=== PATIENT | male | born 1975 | race Caucasian/White ===

== ENCOUNTER 2017-12-17 05:24 | Inpatient (IN) ==
[2017-12-17] MEDS ORDERED: 0.9 % Sodium Chloride 1,000 ML IVC ONE (06:04)
[2017-12-17] MEDS ORDERED: Ondansetron 4 MG/2 ML VIAL IVP PRN ×2 (06:19→08:55)
[2017-12-17] MEDS ORDERED: Ondansetron 4 MG/2 ML VIAL ONE (06:20)
--- NOTE | 2017-12-17 06:22 | Emergency Department Note ---
Disposition Clinical Impression: Fever Qualifiers: Fever type: unspecified Qualified Code(s): R50.9 - Fever, unspecified Disposition: Still a Patient Condition: Undetermined Referrals: Jason Santos DO [Resident] - Forms: ED Satisfaction Letter Time of Disposition: 07:00 Fever HPI - General Chief Complaint: ED Fever Stated Complaint: FEVER Time Seen by Provider: 12/17/17 05:28 Source: patient Limitations: no limitations Nursing Notes Reviewed: Yes Vital Signs Reviewed: Yes - History of Present Illness HPI Narrative: Patient is a 42-year-old male who presents to [facility] ED with a chief complaint of headache, fever up to 102, nausea, general malaise. Past medical history significant for IV drug use, most recently used hair when yesterday. Also history of 3 prior aortic valve replacements at [facility]. States he was told the last time that if he needed another valve replacement, he would not be getting it. Patient denies any chest pain, admits to occasional shortness of breath, no abdominal pain, problems with urination or bowel movements. Pt Subjective Complaint: fever, malaise Onset (ago): day(s) Associated symptoms: Reports: myalgias, headache, cough, dyspnea Improves with: nothing Worsens with: nothing Treatments prior to arrival fever: none - Related Data Previous Rx's Medication Instructions Recorded Ampicillin 2 gm IVPB Q4HR vial 03/06/16 DiphenhydraMINE [Benadryl] 25 mg IV Q3MIN PRN #0 vial 03/06/16 Docusate [Colace] 100 mg PO BID PRN #0 capsule 03/06/16 Enoxaparin [Lovenox] 40 mg SQ DAILY syringe 03/06/16 FentaNYL (PF) 50 mcg IV Q3MIN PRN #0 vial 03/06/16 HYDROmorphone (PF) [Dilaudid] 1 mg IV Q4HR PRN #0 syringe 03/06/16 MOM Conc [MILK OF MAGNESIA conc] 10 ml PO DAILY PRN #0 ud.liq 03/06/16 Midazolam HCl [Versed] 2 mg IV Q3MIN PRN #0 vial 03/06/16 Naloxone [Narcan] 0.4 mg IV Q2MIN PRN #0 inj 03/06/16 cefTRIAXone [Rocephin] 2,000 mg IVPB DAILY vial 03/06/16 Zolpidem [Ambien] 10 mg PO HS PRN #0 tablet 03/07/16 Allergies Allergy/AdvReac Type Severity Reaction Status Date / Time No Known Allergies Allergy Verified 12/17/17 05:25 All systems ED: reviewed and negative except as stated. Fever PMH - Past Medical History Medical history: Reports: coronary artery disease, DVT, hepatitis, myocardial infarction, TIA Surgical history: Reports: heart valve replacement (Aortic porcine valve), other Psychiatric history: Reports: anxiety - Social History Smoking Status: Current every day smoker Alcohol use: Reports: occasionally Drug use: Reports: cocaine, opiates, marijuana, IV Drug Use, other Physical Exam - General Limitations: no limitations General appearance: alert, in no apparent distress - Head Head exam: atraumatic, normocephalic, normal inspection - Eye Eye exam: Present: normal appearance, PERRL, EOMI - ENT ENT exam: normal exam, normal oropharynx, mucous membranes moist - Neck Neck exam: Present: normal inspection, full ROM, trachea midline - Chest Chest inspection: Present: normal inspection, symmetric chest wall rise - Respiratory Respiratory exam: Present: normal lung sounds bilaterally - Cardiovascular Cardiovascular exam: Present: normal rhythm, tachycardia - Abdominal Exam Abdominal exam: Present: soft, Non-Tender. Absent: tenderness, distention, guarding, rebound, rigidity - Extremities Exam Extremities exam: Present: normal inspection, full ROM. Absent: tenderness, pedal edema - Back Exam Back exam: Present: normal inspection, full ROM. Absent: tenderness - Neurological Exam Neurological exam: Present: alert, oriented X3 - Psychiatric Psychiatric exam: Present: normal affect, normal mood - Skin Skin exam: Present: warm, dry, intact, normal color Course Course Narrative: Patient seen and examined. Fever measured at home. Afebrile here. We will do basic labs, blood cultures, EKG, chest x-ray. We will give 1 L IV fluids. Patient will be signed out to oncoming resident Dr. Gamboa. Vital Signs Temperature 98.8 F 12/17/17 05:25 Pulse Rate 104 12/17/17 05:25 Respiratory Rate 16 12/17/17 05:25 Blood Pressure 113/77 12/17/17 05:25 O2 Sat by Pulse Oximetry 97 12/17/17 05:25 Temperature 98.8 F 12/17/17 05:25 Pulse Rate 104 02/26/18 05:25 Respiratory Rate 16 12/17/17 05:25 Blood Pressure 113/77 12/17/17 05:25 O2 Sat by Pulse Oximetry 97 12/17/17 05:25 Oxygen Delivery Oxygen Delivery Room Air Fever - Medical Records Medical records reviewed: Yes I reviewed the patient's medical records. - Lab Data Result diagrams: 12/17/17 06:18 Lab Results 12/17/17 12/17/17 Range/Units 06:18 06:30 WBC 11.1 (4.3-11.1) K/mcL RBC 4.44 (4.19-5.50) M/mcL Hgb 12.8 L (12.9-16.9) g/dL Hct 37.0 L (37.5-50.1) % MCV 83.3 (83.0-100.0) fL MCH 28.8 (28.0-33.3) pg MCHC 34.6 (31.6-35.5) g/dL RDW 14.8 H (11.5-14.5) % Plt Count 131 L (140-400) K/mcL MPV 9.3 L (9.4-12.4) fL Immature Gran % 0.4 (0-4) % Seg Neutrophils % 91.6 % Lymphocytes % 2.3 % Monocytes % 5.5 % Eosinophils % 0.0 % Basophils % 0.2 % Neutrophils # 10.2 H (1.6-8.9) K/mcL Lymphocytes # 0.3 L (0.6-4.6) K/mcL Monocytes # 0.6 (0.0-1.3) K/mcL Eosinophils # 0.0 (0.0-0.6) K/mcL Basophils # 0.0 (0.0-0.2) K/mcL Urine Color Sera A (Yellow) Urine Clarity Clear (Clear) Urine pH 6.0 (5.0-8.0) pH Units Ur Specific [place] 1.027 H (1.010-1.025) Urine Protein 100 H (Neg-Trace) mg/dL Urine Glucose (UA) Normal (Normal) mg/dL Urine Ketones Trace H (Negative) mg/dL Urine Blood Negative (Negative) Urine Nitrite Negative (Negative) Urine Bilirubin Small H (Negative) Urine Urobilinogen Normal (Normal) mg/dL Ur Leukocyte Esterase Small H (Negative) Urine Microscopic RBC 5-15 H (0-3) per hpf Urine Microscopic WBC 5-15 H (0-3) per hpf Ur Squamous Epith Cells Many H (None-Few) per lpf Urine Bacteria None Seen (None-Few) per hpf Hyaline Casts None Seen (None-Few) per lpf Ur Culture Indicated? NO. (NO) - EKG Data EKG attestation: Yes I reviewed and interpreted this EKG. EKG results narrative: EKG done at 640 shows sinus tachycardia with a rate of [address] elevation or depression. Normal axis.
[2017-12-17 06:33] LABS: Basophils % 0.2 %; Hemoglobin 12.8 g/dL (12.9-16.9); Immature Granulocytes % 0.4 % (0-4); Lymphocytes # 0.3 K/mcL (0.6-4.6); Lymphocytes % 2.3 %; Mean Corpuscular HGB Conc 34.6 g/dL (31.6-35.5); Mean Corpuscular Hemoglobin 28.8 pg (28.0-33.3); Mean Corpuscular Volume 83.3 fL (83.0-100.0); Mean Platelet Volume 9.3 fL (9.4-12.4); Monocytes # 0.6 K/mcL (0.0-1.3); Monocytes % 5.5 %; Neutrophils # 10.2 K/mcL (1.6-8.9); Platelet Count 131 K/mcL (140-400); Red Blood Count 4.44 M/mcL (4.19-5.50); Red Cell Distribution Width 14.8 % (11.5-14.5); Segmented Neutrophils % 91.6 %
[2017-12-17 06:42] LABS: Bilirubin,Urine Small (Negative); Blood,Urine Negative (Negative); Clarity,Urine Clear (Clear); Glucose,Urine (UA) Normal (Normal); Ketones,Urine Trace mg/dL (Negative); Leukocyte Esterase,Urine Small (Negative); Nitrite,Urine Negative (Negative); Protein,Urine 100 mg/dL (Neg-Trace); Specific Gravity,Urine 1.027 (1.010-1.025); Urobilinogen,Urine Normal (Normal)
[2017-12-17 06:45] LABS: Bacteria,Urine None Seen per hpf (None-Few); Hyaline Casts,Urine None Seen per lpf (None-Few); Squamous Epithelial Cell,Urine Many per lpf (None-Few)
[2017-12-17 06:46] LABS: Color,Urine Amber (Yellow)
[2017-12-17 06:48] LABS: Alanine Aminotransferase 61 Units/L (7-52); Albumin/Globulin Ratio 1.1 (1.1-2.2); Alkaline Phosphatase 78 Units/L (34-104); Aspartate Amino Transferase 41 Units/L (13-39); BUN/Creatinine Ratio 18 (6-26); Bilirubin,Direct 0.9 mg/dL (0.0-0.2); Bilirubin,Indirect 1.3 mg/dL (0.0-1.2); Bilirubin,Total 2.2 mg/dL (0.3-1.0); Blood Urea Nitrogen 28 mg/dL (6-20); Calcium 9.1 mg/dL (8.6-10.3); Carbon Dioxide 26 mEq/L (23-29); Chloride 98 mEq/L (98-107); Globulin 3.7 g/dL (2.4-3.5); Glucose 132 mg/dL (70-105); Osmolality,Calculated 285 (280-300); Potassium 3.3 mEq/L (3.5-5.1); Sodium 134 mEq/L (136-145); Total Protein 7.7 g/dL (6.4-8.9); eGFR For African Americans > 60 (> 60); eGFR For Non-African Americans 50 (> 60)
[2017-12-17] MEDS ORDERED: Ketorolac 15 MG/ML VIAL IVP ONE (07:03)
[2017-12-17] MEDS ORDERED: Gentamicin 100 MG in 0.9 % Sodium Chloride 100 ML IVPB ONE (07:04)
[2017-12-17] MEDS ORDERED: *HR* Promethazine 25 MG/ML VIAL IVP ONE (07:06)
[2017-12-17] MEDS ORDERED: Aspirin 81 MG TAB.CHEW PO ONE (07:07)
--- NOTE | 2017-12-17 07:09 | Emergency Department Note ---
Disposition Clinical Impression: Elevated troponin, History of endocarditis, History of drug use Fever Qualifiers: Fever type: unspecified Qualified Code(s): R50.9 - Fever, unspecified Disposition: Admitted As Inpatient Condition: Fair Time of Disposition: 07:09 Fever HPI - General Chief Complaint: ED Fever Stated Complaint: FEVER Time Seen by Provider: 12/17/17 05:28 Source: patient Limitations: no limitations - History of Present Illness HPI Narrative: Patient was signed by the prior provider. Please see the history and physical for complete documentation. Associated symptoms: Reports: myalgias, headache, cough, dyspnea Treatments prior to arrival fever: none - Related Data Home Medications Medication Instructions Recorded Confirmed No Known Home Drugs 12/17/17 12/17/17 Allergies Allergy/AdvReac Type Severity Reaction Status Date / Time No Known Allergies Allergy Verified 12/17/17 05:25 Fever PMH - Past Medical History Medical history: Reports: coronary artery disease, DVT, hepatitis, myocardial infarction, TIA Surgical history: Reports: heart valve replacement (Aortic porcine valve), other Psychiatric history: Reports: anxiety - Social History Smoking Status: Current every day smoker Alcohol use: Reports: occasionally Drug use: Reports: cocaine, opiates, marijuana, IV Drug Use, other Physical Exam - General Limitations: no limitations General appearance: alert, in no apparent distress - Head Head exam: atraumatic, normocephalic, normal inspection - Eye Eye exam: Present: normal appearance, PERRL, EOMI - ENT ENT exam: normal exam - Neck Neck exam: Present: normal inspection - Chest Chest inspection: Present: normal inspection - Respiratory Respiratory exam: Present: normal lung sounds bilaterally. Absent: respiratory distress - Cardiovascular Cardiovascular exam: Present: regular rate, normal rhythm, systolic murmur (RSB) - Abdominal Exam Abdominal exam: Present: soft, Non-Tender - Back Exam Back exam: Present: normal inspection - Neurological Exam Neurological exam: Present: alert, oriented X3, CN II-XII intact - Skin Skin exam: Present: warm, dry, intact, normal color Course Course Narrative: 42-year-old male with a history of IV drug use status post 3 donor heart valve replacements presents for evaluation of fever nausea and headache. States that symptom onset was approximately 2 days ago. Patient states he last used heroin 2 days ago. Patient also notes diffuse muscle aches and joint aches. Patient denies any chest pain or dyspnea. Patient's labs and workup today was started by the prior provider. - Reevaluation(s) Reevaluation #1: Patient seen and examined. Patient appears to be in no acute distress. Patient will get basic labs and chest x-ray antibiotics blood cultures and likely transfer to [facility]. Time: 07:09 Reevaluation #2: Patient seen and examined. Patient states that he does not want to go to [facility] or any other facility in [place] to manage his likely infective endocarditis. Patient states that he would only want antibiotics. States that he has had 3 valves replaced in the past. 2 at [facility] and 1 at [facility] and states that those facilities will not sonal him any other surgeries. Patient states that he does not want to be transferred. States that he will go home with he is not admitted here. Pt states "all they are going to do is giving me antibiotics at [facility] or [facility]". Patient was counseled on risks and benefits of being admitted or going to a facility that handles endocarditis with his prior surgeries. Time: 07:20 Reevaluation #3: Patient will be admitted. Time: 09:17 - Consultations Consultation #1: Patient hosptialist states that they don't want to admit the patient. Hospitalist states they will come down to evaluate the patient. Time: 08:41 Vital Signs Temperature 98.8 F 12/17/17 05:25 Pulse Rate 104 12/17/17 05:25 Respiratory Rate 16 12/17/17 05:25 Blood Pressure 113/77 12/17/17 05:25 O2 Sat by Pulse Oximetry 97 12/17/17 05:25 Temperature 99.8 F H 12/17/17 08:54 Pulse Rate 98 12/17/17 08:54 Respiratory Rate 16 12/17/17 08:54 Blood Pressure 99/76 12/17/17 08:54 O2 Sat by Pulse Oximetry 95 12/17/17 08:54 Oxygen Delivery Oxygen Delivery Room Air Fever - MDM Narrative Medical decision making narrative: 42-year-old male presents for evaluation of fever as well as nausea vomiting and headache. Patient has a significant history of infective endocarditis with 3 replacements in the past. Patient was signed out by the prior provider. Patient was noted to have several lab abnormalities. One of which included an elevated troponin likely secondary to his infective endocarditis. Patient states that he did use heroin approximately 3 days ago. Since symptom onset occurred at that time. Patient's symptomatology is most consistent with infective endocarditis. Patient was started on antibiotics. Blood cultures obtained. As indicated transfer to a tertiary care facility that manages his past endocarditis however the patient was adamant about not being transferred. States that all that they would do would provide antibiotics and states that he would go home if not admitted here. Patient states it they will not give him any other valve replacements. Patient's vitals are stable. Patient was given fluids as well as antiemetics and pain control. Patient's denying being on any blood thinners. Patient will be admitted to the hospital service for further evaluation and monitoring. - Lab Data Lab results reviewed: Yes I reviewed the patient's lab results. Result diagrams: 12/17/17 06:18 12/17/17 06:18 Lab Results 12/17/17 12/17/17 12/17/17 Range/Units 06:18 06:18 06:18 WBC 11.1 (4.3-11.1) K/mcL RBC 4.44 (4.19-5.50) M/mcL Hgb 12.8 L (12.9-16.9) g/dL Hct 37.0 L (37.5-50.1) % MCV 83.3 (83.0-100.0) fL MCH 28.8 (28.0-33.3) pg MCHC 34.6 (31.6-35.5) g/dL RDW 14.8 H (11.5-14.5) % Plt Count 131 L (140-400) K/mcL MPV 9.3 L (9.4-12.4) fL Immature Gran % 0.4 (0-4) % Seg Neutrophils % 91.6 % Lymphocytes % 2.3 % Monocytes % 5.5 % Eosinophils % 0.0 % Basophils % 0.2 % Neutrophils # 10.2 H (1.6-8.9) K/mcL Lymphocytes # 0.3 L (0.6-4.6) K/mcL Monocytes # 0.6 (0.0-1.3) K/mcL Eosinophils # 0.0 (0.0-0.6) K/mcL Basophils # 0.0 (0.0-0.2) K/mcL Sodium 134 L (136-145) mEq/L Potassium 3.3 L (3.5-5.1) mEq/L Chloride 98 (98-107) mEq/L Carbon Dioxide 26 (23-29) mEq/L BUN 28 H (6-20) mg/dL Creatinine 1.56 H (0.70-1.30) mg/dL Est GFR ( Amer) > 60 (> 60) Est GFR (Non-Af Amer) 50 L (> 60) BUN/Creatinine Ratio 18 (6-26) Glucose 132 H (70-105) mg/dL Calculated Osmolality 285 (280-300) Lactic Acid 1.7 (0.5-2.2) mmol/L Calcium 9.1 (8.6-10.3) mg/dL Total Bilirubin 2.2 H (0.3-1.0) mg/dL Direct Bilirubin 0.9 H (0.0-0.2) mg/dL Indirect Bilirubin 1.3 H (0.0-1.2) mg/dL AST 41 H (13-39) Units/L ALT 61 H (7-52) Units/L Alkaline Phosphatase 78 (34-104) Units/L Troponin I (< 0.04) ng/mL B-Natriuretic Peptide (Less than 100) pg/mL Serum Total Protein 7.7 (6.4-8.9) g/dL Albumin 4.0 (3.5-5.7) g/dL Globulin 3.7 H (2.4-3.5) g/dL Albumin/Globulin Ratio 1.1 (1.1-2.2) Urine Color (Yellow) Urine Clarity (Clear) Urine pH (5.0-8.0) pH Units Ur Specific [place] (1.010-1.025) Urine Protein (Neg-Trace) mg/dL Urine Glucose (UA) (Normal) mg/dL Urine Ketones (Negative) mg/dL Urine Blood (Negative) Urine Nitrite (Negative) Urine Bilirubin (Negative) Urine Urobilinogen (Normal) mg/dL Ur Leukocyte Esterase (Negative) Urine Microscopic RBC (0-3) per hpf Urine Microscopic WBC (0-3) per hpf Ur Squamous Epith Cells (None-Few) per lpf Urine Bacteria (None-Few) per hpf Hyaline Casts (None-Few) per lpf Ur Culture Indicated? (NO) 12/17/17 12/17/17 12/17/17 Range/Units 06:18 06:18 06:30 WBC (4.3-11.1) K/mcL RBC (4.19-5.50) M/mcL Hgb (12.9-16.9) g/dL Hct (37.5-50.1) % MCV (83.0-100.0) fL MCH (28.0-33.3) pg MCHC (31.6-35.5) g/dL RDW (11.5-14.5) % Plt Count (140-400) K/mcL MPV (9.4-12.4) fL Immature Gran % (0-4) % Seg Neutrophils % % Lymphocytes % % Monocytes % % Eosinophils % % Basophils % % Neutrophils # (1.6-8.9) K/mcL Lymphocytes # (0.6-4.6) K/mcL Monocytes # (0.0-1.3) K/mcL Eosinophils # (0.0-0.6) K/mcL Basophils # (0.0-0.2) K/mcL Sodium (136-145) mEq/L Potassium (3.5-5.1) mEq/L Chloride (98-107) mEq/L Carbon Dioxide (23-29) mEq/L BUN (6-20) mg/dL Creatinine (0.70-1.30) mg/dL Est GFR ( Amer) (> 60) Est GFR (Non-Af Amer) (> 60) BUN/Creatinine Ratio (6-26) Glucose (70-105) mg/dL Calculated Osmolality (280-300) Lactic Acid (0.5-2.2) mmol/L Calcium (8.6-10.3) mg/dL Total Bilirubin (0.3-1.0) mg/dL Direct Bilirubin (0.0-0.2) mg/dL Indirect Bilirubin (0.0-1.2) mg/dL AST (13-39) Units/L ALT (7-52) Units/L Alkaline Phosphatase (34-104) Units/L Troponin I 0.12 H* (< 0.04) ng/mL B-Natriuretic Peptide 419 H (Less than 100) pg/mL Serum Total Protein (6.4-8.9) g/dL Albumin (3.5-5.7) g/dL Globulin (2.4-3.5) g/dL Albumin/Globulin Ratio (1.1-2.2) Urine Color Sera A (Yellow) Urine Clarity Clear (Clear) Urine pH 6.0 (5.0-8.0) pH Units Ur Specific [place] 1.027 H (1.010-1.025) Urine Protein 100 H (Neg-Trace) mg/dL Urine Glucose (UA) Normal (Normal) mg/dL Urine Ketones Trace H (Negative) mg/dL Urine Blood Negative (Negative) Urine Nitrite Negative (Negative) Urine Bilirubin Small H (Negative) Urine Urobilinogen Normal (Normal) mg/dL Ur Leukocyte Esterase Small H (Negative) Urine Microscopic RBC 5-15 H (0-3) per hpf Urine Microscopic WBC 5-15 H (0-3) per hpf Ur Squamous Epith Cells Many H (None-Few) per lpf Urine Bacteria None Seen (None-Few) per hpf Hyaline Casts None Seen (None-Few) per lpf Ur Culture Indicated? NO. (NO) - Radiology Data Radiology results reviewed: Yes I reviewed the patient's radiology results. Chest X-Ray 12/17/17 07:17 IMPRESSION: No acute cardiopulmonary disease is identified. D/ / Fede Srinivasan MD / Fede Srinivasan MD Interpreting Provider: Fede Srinivasan MD S.B.AMateus - S.B.AStuRStu Situation: Demographics Background: Presenting Complaint Assessment: Vital Signs, Course and respsone to treatment, Patient/Family Expectation Recommendation: Barrier(s) to disposition, Recommendation based on pending studies, treatments, or consults S.B.A.RStu Report Given to: Dr. Shayy Nichole Repor Time: 08:43
--- NOTE | 2017-12-17 07:21 | Electrocardiograph Report ---
[place] [facility] Test Date: 2017-12-17 Pat Name: Arturo Quinn Department: 104 Room: Gender: M Orthopedic Physician: : [id number] Requested By: Angi Zuñiga Order Number: [id number] Reading MD: Alex Ramsay DO Measurements Intervals [place] Rate: 101 P: -84 NE: 194 QRS: -22 QRSD: 103 T: 48 QT: 356 QTc: 414 Interpretive Statements ECTOPIC ATRIAL TACHYCARDIA BORDERLINE LEFT AXIS DEVIATION [QRS AXIS < -20] ABNORMAL RHYTHM ECG POOR R WAVE PROGRESSION Electronically Signed On 12-17-2017 7:19:45 EST by Alex Ramsay DO
[2017-12-17] MEDS ORDERED: Naloxone 0.4 MG/ML INJ IVP PRN (08:55)
--- NOTE | 2017-12-17 09:14 | Internal Med History&Physical ---
Date of Encounter: 12/17/17 Time of Encounter: 08:45 Assessment and Plan (1) Sepsis Current visit: No Status: Acute Admit the pt into Tele He does meet Sepsis criteria with sinustachycardia, low grade fever, mildly elevated WBC and possible IE He is high risk for recurrent IE Blood cx were drawn in the ER..noticed only one set was drawn asked the ER attending to repeat another 2 sets of Blood cx now He was give Vanc and Gentamycin will cont them for now stat 2 E cho ID consulted continue symptomatic and supportive care Qualifiers: Sepsis type: sepsis due to unspecified organism Qualified Code(s): A41.9 - Sepsis, unspecified organism (2) NSTEMI (non-ST elevated myocardial infarction) Current visit: Yes Status: Acute Slightly elevated Trop Reviewed EKG showed : sinus tachycardia with HR 101, No acute ST elevation or depression. Normal axis Card consulted Trend on Trop May need heparin gtt.. Will defer this decision to Card Echo ordered (3) IV drug abuse Current visit: Yes Status: Acute IV Heroin high risk for withdrawal symptoms will put him on CIWA last dose 3 days ago counseled to quit (4) S/P aortic valve replacement with prosthetic valve Current visit: Yes Status: Acute will obtain records from [facility] and [facility] (5) History of endocarditis Current visit: Yes Status: Acute (6) Hepatitis-C Current visit: No Status: Chronic sightly elevated LFT's could be sepsis related cont close monitoring Qualifiers: Viral hepatitis chronicity: chronic Hepatic coma status: without hepatic coma Qualified Code(s): B18.2 - Chronic viral hepatitis C Internal Medicine - H&P: HPI Chief complaint: Fever / Chills Admitted From: Emergency Dept Plans for Post Hospital Care: Home History of present illness: Mr. Quinn is a 42 year old male with known PMH of CVA, DVT, infective endocarditis status post aortic valve replacement in 02/2015 an d002/2016 at [facility] , hepatitis C, GERD, and IV Heroin drug abuse pt who is still actively doing IV Heroin, had last dose 3 days ago now presented to ER with 1 week history of fever/ chills. Denied any CP. Here in the ER his Trop @ 0.12, we requested him to go to [facility] for further higher level of care since he is high risk pt for another Infectious endocarditis on a prosthetic valve. However pt mentioned he had 3 times heart valve repair at [facility] and [place], at both placeds they told him, they can not do any more surgeries. So he refused to go to tertiary care center, even after I clearly explained to him we may not provide any surgical interventions here, that is going to put his life in jeopardy. He wanted to get admitted here and see how his disease progress in next 2 days. Past Med Surg Social Fam HX - Past Medical History Medical history: coronary artery disease, DVT, hepatitis, myocardial infarction , TIA Psychiatric history: anxiety - Past Surgical History Surgical History: heart valve replacement (Aortic porcine valve), other - Social History Smoking Status: Current every day smoker Smokeless Tobacco Status: No Alcohol use: occasionally Drug use: cocaine, opiates, marijuana, IV Drug Use, other - Family History Grandfather Living Status: Hx Family Cardiac Disorders: Yes Hx Family Respiratory Disorders: Yes Internal Medicine - H&P: Meds No Known Home Drugs 12/17/17 [History] 3 Allergy/AdvReac Type Severity Reaction Status Date / Time No Known Allergies Allergy Verified 12/17/17 05:25 All Systems PM: A 10-system review of systems was performed and is negative for pertinent findings except as documented above in the HPI. Review of systems: All the systems are reviewed everything is benign except the systems and symptoms I mentioned in the history of present illness - Constitutional Vitals: Temp Pulse Resp BP Pulse Ox 99.8 F H 98 16 99/76 95 12/17/17 08:54 12/17/17 08:54 12/17/17 08:54 12/17/17 08:54 12/17/17 08:54 General appearance: Present: cooperative, A&O X 3, answers questions appropriately Exam: Looks weak and lethargic shivering and tremors noticed - Head Head exam: Present: atraumatic, normocephalic - Neck Neck exam general surgery: Present: supple - Respiratory Respiratory exam: Present: decreased breath sounds. Absent: rales, respiratory distress, rhonchi, wheezes - Cardiovascular Cardiovascular exam: Present: +S1, +S2, systolic murmur, tachycardia - GI/Abdominal GI/Abdominal exam: Present: normal bowel sounds, soft. Absent: rebound, rigid, tenderness - Extremities Exam Extremities exam: Present: pedal edema (trace). Absent: calf tenderness, tenderness - Back Exam Back exam: Absent: CVA tenderness (L), CVA tenderness (R) - Neurological Exam Neurological exam: Present: alert, oriented X3 - Psychiatric Psychiatric exam: Present: anxious - Skin Skin exam: Absent: rash Internal Med - H&P Results - Labs CBC & Chem 7: 12/17/17 06:18 12/17/17 06:18 Labs: Short CBC 12/17/17 Range/Units 06:18 WBC 11.1 (4.3-11.1) K/mcL Hgb 12.8 L (12.9-16.9) g/dL Hct 37.0 L (37.5-50.1) % Plt Count 131 L (140-400) K/mcL Neutrophils # 10.2 H (1.6-8.9) K/mcL BMP 12/17/17 06:18 Sodium 134 L Potassium 3.3 L Chloride 98 Carbon Dioxide 26 BUN 28 H Creatinine 1.56 H Glucose 132 H Calcium 9.1 Cardiac Enzymes 12/17/17 Range/Units 06:18 Troponin I 0.12 H* (< 0.04) ng/mL Liver Function 12/17/17 Range/Units 06:18 Total Bilirubin 2.2 H (0.3-1.0) mg/dL Direct Bilirubin 0.9 H (0.0-0.2) mg/dL AST 41 H (13-39) Units/L ALT 61 H (7-52) Units/L Alkaline Phosphatase 78 (34-104) Units/L Albumin 4.0 (3.5-5.7) g/dL Urine 12/17/17 Range/Units 06:30 Urine Color Sera A (Yellow) Urine Clarity Clear (Clear) Urine pH 6.0 (5.0-8.0) pH Units Ur Specific [place] 1.027 H (1.010-1.025) Urine Protein 100 H (Neg-Trace) mg/dL Urine Glucose (UA) Normal (Normal) mg/dL - Impressions ITS Impressions Chest X-Ray 12/17/17 07:17 IMPRESSION: No acute cardiopulmonary disease is identified. D/ / Fede Srinivasan MD / Fede Srinivasan MD Interpreting Provider: Fede Srinivasan MD
--- NOTE | 2017-12-17 12:08 | Infectious Disease Consult ---
Date of Encounter: 12/17/17 Time of Encounter: 12:08 Assessment and Plan (1) Sepsis Status: Acute Assessment and plan: The patient had two SIRS criteria on admission (fever and tachycardia). Etiology unclear: bacteremia vs. endocarditis vs. other. The patient has some lesions on his hand that could be Janeway lesions, but does not have any other endocarditis stigmata. Has three minor Modified Mahan's Criteria. He does have an extensive history of endocarditis and does have a history of aortic valve replacement, most recent with a donor valve in June 2016. He continues to use IV drugs. Lactic acid normal. Blood cultures obtained 12/17/17 x 3 sets are pending. CXR negative. Flu antigen swab negative. Await blood culture results. Get flu PCR now. Continue Vancomycin IV. Pharmacy to dose. Goal trough ~15. Discontinue Gentamicin. Start Rocephin 2 grams IV Q12H. Duration of treatment depends on the clinical picture. Monitor renal function and for drug toxicity and dose-adjust antibiotics. Qualifiers: Sepsis type: sepsis due to unspecified organism Qualified Code(s): A41.9 - Sepsis, unspecified organism (2) Elevated troponin Status: Acute Assessment and plan: Etiology unclear. Patient denies chest pain. Consider cardiology consult. Further workup and management per the primary team. (3) Status post aortic valve replacement Status: Acute Assessment and plan: Status post aortic valve replacement x 3 due to endocarditis/valve abscess. 02/2015 at [facility] - tissue valve. 03/2016 at [facility] - Redo sternotomy, AV replacement (tissue), and bovine pericardial aortoplasty augmentation. 06/2016 at [facility] - details not available, but the patient reports they used a donor valve. (4) History of endocarditis Status: Acute Assessment and plan: 02/2015 - Causative organism Serratia marcescens, AVR tissue, Cefepime/ Gentamicin x 6 weeks, septic emboli to the brain. 07/2015 - Causative organism Serratia marcescens and Burkholderia, Minocycline IV/Bactrim IV x 6 weeks. 03/2016 - Causative organism E. faecalis, aortic valve abscess, AVR tissu, Ampicillin/Rocephin x 6 weeks. 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 06/2016 - Went back to [facility], CTS refused to perform additional surgery, patient transferred to [facility] for second opinion, had AVR with donor valve, unsure of antibiotic therapy post-op. Will request records from [facility]. (5) Tobacco abuse Status: Acute (6) Drug abuse and dependence Status: Chronic Assessment and plan: Reports last using IV Heroine 2 days ago. High risk for withdrawal syndrome. Management per the primary team. (7) Hepatitis-C Status: Chronic Assessment and plan: Known Hep C positive. Check HIV status. Qualifiers: Viral hepatitis chronicity: chronic Hepatic coma status: without hepatic coma Qualified Code(s): B18.2 - Chronic viral hepatitis C Infectious Disease HPI - Data of Consult Patient: known to practice within the last 3 years Consult date: 12/17/17 Requesting Physician: Kena Lucas MD Primary Care Provider: PCP NONE - Consult Narrative Reason for consult: Fever History of present illness: Mr. Quinn is a 42 year old male with a past medical history of endocarditis status post aortic valve replacement 3 with most recent in June 2017 with a donor valve, CAD, DVT, hepatitis C, TIA, and IV drug use with last use 2 days ago. The patient is admitted to the hospital on December 17 for fever and elevated troponin. We are consulted December 17 for antibiotic recommendations for possible endocarditis. Briefly, the patient is a 42-year-old male with past medical history as stated above. The patient has been evaluated by the infectious disease team during a hospitalization back in 2015 when he was diagnosed with infective endocarditis. At that time, the patient's causative organism was enterococcus faecalis after his blood cultures came back +2 out of 2 sets. At that time, he was transferred to [facility] for further evaluation and underwent an aortic valve replacement. Prior to that, the patient had been previously diagnosed with infective endocarditis and had undergone an aortic valve replacement in February 2015. 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 He was evaluated by [facility] and subsequently transferred to [facility] where he underwent his most recent aortic valve replacement. At that time, the patient's blood cultures were negative. About 2 days ago, the patient began to have fever, headache, and generalized malaise. He reports a fever 102 at home. Upon arrival, he was afebrile, but was tachycardic. His white blood cell count is normal. Urine creatinine is elevated, but appears to be at baseline based on previous results. Additionally, his liver enzymes are elevated as well. Chest x-ray was negative. Urinalysis appears contaminated. He did have a flu antigen swab that was negative. Blood cultures were obtained 3 sets the emergency department. The patient was advised to be transferred to either [facility] or [facility], but the patient refuses he has been told in the past that if he gets endocarditis again he is no longer a surgical candidate. He was started originally on vancomycin and gentamicin. We have been asked to evaluate and make further recommendations. During my exam today, the patient endorses a history as stated above. He states that 2 days ago he started having fever with MAXIMUM TEMPERATURE of 102 with generalized malaise and headache. He states the headache is generalized and denies any neck stiffness, dizziness, or weakness. He denies any congestion , earache, or sore throat. He denies any chest pain, shortness of breath, or cough. He reports nausea, but no vomiting and states he has not eaten anything in 2 days because he does not have much of an appetite. He denies abdominal pain or urinary complaints. He does report the onset of a rash to the left hand that he has been using his knife to cut off the lesions. He denies pain in any specific joint or region of his back, but does state that he just hurts all over. He denies any blurred vision or floaters. The patient lives at home with his girlfriend. He does not work. He reports that he smokes pack cigarettes per day. He states that he last used IV heroin 2 days ago. He states he uses about every other day, but his girlfriend says that he uses every day. He denies any recent sick contacts. Denies any travel outside the [facility]. CC: Kena Lucas MD Past Med Surg Social Fam HX - Past Medical History Attestation: Yes The following information was validated with the patient. Source: patient, old records reviewed, nursing notes reviewed Medical history: coronary artery disease, DVT, hepatitis, myocardial infarction , TIA, other (Infective endocarditis) Psychiatric history: anxiety - Past Surgical History Surgical History: heart valve replacement, other - Social History Smoking Status: Current every day smoker Smokeless Tobacco Status: No Alcohol use: occasionally Drug use: cocaine, opiates, marijuana, IV Drug Use, other - Family History Grandfather History Unknown: Yes Living Status: Hx Family Cardiac Disorders: Yes Hx Family Respiratory Disorders: Yes Infectious Disease-CN:Meds No Known Home Drugs 12/17/17 [History] 3 Allergy/AdvReac Type Severity Reaction Status Date / Time No Known Allergies Allergy Verified 12/17/17 05:25 All systems: reviewed and no additional remarkable complaints except as stated Exam - Constitutional Vitals: Temp Pulse Resp BP Pulse Ox 100.3 F H 101 12 120/65 96 12/17/17 10:16 12/17/17 10:16 12/17/17 10:20 12/17/17 10:20 12/17/17 10:16 General appearance: average body habitus, cooperative, no acute distress - Head Head exam: Present: atraumatic, normal inspection, normocephalic - Eye Eye exam: Present: EOMI, normal appearance, PERRL Pupils: Present: normal accommodation Additional comments: No subconjunctival hemorrhage noted. - ENT ENT exam: Present: mucous membranes moist - Neck Neck exam: Present: normal inspection - Respiratory Respiratory exam: Present: CTAB. Absent: rales, respiratory distress, rhonchi, wheezes - Cardiovascular Cardiovascular exam: Present: RRR, +S1, +S2 - GI/Abdominal GI/Abdominal exam: Present: normal bowel sounds, soft. Absent: distended, tenderness - Extremities Exam Extremities exam: Present: tenderness (Left knee/Lower leg). Absent: joint swelling, pedal edema Additional comments: Scabbed lesions noted to the dorsal aspect of the left hand. No surrounding redness, warmth, or drainage noted. Lesions noted to the right hand fingers - possible Janeway lesions - Back Exam Back exam: Present: normal inspection. Absent: paraspinal tenderness, vertebral tenderness - Neurological Exam Neurological exam: Present: alert, oriented X3, no focal deficits - Psychiatric Psychiatric exam: Present: normal affect, normal mood - Skin Skin exam: Present: dry, intact, normal color, warm Infectious Disease CN: Results - Labs CBC & Chem 7: 12/17/17 06:18 12/17/17 06:18 Consult Discharge Plan - Plan Referrals: NONE,PCP [Primary Care Provider] - - Attending Attestation I examined this patient and my medical decision-making was reviewed with the Resident Physician. I agree with the documented findings, disposition and treatment plan as described except to the extent set forth below. This is an addendum to report dictated by Denae Song CNP, Please refer to her note for full detail. Patient is a 42-year-old gentleman who has an extensive past medical history mentioned below who also has chronic hepatitis C, history of IV drug use ( most recent use 2 days ago) complicated by endocarditis with ampicillin sensitive Enterococcus faecalis. Patient apparently had aortic valve replaced in February 2015 and February 2016 at [facility]. Patient apparently presented to the emergency department complaining of fevers and chills. Apparently patient is not symptomatic for about 1 week. Patient associated symptoms including nausea and headache. Patient also notes diffuse muscle aches and joint aches. Patient denies any chest pain or dyspnea. In the emergency department patients MAXIMUM TEMPERATURE was 99.8 Fahrenheit. Patient was also tachycardic and blood pressure stable. Presenting WBC was 11.1 with neutrophil predominance at 92%. Patients BUN and creatinine was 28 and 1.56 respectively. Patient also had a troponin leak with troponin of 0.12. A UA was obtained that was contaminated. Influenza A and B antigen were obtained and were negative. A chest x-ray was obtained and it revealed no acute cardiopulmonary disease. Patient started on vancomycin and gentamicin and we are consulted to make further recommendations. currrently patien laying in bed. He tells me that the headache and generalized aches he's had before with infection. no signs of meningeal signs, no conjunctival hemorrhage. He does have left knee pain but physicial exam unremarkable. At this point he's had 3 AVR surgery, two pig valves and last one was a donor valve done at [place]. he had previous serratia endocarditis, Amp S Enteroroccus and most recently it was culture negative endocarditis. Will continue vancomycin and add rocephin for now, until cultures finalize pt will need a repeat MRI to make sure there are no septic emboli to the brain might need xray of the left knee goal vanc trough 15-20 prognosis guarded
[2017-12-17] MEDS: *HR* LORazepam 1 MG TABLET PO PRN ×2 (12:16→18:29)
[2017-12-17] MEDS: *HR* HYDROcodone/Acet 5/325 mg TABLET PO PRN ×2 (12:16→18:29)
[2017-12-17] MEDS: 0.9 % Sodium Chloride 1,000 ML IVC SCH ×2 (12:17→20:26)
[2017-12-17] MEDS: cloNIDine HCl 0.1 MG TABLET PO SCH ×2 (14:45→20:02)
[2017-12-17 15:50] LABS: Influenza A PCR Negative (Negative); Influenza B PCR Negative (Negative)
[2017-12-17] MEDS ORDERED: Gentamicin 100 MG in 0.9 % Sodium Chloride 100 ML IVPB SCH (17:00)
[2017-12-17] MEDS: cefTRIAXone 2,000 MG in Water for inj. (sterile) 20 ML 20 ML IVP SCH (18:29)
[2017-12-17 19:28] LABS: Acinetobacter baumannii by PCR Not Detected (Not Detect); Candida albicans by PCR Not Detected (Not Detect); Candida glabrata by PCR Not Detected (Not Detect); Candida krusei by PCR Not Detected (Not Detect); Candida parapsilosis by PCR Not Detected (Not Detect); Candida tropicalis by PCR Not Detected (Not Detect); Enterococcus by PCR Not Detected (Not Detect); Escherichia coli by PCR Not Detected (Not Detect); Klebsiella oxytoca by PCR Not Detected (Not Detect); Klebsiella pneumoniae by PCR Not Detected (Not Detect); Pseudomonas aeruginosa by PCR Not Detected (Not Detect); Serratia marcescens by PCR Not Detected (Not Detect); Staphylococcus aureus by PCR ***DETECTED*** (Not Detect); Streptococcus agalactiae(B)PCR Not Detected (Not Detect); Streptococcus by PCR Not Detected (Not Detect); Streptococcus pneumoniae PCR Not Detected (Not Detect); Streptococcus pyogenes (A) PCR Not Detected (Not Detect); mecA Methicillin-Resist Gene ***DETECTED*** (Not Detect)
[2017-12-17 19:40] LABS: Amphetamine Screen,Urine Negative ng/mL (Cutoff=1000); Barbiturate Screen,Urine Negative ng/mL (Cutoff=200); Benzodiazepines Screen,Urine Negative ng/mL (Cutoff=200); Cannabinoid Screen,Urine Negative ng/mL (Cutoff = 50); Cocaine Screen,Urine Positive ng/mL (Cutoff= 300); Opiate Screen,Urine Positive ng/mL (Cutoff=300); Phencyclidine Screen,Urine Negative ng/mL (Cutoff=25)
[2017-12-17] MEDS: Acetaminophen 325 MG TABLET PO PRN (20:02)
[2017-12-17] MEDS: *HR* OxyCODONE Immed Rel 5 MG TABLET PO PRN (20:26)
[2017-12-18] MEDS: *HR* HYDROcodone/Acet 5/325 mg TABLET PO PRN ×3 (00:52→14:15)
[2017-12-18] MEDS: *HR* LORazepam 1 MG TABLET PO PRN ×5 (00:52→20:25)
[2017-12-18 03:14] LABS: Basophils % 0.1 %; Eosinophils % 0.4 %; Hematocrit 33.2 % (37.5-50.1); Immature Granulocytes % 0.5 % (0-4); Lymphocytes # 0.4 K/mcL (0.6-4.6); Mean Corpuscular HGB Conc 33.4 g/dL (31.6-35.5); Mean Corpuscular Hemoglobin 29.1 pg (28.0-33.3); Mean Corpuscular Volume 86.9 fL (83.0-100.0); Mean Platelet Volume 9.8 fL (9.4-12.4); Monocytes # 0.5 K/mcL (0.0-1.3); Monocytes % 6.6 %; Neutrophils # 6.5 K/mcL (1.6-8.9); Platelet Count 102 K/mcL (140-400); Red Blood Count 3.82 M/mcL (4.19-5.50); Red Cell Distribution Width 14.9 % (11.5-14.5); Segmented Neutrophils % 87.4 %
[2017-12-18 03:24] LABS: Hemoglobin 11.1 g/dL (12.9-16.9)
[2017-12-18 03:37] LABS: Alanine Aminotransferase 51 Units/L (7-52); Albumin 3.3 g/dL (3.5-5.7); Alkaline Phosphatase 86 Units/L (34-104); Aspartate Amino Transferase 43 Units/L (13-39); BUN/Creatinine Ratio 17 (6-26); Bilirubin,Total 1.3 mg/dL (0.3-1.0); Blood Urea Nitrogen 20 mg/dL (6-20); Calcium 8.1 mg/dL (8.6-10.3); Carbon Dioxide 25 mEq/L (23-29); Chloride 104 mEq/L (98-107); Chol/HDL Ratio 4.2 (0-4.9); Cholesterol 84 mg/dL (< 200); Globulin 3.2 g/dL (2.4-3.5); Glucose 129 mg/dL (70-105); HDL Cholesterol 20 mg/dL (40-59); LDL Cholesterol,Calculated 43 mg/dL (0-99); Magnesium 1.9 mg/dL (1.6-2.6); Osmolality,Calculated 286 (280-300); Potassium 3.3 mEq/L (3.5-5.1); Sodium 136 mEq/L (136-145); Total Protein 6.5 g/dL (6.4-8.9); Triglycerides 106 mg/dL (< 150); eGFR For African Americans > 60 (> 60); eGFR For Non-African Americans > 60 (> 60)
[2017-12-18] MEDS: Dexmedetomidine HCl 400 MCG/100 ML MLS IVC SCH ×2 (04:14→22:35)
[2017-12-18 04:15] LABS: Acinetobacter baumannii by PCR Not Detected (Not Detect); Candida albicans by PCR Not Detected (Not Detect); Candida glabrata by PCR Not Detected (Not Detect); Candida krusei by PCR Not Detected (Not Detect); Candida parapsilosis by PCR Not Detected (Not Detect); Candida tropicalis by PCR Not Detected (Not Detect); Enterococcus by PCR Not Detected (Not Detect); Escherichia coli by PCR Not Detected (Not Detect); Klebsiella oxytoca by PCR Not Detected (Not Detect); Klebsiella pneumoniae by PCR Not Detected (Not Detect); Pseudomonas aeruginosa by PCR Not Detected (Not Detect); Serratia marcescens by PCR Not Detected (Not Detect); Streptococcus agalactiae(B)PCR Not Detected (Not Detect); Streptococcus by PCR Not Detected (Not Detect); Streptococcus pneumoniae PCR Not Detected (Not Detect); Streptococcus pyogenes (A) PCR Not Detected (Not Detect)
[2017-12-18 04:19] LABS: mecA Methicillin-Resist Gene ***DETECTED*** (Not Detect)
[2017-12-18 04:20] LABS: Staphylococcus aureus by PCR ***DETECTED*** (Not Detect)
[2017-12-18] MEDS: *HR* OxyCODONE Immed Rel 5 MG TABLET PO PRN ×2 (04:20→20:25)
[2017-12-18] MEDS: cefTRIAXone 2,000 MG in Water for inj. (sterile) 20 ML 20 ML IVP SCH (04:22)
[2017-12-18] MEDS: cloNIDine HCl 0.1 MG TABLET PO SCH ×2 (08:05→20:25)
[2017-12-18] MEDS: Aspirin Enteric Coated 81 MG Tablet PO SCH (08:05)
[2017-12-18] MEDS: *HR* Promethazine 25 MG/ML VIAL IVP PRN (08:05)
--- NOTE | 2017-12-18 10:41 | Infectious Disease Progress No ---
Date of Encounter: 12/18/17 Time of Encounter: 10:39 - Assessment and Plan (1) Sepsis Current Visit: No Status: Acute The patient had two SIRS criteria on admission (fever and tachycardia). Likely secondary to bacteremia and possible endocarditis. The patient continues to have fevers, tachycardia, and tachypnea. Blood cultures obtained 12/17/17 x 2 sets are positive for MRSA per PCR. CXR negative. Flu antigen and PCR swabs are negative. Qualifiers: Sepsis type: sepsis due to unspecified organism Qualified Code(s): A41.9 - Sepsis, unspecified organism (2) Bacteremia Current Visit: Yes Status: Acute Causative organism: MRSA. Blood cultures drawn 12/17/17 are positive 2/2 sets. He does have an extensive history of endocarditis and does have a history of aortic valve replacement, most recent with a donor valve in June 2016. He continues to use IV drugs. The patient has some lesions on his hand that could be Janeway lesions, but does not have any other endocarditis stigmata. Has three minor Modified Mahan's Criteria. TTE inadequate to evaluate for endocarditis. Get EDMUND. Repeat blood cultures x 2 sets now. Continue Vancomycin IV. Pharmacy to dose. Goal trough ~15. Discontinue Rocephin. Duration of treatment depends on the clinical picture. Monitor renal function and for drug toxicity and dose-adjust antibiotics. (3) Headache Current Visit: Yes Status: Acute Patient complains of persistent parietal headache. Etiology unclear. Denies blurred vision or floaters. 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 Consider MRI of the brain to evaluate. Qualifiers: Headache type: unspecified Headache chronicity pattern: acute headache Intractability: intractable Qualified Code(s): R51 - Headache (4) Elevated troponin Current Visit: Yes Status: Acute Etiology unclear. Patient denies chest pain. Consider cardiology consult. Further workup and management per the primary team. (5) Status post aortic valve replacement Current Visit: Yes Status: Acute Status post aortic valve replacement x 3 due to endocarditis/valve abscess. 02/2015 at [facility] - tissue valve. 03/2016 at [facility] - Redo sternotomy, AV replacement (tissue), and bovine pericardial aortoplasty augmentation. 06/2016 at [facility] - details not available, but the patient reports they used a donor valve. (6) History of endocarditis Current Visit: Yes Status: Acute 02/2015 - Causative organism Serratia marcescens, AVR tissue, Cefepime/ Gentamicin x 6 weeks, septic emboli to the brain. 07/2015 - Causative organism Serratia marcescens and Burkholderia, Minocycline IV/Bactrim IV x 6 weeks. 03/2016 - Causative organism E. faecalis, aortic valve abscess, AVR tissu, Ampicillin/Rocephin x 6 weeks. 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 06/2016 - Went back to [facility], CTS refused to perform additional surgery, patient transferred to [facility] for second opinion, had AVR with donor valve, unsure of antibiotic therapy post-op. Will request records from [facility]. (7) Tobacco abuse Current Visit: No Status: Acute (8) Drug abuse and dependence Current Visit: No Status: Chronic Reports last using IV Heroine 2 days ago. High risk for withdrawal syndrome. Management per the primary team. (9) Hepatitis-C Current Visit: No Status: Chronic Known Hep C positive. Check HIV status. Qualifiers: Viral hepatitis chronicity: chronic Hepatic coma status: without hepatic coma Qualified Code(s): B18.2 - Chronic viral hepatitis C - Subjective Interval history: Patient seen and examined. No acute events noted overnight. Patient states that overall he feels poorly. Reports headache in the front and top of his head, worse with cough or straining. Reports intermittent fevers, chills, or rigors overnight. Denies chest pain, shortness of breath, or cough. Denies nausea or vomiting. States he does not feel hungry, but is thirsty. He is currently NPO for EDMUND later today. Denies abdominal pain or urinary complaints. Complains of pain in the right wrist and left knee. Denies oral thrush or new skin lesions. Infect Dis PN-Objective Data - Labs CBC & Chem 7: 12/18/17 02:56 12/18/17 02:56 Labs: Laboratory Results - last 24 hr 12/17/17 12/17/17 12/17/17 10:08 12:09 14:49 WBC RBC Hgb Hct MCV MCH MCHC RDW Plt Count MPV Immature Gran % Seg Neutrophils % Lymphocytes % Monocytes % Eosinophils % Basophils % Neutrophils # Lymphocytes # Monocytes # Eosinophils # Basophils # Sodium Potassium Chloride Carbon Dioxide BUN Creatinine Est GFR ( Amer) Est GFR (Non-Af Amer) BUN/Creatinine Ratio Glucose Calculated Osmolality Calcium Magnesium Total Bilirubin AST ALT Alkaline Phosphatase Troponin I 0.12 H* B-Natriuretic Peptide Serum Total Protein Albumin Globulin Albumin/Globulin Ratio Triglycerides Cholesterol LDL Cholesterol, Calc VLDL Cholesterol, Calc HDL Cholesterol Cholesterol/HDL Ratio Urine Opiates Screen Ur Barbiturates Screen Ur Phencyclidine Scrn Ur Amphetamines Screen U Benzodiazepines Scrn Urine Cocaine Screen U Marijuana (THC) Screen A. baumannii (PCR) Not Detected Allison albicans (PCR) Not Detected C. glabrata (PCR) Not Detected C. krusei (PCR) Not Detected C. parapsilosis (PCR) Not Detected C. tropicalis (PCR) Not Detected Enterobacteriac sp PCR Not Detected E. cloacae complex PCR Not Detected Enterococcus sp PCR Not Detected E. coli (PCR) Not Detected H. influenzae (PCR) Not Detected Influenza Type A (PCR) Negative Influenza Type B (PCR) Negative Klebsiella oxytoca PCR Not Detected Klebsiella pneumoniae Not Detected List. monocytogenes PCR Not Detected N. meningitidis (PCR) Not Detected Proteus species (PCR) Not Detected Serratia marcescens PCR Not Detected Staphylococcus sp PCR DETECTED A Staph aureus (PCR) DETECTED A mecA-Methicil Res Gene DETECTED A Streptococcus sp PCR Not Detected Group A Strep DNA Not Detected Group B Strep (PCR) Not Detected Strep pneumoniae (PCR) Not Detected P. aeruginosa (PCR) Not Detected Marli/B-Vanco Res Genes N/A KPC (blaKPC) Detect PCR N/A 12/17/17 12/17/17 12/18/17 16:59 18:57 02:56 WBC 7.4 RBC 3.82 L Hgb 11.1 L D Hct 33.2 L MCV 86.9 MCH 29.1 MCHC 33.4 RDW 14.9 H Plt Count 102 L MPV 9.8 Immature Gran % 0.5 Seg Neutrophils % 87.4 Lymphocytes % 5.0 Monocytes % 6.6 Eosinophils % 0.4 Basophils % 0.1 Neutrophils # 6.5 Lymphocytes # 0.4 L Monocytes # 0.5 Eosinophils # 0.0 Basophils # 0.0 Sodium Potassium Chloride Carbon Dioxide BUN Creatinine Est GFR ( Amer) Est GFR (Non-Af Amer) BUN/Creatinine Ratio Glucose Calculated Osmolality Calcium Magnesium Total Bilirubin AST ALT Alkaline Phosphatase Troponin I 0.19 H* B-Natriuretic Peptide Serum Total Protein Albumin Globulin Albumin/Globulin Ratio Triglycerides Cholesterol LDL Cholesterol, Calc VLDL Cholesterol, Calc HDL Cholesterol Cholesterol/HDL Ratio Urine Opiates Screen Positive H Ur Barbiturates Screen Negative Ur Phencyclidine Scrn Negative Ur Amphetamines Screen Negative U Benzodiazepines Scrn Negative Urine Cocaine Screen Positive H U Marijuana (THC) Screen Negative A. baumannii (PCR) Allison albicans (PCR) C. glabrata (PCR) C. krusei (PCR) C. parapsilosis (PCR) C. tropicalis (PCR) Enterobacteriac sp PCR E. cloacae complex PCR Enterococcus sp PCR E. coli (PCR) H. influenzae (PCR) Influenza Type A (PCR) Influenza Type B (PCR) Klebsiella oxytoca PCR Klebsiella pneumoniae List. monocytogenes PCR N. meningitidis (PCR) Proteus species (PCR) Serratia marcescens PCR Staphylococcus sp PCR Staph aureus (PCR) mecA-Methicil Res Gene Streptococcus sp PCR Group A Strep DNA Group B Strep (PCR) Strep pneumoniae (PCR) P. aeruginosa (PCR) Marli/B-Vanco Res Genes KPC (blaKPC) Detect PCR 12/18/17 12/18/17 02:56 02:56 WBC RBC Hgb Hct MCV MCH MCHC RDW Plt Count MPV Immature Gran % Seg Neutrophils % Lymphocytes % Monocytes % Eosinophils % Basophils % Neutrophils # Lymphocytes # Monocytes # Eosinophils # Basophils # Sodium 136 Potassium 3.3 L Chloride 104 Carbon Dioxide 25 BUN 20 Creatinine 1.21 Est GFR ( Amer) > 60 Est GFR (Non-Af Amer) > 60 BUN/Creatinine Ratio 17 Glucose 129 H Calculated Osmolality 286 Calcium 8.1 L Magnesium 1.9 Total Bilirubin 1.3 H AST 43 H ALT 51 Alkaline Phosphatase 86 Troponin I B-Natriuretic Peptide 265 H Serum Total Protein 6.5 Albumin 3.3 L Globulin 3.2 Albumin/Globulin Ratio 1.0 L Triglycerides 106 Cholesterol 84 LDL Cholesterol, Calc 43 VLDL Cholesterol, Calc 21 HDL Cholesterol 20 L Cholesterol/HDL Ratio 4.2 Urine Opiates Screen Ur Barbiturates Screen Ur Phencyclidine Scrn Ur Amphetamines Screen U Benzodiazepines Scrn Urine Cocaine Screen U Marijuana (THC) Screen A. baumannii (PCR) Allison albicans (PCR) C. glabrata (PCR) C. krusei (PCR) C. parapsilosis (PCR) C. tropicalis (PCR) Enterobacteriac sp PCR E. cloacae complex PCR Enterococcus sp PCR E. coli (PCR) H. influenzae (PCR) Influenza Type A (PCR) Influenza Type B (PCR) Klebsiella oxytoca PCR Klebsiella pneumoniae List. monocytogenes PCR N. meningitidis (PCR) Proteus species (PCR) Serratia marcescens PCR Staphylococcus sp PCR Staph aureus (PCR) mecA-Methicil Res Gene Streptococcus sp PCR Group A Strep DNA Group B Strep (PCR) Strep pneumoniae (PCR) P. aeruginosa (PCR) Marli/B-Vanco Res Genes KPC (blaKPC) Detect PCR Cultures: Cultures 12/17/17 10:08 Blood Culture - Preliminary Peripheral Venipuncture Gram Positive Cocci Serology 12/17/17 12/17/17 Range/Units 14:49 10:08 A. baumannii (PCR) Not Detected (Not Detect) Allison albicans (PCR) Not Detected (Not Detect) C. glabrata (PCR) Not Detected (Not Detect) C. krusei (PCR) Not Detected (Not Detect) C. parapsilosis (PCR) Not Detected (Not Detect) C. tropicalis (PCR) Not Detected (Not Detect) Enterobacteriac sp PCR Not Detected (Not Detect) E. cloacae complex PCR Not Detected (Not Detect) Enterococcus sp PCR Not Detected (Not Detect) E. coli (PCR) Not Detected (Not Detect) H. influenzae (PCR) Not Detected (Not Detect) Influenza Type A (PCR) Negative (Negative) Influenza Type B (PCR) Negative (Negative) Klebsiella oxytoca PCR Not Detected (Not Detect) Klebsiella pneumoniae Not Detected (Not Detect) List. monocytogenes PCR Not Detected (Not Detect) N. meningitidis (PCR) Not Detected (Not Detect) Proteus species (PCR) Not Detected (Not Detect) Serratia marcescens PCR Not Detected (Not Detect) Staphylococcus sp PCR DETECTED A (Not Detect) Staph aureus (PCR) DETECTED A (Not Detect) mecA-Methicil Res Gene DETECTED A (Not Detect) Streptococcus sp PCR Not Detected (Not Detect) Group A Strep DNA Not Detected (Not Detect) Group B Strep (PCR) Not Detected (Not Detect) Strep pneumoniae (PCR) Not Detected (Not Detect) P. aeruginosa (PCR) Not Detected (Not Detect) Marli/B-Vanco Res Genes N/A (Not Detect) KPC (blaKPC) Detect PCR N/A (Not Detect) - Impressions Impressions Echocardiogram 12/17/17 09:40 Impressions: LVEF 60%. Normal LV chamber size, wall thickness and function. Atypical septal motion consistent with post-operative status. Mild left ventricular diastolic dysfunction. Normal right ventricular structure and function. Bioprsosthetic aortic valve appears well seated. Leaflets not well visualized. Annulus appears thickened. No aortic regurgitation or stenosis. Bioprosthetic tricuspid valve noted. Leaflets not well visualized. No tricuspid regurgitation or stenosis noted. Bioprosthetic mitral valve noted. Annulus appears calcified. No mitral regurgitation. Grossly, leaflets demonstrate mobility, but significant mitral stenosis suggested by Doppler. Mean gradient 13 mmHg (HR 104 bpm). Overall, this study was inadequate to evaluate for endocarditis. Recommend EDMUND if clinically indicated. Left Ventricular Wall Motion: Rest Echo Findings All wall segments showed normal motion. Findings: Study Quality * Technically sub-optimal due to poor echocardiographic windows. ECG Findings * Normal sinus rhythm. Left Ventricle * LVEF 60%. * Normal LV chamber size, wall thickness and function. * Atypical septal motion consistent with post-operative status. * Mild left ventricular diastolic dysfunction. Right Ventricle * Normal right ventricular structure and function. Left Atrium * Mild to moderately dilated left atrium. Right Atrium * Normal right atrial size. Interatrial Septum * Interatrial septum not well evaluated. Aortic Valve * Bioprsosthetic aortic valve appears well seated. Annulus appears thickened. Overall, function appears normal. * No aortic regurgitation. * No aortic stenosis. Mitral Valve * Bioprosthetic mitral valve noted. Annulus appears calcified. * No mitral regurgitation. * Grossly, leaflets demonstrate mobility, but significant mitral stenosis suggested by Doppler. * Mean gradient 13 mmHg (HR 104 bpm). Tricuspid Valve * Bioprosthetic tricuspid valve noted. Leaflets not well visualized. * No tricuspid regurgitation or stenosis noted. . * No evidence of pulmonary hypertension. Pulmonic Valve * Normal pulmonic valve structure and function. * No pulmonic regurgitation. Aorta * Normally sized aortic root. Pericardium * The pericardium appears normal. IVC * Normal IVC dimensions and inspiratory collapse. Pulmonary Artery * Normal visualized portions of the main pulmonary artery. Exam - Constitutional Vitals: Temp Pulse Resp BP Pulse Ox 98.6 F 118 42 120/112 91 12/18/17 09:54 12/18/17 09:54 12/18/17 09:54 12/18/17 09:54 12/18/17 09:54 General appearance: average body habitus, cooperative, mild distress - Head Head exam: Present: atraumatic, normal inspection, normocephalic - Eye Eye exam: Present: EOMI, normal appearance, PERRL Pupils: Present: normal accommodation Additional comments: No subconjunctival hemorrhage noted. - ENT ENT exam: Present: mucous membranes moist - Neck Neck exam: Present: normal inspection. Absent: meningismus - Respiratory Respiratory exam: Present: CTAB. Absent: rales, respiratory distress, rhonchi, wheezes - Cardiovascular Cardiovascular exam: Present: +S1, +S2, tachycardia. Absent: irregular rhythm - GI/Abdominal GI/Abdominal exam: Present: normal bowel sounds, soft. Absent: distended, tenderness - Extremities Exam Extremities exam: Present: tenderness (Right wrist, left knee). Absent: joint swelling, pedal edema - Back Exam Back exam: Present: normal inspection. Absent: paraspinal tenderness, vertebral tenderness - Neurological Exam Neurological exam: Present: alert, oriented X3, no focal deficits - Psychiatric Psychiatric exam: Present: anxious - Skin Skin exam: Present: dry, intact, normal color, warm Additional comments: Scabbed lesions noted to the left dorsal hand without redness, warmth, or drainage. Painless, flat, pinpoint lesions noted to the right fingers #3 and #4. Consult Discharge Plan - Plan Referrals: NONE,PCP [Primary Care Provider] - - Attending Attestation I examined this patient and my medical decision-making was reviewed with the Resident Physician. I agree with the documented findings, disposition and treatment plan as described except to the extent set forth below. discussed with cardiology EDMUND suggesting endocarditis of mitral valve await MRI continue vancomycin d/c rocephin
[2017-12-18] MEDS ORDERED: Lidocaine Viscous Oral Soln 15 ML SOLUTION MM PRN (11:13)
[2017-12-18] MEDS ORDERED: *HR* FentaNYL (PF) 100 MCG/2 ML VIAL ONE (11:18)
[2017-12-18] MEDS ORDERED: *HR* Midazolam HCl 5 MG/5 ML VIAL IVP ONE (11:18)
[2017-12-18] MEDS ORDERED: 0.9 % Sodium Chloride 2,000 ML ONE (11:38)
[2017-12-18] MEDS ORDERED: *HR* Midazolam HCl 2 MG/2 ML VIAL IVP ONE (11:56)
[2017-12-18] MEDS ORDERED: *HR* FentaNYL (PF) 100 MCG/2 ML VIAL EP ONE (11:57)
--- NOTE | 2017-12-18 16:03 | Internal Med Progress Note ---
<Michael Mitchell - Last Filed: 12/18/17 16:01> Date of Encounter: 12/18/17 Time of Encounter: 16:01 - Assessment and plan (1) Sepsis Current Visit: Yes Status: Acute Assessment and plan: Likely secondary to bacteremia and possible endocarditis A TTE was performed but was in adequate to evaluate for possible endocarditis. A EDMUND was recommended and has been obtained we will await that report Blood cultures that were obtained are positive 2 per PCR for MRSA Qualifiers: Sepsis type: sepsis due to unspecified organism Qualified Code(s): A41.9 - Sepsis, unspecified organism (2) Bacteremia Current Visit: Yes Status: Acute Assessment and plan: Likely secondary to MRSA Blood cultures drawn on 12/17/17 were positive, preliminary PCR identification for MRSA Continue vancomycin and discontinue Rocephin per infectious disease recommendations (3) Drug abuse and dependence Current Visit: No Status: Chronic Assessment and plan: Patient has a history of drug use. Patient states that he last used IV heroin approximately 3 days ago. Patient has the potential to go into withdrawal symptoms. CIWA protocol is in place Precedex drip is ordered (4) Hepatitis-C Current Visit: No Status: Chronic Assessment and plan: chronic issue Qualifiers: Viral hepatitis chronicity: chronic Hepatic coma status: without hepatic coma Qualified Code(s): B18.2 - Chronic viral hepatitis C (5) Headache Current Visit: Yes Status: Acute Assessment and plan: Patient still has a headache Patient denies any changes in his vision, acute numbness weakness or tingling Patient has a history of emboli and from previous episodes of endocarditis Infectious disease has ordered an MRI to evaluate the brain. Patient has hydrocodone and oxycodone for pain relief Qualifiers: Headache type: unspecified Headache chronicity pattern: acute headache Intractability: intractable Qualified Code(s): R51 - Headache (6) Elevated troponin Current Visit: Yes Status: Acute Assessment and plan: Patient has an elevated troponin of 0.19. This is increased from 0.12. Patient has chronically elevated troponin We will continue to trend the troponin Patient denies any chest pain or shortness of breath at this time. (7) History of endocarditis Current Visit: Yes Status: Acute Assessment and plan: Patient has multiple episodes of endocarditis. He has been seen at outside facilities including [facility] and [facility] Patient states that even though he has had care at previous facilities he wishes to stay here at [facility]. (8) Tobacco abuse Current Visit: No Status: Acute Assessment and plan: Recommend cessation (9) DVT prophylaxis Current Visit: Yes Status: Acute Assessment and plan: SCDs have been ordered for this patient for DVT prophylaxis. - Subjective Interval history: Patient states that overall he is feeling pretty good at this time. However he does state that he has a headache that seems to be worse when he coughs. Patient states that she has had a history of infective endocarditis and has had multiple valvular replacements. Patient states that he recently used heroin approximately 3 days ago and. - Constitutional Vitals: Temp Pulse Resp BP Pulse Ox 100.3 F H 113 36 110/71 92 12/18/17 11:00 12/18/17 11:10 12/18/17 11:00 12/18/17 11:00 12/18/17 11:00 General appearance: Present: cooperative, A&O X 3, answers questions appropriately - Head Head exam: Present: atraumatic, normocephalic - Neck Neck exam general surgery: Present: full ROM, normal inspection, trachea midline - Respiratory Respiratory exam: Present: CTAB. Absent: accessory muscle use, rales, rhonchi, wheezes - Cardiovascular Cardiovascular exam: Present: +S1, +S2, tachycardia. Absent: diastolic murmur, gallop, rubs, systolic murmur - GI/Abdominal GI/Abdominal exam: Present: normal bowel sounds, soft, no peritoneal signs. Absent: distended, tenderness - Extremities Exam Extremities exam: Present: calf tenderness, warm. Absent: cyanotic, pedal edema - Neurological Exam Neurological exam: Present: alert, CN II-XII intact, oriented X3, no focal deficits. Absent: facial droop, speech deficit - Psychiatric Psychiatric exam: Present: agitated (Mildly agitated) - Skin Skin exam: Present: dry, intact, warm (Multiple tattoos throughout the body.) Internal Medicine: Result - Labs CBC & Chem 7: 12/18/17 02:56 12/18/17 02:56 Labs: Short CBC 12/18/17 Range/Units 02:56 WBC 7.4 (4.3-11.1) K/mcL Hgb 11.1 L D (12.9-16.9) g/dL Hct 33.2 L (37.5-50.1) % Plt Count 102 L (140-400) K/mcL Neutrophils # 6.5 (1.6-8.9) K/mcL BMP 12/18/17 02:56 Sodium 136 Potassium 3.3 L Chloride 104 Carbon Dioxide 25 BUN 20 Creatinine 1.21 Glucose 129 H Calcium 8.1 L Cardiac Enzymes 12/17/17 Range/Units 18:57 Troponin I 0.19 H* (< 0.04) ng/mL Liver Function 12/18/17 Range/Units 02:56 Total Bilirubin 1.3 H (0.3-1.0) mg/dL AST 43 H (13-39) Units/L ALT 51 (7-52) Units/L Alkaline Phosphatase 86 (34-104) Units/L Albumin 3.3 L (3.5-5.7) g/dL Consult Discharge Plan - Plan Referrals: NONE,PCP [Primary Care Provider] - <Bert Oneill H - Last Filed: 12/19/17 07:59> Date of Encounter: 12/19/17 - Constitutional Vitals: Temp Pulse Resp BP Pulse Ox 100.2 F H 89 20 110/63 92 12/19/17 03:55 12/19/17 07:00 12/19/17 03:55 12/19/17 07:00 12/19/17 03:55 Internal Medicine: Result - Labs CBC & Chem 7: 12/19/17 03:47 12/19/17 03:47 Labs: Short CBC 12/19/17 Range/Units 03:47 WBC 9.8 (4.3-11.1) K/mcL Hgb 10.3 L (12.9-16.9) g/dL Hct 30.9 L (37.5-50.1) % Plt Count 117 L (140-400) K/mcL Neutrophils # 7.8 (1.6-8.9) K/mcL BMP 12/19/17 03:47 Sodium 130 L Potassium 3.1 L Chloride 101 Carbon Dioxide 24 BUN 17 Creatinine 1.21 Glucose 132 H Calcium 8.2 L Cardiac Enzymes 12/19/17 Range/Units 03:47 Troponin I 0.06 H* (< 0.04) ng/mL Liver Function 12/19/17 Range/Units 03:47 Total Bilirubin 1.1 H (0.3-1.0) mg/dL AST 33 (13-39) Units/L ALT 44 (7-52) Units/L Alkaline Phosphatase 82 (34-104) Units/L Albumin 3.2 L (3.5-5.7) g/dL - Impressions Impressions Head MRI 12/18/17 11:26 IMPRESSION: 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 RECOMMENDATIONS: The findings were sent to the Radiology Results Communication [facility] at 4:34 pm on 12/18/2017to be communicated to a licensed caregiver. D/ / Anthony Garcia MD / Anthony Garcia MD Interpreting Provider: Anthony Garcia MD - Attending Attestation Follow MRI report I examined this patient and my medical decision-making was reviewed with the Resident Physician. I agree with the documented findings, disposition and treatment plan as described except to the extent set forth below.
[2017-12-19] MEDS: cloNIDine HCl 0.1 MG TABLET PO SCH ×3 (02:07→20:19)
[2017-12-19] MEDS: *HR* OxyCODONE Immed Rel 5 MG TABLET PO PRN ×2 (02:39→20:40)
[2017-12-19] MEDS: Dexmedetomidine HCl 400 MCG/100 ML MLS IVC SCH ×3 (03:21→17:48)
[2017-12-19 04:05] LABS: Basophils % 0.3 %; Eosinophils % 0.4 %; Hematocrit 30.9 % (37.5-50.1); Hemoglobin 10.3 g/dL (12.9-16.9); Immature Granulocytes % 1.7 % (0-4); Lymphocytes # 0.8 K/mcL (0.6-4.6); Lymphocytes % 7.6 %; Mean Corpuscular HGB Conc 33.3 g/dL (31.6-35.5); Mean Corpuscular Hemoglobin 28.9 pg (28.0-33.3); Mean Corpuscular Volume 86.8 fL (83.0-100.0); Mean Platelet Volume 9.8 fL (9.4-12.4); Monocytes % 10.3 %; Neutrophils # 7.8 K/mcL (1.6-8.9); Platelet Count 117 K/mcL (140-400); Red Blood Count 3.56 M/mcL (4.19-5.50); Red Cell Distribution Width 15.1 % (11.5-14.5); Segmented Neutrophils % 79.7 %
[2017-12-19 04:35] LABS: Alanine Aminotransferase 44 Units/L (7-52); Albumin 3.2 g/dL (3.5-5.7); Alkaline Phosphatase 82 Units/L (34-104); Aspartate Amino Transferase 33 Units/L (13-39); BUN/Creatinine Ratio 14 (6-26); Bilirubin,Total 1.1 mg/dL (0.3-1.0); Blood Urea Nitrogen 17 mg/dL (6-20); Calcium 8.2 mg/dL (8.6-10.3); Carbon Dioxide 24 mEq/L (23-29); Chloride 101 mEq/L (98-107); Globulin 3.2 g/dL (2.4-3.5); Glucose 132 mg/dL (70-105); Osmolality,Calculated 273 (280-300); Potassium 3.1 mEq/L (3.5-5.1); Sodium 130 mEq/L (136-145); Total Protein 6.4 g/dL (6.4-8.9); eGFR For African Americans > 60 (> 60); eGFR For Non-African Americans > 60 (> 60)
[2017-12-19] MEDS: Aspirin Enteric Coated 81 MG Tablet PO SCH (07:46)
[2017-12-19] MEDS: *HR* LORazepam 1 MG TABLET PO PRN ×2 (09:37→23:46)
--- NOTE | 2017-12-19 10:51 | Internal Med Progress Note ---
<Michael Mitchell - Last Filed: 12/19/17 15:18> Date of Encounter: 12/19/17 Time of Encounter: 10:47 - Assessment and plan (1) Sepsis Current Visit: Yes Status: Acute Assessment and plan: Likely secondary to bacteremia and infectious endocarditis A TTE was performed but was in adequate to evaluate for possible endocarditis. EDMUND showed possible vegetations on the mitral and tricuspid valve. The also noted a PFO with evidence of a left to right shunt. Blood cultures that were obtained are positive 2 per PCR for MRSA Currently on Vancomycin. First final culture is sensitive to Vanc Gentamicin has been added by ID Due to the patient being septic likely secondary to bacteremia and infectious endocarditis with vegetations on the mitral and tricuspid valve with emboli that have gone to the brain we have recommended to the patient multiple times that it would be beneficial for him to be transferred to a tertiary care center. The patient has repeatedly denied transfer. He states that he wishes to stay here at [facility] and understands that antibiotics is the only way that we can treat him here. I spoke with him again this afternoon and explained to him the severity of his condition, the imaging results and the possibility of this becoming a life-threatening condition and the patient has still refused transfer. He states that they will not do anything further for him at [facility] or [facility] where he has been in the past. Patient states that he understands that antibiotics are the only treatment that can be provided at this time at [facility]. The recommendations have been made for him to go to a tertiary care center the patient has been informed of the risks of not going to a tertiary care center and he is still elected to refuse transfer and to stay here at [facility]. Qualifiers: Sepsis type: sepsis due to unspecified organism Qualified Code(s): A41.9 - Sepsis, unspecified organism (2) Bacteremia Current Visit: Yes Status: Acute Assessment and plan: Likely secondary to MRSA Blood cultures drawn on 12/17/17 were positive, preliminary PCR identification for MRSA. One culture is final with MRSA. Continue vancomycin. Gentamicin has been added by ID. (3) Infective endocarditis Current Visit: Yes Status: Acute Assessment and plan: EDMUND shows possible vegetation on the mitral and tricuspid valves Patient currently on vanc and gentamicin has been added per ID Qualifiers: Infective endocarditis organism: bacterial Chronicity: acute Qualified Code(s): I33.0 - Acute and subacute infective endocarditis (4) Drug abuse and dependence Current Visit: No Status: Chronic Assessment and plan: Patient has a history of drug use. Patient states that he last used IV heroin approximately 4 days ago. Patient has the potential to go into withdrawal symptoms. CIWA protocol is in place Precedex drip is ordered (5) Hepatitis-C Current Visit: No Status: Chronic Assessment and plan: chronic issue Qualifiers: Viral hepatitis chronicity: chronic Hepatic coma status: without hepatic coma Qualified Code(s): B18.2 - Chronic viral hepatitis C (6) Headache Current Visit: Yes Status: Acute Assessment and plan: Patient still has a headache Patient denies any changes in his vision, acute numbness weakness or tingling Patient has a history of emboli and from previous episodes of endocarditis Patient has hydrocodone and oxycodone for pain relief Infectious disease has ordered an MRI to evaluate the brain which showed: 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 Qualifiers: Headache type: unspecified Headache chronicity pattern: acute headache Intractability: intractable Qualified Code(s): R51 - Headache (7) Elevated troponin Current Visit: Yes Status: Acute Assessment and plan: Patient has an elevated troponin of 0.06 decreased from 0.19. Patient has chronically elevated troponin Patient denies any chest pain or shortness of breath at this time. (8) History of endocarditis Current Visit: Yes Status: Acute Assessment and plan: Patient has multiple episodes of endocarditis. He has been seen at outside facilities including [facility] and [facility] Patient states that even though he has had care at previous facilities he wishes to stay here at [facility]. (9) Tobacco abuse Current Visit: No Status: Acute Assessment and plan: Recommend cessation (10) DVT prophylaxis Current Visit: Yes Status: Acute Assessment and plan: SCDs have been ordered for this patient for DVT prophylaxis. - Subjective Interval history: Patient states that he is not feeling very well today. He states that he is still having a headache, body aches his knee hurts and overall does not feel well. Patient states that he wants to be "sedated" - Constitutional Vitals: Temp Pulse Resp BP Pulse Ox 99.7 F H 92 20 122/69 95 12/19/17 08:29 12/19/17 08:29 12/19/17 08:29 12/19/17 08:29 12/19/17 08:29 General appearance: Present: cooperative, A&O X 3, answers questions appropriately - Head Head exam: Present: atraumatic, normocephalic - Neck Neck exam general surgery: Present: full ROM, normal inspection, trachea midline - Respiratory Respiratory exam: Present: CTAB. Absent: accessory muscle use, rales, rhonchi, wheezes - Cardiovascular Cardiovascular exam: Present: RRR, +S1, +S2. Absent: diastolic murmur, gallop, rubs, systolic murmur - GI/Abdominal GI/Abdominal exam: Present: normal bowel sounds, soft, tenderness, no peritoneal signs. Absent: distended Additional comments: Mild tenderness to the upper abdomen - Extremities Exam Extremities exam: Present: warm. Absent: pedal edema, tenderness - Neurological Exam Neurological exam: Present: alert, oriented X3, no focal deficits. Absent: facial droop, speech deficit - Psychiatric Psychiatric exam: Present: normal affect, normal mood - Skin Skin exam: Present: dry, intact, warm Internal Medicine: Result - Labs CBC & Chem 7: 12/19/17 03:47 12/19/17 03:47 Labs: Short CBC 12/19/17 Range/Units 03:47 WBC 9.8 (4.3-11.1) K/mcL Hgb 10.3 L (12.9-16.9) g/dL Hct 30.9 L (37.5-50.1) % Plt Count 117 L (140-400) K/mcL Neutrophils # 7.8 (1.6-8.9) K/mcL BMP 12/19/17 03:47 Sodium 130 L Potassium 3.1 L Chloride 101 Carbon Dioxide 24 BUN 17 Creatinine 1.21 Glucose 132 H Calcium 8.2 L Cardiac Enzymes 12/19/17 Range/Units 03:47 Troponin I 0.06 H* (< 0.04) ng/mL Liver Function 12/19/17 Range/Units 03:47 Total Bilirubin 1.1 H (0.3-1.0) mg/dL AST 33 (13-39) Units/L ALT 44 (7-52) Units/L Alkaline Phosphatase 82 (34-104) Units/L Albumin 3.2 L (3.5-5.7) g/dL - Impressions Impressions Head MRI 12/18/17 11:26 IMPRESSION: 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 RECOMMENDATIONS: The findings were sent to the Radiology Results Communication Center at 4:34 pm on 12/18/2017to be communicated to a licensed caregiver. D/ / Anthony Garcia MD / Anthony Garcia MD Interpreting Provider: Anthony Garcia MD Consult Discharge Plan - Plan Referrals: NONE,PCP [Primary Care Provider] - <Bert Oneill H - Last Filed: 12/19/17 16:14> Date of Encounter: 12/19/17 - Constitutional Vitals: Temp Pulse Resp BP Pulse Ox 98.3 F 70 20 93/44 93 12/19/17 15:45 12/19/17 15:45 12/19/17 15:45 12/19/17 15:45 12/19/17 15:45 Internal Medicine: Result - Labs CBC & Chem 7: 12/19/17 03:47 12/19/17 03:47 Labs: Short CBC 12/19/17 Range/Units 03:47 WBC 9.8 (4.3-11.1) K/mcL Hgb 10.3 L (12.9-16.9) g/dL Hct 30.9 L (37.5-50.1) % Plt Count 117 L (140-400) K/mcL Neutrophils # 7.8 (1.6-8.9) K/mcL BMP 12/19/17 03:47 Sodium 130 L Potassium 3.1 L Chloride 101 Carbon Dioxide 24 BUN 17 Creatinine 1.21 Glucose 132 H Calcium 8.2 L Cardiac Enzymes 12/19/17 Range/Units 03:47 Troponin I 0.06 H* (< 0.04) ng/mL Liver Function 12/19/17 Range/Units 03:47 Total Bilirubin 1.1 H (0.3-1.0) mg/dL AST 33 (13-39) Units/L ALT 44 (7-52) Units/L Alkaline Phosphatase 82 (34-104) Units/L Albumin 3.2 L (3.5-5.7) g/dL - Impressions Impressions Head MRI 12/18/17 11:26 IMPRESSION: 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 RECOMMENDATIONS: The findings were sent to the Radiology Results Communication Center at 4:34 pm on 12/18/2017to be communicated to a licensed caregiver. D/ / Anthony Garcia MD / Anthony Garcia MD Interpreting Provider: Anthony Garcia MD - Attending Attestation The patient was explained the risks of his condition, EDMUND showed vegetations on the bioprosthetic mitral valve and possibly on the bioprosthetic tricuspid valve. The patient does not want to be transferred, would not use on anticoagulation for the septic emboli in his brain due to high risk of bleeding I examined this patient and my medical decision-making was reviewed with the Resident Physician. I agree with the documented findings, disposition and treatment plan as described except to the extent set forth below.
--- NOTE | 2017-12-19 11:32 | Infectious Disease Progress No ---
Date of Encounter: 12/19/17 Time of Encounter: 11:30 - Assessment and Plan (1) Sepsis Current Visit: Yes Status: Acute The patient had two SIRS criteria on admission (fever and tachycardia). Likely secondary to bacteremia and possible endocarditis. The patient continues to have fevers and tachypnea overnight. His tachycardia has resolved. Blood cultures obtained 12/17/17 x 2 sets are positive for MRSA per PCR. Repeat blood cultures drawn 12/18/17 are positive 2/2 sets for MRSA per PCR. CXR negative. Flu antigen and PCR swabs are negative. Qualifiers: Sepsis type: sepsis due to unspecified organism Qualified Code(s): A41.9 - Sepsis, unspecified organism (2) Bacteremia Current Visit: Yes Status: Acute Causative organism: MRSA. Blood cultures drawn 12/17/17 are positive 2/2 sets. He does have an extensive history of endocarditis and does have a history of aortic and mitral valve replacement, most recent with a donor valve in June 2016. He continues to use IV drugs. The patient has some lesions on his hand that could be Janeway lesions, but does not have any other endocarditis stigmata. Has one major and three minor Modified Mahan's Criteria. TTE inadequate to evaluate for endocarditis. EDMUND positive for endocarditis. Repeat blood cultures x 2 sets in the AM. Continue Vancomycin IV. Pharmacy to dose. Goal trough ~15. Most recent trough 11. Dosing discussed with Andra Fleming. Add Gentamicin 1mg/kg IV Q8H. Duration of treatment depends on the clinical picture. Monitor renal function and for drug toxicity and dose-adjust antibiotics. (3) Infective endocarditis Current Visit: Yes Status: Acute Causative organism: MRSA. Likely secondary to bacteremia from IVDU. Blood cultures continue to be positive. TTE negative, but EDMUND showed a 10mm x 3.6mm mobile echodensity attached to the atrial side of the anterior mitral valve leaflet consistent with vegetation. It also showed a very subtle echodensity attached to a portion of the annulus of the tricuspid valve which could represent a vegetation. Continue antibiotics as above. Add Gentamicin for prosthetic valve endocarditis. The patient has been told previously that he is not a candidate for additional surgery due to his multiple episodes of previous endocarditis and continued drug use. Duration of treatment depends on the clinical picture. Qualifiers: Infective endocarditis organism: bacterial Chronicity: acute Qualified Code(s): I33.0 - Acute and subacute infective endocarditis (4) Intracranial septic embolism Current Visit: Yes Status: Acute Likely secondary to bacteremia and endocarditis. 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 Recommend the patient be transferred to tertiary care center for neurosurgery evaluation. (5) Headache Current Visit: Yes Status: Acute Patient complains of persistent parietal headache. Likely secondary to septic emboli in the brain. Denies blurred vision or floaters. 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 Pain management per the primary team. Qualifiers: Headache type: unspecified Headache chronicity pattern: acute headache Intractability: intractable Qualified Code(s): R51 - Headache (6) Elevated troponin Current Visit: Yes Status: Acute Etiology unclear. Patient denies chest pain. Consider cardiology consult. Further workup and management per the primary team. (7) Status post aortic valve replacement Current Visit: Yes Status: Acute Status post aortic valve replacement x 3 due to endocarditis/valve abscess. 02/2015 at [facility] - tissue valve. 03/2016 at [facility] - Redo sternotomy, AV replacement (tissue), and bovine pericardial aortoplasty augmentation. 06/2016 at [facility] - details not available, but the patient reports they used a donor valve. EDMUND showed the presence of bioprosthetic aortic, mitral, and tricuspid valves. (8) History of endocarditis Current Visit: Yes Status: Acute 02/2015 - Causative organism Serratia marcescens, AVR tissue, Cefepime/ Gentamicin x 6 weeks, septic emboli to the brain. 07/2015 - Causative organism Serratia marcescens and Burkholderia, Minocycline IV/Bactrim IV x 6 weeks. 03/2016 - Causative organism E. faecalis, aortic valve abscess, AVR tissu, Ampicillin/Rocephin x 6 weeks. 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 06/2016 - Went back to [facility], CTS refused to perform additional surgery, patient transferred to [facility] for second opinion. Per patient, had AVR with donor valve, but EDMUND shows bioprosthetic aortic, mitral, and tricuspid valve. Unsure of antibiotic therapy post-op. Will request records from [facility]. (9) Tobacco abuse Current Visit: No Status: Acute (10) Drug abuse and dependence Current Visit: No Status: Chronic Reports last using IV Heroine 2 days ago. High risk for withdrawal syndrome. Management per the primary team. (11) Hepatitis-C Current Visit: No Status: Chronic Known Hep C positive. HIV nonreactive. Qualifiers: Viral hepatitis chronicity: chronic Hepatic coma status: without hepatic coma Qualified Code(s): B18.2 - Chronic viral hepatitis C - Subjective Interval history: Patient seen and examined. No acute events noted overnight. Patient states that overall he feels poorly. Reports headache in the front and top of his head, worse with cough or straining. Reports intermittent fevers, chills, or rigors overnight. Denies chest pain, shortness of breath, or cough. Denies nausea or vomiting. States he does not feel hungry, but is thirsty. Denies abdominal pain or urinary complaints. Complains of pain in the right wrist and left knee. Denies oral thrush or new skin lesions. Infect Dis PN-Objective Data - Labs CBC & Chem 7: 12/19/17 03:47 12/19/17 03:47 Labs: Laboratory Results - last 24 hr 12/17/17 12/18/17 12/18/17 10:18 12:33 20:12 WBC RBC Hgb Hct MCV MCH MCHC RDW Plt Count MPV Immature Gran % Seg Neutrophils % Lymphocytes % Monocytes % Eosinophils % Basophils % Neutrophils # Lymphocytes # Monocytes # Eosinophils # Basophils # Sodium Potassium Chloride Carbon Dioxide BUN Creatinine Est GFR ( Amer) Est GFR (Non-Af Amer) BUN/Creatinine Ratio Glucose POC Glucose 143 H Calculated Osmolality Calcium Total Bilirubin AST ALT Alkaline Phosphatase Troponin I Serum Total Protein Albumin Globulin Albumin/Globulin Ratio Vancomycin Trough 11.1 HIV Ag/Ab Combo Qual Nonreactive 12/19/17 12/19/17 12/19/17 03:47 03:47 03:47 WBC 9.8 RBC 3.56 L Hgb 10.3 L Hct 30.9 L MCV 86.8 MCH 28.9 MCHC 33.3 RDW 15.1 H Plt Count 117 L MPV 9.8 Immature Gran % 1.7 Seg Neutrophils % 79.7 Lymphocytes % 7.6 Monocytes % 10.3 Eosinophils % 0.4 Basophils % 0.3 Neutrophils # 7.8 Lymphocytes # 0.8 Monocytes # 1.0 Eosinophils # 0.0 Basophils # 0.0 Sodium 130 L Potassium 3.1 L Chloride 101 Carbon Dioxide 24 BUN 17 Creatinine 1.21 Est GFR ( Amer) > 60 Est GFR (Non-Af Amer) > 60 BUN/Creatinine Ratio 14 Glucose 132 H POC Glucose Calculated Osmolality 273 L Calcium 8.2 L Total Bilirubin 1.1 H AST 33 ALT 44 Alkaline Phosphatase 82 Troponin I 0.06 H* Serum Total Protein 6.4 Albumin 3.2 L Globulin 3.2 Albumin/Globulin Ratio 1.0 L Vancomycin Trough HIV Ag/Ab Combo Qual Cultures: Cultures 12/18/17 12:33 Blood Culture - Preliminary Peripheral Venipuncture Gram Positive Cocci 12/17/17 10:08 Blood Culture - Preliminary Peripheral Venipuncture Staphylococcus aureus 12/18/17 12:33 Blood Culture - Preliminary Peripheral Venipuncture Staphylococcus aureus Serology 12/18/17 12/17/17 12/17/17 Range/Units 12:33 14:49 10:08 A. baumannii (PCR) Not Detected (Not Detect) Allison albicans (PCR) Not Detected (Not Detect) C. glabrata (PCR) Not Detected (Not Detect) C. krusei (PCR) Not Detected (Not Detect) C. parapsilosis (PCR) Not Detected (Not Detect) C. tropicalis (PCR) Not Detected (Not Detect) Enterobacteriac sp PCR Not Detected (Not Detect) E. cloacae complex PCR Not Detected (Not Detect) Enterococcus sp PCR Not Detected (Not Detect) E. coli (PCR) Not Detected (Not Detect) H. influenzae (PCR) Not Detected (Not Detect) HIV Ag/Ab Combo Qual Nonreactive (Nonreactive) Influenza Type A (PCR) Negative (Negative) Influenza Type B (PCR) Negative (Negative) Klebsiella oxytoca PCR Not Detected (Not Detect) Klebsiella pneumoniae Not Detected (Not Detect) List. monocytogenes PCR Not Detected (Not Detect) N. meningitidis (PCR) Not Detected (Not Detect) Proteus species (PCR) Not Detected (Not Detect) Serratia marcescens PCR Not Detected (Not Detect) Staphylococcus sp PCR DETECTED A (Not Detect) Staph aureus (PCR) DETECTED A (Not Detect) mecA-Methicil Res Gene DETECTED A (Not Detect) Streptococcus sp PCR Not Detected (Not Detect) Group A Strep DNA Not Detected (Not Detect) Group B Strep (PCR) Not Detected (Not Detect) Strep pneumoniae (PCR) Not Detected (Not Detect) P. 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 RECOMMENDATIONS: The findings were sent to the Radiology Results Communication Center at 4:34 pm on 12/18/2017to be communicated to a licensed caregiver. D/ / Anthony Garcia MD / Anthony Garcia MD Interpreting Provider: Anthony Garcia MD Exam - Constitutional Vitals: Temp Pulse Resp BP Pulse Ox 99.7 F H 92 20 122/69 95 12/19/17 08:29 12/19/17 08:29 12/19/17 08:29 12/19/17 08:29 12/19/17 08:29 General appearance: average body habitus, cooperative, no acute distress - Head Head exam: Present: atraumatic, normal inspection, normocephalic - Eye Eye exam: Present: EOMI, normal appearance, PERRL Pupils: Present: normal accommodation Additional comments: No subconjunctival hemorrhage. - ENT ENT exam: Present: mucous membranes dry - Neck Neck exam: Present: normal inspection - Respiratory Respiratory exam: Present: CTAB. Absent: rales, respiratory distress, rhonchi, wheezes - Cardiovascular Cardiovascular exam: Present: RRR, +S1, +S2 - GI/Abdominal GI/Abdominal exam: Present: normal bowel sounds, soft. Absent: distended, tenderness - Extremities Exam Extremities exam: Present: tenderness (Right wrist, left knee). Absent: pedal edema - Neurological Exam Neurological exam: Present: alert, oriented X3, no focal deficits - Psychiatric Psychiatric exam: Present: normal affect, normal mood - Skin Skin exam: Present: dry, intact, normal color, warm Additional comments: Janeway lesions noted to the right hand. Scabbed lesions noted to the dorsal aspect of the left hand without redness, warmth, or drainage. Consult Discharge Plan - Plan Referrals: NONE,PCP [Primary Care Provider] - - Attending Attestation I examined this patient and my medical decision-making was reviewed with the Resident Physician. I agree with the documented findings, disposition and treatment plan as described except to the extent set forth below. Patient looks worse clinically. No improvement. Now is having a lot of right wrist pain and left knee pain. Physical exam concerning for septic arthritis of the wrist. MRI of the brain reviewed. Discussed with hospitalist team. 1. Consult audiology for hearing test since he is given a be on gentamicin 2 consult orthopedics for possible aspiration and evaluation of the joint Continue current antibiotic regimen overall prognosis is guarded at best.
[2017-12-19] MEDS: *HR* HYDROcodone/Acet 5/325 mg TABLET PO PRN ×3 (11:34→23:39)
[2017-12-19] MEDS: Gentamicin 90 MG in 0.9 % Sodium Chloride 100 ML IVPB SCH ×2 (12:37→20:19)
[2017-12-20] MEDS: Dexmedetomidine HCl 400 MCG/100 ML MLS IVC SCH ×3 (00:19→16:30)
[2017-12-20] MEDS: *HR* OxyCODONE Immed Rel 5 MG TABLET PO PRN ×3 (03:42→16:43)
[2017-12-20] MEDS: Gentamicin 90 MG in 0.9 % Sodium Chloride 100 ML IVPB SCH ×3 (03:42→19:35)
[2017-12-20 05:46] LABS: Alanine Aminotransferase 36 Units/L (7-52); Albumin 3.1 g/dL (3.5-5.7); Alkaline Phosphatase 87 Units/L (34-104); Aspartate Amino Transferase 25 Units/L (13-39); BUN/Creatinine Ratio 18 (6-26); Bilirubin,Total 0.9 mg/dL (0.3-1.0); Blood Urea Nitrogen 21 mg/dL (6-20); Calcium 8.5 mg/dL (8.6-10.3); Carbon Dioxide 21 mEq/L (23-29); Chloride 102 mEq/L (98-107); Globulin 3.2 g/dL (2.4-3.5); Glucose 148 mg/dL (70-105); Osmolality,Calculated 280 (280-300); Potassium 3.3 mEq/L (3.5-5.1); Sodium 132 mEq/L (136-145); Total Protein 6.3 g/dL (6.4-8.9); eGFR For African Americans > 60 (> 60); eGFR For Non-African Americans > 60 (> 60)
--- NOTE | 2017-12-20 09:08 | Internal Med Progress Note ---
<Michael Mitchell - Last Filed: 12/20/17 11:58> Date of Encounter: 12/20/17 Time of Encounter: 09:05 - Assessment and plan (1) Sepsis Current Visit: Yes Status: Acute Assessment and plan: Likely secondary to bacteremia and infectious endocarditis A TTE was performed but was in adequate to evaluate for possible endocarditis. EDMUND showed possible vegetations on the mitral and tricuspid valve. The also noted a PFO with evidence of a left to right shunt. Blood cultures that were obtained are positive 2 per PCR for MRSA Currently on Vancomycin. First final culture is sensitive to Vanc Gentamicin has been added by ID Due to the patient being septic likely secondary to bacteremia and infectious endocarditis with vegetations on the mitral and tricuspid valve with emboli that have gone to the brain we have recommended to the patient multiple times that it would be beneficial for him to be transferred to a tertiary care center. The patient has repeatedly denied transfer. He states that he wishes to stay here at [place] and understands that antibiotics is the only way that we can treat him here. The patient states that he wishes to talk to his family today about the course of his care. He states that he may wish to start palliative care and become comfort care. Qualifiers: Sepsis type: sepsis due to unspecified organism Qualified Code(s): A41.9 - Sepsis, unspecified organism (2) Bacteremia Current Visit: Yes Status: Acute Assessment and plan: Likely secondary to MRSA Final Blood cultures positive for MRSA ID has been consulted and is following the patient. Continue vancomycin. Gentamicin has been added by ID. (3) Infective endocarditis Current Visit: Yes Status: Acute Assessment and plan: EDMUND shows possible vegetation on the mitral and tricuspid valves Patient currently on vanc and gentamicin has been added per ID Qualifiers: Infective endocarditis organism: bacterial Chronicity: acute Qualified Code(s): I33.0 - Acute and subacute infective endocarditis (4) Drug abuse and dependence Current Visit: No Status: Chronic Assessment and plan: Patient has a history of drug use. Patient states that he last used IV heroin approximately 5 days ago. Patient has the potential to go into withdrawal symptoms. CIWA protocol is in place Precedex drip is ordered (5) Hepatitis-C Current Visit: No Status: Chronic Assessment and plan: chronic issue Qualifiers: Viral hepatitis chronicity: chronic Hepatic coma status: without hepatic coma Qualified Code(s): B18.2 - Chronic viral hepatitis C (6) Headache Current Visit: Yes Status: Acute Assessment and plan: Patient still has a headache Patient denies any changes in his vision, acute numbness weakness or tingling Patient has a history of emboli and from previous episodes of endocarditis Patient has hydrocodone and oxycodone for pain relief Infectious disease has ordered an MRI to evaluate the brain which showed: 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 Qualifiers: Headache type: unspecified Headache chronicity pattern: acute headache Intractability: intractable Qualified Code(s): R51 - Headache (7) Septic arthritis Current Visit: Yes Status: Suspected Assessment and plan: Due the patient having pain in the right wrist left shoulder and left knee there is concern for possible septic arthritis Patient has had emboli to the brain there is concerning to possibly have seeded infection in a joint Orthopedics has been consulted. Qualifiers: Septic arthritis location: unspecified location Septic arthritis organism: due to unspecified organism Qualified Code(s): M00.9 - Pyogenic arthritis, unspecified (8) Elevated troponin Current Visit: Yes Status: Acute Assessment and plan: Patient has an elevated troponin of 0.06 decreased from 0.19. Patient has chronically elevated troponin Patient denies any chest pain or shortness of breath at this time. (9) History of endocarditis Current Visit: Yes Status: Acute (10) Tobacco abuse Current Visit: No Status: Acute Assessment and plan: Recommend cessation (11) DVT prophylaxis Current Visit: Yes Status: Acute Assessment and plan: SCDs have been ordered for this patient for DVT prophylaxis. - Subjective Interval history: Patient states that he is not feeling very well today. He states that he is still having a headache. Reports that he is having right wrist, left shoulder and left knee pain. Patient states that he does not want to be transfered at this time and would like to discuss things with his family and possibly become comfort care. - Constitutional Vitals: Temp Pulse Resp BP Pulse Ox 99 F 83 16 120/78 96 12/20/17 07:17 12/20/17 07:17 12/20/17 07:17 12/20/17 07:17 12/20/17 07:17 General appearance: Present: cooperative, A&O X 3, answers questions appropriately - Head Head exam: Present: atraumatic, normocephalic - Neck Neck exam general surgery: Present: full ROM, normal inspection, trachea midline - Respiratory Respiratory exam: Present: CTAB. Absent: accessory muscle use, rales, rhonchi, wheezes - Cardiovascular Cardiovascular exam: Present: RRR, +S1, +S2. Absent: diastolic murmur, gallop, rubs, systolic murmur - GI/Abdominal GI/Abdominal exam: Present: normal bowel sounds, soft, no peritoneal signs. Absent: distended, tenderness - Extremities Exam Additional comments: Patient has decreased range of motion of the left shoulder due to pain. Patient also has pain with movement of his right wrist and pain with flexion of his left knee. There is no pain to palpation of the left knee or right wrist. There is mild pain with palpation of the left shoulder. - Neurological Exam Neurological exam: Present: alert, oriented X3, no focal deficits. Absent: facial droop, speech deficit - Psychiatric Psychiatric exam: Present: normal affect, normal mood - Skin Skin exam: Present: dry, intact, warm Additional comments: Multiple tattoos throughout the body. Internal Medicine: Result - Labs CBC & Chem 7: 12/20/17 09:59 12/20/17 04:36 Labs: BMP 12/20/17 04:36 Sodium 132 L Potassium 3.3 L Chloride 102 Carbon Dioxide 21 L BUN 21 H Creatinine 1.15 Glucose 148 H Calcium 8.5 L Liver Function 12/20/17 Range/Units 04:36 Total Bilirubin 0.9 (0.3-1.0) mg/dL AST 25 (13-39) Units/L ALT 36 (7-52) Units/L Alkaline Phosphatase 87 (34-104) Units/L Albumin 3.1 L (3.5-5.7) g/dL Consult Discharge Plan - Plan Referrals: NONE,PCP [Primary Care Provider] - <Bert Oneill H - Last Filed: 12/20/17 13:06> Date of Encounter: 12/20/17 - Constitutional Vitals: Temp Pulse Resp BP Pulse Ox 99 F 84 19 103/43 90 12/20/17 08:10 12/20/17 11:16 12/20/17 11:16 12/20/17 11:16 12/20/17 11:16 Internal Medicine: Result - Labs CBC & Chem 7: 12/20/17 09:59 12/20/17 04:36 Labs: Short CBC 12/20/17 Range/Units 09:59 WBC 10.4 (4.3-11.1) K/mcL Hgb 10.5 L (12.9-16.9) g/dL Hct 30.9 L (37.5-50.1) % Plt Count 134 L (140-400) K/mcL Neutrophils # 8.3 (1.6-8.9) K/mcL BMP 12/20/17 04:36 Sodium 132 L Potassium 3.3 L Chloride 102 Carbon Dioxide 21 L BUN 21 H Creatinine 1.15 Glucose 148 H Calcium 8.5 L Liver Function 12/20/17 Range/Units 04:36 Total Bilirubin 0.9 (0.3-1.0) mg/dL AST 25 (13-39) Units/L ALT 36 (7-52) Units/L Alkaline Phosphatase 87 (34-104) Units/L Albumin 3.1 L (3.5-5.7) g/dL - Attending Attestation The patient initially agreed to be transferred to the morning, now is requesting to talk to his family in order to decide whether to continue treatment or not I examined this patient and my medical decision-making was reviewed with the Resident Physician. I agree with the documented findings, disposition and treatment plan as described except to the extent set forth below.
[2017-12-20] MEDS: *HR* Promethazine 25 MG/ML VIAL IVP PRN (09:26)
[2017-12-20] MEDS: cloNIDine HCl 0.1 MG TABLET PO SCH ×2 (09:27→20:32)
[2017-12-20] MEDS: *HR* LORazepam 1 MG TABLET PO PRN ×3 (09:27→20:33)
[2017-12-20] MEDS ORDERED: 0.9 % Sodium Chloride 250 ML ONE (10:04)
[2017-12-20 10:37] LABS: Basophils % 0.2 %; Eosinophils # 0.1 K/mcL (0.0-0.6); Eosinophils % 0.7 %; Hematocrit 30.9 % (37.5-50.1); Hemoglobin 10.5 g/dL (12.9-16.9); Immature Granulocytes % 0.7 % (0-4); Lymphocytes # 0.8 K/mcL (0.6-4.6); Lymphocytes % 7.4 %; Mean Corpuscular Hemoglobin 28.7 pg (28.0-33.3); Mean Corpuscular Volume 84.4 fL (83.0-100.0); Mean Platelet Volume 10.2 fL (9.4-12.4); Monocytes # 1.2 K/mcL (0.0-1.3); Monocytes % 11.5 %; Neutrophils # 8.3 K/mcL (1.6-8.9); Platelet Count 134 K/mcL (140-400); Red Blood Count 3.66 M/mcL (4.19-5.50); Red Cell Distribution Width 14.9 % (11.5-14.5); Segmented Neutrophils % 79.5 %
--- NOTE | 2017-12-20 10:49 | Infectious Disease Progress No ---
Date of Encounter: 12/20/17 Time of Encounter: 10:47 - Assessment and Plan (1) Sepsis Current Visit: Yes Status: Acute The patient had two SIRS criteria on admission (fever and tachycardia). Likely secondary to bacteremia and possible endocarditis. Improved. Afebrile overnight. Tachycardia has improved. Blood cultures obtained 12/17/17 x 2 sets are positive for MRSA. Repeat blood cultures drawn 12/18/17 are positive 2/2 sets for MRSA. CXR negative. Flu antigen and PCR swabs are negative. Qualifiers: Qualified Code(s): A41.9 - Sepsis, unspecified organism (2) Bacteremia Current Visit: Yes Status: Acute Causative organism: MRSA. Blood cultures drawn 12/17/17 are positive 2/2 sets. Blood cultures drawn 12/18/17 are positive 2/2 sets. He does have an extensive history of endocarditis and does have a history of aortic, mitral and tricuspid valve replacements as noted during EDMUND. He continues to use IV drugs. The patient has some lesions on his hand that could be Janeway lesions, but does not have any other endocarditis stigmata. Has one major and three minor Modified Mahan's Criteria. TTE inadequate to evaluate for endocarditis. EDMUND positive for endocarditis. Repeat blood cultures x 2 sets now. Continue Vancomycin IV. Pharmacy to dose. Goal trough ~15. Most recent trough 11. Dosing discussed with Andra Fleming. Continue Gentamicin 1mg/kg IV Q8H. Duration of treatment depends on the clinical picture. Monitor renal function and for drug toxicity and dose-adjust antibiotics. The infectious disease team will be unavailable for inpatient consults until 12/24, but will be available by phone. Please call with ID-related questions. (3) Infective endocarditis Current Visit: Yes Status: Acute Causative organism: MRSA. Likely secondary to bacteremia from IVDU. Blood cultures continue to be positive. TTE negative, but EDMUND showed a 10mm x 3.6mm mobile echodensity attached to the atrial side of the anterior mitral valve leaflet consistent with vegetation. It also showed a very subtle echodensity attached to a portion of the annulus of the tricuspid valve which could represent a vegetation. Continue Vancomycin as above. Continue Gentamicin for prosthetic valve endocarditis. The patient has been told previously that he is not a candidate for additional surgery due to his multiple episodes of previous endocarditis and continued drug use. He is refusing transfer unless we can find someone who is willing to consider doing surgery on him. Duration of treatment depends on the clinical picture. Needs a baseline hearing test since he will be on a prolonged course of Gentamicin. Qualifiers: Qualified Code(s): I33.0 - Acute and subacute infective endocarditis (4) Intracranial septic embolism Current Visit: Yes Status: Acute Likely secondary to bacteremia and endocarditis. 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 Recommend the patient be transferred to tertiary care center for neurosurgery evaluation. I advised the patient of this and he states that it is pointless to transfer him because they won't do surgery. I advised him that he at least needs to be evaluated by neurosurgery and we do not offer that service here. The patient did not refuse transfer during our discussion, but per the primary team, he refused transfer to them this morning. The patient did mention that he was tired of dealing with this and wanted to sign hospice papers. Consider palliative care consult to discuss further goals of care with the patient. (5) Headache Current Visit: Yes Status: Acute Patient complains of persistent parietal headache. Likely secondary to septic emboli in the brain. Denies blurred vision or floaters. 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 Pain management per the primary team. Qualifiers: Qualified Code(s): R51 - Headache (6) Elevated troponin Current Visit: Yes Status: Acute Likely demand ischemia from endocarditis. Consider cardiology consult. Further workup and management per the primary team. (7) Status post aortic valve replacement Current Visit: Yes Status: Acute Status post aortic valve replacement x 3 due to endocarditis/valve abscess. 02/2015 at [facility] - tissue valve. 03/2016 at [facility] - Redo sternotomy, AV replacement (tissue), and bovine pericardial aortoplasty augmentation. 06/2016 at [facility] - details not available, but the patient reports they used a donor valve. EDMUND showed the presence of bioprosthetic aortic, mitral, and tricuspid valves. (8) History of endocarditis Current Visit: Yes Status: Acute 02/2015 - Causative organism Serratia marcescens, AVR tissue, Cefepime/ Gentamicin x 6 weeks, septic emboli to the brain. 07/2015 - Causative organism Serratia marcescens and Burkholderia, Minocycline IV/Bactrim IV x 6 weeks. 03/2016 - Causative organism E. faecalis, aortic valve abscess, AVR tissu, Ampicillin/Rocephin x 6 weeks. 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 06/2016 - Went back to [facility], CTS refused to perform additional surgery, patient transferred to [facility] for second opinion. Per patient, had AVR with donor valve, but EDMUND shows bioprosthetic aortic, mitral, and tricuspid valve. Unsure of antibiotic therapy post-op. Will request records from [facility]. (9) Tobacco abuse Current Visit: No Status: Acute (10) Drug abuse and dependence Current Visit: No Status: Chronic Reports last using IV Heroine 2 days ago. High risk for withdrawal syndrome. Management per the primary team. (11) Hepatitis-C Current Visit: No Status: Chronic Known Hep C positive. HIV nonreactive. Qualifiers: Qualified Code(s): B18.2 - Chronic viral hepatitis C (12) Joint pain Current Visit: Yes Status: Acute Reports pain in the right wrist, left knee, and right shoulder. Right wrist swollen, but not erythematous. Recommend ortho to evaluate. Qualifiers: Qualified Code(s): M25.50 - Pain in unspecified joint - Subjective Interval history: Patient seen and examined. No acute events noted overnight. Patient states that overall he still feels poorly. Reports headache in the front and top of his head , worse with cough or straining. Reports intermittent fevers, chills, or rigors overnight, but no documented fevers. Reports sharp, episodic left chest pain, shortness of breath. Denies cough. Reports onset of nausea and vomiting this morning. States he does not feel hungry, but is thirsty. Denies abdominal pain or urinary complaints. Complains of pain in the right wrist and left knee and new pain in the left shoulder. Denies oral thrush or new skin lesions. Infect Dis PN-Objective Data - Labs CBC & Chem 7: 12/20/17 09:59 12/20/17 04:36 Labs: Laboratory Results - last 24 hr 12/20/17 12/20/17 12/20/17 04:36 04:36 07:23 WBC RBC Hgb Hct MCV MCH MCHC RDW Plt Count MPV Immature Gran % Seg Neutrophils % Lymphocytes % Monocytes % Eosinophils % Basophils % Neutrophils # Lymphocytes # Monocytes # Eosinophils # Basophils # Sodium 132 L Potassium 3.3 L Chloride 102 Carbon Dioxide 21 L BUN 21 H Creatinine 1.15 Est GFR ( Amer) > 60 Est GFR (Non-Af Amer) > 60 BUN/Creatinine Ratio 18 Glucose 148 H Calculated Osmolality 280 Calcium 8.5 L Total Bilirubin 0.9 AST 25 ALT 36 Alkaline Phosphatase 87 Serum Total Protein 6.3 L Albumin 3.1 L Globulin 3.2 Albumin/Globulin Ratio 1.0 L Specimen Rejected Clotted Clotted 12/20/17 09:59 WBC 10.4 RBC 3.66 L Hgb 10.5 L Hct 30.9 L MCV 84.4 MCH 28.7 MCHC 34.0 RDW 14.9 H Plt Count 134 L MPV 10.2 Immature Gran % 0.7 Seg Neutrophils % 79.5 Lymphocytes % 7.4 Monocytes % 11.5 Eosinophils % 0.7 Basophils % 0.2 Neutrophils # 8.3 Lymphocytes # 0.8 Monocytes # 1.2 Eosinophils # 0.1 Basophils # 0.0 Sodium Potassium Chloride Carbon Dioxide BUN Creatinine Est GFR ( Amer) Est GFR (Non-Af Amer) BUN/Creatinine Ratio Glucose Calculated Osmolality Calcium Total Bilirubin AST ALT Alkaline Phosphatase Serum Total Protein Albumin Globulin Albumin/Globulin Ratio Specimen Rejected Cultures: Cultures 12/17/17 10:08 Blood Culture - Final Peripheral Venipuncture Methicillin Resistant S.aureus 12/18/17 12:33 Blood Culture - Final Peripheral Venipuncture Methicillin Resistant S.aureus 12/18/17 12:33 Blood Culture - Final Peripheral Venipuncture Methicillin Resistant S.aureus Serology 12/18/17 12/17/17 12/17/17 Range/Units 12:33 14:49 10:08 A. baumannii (PCR) Not Detected (Not Detect) Allison albicans (PCR) Not Detected (Not Detect) C. glabrata (PCR) Not Detected (Not Detect) C. krusei (PCR) Not Detected (Not Detect) C. parapsilosis (PCR) Not Detected (Not Detect) C. tropicalis (PCR) Not Detected (Not Detect) Enterobacteriac sp PCR Not Detected (Not Detect) E. cloacae complex PCR Not Detected (Not Detect) Enterococcus sp PCR Not Detected (Not Detect) E. coli (PCR) Not Detected (Not Detect) H. influenzae (PCR) Not Detected (Not Detect) HIV Ag/Ab Combo Qual Nonreactive (Nonreactive) Influenza Type A (PCR) Negative (Negative) Influenza Type B (PCR) Negative (Negative) Klebsiella oxytoca PCR Not Detected (Not Detect) Klebsiella pneumoniae Not Detected (Not Detect) List. monocytogenes PCR Not Detected (Not Detect) N. meningitidis (PCR) Not Detected (Not Detect) Proteus species (PCR) Not Detected (Not Detect) Serratia marcescens PCR Not Detected (Not Detect) Staphylococcus sp PCR DETECTED A (Not Detect) Staph aureus (PCR) DETECTED A (Not Detect) mecA-Methicil Res Gene DETECTED A (Not Detect) Streptococcus sp PCR Not Detected (Not Detect) Group A Strep DNA Not Detected (Not Detect) Group B Strep (PCR) Not Detected (Not Detect) Strep pneumoniae (PCR) Not Detected (Not Detect) P. aeruginosa (PCR) Not Detected (Not Detect) Marli/B-Vanco Res Genes N/A (Not Detect) KPC (blaKPC) Detect PCR N/A (Not Detect) Exam - Constitutional Vitals: Temp Pulse Resp BP Pulse Ox 99 F 83 16 120/78 96 12/20/17 07:17 12/20/17 07:17 12/20/17 07:17 12/20/17 07:17 12/20/17 07:17 General appearance: average body habitus, cooperative, no acute distress - Head Head exam: Present: atraumatic, normal inspection, normocephalic - Eye Eye exam: Present: EOMI, normal appearance, PERRL Pupils: Present: normal accommodation Additional comments: No subconjunctival hemorrhage noted. - ENT ENT exam: Present: mucous membranes moist - Neck Neck exam: Present: normal inspection - Respiratory Respiratory exam: Present: CTAB. Absent: rales, respiratory distress, rhonchi, wheezes - Cardiovascular Cardiovascular exam: Present: RRR, +S1, +S2 - GI/Abdominal GI/Abdominal exam: Present: normal bowel sounds, soft. Absent: distended, tenderness - Extremities Exam Extremities exam: Present: normal inspection, tenderness (Left knee, right wrist , left shoulder). Absent: joint swelling, pedal edema - Neurological Exam Neurological exam: Present: alert, oriented X3, no focal deficits - Psychiatric Psychiatric exam: Present: normal affect, normal mood - Skin Skin exam: Present: dry, intact, normal color, warm Additional comments: Janeway lesions noted to the right hand. Scabbed lesion noted to the dorsal aspect of the left hand without redness, warmth, or drainage. Consult Discharge Plan - Plan Referrals: NONE,PCP [Primary Care Provider] - - Attending Attestation I examined this patient and my medical decision-making was reviewed with the Resident Physician. I agree with the documented findings, disposition and treatment plan as described except to the extent set forth below.
--- NOTE | 2017-12-20 16:09 | Orthopedic Consult Note ---
Date of Encounter: 12/20/17 Time of Encounter: 13:00 Assessment and Plan (1) Joint pain Current Visit: Yes Status: Acute Patient has no obvious symptoms or presentation of septic joint - because of his history and current Sepsis, we will continue to follow closely. If joint pain worsens, would consider joint aspiration. XRAYS reviewed - no fracture Recommend PT/OT for gentle mobility exercises. ICE as needed for pain. Continue pain management per hospitalist protocol. Avoiding NSAIDS. Qualifiers: Joint pain location: unspecified Qualified Code(s): M25.50 - Pain in unspecified joint (2) History of endocarditis Current Visit: Yes Status: Acute (3) IV drug abuse Current Visit: Yes Status: Acute (4) Infective endocarditis Current Visit: Yes Status: Acute Qualifiers: Infective endocarditis organism: bacterial Chronicity: acute Qualified Code(s): I33.0 - Acute and subacute infective endocarditis (5) Intracranial septic embolism Current Visit: Yes Status: Acute History of Present Illness Chief complaint: Joint pain HPI: Mr. Quinn is a 42 year old male, past medical history of endocarditis status post aortic valve replacement 3 with most recent in June 2017 with a donor valve, CAD, DVT, hepatitis C, TIA, and IV drug use with last use 2 days ago. The patient is admitted to the hospital on December 17 for fever and elevated troponin. Orthopedics consulted 12/20/17 secondary to onset of multi-joint pain x 1 week. Patient complains of Left knee pain, left shoulder pain and mild right wrist pain that he states started a few days before he was admitted to the hospital, so approximately 5-7 days ago. He denies trauma, fall or injury to either of these joints. He denies previous injury or chronic joint pain. Patient states pain to left shoulder and left knee are equal in severity; however his motion is not inhibited by pain. He admits to stiffness in both the shoulder and knee. Denies pain during PROM. Denies N/T, radiating pain or inability to move because of pain. He is able to ambulate without assistance. He denies calf tenderness or forearm tenderness. PE: Left Shoulder: No erythema, deformity, or ecchymosis. Skin warm, dry, no obvious lesions noted or abrasions. No palpable swelling. +Tenderness along AC joint, and diffusely along deltoid muscle. No Instability. ROM: Intact; difficulty with full forward flexion. No pain during PROM or AROM. ER/IR intact without difficulty. Strength: Intact in all directions, with minimal difficulty NV: Intact, pulses intact Left Knee: No erythema, deformity, or ecchymosis. Skin warm, dry, no obvious lesions noted or abrasions. Mild palpable swelling along superior pole of patellar; no significant joint effusion. +Tenderness medial joint line. No Instability. No calf tenderness. ROM: Intact and full ROM in all directions. No pain during PROM or AROM. Strength: Intact in all direction (-) Valgus/Varus stress test, (-) Lachmans. NV: Intact, pulses intact Left knee XRAY: XR/XR knee 3V LT IMPRESSION: Mild prepatellar soft tissue swelling with small to moderate joint effusion. No acute osseous abnormality. LEft shoulder: FINDINGS: Glenohumeral joint is normally aligned. No evidence of acute fracture or dislocation. No abnormal periarticular calcifications. The AC joint is unremarkable in appearance. Visualized lung is unremarkable. XR/XR shoulder complete LT IMPRESSION: No acute abnormalit Right Wrist: FINDINGS: There is no evidence of acute fracture. There is normal alignment. No acute joint abnormality. No focal osseous lesion. No focal soft tissue abnormality. 5 XR/XR wrist complete 3V RT IMPRESSION: No acute osseous abnormality. Past Med Surg Social Fam HX - Past Medical History Medical history: coronary artery disease, DVT, hepatitis, myocardial infarction , TIA, other (Infective endocarditis) Psychiatric history: anxiety - Past Surgical History Surgical History: heart valve replacement, other - Social History Smoking Status: Current every day smoker Smokeless Tobacco Status: No Alcohol use: occasionally Drug use: cocaine, opiates, marijuana, IV Drug Use, other - Family History Grandfather History Unknown: Yes Living Status: Hx Family Cardiac Disorders: Yes Hx Family Respiratory Disorders: Yes Medications and Allergies No Known Home Drugs 12/17/17 [History] 3 Allergy/AdvReac Type Severity Reaction Status Date / Time No Known Allergies Allergy Verified 12/17/17 05:25 All Systems Reviewed: The remainder of the systems were reviewed and are negative - Constitutional Constitutional: fever(s), no frequent falls, no headache(s), no weakness - Cardiovascular Cardiovascular: as per HPI, no chest pain, no syncope - Respiratory Respiratory: no cough - Musculoskeletal Musculoskeletal: as per HPI, no abnormal gait, no joint swelling, no limited range of motion, no numbness Physical Exam - Constitutional Vitals: Temp Pulse Resp BP Pulse Ox 99 F 84 19 103/43 90 12/20/17 12:30 12/20/17 12:30 12/20/17 12:30 12/20/17 12:30 12/20/17 12:30 General appearance IM: A&O X 3 Exam: See HPI Results - Labs Result Diagrams: 12/20/17 09:59 12/20/17 04:36 Labs: Abnormal lab results RBC 3.66 M/mcL (4.19-5.50) L 12/20/17 09:59 Hgb 10.5 g/dL (12.9-16.9) L 12/20/17 09:59 Hct 30.9 % (37.5-50.1) L 12/20/17 09:59 RDW 14.9 % (11.5-14.5) H 12/20/17 09:59 Plt Count 134 K/mcL (140-400) L 12/20/17 09:59 Sodium 132 mEq/L (136-145) L 12/20/17 04:36 Potassium 3.3 mEq/L (3.5-5.1) L 12/20/17 04:36 Carbon Dioxide 21 mEq/L (23-29) L 12/20/17 04:36 BUN 21 mg/dL (6-20) H 12/20/17 04:36 Glucose 148 mg/dL (70-105) H 12/20/17 04:36 POC Glucose 143 (58-89) H 12/17/17 10:18 Calcium 8.5 mg/dL (8.6-10.3) L 12/20/17 04:36 Direct Bilirubin 0.9 mg/dL (0.0-0.2) H 12/17/17 06:18 Indirect Bilirubin 1.3 mg/dL (0.0-1.2) H 12/17/17 06:18 Troponin I 0.06 ng/mL (< 0.04) H* 12/19/17 03:47 B-Natriuretic Peptide 265 pg/mL (Less than 100) H 12/18/17 02:56 Serum Total Protein 6.3 g/dL (6.4-8.9) L 12/20/17 04:36 Albumin 3.1 g/dL (3.5-5.7) L 12/20/17 04:36 Albumin/Globulin Ratio 1.0 (1.1-2.2) L 12/20/17 04:36 HDL Cholesterol 20 mg/dL (40-59) L 12/18/17 02:56 Urine Color Sera (Yellow) A 12/17/17 06:30 Ur Specific [place] 1.027 (1.010-1.025) H 12/17/17 06:30 Urine Protein 100 mg/dL (Neg-Trace) H 12/17/17 06:30 Urine Ketones Trace mg/dL (Negative) H 12/17/17 06:30 Urine Bilirubin Small (Negative) H 12/17/17 06:30 Ur Leukocyte Esterase Small (Negative) H 12/17/17 06:30 Urine Microscopic RBC 5-15 per hpf (0-3) H 12/17/17 06:30 Urine Microscopic WBC 5-15 per hpf (0-3) H 12/17/17 06:30 Ur Squamous Epith Cells Many per lpf (None-Few) H 12/17/17 06:30 Urine Opiates Screen Positive ng/mL (Wowrvt=356) H 12/17/17 16:59 Urine Cocaine Screen Positive ng/mL (Cutoff= 300) H 12/17/17 16:59 Staphylococcus sp PCR DETECTED (Not Detect) A 12/17/17 10:08 Staph aureus (PCR) DETECTED (Not Detect) A 12/17/17 10:08 mecA-Methicil Res Gene DETECTED (Not Detect) A 12/17/17 10:08 H & H 12/20/17 Range/Units 09:59 Hgb 10.5 L (12.9-16.9) g/dL Hct 30.9 L (37.5-50.1) % All other labs normal. Consult Discharge Plan - Plan Referrals: NONE,PCP [Primary Care Provider] -
[2017-12-20] MEDS ORDERED: 0.9 % Sodium Chloride 500 ML ONE (16:28)
[2017-12-20] MEDS: Acetaminophen 325 MG TABLET PO PRN (19:35)
[2017-12-20] MEDS: *HR* HYDROcodone/Acet 5/325 mg TABLET PO PRN (20:33)
[2017-12-21] MEDS: *HR* LORazepam 1 MG TABLET PO PRN ×5 (01:21→23:38)
[2017-12-21] MEDS: *HR* OxyCODONE Immed Rel 5 MG TABLET PO PRN ×3 (01:21→15:53)
[2017-12-21] MEDS: Gentamicin 90 MG in 0.9 % Sodium Chloride 100 ML IVPB SCH ×3 (03:44→19:37)
[2017-12-21 04:21] LABS: Basophils % 0.3 %; Eosinophils # 0.1 K/mcL (0.0-0.6); Eosinophils % 0.9 %; Hematocrit 33.2 % (37.5-50.1); Hemoglobin 11.1 g/dL (12.9-16.9); Immature Granulocytes % 1.2 % (0-4); Lymphocytes # 0.6 K/mcL (0.6-4.6); Lymphocytes % 6.7 %; Mean Corpuscular HGB Conc 33.4 g/dL (31.6-35.5); Mean Corpuscular Hemoglobin 28.5 pg (28.0-33.3); Mean Corpuscular Volume 85.3 fL (83.0-100.0); Mean Platelet Volume 9.5 fL (9.4-12.4); Monocytes # 1.1 K/mcL (0.0-1.3); Monocytes % 11.6 %; Neutrophils # 7.5 K/mcL (1.6-8.9); Platelet Count 133 K/mcL (140-400); Red Blood Count 3.89 M/mcL (4.19-5.50); Segmented Neutrophils % 79.3 %
[2017-12-21 04:38] LABS: Alanine Aminotransferase 33 Units/L (7-52); Albumin/Globulin Ratio 0.9 (1.1-2.2); Alkaline Phosphatase 104 Units/L (34-104); Aspartate Amino Transferase 23 Units/L (13-39); BUN/Creatinine Ratio 16 (6-26); Bilirubin,Total 0.9 mg/dL (0.3-1.0); Blood Urea Nitrogen 19 mg/dL (6-20); Calcium 8.6 mg/dL (8.6-10.3); Carbon Dioxide 23 mEq/L (23-29); Chloride 105 mEq/L (98-107); Globulin 3.4 g/dL (2.4-3.5); Glucose 106 mg/dL (70-105); Osmolality,Calculated 285 (280-300); Potassium 3.1 mEq/L (3.5-5.1); Sodium 136 mEq/L (136-145); Total Protein 6.4 g/dL (6.4-8.9); eGFR For African Americans > 60 (> 60); eGFR For Non-African Americans > 60 (> 60)
[2017-12-21 05:27] LABS: Platelet Estimate Slight Decrease (Normal); Reactive Lymphocytes Present (Not Present)
[2017-12-21 07:41] LABS: Acinetobacter baumannii by PCR Not Detected (Not Detect); Enterococcus by PCR Not Detected (Not Detect); Escherichia coli by PCR Not Detected (Not Detect); Klebsiella oxytoca by PCR Not Detected (Not Detect); Klebsiella pneumoniae by PCR Not Detected (Not Detect); Serratia marcescens by PCR Not Detected (Not Detect); Streptococcus agalactiae(B)PCR Not Detected (Not Detect); Streptococcus by PCR Not Detected (Not Detect); Streptococcus pneumoniae PCR Not Detected (Not Detect); Streptococcus pyogenes (A) PCR Not Detected (Not Detect); blaKPC Carbapenem-Resist Gene Not Detected (Not Detect); vanA/B Vancomycin-Resist Genes Not Detected (Not Detect)
[2017-12-21 07:42] LABS: Candida albicans by PCR Not Detected (Not Detect); Candida glabrata by PCR Not Detected (Not Detect); Candida krusei by PCR Not Detected (Not Detect); Candida parapsilosis by PCR Not Detected (Not Detect); Candida tropicalis by PCR Not Detected (Not Detect); Pseudomonas aeruginosa by PCR Not Detected (Not Detect)
[2017-12-21 07:43] LABS: Staphylococcus aureus by PCR ***DETECTED*** (Not Detect); mecA Methicillin-Resist Gene ***DETECTED*** (Not Detect)
[2017-12-21] MEDS: cloNIDine HCl 0.1 MG TABLET PO SCH ×2 (08:59→20:58)
--- NOTE | 2017-12-21 10:52 | Internal Med Progress Note ---
<Julio Ocasio - Last Filed: 12/21/17 10:49> Date of Encounter: 12/21/17 Time of Encounter: 09:40 - Assessment and plan (1) Sepsis Current Visit: Yes Status: Acute Assessment and plan: Likely secondary to bacteremia and infectious endocarditis A TTE was performed but was in adequate to evaluate for possible endocarditis. EDMUND showed possible vegetations on the mitral and tricuspid valve. The also noted a PFO with evidence of a left to right shunt. Blood cultures that were obtained are positive 2 per PCR for MRSA Currently on Vancomycin. First final culture is sensitive to Vanc Gentamicin has been added by ID Due to the patient being septic likely secondary to bacteremia and infectious endocarditis with vegetations on the mitral and tricuspid valve with emboli that have gone to the brain we have recommended to the patient multiple times that it would be beneficial for him to be transferred to a tertiary care center. The patient has repeatedly denied transfer. He states that he wishes to stay here at [facility] and understands that antibiotics is the only way that we can treat him here. Yesterday alyse was considering palliative care/comfort care, however today he states he wishes to continue course of antibiotics. Qualifiers: Sepsis type: sepsis due to unspecified organism Qualified Code(s): A41.9 - Sepsis, unspecified organism (2) Bacteremia Current Visit: Yes Status: Acute Assessment and plan: Likely secondary to MRSA Final Blood cultures positive for MRSA ID has been consulted and is following the patient. Continue vancomycin. Gentamicin has been added by ID. (3) Infective endocarditis Current Visit: Yes Status: Acute Assessment and plan: EDMUND shows possible vegetation on the mitral and tricuspid valves Patient currently on vanc and gentamicin has been added per ID Qualifiers: Infective endocarditis organism: bacterial Chronicity: acute Qualified Code(s): I33.0 - Acute and subacute infective endocarditis (4) Drug abuse and dependence Current Visit: No Status: Chronic Assessment and plan: Patient has a history of drug use. Patient states that he last used IV heroin approximately a week ago. Patient has the potential to go into withdrawal symptoms. CIWA protocol is in place Precedex drip is ordered (5) Hepatitis-C Current Visit: No Status: Chronic Assessment and plan: chronic issue Qualifiers: Viral hepatitis chronicity: chronic Hepatic coma status: without hepatic coma Qualified Code(s): B18.2 - Chronic viral hepatitis C (6) Headache Current Visit: Yes Status: Acute Assessment and plan: Patient noted to have been having headache, no mention of headache upon exam this AM. Patient denies any changes in his vision, acute numbness weakness or tingling Patient has a history of emboli and from previous episodes of endocarditis Patient has hydrocodone and oxycodone for pain relief Infectious disease has ordered an MRI to evaluate the brain which showed: 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 Qualifiers: Headache type: unspecified Headache chronicity pattern: acute headache Intractability: intractable Qualified Code(s): R51 - Headache (7) Septic arthritis Current Visit: Yes Status: Suspected Assessment and plan: Due the patient having pain in the right wrist, left shoulder, and left knee there was concern for possible septic arthritis Patient has had emboli to the brain there is concerning to possibly have seeded infection in a joint -Orthopedics consulted, recommend following closely, consider asppiration if pain worsens. Recommened PT/OT for mobility exercises. ICE as needed continue pain management, and avoid NSAIDs. Qualifiers: Septic arthritis location: unspecified location Septic arthritis organism: due to unspecified organism Qualified Code(s): M00.9 - Pyogenic arthritis, unspecified (8) Elevated troponin Current Visit: Yes Status: Acute Assessment and plan: Patient has an elevated troponin of 0.06 decreased from 0.19. Patient has chronically elevated troponin Patient denies any chest pain or shortness of breath at this time. (9) History of endocarditis Current Visit: Yes Status: Acute (10) Tobacco abuse Current Visit: No Status: Acute Assessment and plan: Recommend cessation (11) DVT prophylaxis Current Visit: Yes Status: Acute Assessment and plan: SCDs have been ordered for this patient for DVT prophylaxis. - Subjective Interval history: Patient seen and examined at bedside, notes improvement of joint pain and that pain with inspiration is unchanged. Reviewed desired plan of care and patinet notes he wishes to continue antibiotic treatment at this time. Denies any chest pain. Febrile overnight with Tmax of 101.2 with tachycardia, BP remained stabled. - Constitutional Vitals: Temp Pulse Resp BP Pulse Ox 99.6 F 92 17 119/44 94 12/21/17 07:22 12/21/17 07:22 12/21/17 07:22 12/21/17 07:22 12/21/17 07:22 General appearance: Present: cooperative, A&O X 3, answers questions appropriately - Head Head exam: Present: atraumatic, normocephalic - Eye Eye exam: Present: EOMI, conjuntiva pink - Neck Neck exam general surgery: Present: full ROM, supple, trachea midline - Respiratory Respiratory exam: Present: CTAB. Absent: accessory muscle use, rales, rhonchi, wheezes - Cardiovascular Cardiovascular exam: Present: RRR, +S1, +S2. Absent: diastolic murmur, gallop, rubs, systolic murmur - GI/Abdominal GI/Abdominal exam: Present: soft, no peritoneal signs. Absent: distended, tenderness - Extremities Exam Extremities exam: Present: warm. Absent: calf tenderness, cyanotic, pedal edema , tenderness (denies tenderness with palpation or movement of knees, no erythema. No erythema of wrist.) - Neurological Exam Neurological exam: Present: alert, oriented X3, no focal deficits. Absent: facial droop, speech deficit - Skin Skin exam: Present: dry, intact Additional comments: multiple tattoos present across body. Internal Medicine: Result - Labs CBC & Chem 7: 12/21/17 04:09 12/21/17 04:09 Labs: Short CBC 12/21/17 Range/Units 04:09 WBC 9.5 (4.3-11.1) K/mcL Hgb 11.1 L (12.9-16.9) g/dL Hct 33.2 L (37.5-50.1) % Plt Count 133 L (140-400) K/mcL Neutrophils # 7.5 (1.6-8.9) K/mcL BMP 12/21/17 04:09 Sodium 136 Potassium 3.1 L Chloride 105 Carbon Dioxide 23 BUN 19 Creatinine 1.19 Glucose 106 H Calcium 8.6 Liver Function 12/21/17 Range/Units 04:09 Total Bilirubin 0.9 (0.3-1.0) mg/dL AST 23 (13-39) Units/L ALT 33 (7-52) Units/L Alkaline Phosphatase 104 (34-104) Units/L Albumin 3.0 L (3.5-5.7) g/dL - Impressions Impressions Knee X-Ray 12/20/17 13:18 IMPRESSION: Mild prepatellar soft tissue swelling with small to moderate joint effusion. No acute osseous abnormality. D/ / Kellie Sung MD / Kellie Sung MD Interpreting Provider: Kellie Sung MD Shoulder X-Ray 12/20/17 13:18 IMPRESSION: No acute abnormality. D/ / Rob Eduardo MD / Rob Eduardo MD Interpreting Provider: Rob Eduardo MD Wrist X-Ray 12/20/17 13:18 IMPRESSION: No acute osseous abnormality. D/ / Rob Eduardo MD / Rob Eduardo MD Interpreting Provider: Rob Eduardo MD Consult Discharge Plan - Plan Referrals: Taya Steel, [employer] [Advanced Practice Nurse] - 12/28/17 10:00 am NONE,PCP [Primary Care Provider] - <Bert Oneill H - Last Filed: 12/21/17 11:54> Date of Encounter: 12/21/17 - Constitutional Vitals: Temp Pulse Resp BP Pulse Ox 99.6 F 92 17 119/44 94 12/21/17 07:22 12/21/17 07:22 12/21/17 07:22 12/21/17 07:22 12/21/17 07:22 Internal Medicine: Result - Labs CBC & Chem 7: 12/21/17 04:09 12/21/17 04:09 Labs: Short CBC 12/21/17 Range/Units 04:09 WBC 9.5 (4.3-11.1) K/mcL Hgb 11.1 L (12.9-16.9) g/dL Hct 33.2 L (37.5-50.1) % Plt Count 133 L (140-400) K/mcL Neutrophils # 7.5 (1.6-8.9) K/mcL BMP 12/21/17 04:09 Sodium 136 Potassium 3.1 L Chloride 105 Carbon Dioxide 23 BUN 19 Creatinine 1.19 Glucose 106 H Calcium 8.6 Liver Function 12/21/17 Range/Units 04:09 Total Bilirubin 0.9 (0.3-1.0) mg/dL AST 23 (13-39) Units/L ALT 33 (7-52) Units/L Alkaline Phosphatase 104 (34-104) Units/L Albumin 3.0 L (3.5-5.7) g/dL - Impressions Impressions Knee X-Ray 12/20/17 13:18 IMPRESSION: Mild prepatellar soft tissue swelling with small to moderate joint effusion. No acute osseous abnormality. D/ / Kellie Sung MD / Kellie Sung MD Interpreting Provider: Kellie Sung MD Shoulder X-Ray 12/20/17 13:18 IMPRESSION: No acute abnormality. D/ / Rob Eduardo MD / Rob Eduardo MD Interpreting Provider: Rob Eduardo MD Wrist X-Ray 12/20/17 13:18 IMPRESSION: No acute osseous abnormality. D/ / Rob Eduardo MD / Rob Eduardo MD Interpreting Provider: Rob Eduardo MD - Attending Attestation Still refusing to be transferred. Risks including explained. I examined this patient and my medical decision-making was reviewed with the Resident Physician. I agree with the documented findings, disposition and treatment plan as described except to the extent set forth below.
[2017-12-21] MEDS: Dexmedetomidine HCl 400 MCG/100 ML MLS IVC SCH (12:16)
[2017-12-21] MEDS: *HR* HYDROcodone/Acet 5/325 mg TABLET PO PRN (19:49)
[2017-12-22] MEDS: *HR* OxyCODONE Immed Rel 5 MG TABLET PO PRN ×3 (03:22→20:33)
[2017-12-22] MEDS: Gentamicin 90 MG in 0.9 % Sodium Chloride 100 ML IVPB SCH ×3 (03:22→20:34)
[2017-12-22] MEDS: *HR* LORazepam 1 MG TABLET PO PRN ×3 (03:22→20:34)
[2017-12-22 04:37] LABS: Basophils % 0.3 %; Eosinophils # 0.1 K/mcL (0.0-0.6); Eosinophils % 1.4 %; Hematocrit 29.2 % (37.5-50.1); Hemoglobin 9.8 g/dL (12.9-16.9); Immature Granulocytes % 0.9 % (0-4); Lymphocytes # 1.4 K/mcL (0.6-4.6); Lymphocytes % 14.3 %; Mean Corpuscular HGB Conc 33.6 g/dL (31.6-35.5); Mean Corpuscular Hemoglobin 28.2 pg (28.0-33.3); Mean Corpuscular Volume 84.1 fL (83.0-100.0); Monocytes # 1.2 K/mcL (0.0-1.3); Monocytes % 11.7 %; Neutrophils # 7.2 K/mcL (1.6-8.9); Platelet Count 157 K/mcL (140-400); Red Blood Count 3.47 M/mcL (4.19-5.50); Segmented Neutrophils % 71.4 %
[2017-12-22 04:52] LABS: BUN/Creatinine Ratio 13 (6-26); Blood Urea Nitrogen 14 mg/dL (6-20); Calcium 8.2 mg/dL (8.6-10.3); Carbon Dioxide 23 mEq/L (23-29); Chloride 105 mEq/L (98-107); Glucose 115 mg/dL (70-105); Osmolality,Calculated 281 (280-300); Sodium 135 mEq/L (136-145); eGFR For African Americans > 60 (> 60); eGFR For Non-African Americans > 60 (> 60)
[2017-12-22 05:58] LABS: Platelet Estimate Normal (Normal); Reactive Lymphocytes Present (Not Present)
[2017-12-22] MEDS: Dexmedetomidine HCl 400 MCG/100 ML MLS IVC SCH ×2 (07:28→22:40)
[2017-12-22] MEDS: cloNIDine HCl 0.1 MG TABLET PO SCH ×2 (07:32→20:33)
--- NOTE | 2017-12-22 08:27 | Internal Med Progress Note ---
<Hugo Elena - Last Filed: 12/22/17 08:24> Date of Encounter: 12/22/17 Time of Encounter: 08:24 - Assessment and plan (1) Sepsis Current Visit: Yes Status: Acute Assessment and plan: Likely 2/2 to bacteremia and IE EDMUND showed possible vegetations on the mitral and tricuspid valve; PFO with evidence of a L to R shunt. Blood CXs that were obtained; positive for MRSA WC is 10.1 today BP is 95/57 RR 36 -Vancomycin 1500 mg IV Q12 -Gentamycin 90 mg IV Q8 Qualifiers: Sepsis type: sepsis due to unspecified organism Qualified Code(s): A41.9 - Sepsis, unspecified organism (2) Bacteremia due to Enterococcus Current Visit: No Status: Acute Assessment and plan: Final Blood cultures positive for MRSA ID has been consulted and is following -Vancomycin 1500 mg IV Q12 -Gentamycin 90 mg IV Q8 (3) Infective endocarditis Current Visit: Yes Status: Acute Assessment and plan: -EDMUND: possible vegetation on the mitral and tricuspid valves -Patient currently on vanc and gentamicin has been added per ID -Vancomycin 1500 mg IV Q12 -Gentamycin 90 mg IV Q8 Qualifiers: Infective endocarditis organism: bacterial Chronicity: acute Qualified Code(s): I33.0 - Acute and subacute infective endocarditis (4) Drug abuse and dependence Current Visit: No Status: Chronic Assessment and plan: -Known hx of IVDU -Last used IV heroin approx.. 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 Qualifiers: Headache type: unspecified Headache chronicity pattern: acute headache Intractability: intractable Qualified Code(s): R51 - Headache (6) Septic arthritis Current Visit: Yes Status: Suspected Assessment and plan: -Blood CX positive for MRSA -Due the patient having pain in the right wrist, left shoulder, and left knee there was concern for possible septic arthritis -Patient has had emboli to the brain there is concerning to possibly have seeded infection in a joint -Orthopedics consulted, recommend following closely, consider asppiration if pain worsens -Recommened PT/OT for mobility exercises -ICE as needed continue pain management; avoid NSAIDs Qualifiers: Septic arthritis location: unspecified location Septic arthritis organism: due to unspecified organism Qualified Code(s): M00.9 - Pyogenic arthritis, unspecified (7) Hypokalemia Current Visit: Yes Status: Acute Assessment and plan: -Potassium this morning was 3.0 -Will replace (8) Hepatitis-C Current Visit: No Status: Chronic Assessment and plan: chronic issue Qualifiers: Viral hepatitis chronicity: chronic Hepatic coma status: without hepatic coma Qualified Code(s): B18.2 - Chronic viral hepatitis C (9) Tobacco abuse Current Visit: No Status: Acute Assessment and plan: Recommend cessation (10) DVT prophylaxis Current Visit: Yes Status: Acute Assessment and plan: SCDs - Subjective Interval history: Patient seen and examined at bedside this morning. - Constitutional Vitals: Temp Pulse Resp BP Pulse Ox 99.3 F 71 36 95/57 94 12/22/17 07:11 12/22/17 07:11 12/22/17 07:11 12/22/17 07:11 12/22/17 07:11 General appearance: Present: cooperative, A&O X 3, answers questions appropriately - Head Head exam: Present: atraumatic, normocephalic - Eye Eye exam: Present: PERRL, conjuntiva pink, sclera anicteric Pupils: Present: PERRL - Neck Neck exam general surgery: Present: supple, trachea midline. Absent: lymphadenopathy - Respiratory Respiratory exam: Present: CTAB. Absent: accessory muscle use, rales, rhonchi, wheezes - Cardiovascular Cardiovascular exam: Present: RRR, +S1, +S2. Absent: diastolic murmur, gallop, rubs, systolic murmur - GI/Abdominal GI/Abdominal exam: Present: normal bowel sounds, soft, no peritoneal signs. Absent: distended, tenderness - Extremities Exam Extremities exam: Present: warm, radial pulses palpable and symmetrical. Absent : calf tenderness, cyanotic, pedal edema - Neurological Exam Neurological exam: Present: CN II-XII intact, oriented X3, no focal deficits. Absent: pronater drift, facial droop, speech deficit - Skin Skin exam: Present: dry, intact Internal Medicine: Result - Labs CBC & Chem 7: 12/22/17 03:52 12/22/17 03:52 Labs: Short CBC 12/22/17 Range/Units 03:52 WBC 10.1 (4.3-11.1) K/mcL Hgb 9.8 L (12.9-16.9) g/dL Hct 29.2 L (37.5-50.1) % Plt Count 157 (140-400) K/mcL Neutrophils # 7.2 (1.6-8.9) K/mcL [facility] 12/22/17 03:52 Sodium 135 L Potassium 3.0 L Chloride 105 Carbon Dioxide 23 BUN 14 Creatinine 1.08 Glucose 115 H Calcium 8.2 L Consult Discharge Plan - Plan Referrals: Taya Steel, [employer]ING [employer]ACHINE OPERATOR [Advanced Practice Nurse] - 12/28/17 10:00 am NONE,PCP [Primary Care Provider] - <Bert Oneill H - Last Filed: 12/22/17 11:45> Date of Encounter: 12/22/17 - Constitutional Vitals: Temp Pulse Resp BP Pulse Ox 98.8 F 71 36 95/57 94 12/22/17 11:41 12/22/17 07:11 12/22/17 07:11 12/22/17 07:11 12/22/17 07:11 Internal Medicine: Result - Labs CBC & Chem 7: 12/22/17 03:52 12/22/17 03:52 Labs: Short CBC 12/22/17 Range/Units 03:52 WBC 10.1 (4.3-11.1) K/mcL Hgb 9.8 L (12.9-16.9) g/dL Hct 29.2 L (37.5-50.1) % Plt Count 157 (140-400) K/mcL Neutrophils # 7.2 (1.6-8.9) K/mcL [facility] 12/22/17 03:52 Sodium 135 L Potassium 3.0 L Chloride 105 Carbon Dioxide 23 BUN 14 Creatinine 1.08 Glucose 115 H Calcium 8.2 L - Attending Attestation Vancomycin day and gentamicin day #6 Still refusing to be transferred. Risks including were explained. I examined this patient and my medical decision-making was reviewed with the Resident Physician. I agree with the documented findings, disposition and treatment plan as described except to the extent set forth below.
[2017-12-22] MEDS ORDERED: 0.9 % Sodium Chloride 500 ML ONE (08:32)
[2017-12-22] MEDS: Acetaminophen 325 MG TABLET PO PRN (10:44)
[2017-12-23] MEDS: *HR* OxyCODONE Immed Rel 5 MG TABLET PO PRN ×4 (01:47→20:45)
[2017-12-23] MEDS: Gentamicin 90 MG in 0.9 % Sodium Chloride 100 ML IVPB SCH ×3 (04:51→21:36)
[2017-12-23] MEDS: Dexmedetomidine HCl 400 MCG/100 ML MLS IVC SCH (05:23)
[2017-12-23 06:53] LABS: Hematocrit 28.5 % (37.5-50.1); Hemoglobin 9.6 g/dL (12.9-16.9); Mean Corpuscular HGB Conc 33.7 g/dL (31.6-35.5); Mean Corpuscular Hemoglobin 28.8 pg (28.0-33.3); Mean Corpuscular Volume 85.6 fL (83.0-100.0); Mean Platelet Volume 9.8 fL (9.4-12.4); Platelet Count 208 K/mcL (140-400); Red Blood Count 3.33 M/mcL (4.19-5.50); Red Cell Distribution Width 15.1 % (11.5-14.5)
[2017-12-23 07:04] LABS: BUN/Creatinine Ratio 10 (6-26); Blood Urea Nitrogen 11 mg/dL (6-20); Calcium 8.1 mg/dL (8.6-10.3); Carbon Dioxide 22 mEq/L (23-29); Chloride 104 mEq/L (98-107); Glucose 121 mg/dL (70-105); Osmolality,Calculated 277 (280-300); Potassium 3.1 mEq/L (3.5-5.1); Sodium 133 mEq/L (136-145); eGFR For African Americans > 60 (> 60); eGFR For Non-African Americans > 60 (> 60)
[2017-12-23] MEDS: *HR* LORazepam 1 MG TABLET PO PRN ×3 (08:10→18:18)
[2017-12-23] MEDS: cloNIDine HCl 0.1 MG TABLET PO SCH ×2 (08:10→20:45)
--- NOTE | 2017-12-23 08:41 | Internal Med Progress Note ---
<Hugo Elena - Last Filed: 12/23/17 10:47> Date of Encounter: 12/23/17 Time of Encounter: 08:37 - Assessment and plan (1) Sepsis Current Visit: Yes Status: Acute Assessment and plan: Likely 2/2 to bacteremia and IE EDMUND showed possible vegetations on the mitral and tricuspid valve; PFO with evidence of a L to R shunt. Blood CXs that were obtained; positive for MRSA WC is 11.2 today -Vancomycin 1500 mg IV Q12 -Gentamycin 90 mg IV Q8 -Day 7 of antibiotics Qualifiers: Sepsis type: sepsis due to unspecified organism Qualified Code(s): A41.9 - Sepsis, unspecified organism (2) Bacteremia due to Enterococcus Current Visit: No Status: Acute Assessment and plan: Final Blood cultures positive for MRSA ID has been consulted and is following -Vancomycin 1500 mg IV Q12 -Gentamycin 90 mg IV Q8 -Day 7 of antibiotics (3) Infective endocarditis Current Visit: Yes Status: Acute Assessment and plan: -EDMUND: possible vegetation on the mitral and tricuspid valves -Patient currently on vanc and gentamicin has been added per ID -Vancomycin 1500 mg IV Q12 -Gentamycin 90 mg IV Q8 -Day 7 ob antibiotics Qualifiers: Infective endocarditis organism: bacterial Chronicity: acute Qualified Code(s): I33.0 - Acute and subacute infective endocarditis (4) Drug abuse and dependence Current Visit: No Status: Chronic Assessment and plan: -Known hx of IVDU -Last used IV heroin approx. 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 Qualifiers: Headache type: unspecified Headache chronicity pattern: acute headache Intractability: intractable Qualified Code(s): R51 - Headache (6) Septic arthritis Current Visit: Yes Status: Suspected Assessment and plan: -Blood CX positive for MRSA -Due the patient having pain in the right wrist, left shoulder, and left knee there was concern for possible septic arthritis -Patient has had emboli to the brain there is concerning to possibly have seeded infection in a joint -Orthopedics consulted, recommend following closely, consider asppiration if pain worsens -Recommened PT/OT for mobility exercises -ICE as needed continue pain management; avoid NSAIDs Qualifiers: Septic arthritis location: unspecified location Septic arthritis organism: due to unspecified organism Qualified Code(s): M00.9 - Pyogenic arthritis, unspecified (7) Hypokalemia Current Visit: Yes Status: Acute Assessment and plan: -Potassium this morning was 3.1 -Will replace (8) Hepatitis-C Current Visit: No Status: Chronic Assessment and plan: chronic issue Qualifiers: Viral hepatitis chronicity: chronic Hepatic coma status: without hepatic coma Qualified Code(s): B18.2 - Chronic viral hepatitis C (9) Tobacco abuse Current Visit: No Status: Acute Assessment and plan: Recommend cessation (10) DVT prophylaxis Current Visit: Yes Status: Acute Assessment and plan: SCDs - Subjective Interval history: Patient seen and examined at bedside this morning. Reports a general feeling of malaise. Also complains of a severe headache. States that his oral oxycodone has not been effective in relieving his pain. Denies having fever or chills. Still refuses to be transferred. No further complaints at this time. - Constitutional Vitals: Temp Pulse Resp BP Pulse Ox 98.8 F 63 22 107/66 91 12/23/17 03:18 12/23/17 07:22 12/23/17 07:22 12/23/17 08:12 12/23/17 07:22 General appearance: Present: cooperative, A&O X 3, answers questions appropriately - Head Head exam: Present: atraumatic, normocephalic - Eye Eye exam: Present: PERRL, conjuntiva pink, sclera anicteric Pupils: Present: PERRL - Neck Neck exam general surgery: Present: supple, trachea midline. Absent: lymphadenopathy - Respiratory Respiratory exam: Present: CTAB. Absent: accessory muscle use, rales, rhonchi, wheezes - Cardiovascular Cardiovascular exam: Present: diastolic murmur, RRR, +S1, +S2. Absent: gallop, rubs, systolic murmur - GI/Abdominal GI/Abdominal exam: Present: normal bowel sounds, soft, no peritoneal signs. Absent: distended, tenderness - Extremities Exam Extremities exam: Present: warm, radial pulses palpable and symmetrical. Absent : calf tenderness, cyanotic, pedal edema - Neurological Exam Neurological exam: Present: CN II-XII intact, oriented X3, no focal deficits. Absent: pronater drift, facial droop, speech deficit - Skin Skin exam: Present: dry, intact Internal Medicine: Result - Labs CBC & Chem 7: 12/23/17 05:44 12/23/17 05:44 Labs: Short CBC 12/23/17 Range/Units 05:44 WBC 11.2 H (4.3-11.1) K/mcL Hgb 9.6 L (12.9-16.9) g/dL Hct 28.5 L (37.5-50.1) % Plt Count 208 (140-400) K/mcL BMP 12/23/17 05:44 Sodium 133 L Potassium 3.1 L Chloride 104 Carbon Dioxide 22 L BUN 11 Creatinine 1.12 Glucose 121 H Calcium 8.1 L - VTE Documentation of Mechanical Device: Intermittent pneumatic compression device Consult Discharge Plan - Plan Referrals: Taya Steel, S[employer]OL OPERATIONS MANAGER [Advanced Practice Nurse] - 12/28/17 10:00 am NONE,PCP [Primary Care Provider] - <Bert Oneill H - Last Filed: 12/23/17 10:49> Date of Encounter: 12/23/17 - Constitutional Vitals: Temp Pulse Resp BP Pulse Ox 98.8 F 73 22 101/63 91 12/23/17 03:18 12/23/17 09:00 12/23/17 07:22 12/23/17 10:00 12/23/17 07:22 Internal Medicine: Result - Labs CBC & Chem 7: 12/23/17 05:44 12/23/17 05:44 Labs: Short CBC 12/23/17 Range/Units 05:44 WBC 11.2 H (4.3-11.1) K/mcL Hgb 9.6 L (12.9-16.9) g/dL Hct 28.5 L (37.5-50.1) % Plt Count 208 (140-400) K/mcL BMP 12/23/17 05:44 Sodium 133 L Potassium 3.1 L Chloride 104 Carbon Dioxide 22 L BUN 11 Creatinine 1.12 Glucose 121 H Calcium 8.1 L - Attending Attestation Vancomycin day and gentamicin day #7 Still refusing to be transferred. Risks including were again explained. I examined this patient and my medical decision-making was reviewed with the Resident Physician. I agree with the documented findings, disposition and treatment plan as described except to the extent set forth below.
[2017-12-23] MEDS: Acetaminophen 325 MG TABLET PO PRN (17:34)
[2017-12-23] MEDS: *HR* HYDROcodone/Acet 5/325 mg TABLET PO PRN (18:18)
[2017-12-24] MEDS: *HR* LORazepam 1 MG TABLET PO PRN ×5 (00:23→22:37)
[2017-12-24] MEDS: *HR* HYDROcodone/Acet 5/325 mg TABLET PO PRN ×2 (00:23→08:26)
[2017-12-24] MEDS: Dexmedetomidine HCl 400 MCG/100 ML MLS IVC SCH ×5 (00:39→19:40)
[2017-12-24 03:01] LABS: Enterococcus by PCR Not Detected (Not Detect); Staphylococcus aureus by PCR ***DETECTED*** (Not Detect); mecA Methicillin-Resist Gene ***DETECTED*** (Not Detect)
[2017-12-24 03:02] LABS: Acinetobacter baumannii by PCR Not Detected (Not Detect); Candida albicans by PCR Not Detected (Not Detect); Candida glabrata by PCR Not Detected (Not Detect); Candida krusei by PCR Not Detected (Not Detect); Candida parapsilosis by PCR Not Detected (Not Detect); Candida tropicalis by PCR Not Detected (Not Detect); Escherichia coli by PCR Not Detected (Not Detect); Klebsiella oxytoca by PCR Not Detected (Not Detect); Klebsiella pneumoniae by PCR Not Detected (Not Detect); Pseudomonas aeruginosa by PCR Not Detected (Not Detect); Serratia marcescens by PCR Not Detected (Not Detect); Streptococcus agalactiae(B)PCR Not Detected (Not Detect); Streptococcus by PCR Not Detected (Not Detect); Streptococcus pneumoniae PCR Not Detected (Not Detect); Streptococcus pyogenes (A) PCR Not Detected (Not Detect)
[2017-12-24] MEDS: *HR* OxyCODONE Immed Rel 5 MG TABLET PO PRN ×3 (05:23→22:34)
[2017-12-24] MEDS: Gentamicin 90 MG in 0.9 % Sodium Chloride 100 ML IVPB SCH ×3 (05:24→19:40)
[2017-12-24 05:59] LABS: Basophils % 0.4 %; Eosinophils # 0.2 K/mcL (0.0-0.6); Eosinophils % 1.5 %; Hematocrit 29.3 % (37.5-50.1); Hemoglobin 9.7 g/dL (12.9-16.9); Immature Granulocytes % 0.8 % (0-4); Lymphocytes # 1.4 K/mcL (0.6-4.6); Lymphocytes % 12.4 %; Mean Corpuscular HGB Conc 33.1 g/dL (31.6-35.5); Mean Corpuscular Hemoglobin 28.4 pg (28.0-33.3); Mean Corpuscular Volume 85.7 fL (83.0-100.0); Mean Platelet Volume 9.7 fL (9.4-12.4); Monocytes # 1.1 K/mcL (0.0-1.3); Monocytes % 10.2 %; Neutrophils # 8.2 K/mcL (1.6-8.9); Platelet Count 228 K/mcL (140-400); Red Blood Count 3.42 M/mcL (4.19-5.50); Red Cell Distribution Width 14.9 % (11.5-14.5); Segmented Neutrophils % 74.7 %
[2017-12-24 06:20] LABS: BUN/Creatinine Ratio 10 (6-26); Blood Urea Nitrogen 11 mg/dL (6-20); Calcium 8.3 mg/dL (8.6-10.3); Carbon Dioxide 22 mEq/L (23-29); Chloride 103 mEq/L (98-107); Glucose 112 mg/dL (70-105); Osmolality,Calculated 276 (280-300); Potassium 3.2 mEq/L (3.5-5.1); Sodium 133 mEq/L (136-145); eGFR For African Americans > 60 (> 60); eGFR For Non-African Americans > 60 (> 60)
[2017-12-24 07:02] LABS: Platelet Estimate Normal (Normal); Reactive Lymphocytes Present (Not Present)
[2017-12-24] MEDS: cloNIDine HCl 0.1 MG TABLET PO SCH ×2 (08:26→21:13)
--- NOTE | 2017-12-24 10:14 | Internal Med Progress Note ---
<Michael Mitchell - Last Filed: 12/24/17 10:20> Date of Encounter: 12/24/17 Time of Encounter: 10:10 - Assessment and plan (1) Sepsis Current Visit: Yes Status: Acute Assessment and plan: Likely secondary to bacteremia and IE EDMUND showed possible vegetations on the mitral and tricuspid valve; PFO with evidence of a L to R shunt. Blood CXs that were obtained; positive for MRSA WC is 11.0 today Continue with vancomycin and gent Day 8 of vanc and day 7 of gent Patient still refuses transfer to another hospital and wishes to remain at [facility] for antibiotic therapy. Qualifiers: Sepsis type: sepsis due to unspecified organism Qualified Code(s): A41.9 - Sepsis, unspecified organism (2) Bacteremia Current Visit: Yes Status: Acute Assessment and plan: Likely secondary to MRSA Final Blood cultures positive for MRSA ID has been consulted and is following the patient. Continue vancomycin and Gentamicin Repeat blood cultures has been ordered. (3) Infective endocarditis Current Visit: Yes Status: Acute Assessment and plan: EDMUND: possible vegetation on the mitral and tricuspid valves Patient currently on vanc and gentamicin h Day 7 gent and day 8 vanc Qualifiers: Infective endocarditis organism: bacterial Chronicity: acute Qualified Code(s): I33.0 - Acute and subacute infective endocarditis (4) Drug abuse and dependence Current Visit: No Status: Chronic Assessment and plan: Known hx of IVDU Last used IV heroin approx. 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 No longer pain and has full range of motion. Orthopedics consulted, recommend following closely, consider asppiration if pain worsens Recommened PT/OT for gentle mobility exercises ICE prn for painn Avoid NSAIDs Qualifiers: Septic arthritis location: unspecified location Septic arthritis organism: due to unspecified organism Qualified Code(s): M00.9 - Pyogenic arthritis, unspecified (8) Elevated troponin Current Visit: Yes Status: Acute Assessment and plan: Patient most recent troponin of 0.06 decreased from 0.19. Patient has chronically elevated troponin Patient denies any chest pain or shortness of breath at this time. (9) History of endocarditis Current Visit: Yes Status: Acute Assessment and plan: Patient has multiple episodes of endocarditis. He has been seen at outside facilities including [facility] and [facility] Patient states that even though he has had care at previous facilities he wishes to stay here at [facility]. (10) Tobacco abuse Current Visit: No Status: Acute Assessment and plan: Recommend cessation (11) DVT prophylaxis Current Visit: Yes Status: Acute Assessment and plan: SCDs - Subjective Interval history: Patient states that he is feeling better today and has been eating. Patient states that he is no longer having any joint pain and feels like he has better range of motion of all his joints. Patient states that he still wishes to remain here and [facility] for antibiotic therapy and does not want to be transferred. - Constitutional Vitals: Temp Pulse Resp BP Pulse Ox 98.8 F 64 17 97/52 92 12/24/17 07:00 12/24/17 07:00 12/24/17 07:00 12/24/17 07:00 12/24/17 06:58 General appearance: Present: cooperative, A&O X 3, answers questions appropriately - Head Head exam: Present: atraumatic, normocephalic - Neck Neck exam general surgery: Present: full ROM, normal inspection, trachea midline - Respiratory Respiratory exam: Present: CTAB. Absent: accessory muscle use, rales, rhonchi, wheezes - Cardiovascular Cardiovascular exam: Present: RRR, +S1, +S2. Absent: diastolic murmur, gallop, rubs, systolic murmur - GI/Abdominal GI/Abdominal exam: Present: normal bowel sounds, soft, no peritoneal signs. Absent: distended, tenderness - Extremities Exam Extremities exam: Present: warm. Absent: cyanotic, pedal edema - Neurological Exam Neurological exam: Present: alert, oriented X3, no focal deficits. Absent: facial droop, speech deficit - Psychiatric Psychiatric exam: Present: normal affect, normal mood - Skin Skin exam: Present: dry, intact, warm Internal Medicine: Result - Labs CBC & Chem 7: 12/24/17 04:31 12/24/17 04:31 Labs: Short CBC 12/24/17 Range/Units 04:31 WBC 11.0 (4.3-11.1) K/mcL Hgb 9.7 L (12.9-16.9) g/dL Hct 29.3 L (37.5-50.1) % Plt Count 228 (140-400) K/mcL Neutrophils # 8.2 (1.6-8.9) K/mcL BMP 12/24/17 04:31 Sodium 133 L Potassium 3.2 L Chloride 103 Carbon Dioxide 22 L BUN 11 Creatinine 1.12 Glucose 112 H Calcium 8.3 L - VTE Documentation of Mechanical Device: Intermittent pneumatic compression device Consult Discharge Plan - Plan Referrals: Taya Steel, [employer]YWALL FINISHER [Advanced Practice Nurse] - 12/28/17 10:00 am NONE,PCP [Primary Care Provider] - <Bert Oneill H - Last Filed: 12/24/17 14:14> Date of Encounter: 12/24/17 - Constitutional Vitals: Temp Pulse Resp BP Pulse Ox 98.3 F 66 17 91/50 93 12/24/17 13:22 12/24/17 13:22 12/24/17 13:22 12/24/17 13:22 12/24/17 13:22 Internal Medicine: Result - Labs CBC & Chem 7: 12/24/17 04:31 12/24/17 04:31 Labs: Short CBC 12/24/17 Range/Units 04:31 WBC 11.0 (4.3-11.1) K/mcL Hgb 9.7 L (12.9-16.9) g/dL Hct 29.3 L (37.5-50.1) % Plt Count 228 (140-400) K/mcL Neutrophils # 8.2 (1.6-8.9) K/mcL BMP 12/24/17 04:31 Sodium 133 L Potassium 3.2 L Chloride 103 Carbon Dioxide 22 L BUN 11 Creatinine 1.12 Glucose 112 H Calcium 8.3 L - Attending Attestation Continue Vancomycin and gentamicin Still refusing to be transferred. Risks including were again explained. I examined this patient and my medical decision-making was reviewed with the Resident Physician. I agree with the documented findings, disposition and treatment plan as described except to the extent set forth below.
--- NOTE | 2017-12-24 10:46 | Infectious Disease Progress No ---
Date of Encounter: 12/24/17 Time of Encounter: 10:42 - Assessment and Plan (1) Sepsis Current Visit: Yes Status: Acute The patient had two SIRS criteria on admission (fever and tachycardia). Likely secondary to bacteremia and endocarditis. Improved.Continues to have intermittent fevers. Tachycardia has improved. Blood cultures continue to be positive 7/7 sets. CXR negative. Flu antigen and PCR swabs are negative. Qualifiers: Sepsis type: sepsis due to unspecified organism Qualified Code(s): A41.9 - Sepsis, unspecified organism (2) Bacteremia Current Visit: Yes Status: Acute Causative organism: MRSA. Persistent despite appropriate antibiotic therapy. 12/17/17 are positive 2/2 sets. 12/18/17 are positive 2/2 sets. 12/20/17 are positive 2/2 sets. 12/23/17 are positive / set. He does have an extensive history of endocarditis and does have a history of aortic, mitral and tricuspid valve replacements as noted during EDMUND. He continues to use IV drugs. The patient has some lesions on his hand that could be Janeway lesions, but does not have any other endocarditis stigmata. Has one major and three minor Modified Mahan's Criteria. TTE inadequate to evaluate for endocarditis. EDMUND positive for endocarditis. Repeat blood cultures x 2 sets now. One set drawn this morning. Will add additional set to be drawn now. Continue Vancomycin IV. Pharmacy to dose. Goal trough ~15. Most recent trough 20.5. Dosing discussed with Andra Fleming. Continue Gentamicin 1mg/kg IV Q8H. Gent peak on 12/21/17 3.5. Duration of treatment depends on the clinical picture. The patient continues to be bacteremic despite adequate IV antibiotic therapy. Vanc ADDIE <0.5. Monitor renal function and for drug toxicity and dose-adjust antibiotics. (3) Infective endocarditis Current Visit: Yes Status: Acute Causative organism: MRSA. Likely secondary to bacteremia from IVDU. Blood cultures continue to be positive. TTE negative, but EDMUND showed a 10mm x 3.6mm mobile echodensity attached to the atrial side of the anterior mitral valve leaflet consistent with vegetation. It also showed a very subtle echodensity attached to a portion of the annulus of the tricuspid valve which could represent a vegetation. Continue Vancomycin as above. Continue Gentamicin for prosthetic valve endocarditis. The patient has been told previously that he is not a candidate for additional surgery due to his multiple episodes of previous endocarditis and continued drug use. He is refusing transfer unless we can find someone who is willing to consider doing surgery on him. I discussed this with him again this morning. He continues to refuse transfer. Duration of treatment depends on the clinical picture. Needs a baseline hearing test since he will be on a prolonged course of Gentamicin. Called and spoke with Audiology who states they cannot do a hearing screening on a patient while they are inpatient and will have to wait until the patient is discharged. Qualifiers: Infective endocarditis organism: bacterial Chronicity: acute Qualified Code(s): I33.0 - Acute and subacute infective endocarditis (4) Intracranial septic embolism Current Visit: Yes Status: Acute Likely secondary to bacteremia and endocarditis. 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 Recommend the patient be transferred to [facility] for neurosurgery evaluation. He continues to refuse transfer. The patient did mention that he was tired of dealing with this and wanted to sign hospice papers. Consider palliative care consult to discuss further goals of care with the patient. (5) Headache Current Visit: Yes Status: Acute Patient complains of persistent parietal headache. Likely secondary to septic emboli in the brain. Denies blurred vision or floaters. 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 Pain management per the primary team. Qualifiers: Headache type: unspecified Headache chronicity pattern: acute headache Intractability: intractable Qualified Code(s): R51 - Headache (6) Elevated troponin Current Visit: Yes Status: Acute Likely demand ischemia from endocarditis. Consider cardiology consult. Further workup and management per the primary team. (7) Status post aortic valve replacement Current Visit: Yes Status: Acute Status post aortic valve replacement x 3 due to endocarditis/valve abscess. 02/2015 at [facility] - tissue valve. 03/2016 at [facility] - Redo sternotomy, AV replacement (tissue), and bovine pericardial aortoplasty augmentation. 06/2016 at [facility] - details not available, but the patient reports they used a donor valve. EDMUND showed the presence of bioprosthetic aortic, mitral, and tricuspid valves. (8) History of endocarditis Current Visit: Yes Status: Acute 02/2015 - Causative organism Serratia marcescens, AVR tissue, Cefepime/ Gentamicin x 6 weeks, septic emboli to the brain. 07/2015 - Causative organism Serratia marcescens and Burkholderia, Minocycline IV/Bactrim IV x 6 weeks. 03/2016 - Causative organism E. faecalis, aortic valve abscess, AVR tissu, Ampicillin/Rocephin x 6 weeks. 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 06/2016 - Went back to [facility], CTS refused to perform additional surgery, patient transferred to [facility] for second opinion. Per patient, had AVR with donor valve, but EDMUND shows bioprosthetic aortic, mitral, and tricuspid valve. Unsure of antibiotic therapy post-op. Will request records from [facility]. (9) Tobacco abuse Current Visit: No Status: Acute (10) Drug abuse and dependence Current Visit: No Status: Chronic Reports last using IV Heroine 2 days ago. High risk for withdrawal syndrome. Management per the primary team. (11) Hepatitis-C Current Visit: No Status: Chronic Known Hep C positive. HIV nonreactive. Qualifiers: Viral hepatitis chronicity: chronic Hepatic coma status: without hepatic coma Qualified Code(s): B18.2 - Chronic viral hepatitis C (12) Joint pain Current Visit: Yes Status: Resolved Reports pain in the right wrist, left knee, and right shoulder has resolved. Right wrist swollen, but not erythematous. Ortho evaluation noted. Qualifiers: Joint pain location: unspecified Qualified Code(s): M25.50 - Pain in unspecified joint - Subjective Interval history: Patient seen and examined. Weekend notes reviewed. No acute events noted overnight. Patient states that overall he feels better. Reports continued headache, but denies blurred vision or floaters. Denies fevers, chills, or rigors overnight. Denies chest pain, cough, or shortness of breath. Denies nausea and vomiting this morning. Reports his appetite is better. Denies abdominal pain or urinary complaints. States pain in the right wrist, left knee , and left shoulder have resolved. Denies oral thrush or new skin lesions. He continues to refuse transfer to tertiary care center. Infect Dis PN-Objective Data - Labs CBC & Chem 7: 12/25/17 05:13 12/25/17 05:13 Labs: Laboratory Results - last 24 hr 12/23/17 12/23/17 12/24/17 05:44 09:48 04:31 WBC 11.0 RBC 3.42 L Hgb 9.7 L Hct 29.3 L MCV 85.7 MCH 28.4 MCHC 33.1 RDW 14.9 H Plt Count 228 MPV 9.7 Immature Gran % 0.8 Seg Neutrophils % 74.7 Lymphocytes % 12.4 Monocytes % 10.2 Eosinophils % 1.5 Basophils % 0.4 Neutrophils # 8.2 Lymphocytes # 1.4 Monocytes # 1.1 Eosinophils # 0.2 Basophils # 0.0 Reactive Lymphocytes Present A Platelet Estimate Normal Sodium Potassium Chloride Carbon Dioxide BUN Creatinine Est GFR ( Amer) Est GFR (Non-Af Amer) BUN/Creatinine Ratio Glucose Calculated Osmolality Calcium Vancomycin Trough 48.4 H* A. baumannii (PCR) Not Detected Allison albicans (PCR) Not Detected C. glabrata (PCR) Not Detected C. krusei (PCR) Not Detected C. parapsilosis (PCR) Not Detected C. tropicalis (PCR) Not Detected Enterobacteriac sp PCR Not Detected E. cloacae complex PCR Not Detected Enterococcus sp PCR Not Detected E. coli (PCR) Not Detected H. influenzae (PCR) Not Detected Klebsiella oxytoca PCR Not Detected Klebsiella pneumoniae Not Detected List. monocytogenes PCR Not Detected N. meningitidis (PCR) Not Detected Proteus species (PCR) Not Detected Serratia marcescens PCR Not Detected Staphylococcus sp PCR DETECTED A Staph aureus (PCR) DETECTED A mecA-Methicil Res Gene DETECTED A Streptococcus sp PCR Not Detected Group A Strep DNA Not Detected Group B Strep (PCR) Not Detected Strep pneumoniae (PCR) Not Detected P. aeruginosa (PCR) Not Detected Marli/B-Vanco Res Genes N/A KPC (blaKPC) Detect PCR N/A 12/24/17 12/24/17 04:31 08:24 WBC RBC Hgb Hct MCV MCH MCHC RDW Plt Count MPV Immature Gran % Seg Neutrophils % Lymphocytes % Monocytes % Eosinophils % Basophils % Neutrophils # Lymphocytes # Monocytes # Eosinophils # Basophils # Reactive Lymphocytes Platelet Estimate Sodium 133 L Potassium 3.2 L Chloride 103 Carbon Dioxide 22 L BUN 11 Creatinine 1.12 Est GFR ( Amer) > 60 Est GFR (Non-Af Amer) > 60 BUN/Creatinine Ratio 10 Glucose 112 H Calculated Osmolality 276 L Calcium 8.3 L Vancomycin Trough 20.5 H* A. baumannii (PCR) Allison albicans (PCR) C. glabrata (PCR) C. krusei (PCR) C. parapsilosis (PCR) C. tropicalis (PCR) Enterobacteriac sp PCR E. cloacae complex PCR Enterococcus sp PCR E. coli (PCR) H. influenzae (PCR) Klebsiella oxytoca PCR Klebsiella pneumoniae List. monocytogenes PCR N. meningitidis (PCR) Proteus species (PCR) Serratia marcescens PCR Staphylococcus sp PCR Staph aureus (PCR) mecA-Methicil Res Gene Streptococcus sp PCR Group A Strep DNA Group B Strep (PCR) Strep pneumoniae (PCR) P. aeruginosa (PCR) Marli/B-Vanco Res Genes KPC (blaKPC) Detect PCR Cultures: Cultures 12/23/17 05:44 Blood Culture - Preliminary Peripheral Venipuncture Gram Positive Cocci 12/20/17 08:52 Blood Culture - Final Peripheral Venipuncture Methicillin Resistant S.aureus 12/20/17 08:52 Blood Culture - Final Peripheral Venipuncture Methicillin Resistant S.aureus 12/17/17 10:08 Blood Culture - Final Peripheral Venipuncture Methicillin Resistant S.aureus 12/18/17 12:33 Blood Culture - Final Peripheral Venipuncture Methicillin Resistant S.aureus 12/18/17 12:33 Blood Culture - Final Peripheral Venipuncture Methicillin Resistant S.aureus Serology 12/23/17 12/20/17 12/18/17 Range/Units 05:44 08:52 12:33 A. baumannii (PCR) Not Detected Not Detected (Not Detect) Allison albicans (PCR) Not Detected Not Detected (Not Detect) C. glabrata (PCR) Not Detected Not Detected (Not Detect) C. krusei (PCR) Not Detected Not Detected (Not Detect) C. parapsilosis (PCR) Not Detected Not Detected (Not Detect) C. tropicalis (PCR) Not Detected Not Detected (Not Detect) Enterobacteriac sp PCR Not Detected Not Detected (Not Detect) E. cloacae complex PCR Not Detected Not Detected (Not Detect) Enterococcus sp PCR Not Detected Not Detected (Not Detect) E. coli (PCR) Not Detected Not Detected (Not Detect) H. influenzae (PCR) Not Detected Not Detected (Not Detect) HIV Ag/Ab Combo Qual Nonreactive (Nonreactive) Influenza Type A (PCR) (Negative) Influenza Type B (PCR) (Negative) Klebsiella oxytoca PCR Not Detected Not Detected (Not Detect) Klebsiella pneumoniae Not Detected Not Detected (Not Detect) List. monocytogenes PCR Not Detected Not Detected (Not Detect) N. meningitidis (PCR) Not Detected Not Detected (Not Detect) Proteus species (PCR) Not Detected Not Detected (Not Detect) Serratia marcescens PCR Not Detected Not Detected (Not Detect) Staphylococcus sp PCR DETECTED A DETECTED A (Not Detect) Staph aureus (PCR) DETECTED A DETECTED A (Not Detect) mecA-Methicil Res Gene DETECTED A DETECTED A (Not Detect) Streptococcus sp PCR Not Detected Not Detected (Not Detect) Group A Strep DNA Not Detected Not Detected (Not Detect) Group B Strep (PCR) Not Detected Not Detected (Not Detect) Strep pneumoniae (PCR) Not Detected Not Detected (Not Detect) P. aeruginosa (PCR) Not Detected Not Detected (Not Detect) Marli/B-Vanco Res Genes N/A Not Detected (Not Detect) KPC (blaKPC) Detect PCR N/A Not Detected (Not Detect) 12/17/17 12/17/17 Range/Units 14:49 10:08 A. baumannii (PCR) Not Detected (Not Detect) Allison albicans (PCR) Not Detected (Not Detect) C. glabrata (PCR) Not Detected (Not Detect) C. krusei (PCR) Not Detected (Not Detect) C. parapsilosis (PCR) Not Detected (Not Detect) C. tropicalis (PCR) Not Detected (Not Detect) Enterobacteriac sp PCR Not Detected (Not Detect) E. cloacae complex PCR Not Detected (Not Detect) Enterococcus sp PCR Not Detected (Not Detect) E. coli (PCR) Not Detected (Not Detect) H. influenzae (PCR) Not Detected (Not Detect) HIV Ag/Ab Combo Qual (Nonreactive) Influenza Type A (PCR) Negative (Negative) Influenza Type B (PCR) Negative (Negative) Klebsiella oxytoca PCR Not Detected (Not Detect) Klebsiella pneumoniae Not Detected (Not Detect) List. monocytogenes PCR Not Detected (Not Detect) N. meningitidis (PCR) Not Detected (Not Detect) Proteus species (PCR) Not Detected (Not Detect) Serratia marcescens PCR Not Detected (Not Detect) Staphylococcus sp PCR DETECTED A (Not Detect) Staph aureus (PCR) DETECTED A (Not Detect) mecA-Methicil Res Gene DETECTED A (Not Detect) Streptococcus sp PCR Not Detected (Not Detect) Group A Strep DNA Not Detected (Not Detect) Group B Strep (PCR) Not Detected (Not Detect) Strep pneumoniae (PCR) Not Detected (Not Detect) P. aeruginosa (PCR) Not Detected (Not Detect) Marli/B-Vanco Res Genes N/A (Not Detect) KPC (blaKPC) Detect PCR N/A (Not Detect) Exam - Constitutional Vitals: Temp Pulse Resp BP Pulse Ox 98.8 F 64 17 97/52 92 12/24/17 07:00 12/24/17 07:00 12/24/17 07:00 12/24/17 07:00 12/24/17 06:58 General appearance: average body habitus, cooperative, no acute distress - Head Head exam: Present: atraumatic, normal inspection, normocephalic - Eye Eye exam: Present: EOMI, normal appearance Pupils: Present: normal accommodation, PERRL Additional comments: No subconjunctival hemorrhage noted. - ENT ENT exam: Present: mucous membranes moist - Neck Neck exam: Present: normal inspection - Respiratory Respiratory exam: Present: CTAB. Absent: rales, respiratory distress, rhonchi, wheezes - Cardiovascular Cardiovascular exam: Present: RRR, +S1, +S2 - GI/Abdominal GI/Abdominal exam: Present: normal bowel sounds, soft. Absent: distended, tenderness - Extremities Exam Extremities exam: Present: normal inspection. Absent: joint swelling, tenderness - Neurological Exam Neurological exam: Present: alert, oriented X3, no focal deficits - Psychiatric Psychiatric exam: Present: normal affect, normal mood - Skin Skin exam: Present: dry, intact, normal color, warm - VTE Documentation of Mechanical Device: Intermittent pneumatic compression device Consult Discharge Plan - Plan Referrals: Taya Steel, ASSOCIATE DEAN [Advanced Practice Nurse] - 12/28/17 10:00 am NONE,PCP [Primary Care Provider] - - Attending Attestation I examined this patient and my medical decision-making was reviewed with the Resident Physician. I agree with the documented findings, disposition and treatment plan as described except to the extent set forth below.
[2017-12-24] MEDS ORDERED: 0.9 % Sodium Chloride 250 ML ONE (11:20)
[2017-12-24] MEDS ORDERED: Fluconazole 100 MG TABLET PO SCH (20:30)
[2017-12-25] MEDS: Dexmedetomidine HCl 400 MCG/100 ML MLS IVC SCH ×3 (01:28→20:13)
[2017-12-25] MEDS: Gentamicin 90 MG in 0.9 % Sodium Chloride 100 ML IVPB SCH ×3 (03:44→19:42)
[2017-12-25 05:29] LABS: Basophils % 0.4 %; Eosinophils # 0.1 K/mcL (0.0-0.6); Eosinophils % 1.2 %; Hematocrit 27.4 % (37.5-50.1); Hemoglobin 9.3 g/dL (12.9-16.9); Immature Granulocytes % 0.7 % (0-4); Lymphocytes # 1.4 K/mcL (0.6-4.6); Lymphocytes % 13.4 %; Mean Corpuscular HGB Conc 33.9 g/dL (31.6-35.5); Mean Corpuscular Hemoglobin 28.8 pg (28.0-33.3); Mean Corpuscular Volume 84.8 fL (83.0-100.0); Mean Platelet Volume 9.2 fL (9.4-12.4); Monocytes % 9.3 %; Neutrophils # 7.8 K/mcL (1.6-8.9); Platelet Count 243 K/mcL (140-400); Red Blood Count 3.23 M/mcL (4.19-5.50); Red Cell Distribution Width 14.6 % (11.5-14.5)
[2017-12-25 05:46] LABS: BUN/Creatinine Ratio 8 (6-26); Blood Urea Nitrogen 10 mg/dL (6-20); Calcium 8.2 mg/dL (8.6-10.3); Carbon Dioxide 21 mEq/L (23-29); Chloride 103 mEq/L (98-107); Glucose 143 mg/dL (70-105); Osmolality,Calculated 272 (280-300); Sodium 130 mEq/L (136-145); eGFR For African Americans > 60 (> 60); eGFR For Non-African Americans > 60 (> 60)
[2017-12-25] MEDS: *HR* OxyCODONE Immed Rel 5 MG TABLET PO PRN ×2 (08:16→17:43)
[2017-12-25] MEDS: cloNIDine HCl 0.1 MG TABLET PO SCH ×2 (08:16→21:37)
[2017-12-25] MEDS: *HR* LORazepam 1 MG TABLET PO PRN ×3 (08:17→21:44)
--- NOTE | 2017-12-25 10:51 | Internal Med Progress Note ---
<Hugo Elena - Last Filed: 12/25/17 16:57> Date of Encounter: 12/25/17 Time of Encounter: 10:50 - Assessment and plan (1) Sepsis Current Visit: Yes Status: Acute Assessment and plan: -The patient had two SIRS criteria on admission (fever and tachycardia). -Likely 2/2 bacteremia and endocarditis. -Improved; Continues to have intermittent fevers. Tachycardia has improved. -Blood cultures continue to be positive 7/7 sets. -EDMUND showed possible vegetations on the mitral and tricuspid valve; PFO with evidence of a L to R shunt. -CXR negative Qualifiers: Sepsis type: sepsis due to unspecified organism Qualified Code(s): A41.9 - Sepsis, unspecified organism (2) Bacteremia due to Enterococcus Current Visit: No Status: Acute Assessment and plan: Causative organism: MRSA; Persistent despite appropriate antibiotic therapy. 12/17/17 are positive 2/2 sets. 12/18/17 are positive 2/2 sets. 12/20/17 are positive 2/2 sets. 12/23/17 are positive 1/ set. 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 Patient has lesions on his hand that could be Janeway lesions, but does not have any other IE stigmata Has 1 major and 3 minor Modified Mahan's Criteria -Vancomycin 1250 mg IV Q12 -Gentamycin 90 mg IV Q8 (3) Infective endocarditis Current Visit: Yes Status: Acute Assessment and plan: Causative organism: MRSA -Likely 2/2 bacteremia from IVDU -Blood cultures continue to be positive -TTE negative, but EDMUND showed a 10mm x 3.6mm mobile echodensity attached to the atrial side of the anterior mitral valve leaflet consistent with vegetation. It also showed a very subtle echodensity attached to a portion of the annulus of the tricuspid valve which could represent a vegetation -Vancomycin 1250 mg IV Q12 -Gentamycin 90 mg IV Q8 -The patient has been told previously that he is not a candidate for additional surgery due to his multiple episodes of previous endocarditis and continued drug use -He is refusing transfer unless we can find someone who is willing to consider doing surgery on him -Needs a baseline hearing test since he will be on a prolonged course of Gentamicin -ID spoke with Audiology who states they cannot do a hearing screening on a patient while they are inpatient; will have to wait until the patient is discharged Qualifiers: Infective endocarditis organism: bacterial Chronicity: acute Qualified Code(s): I33.0 - Acute and subacute infective endocarditis (4) Headache Current Visit: Yes Status: Acute Assessment and plan: -Patient complains of persistent parietal CARBALLO -Likely 2/2 septic emboli in the brain -Denies blurred vision or floaters -Has a hx of septic emboli to the brain during previous endocarditis -Oxycodone 10 mg PO Q6 PRN Qualifiers: Headache type: unspecified Headache chronicity pattern: acute headache Intractability: intractable Qualified Code(s): R51 - Headache (5) History of endocarditis Current Visit: Yes Status: Acute Assessment and plan: -02/2015 - Causative organism Serratia marcescens, AVR tissue, Cefepime/ Gentamicin x 6 weeks, septic emboli to the brain -07/2015 - Causative organism Serratia marcescens and Burkholderia, Minocycline IV/Bactrim IV x 6 weeks. -03/2016 - Causative organism E. faecalis, aortic valve abscess, AVR tissu, Ampicillin/Rocephin x 6 weeks. -06/2016 - Causative organism unclear, blood cultures negative at [facility] and [facility], mitral valve endocarditis with thickening of the AV with dehiscence concerning for AV endocarditis, signed out from [facility] AMA, no outpatient antibiotics. -06/2016 - Went back to [facility], CTS refused to perform additional surgery, patient transferred to [facility] for second opinion. Per patient, had AVR with donor valve, but EDMUND shows bioprosthetic aortic, mitral, and tricuspid valve (6) Intracranial septic embolism Current Visit: Yes Status: Acute Assessment and plan: -Likely secondary to bacteremia and IE -MRI of the brain showed multiple b/l embolic infarcts, R occipital cortex and L watershed zone. -Recommend the patient be transferred to tertiary care center for neurosurgery evaluation -Patient continues to refuse transfer -The patient did mention that he was tired of dealing with this and wanted to sign hospice papers. -Palliative care consult (7) Hepatitis-C Current Visit: No Status: Chronic Assessment and plan: -Known Hep C positive -HIV nonreactive Qualifiers: Viral hepatitis chronicity: chronic Hepatic coma status: without hepatic coma Qualified Code(s): B18.2 - Chronic viral hepatitis C (8) Drug abuse and dependence Current Visit: No Status: Chronic Assessment and plan: -Reports last using IV Heroin last week (9) Goals of care, counseling/discussion Current Visit: Yes Status: Acute Assessment and plan: Patient understands that his prognosis is very poor. -Palliative care has been consulted -CODE STATUS changed to DNR-CC (10) DVT prophylaxis Current Visit: Yes Status: Acute Assessment and plan: SCDs - Subjective Interval history: Patient was seen and examined at bedside this morning. Patient states that his headache has not improved. Code statuswas discussed with patient today; he understands that he has a poor prognosis. Has agreed to change code status to DNR-CC. He denies fever, chills, nausea, vomiting, and fatigue. - Constitutional Vitals: Temp Pulse Resp BP Pulse Ox 98.6 F 62 16 107/63 91 12/25/17 07:17 12/25/17 10:16 12/25/17 10:16 12/25/17 10:16 12/25/17 10:16 General appearance: Present: cooperative, disheveled, A&O X 3, answers questions appropriately - Head Head exam: Present: atraumatic, normocephalic - Respiratory Respiratory exam: Present: CTAB. Absent: accessory muscle use, rales, rhonchi, wheezes - Cardiovascular Cardiovascular exam: Present: diastolic murmur, RRR, +S1, +S2. Absent: gallop, rubs, systolic murmur - GI/Abdominal GI/Abdominal exam: Absent: distended, tenderness - Extremities Exam Extremities exam: Present: warm, radial pulses palpable and symmetrical. Absent : calf tenderness, cyanotic, pedal edema - Neurological Exam Neurological exam: Present: CN II-XII intact, oriented X3, no focal deficits. Absent: pronater drift, facial droop, speech deficit - Skin Skin exam: Present: dry, intact Internal Medicine: Result - Labs CBC & Chem 7: 12/25/17 05:13 12/25/17 05:13 Labs: Short CBC 12/25/17 Range/Units 05:13 WBC 10.4 (4.3-11.1) K/mcL Hgb 9.3 L (12.9-16.9) g/dL Hct 27.4 L (37.5-50.1) % Plt Count 243 (140-400) K/mcL Neutrophils # 7.8 (1.6-8.9) K/mcL [facility] 12/25/17 05:13 Sodium 130 L Potassium 3.0 L Chloride 103 Carbon Dioxide 21 L BUN 10 Creatinine 1.21 Glucose 143 H Calcium 8.2 L - VTE Documentation of Mechanical Device: Intermittent pneumatic compression device Consult Discharge Plan - Plan Referrals: Taya Steel, PRESTIDIGITATOR [Advanced Practice Nurse] - 12/28/17 10:00 am NONE,PCP [Primary Care Provider] - <Amari Juarez - Last Filed: 12/25/17 18:59> Date of Encounter: 12/25/17 - Constitutional Vitals: Temp Pulse Resp BP Pulse Ox 98.7 F 78 18 113/72 93 12/25/17 16:06 12/25/17 17:44 12/25/17 17:44 12/25/17 17:44 12/25/17 17:44 Internal Medicine: Result - Labs CBC & Chem 7: 12/25/17 05:13 12/25/17 05:13 Labs: Short CBC 12/25/17 Range/Units 05:13 WBC 10.4 (4.3-11.1) K/mcL Hgb 9.3 L (12.9-16.9) g/dL Hct 27.4 L (37.5-50.1) % Plt Count 243 (140-400) K/mcL Neutrophils # 7.8 (1.6-8.9) K/mcL [facility] 12/25/17 05:13 Sodium 130 L Potassium 3.0 L Chloride 103 Carbon Dioxide 21 L BUN 10 Creatinine 1.21 Glucose 143 H Calcium 8.2 L - Attending Attestation I examined this patient and my medical decision-making was reviewed with the Resident Physician. I agree with the documented findings, disposition and treatment plan as described except to the extent set forth below. Unfortunately his prognosis is quite grave. There are no other institutions that will take him for further valve replacements, we are unable to clear his blood of bacteria. He is refusing to go to group home with 6 weeks of IV antibiotics, which at this time probably is not a proven beneficial. We have decided to place him as a DNR today with his permission. He will have a hospice consultation very soon and will be discharged quite soon.
--- NOTE | 2017-12-25 11:18 | Infectious Disease Progress No ---
Date of Encounter: 12/25/17 Time of Encounter: 11:15 - Assessment and Plan (1) Sepsis Current Visit: Yes Status: Acute The patient had two SIRS criteria on admission (fever and tachycardia). Likely secondary to bacteremia and endocarditis. Improved. Low-grade fever x 1 overnight. Tachycardia has resolved. Blood cultures continue to be positive 7/7 sets. CXR negative. Flu antigen and PCR swabs are negative. Qualifiers: Sepsis type: sepsis due to unspecified organism Qualified Code(s): A41.9 - Sepsis, unspecified organism (2) Bacteremia Current Visit: Yes Status: Acute Causative organism: MRSA. Persistent despite appropriate antibiotic therapy. 12/17/17 are positive 2/2 sets. 12/18/17 are positive 2/2 sets. 12/20/17 are positive 2/2 sets. 12/23/17 are positive / set. He does have an extensive history of endocarditis and does have a history of aortic, mitral and tricuspid valve replacements as noted during EDMUND. He continues to use IV drugs. The patient has some lesions on his hand that could be Janeway lesions, but does not have any other endocarditis stigmata. Has one major and three minor Modified Mahan's Criteria. TTE inadequate to evaluate for endocarditis. EDMUND positive for endocarditis. Repeat blood cultures x 2 sets drawn 12/24/17 are pending. Continue Vancomycin IV. Pharmacy to dose. Goal trough ~15. Most recent trough 20.5. Continue Gentamicin 1mg/kg IV Q8H. Gent peak on 12/21/17 3.5. Duration of treatment depends on the clinical picture. The patient continues to be bacteremic despite adequate IV antibiotic therapy. Vanc ADDIE <0.5. Monitor renal function and for drug toxicity and dose-adjust antibiotics. (3) Infective endocarditis Current Visit: Yes Status: Acute Causative organism: MRSA. Likely secondary to bacteremia from IVDU. Blood cultures continue to be positive. TTE negative, but EDMUND showed a 10mm x 3.6mm mobile echodensity attached to the atrial side of the anterior mitral valve leaflet consistent with vegetation. It also showed a very subtle echodensity attached to a portion of the annulus of the tricuspid valve which could represent a vegetation. Continue Vancomycin as above. Continue Gentamicin for prosthetic valve endocarditis. The patient has been told previously that he is not a candidate for additional surgery due to his multiple episodes of previous endocarditis and continued drug use. He is refusing transfer unless we can find someone who is willing to consider doing surgery on him. Duration of treatment depends on the clinical picture. Needs a baseline hearing test since he will be on a prolonged course of Gentamicin. Called and spoke with Audiology who states they cannot do a hearing screening on a patient while they are inpatient and will have to wait until the patient is discharged. Qualifiers: Infective endocarditis organism: bacterial Chronicity: acute Qualified Code(s): I33.0 - Acute and subacute infective endocarditis (4) Intracranial septic embolism Current Visit: Yes Status: Acute Likely secondary to bacteremia and endocarditis. 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 Recommend the patient be transferred to tertiary care [place] for neurosurgery evaluation. He continues to refuse transfer. (5) Headache Current Visit: Yes Status: Acute Patient complains of persistent parietal headache. Likely secondary to septic emboli in the brain. Denies blurred vision or floaters. Pain management per the primary team. Qualifiers: Headache type: unspecified Headache chronicity pattern: acute headache Intractability: intractable Qualified Code(s): R51 - Headache (6) Elevated troponin Current Visit: Yes Status: Acute Likely demand ischemia from endocarditis. Consider cardiology consult. Further workup and management per the primary team. (7) Status post aortic valve replacement Current Visit: Yes Status: Acute Status post aortic valve replacement x 3 due to endocarditis/valve abscess. 02/2015 at [facility] - tissue valve. 03/2016 at [facility] - Redo sternotomy, AV replacement (tissue), and bovine pericardial aortoplasty augmentation. 06/2016 at [facility] - details not available, but the patient reports they used a donor valve. EDMUND showed the presence of bioprosthetic aortic, mitral, and tricuspid valves. (8) History of endocarditis Current Visit: Yes Status: Acute 02/2015 - Causative organism Serratia marcescens, AVR tissue, Cefepime/ Gentamicin x 6 weeks, septic emboli to the brain. 07/2015 - Causative organism Serratia marcescens and Burkholderia, Minocycline IV/Bactrim IV x 6 weeks. 03/2016 - Causative organism E. faecalis, aortic valve abscess, AVR tissu, Ampicillin/Rocephin x 6 weeks. 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 06/2016 - Went back to [facility], CTS refused to perform additional surgery, patient transferred to [facility] for second opinion. Per patient, had AVR with donor valve, but EDMUND shows bioprosthetic aortic, mitral, and tricuspid valve. Unsure of antibiotic therapy post-op. Will request records from [facility]. (9) Tobacco abuse Current Visit: No Status: Acute (10) Drug abuse and dependence Current Visit: No Status: Chronic Reports last using IV Heroine 2 days prior to admission. High risk for withdrawal syndrome. Management per the primary team. (11) Hepatitis-C Current Visit: No Status: Chronic Known Hep C positive. HIV nonreactive. Qualifiers: Viral hepatitis chronicity: chronic Hepatic coma status: without hepatic coma Qualified Code(s): B18.2 - Chronic viral hepatitis C (12) Joint pain Current Visit: Yes Status: Resolved Reports pain in the right wrist, left knee, and right shoulder has resolved. Right wrist swollen, but not erythematous. Ortho evaluation noted. Qualifiers: Joint pain location: unspecified Qualified Code(s): M25.50 - Pain in unspecified joint - Subjective Interval history: Patient seen and examined. No acute events noted overnight. Patient states that overall he feels better. Reports continued headache, but denies blurred vision or floaters. Denies fevers, chills, or rigors overnight. Denies chest pain, cough, or shortness of breath. Denies nausea and vomiting this morning. Reports his appetite is better. Denies abdominal pain or urinary complaints. States pain in the right wrist, left knee, and left shoulder have resolved. Denies oral thrush or new skin lesions. He continues to refuse transfer to tertiary care center. Infect Dis PN-Objective Data - Labs CBC & Chem 7: 12/25/17 05:13 12/25/17 05:13 Labs: Laboratory Results - last 24 hr 12/25/17 12/25/17 05:13 05:13 WBC 10.4 RBC 3.23 L Hgb 9.3 L Hct 27.4 L MCV 84.8 MCH 28.8 MCHC 33.9 RDW 14.6 H Plt Count 243 MPV 9.2 L Immature Gran % 0.7 Seg Neutrophils % 75.0 Lymphocytes % 13.4 Monocytes % 9.3 Eosinophils % 1.2 Basophils % 0.4 Neutrophils # 7.8 Lymphocytes # 1.4 Monocytes # 1.0 Eosinophils # 0.1 Basophils # 0.0 Sodium 130 L Potassium 3.0 L Chloride 103 Carbon Dioxide 21 L BUN 10 Creatinine 1.21 Est GFR ( Amer) > 60 Est GFR (Non-Af Amer) > 60 BUN/Creatinine Ratio 8 Glucose 143 H Calculated Osmolality 272 L Calcium 8.2 L Cultures: Cultures 12/23/17 05:44 Blood Culture - Preliminary Peripheral Venipuncture Gram Positive Cocci 12/20/17 08:52 Blood Culture - Final Peripheral Venipuncture Methicillin Resistant S.aureus 12/20/17 08:52 Blood Culture - Final Peripheral Venipuncture Methicillin Resistant S.aureus 12/17/17 10:08 Blood Culture - Final Peripheral Venipuncture Methicillin Resistant S.aureus 12/18/17 12:33 Blood Culture - Final Peripheral Venipuncture Methicillin Resistant S.aureus 12/18/17 12:33 Blood Culture - Final Peripheral Venipuncture Methicillin Resistant S.aureus Serology 12/23/17 12/20/17 12/18/17 Range/Units 05:44 08:52 12:33 A. baumannii (PCR) Not Detected Not Detected (Not Detect) Allison albicans (PCR) Not Detected Not Detected (Not Detect) C. glabrata (PCR) Not Detected Not Detected (Not Detect) C. krusei (PCR) Not Detected Not Detected (Not Detect) C. parapsilosis (PCR) Not Detected Not Detected (Not Detect) C. tropicalis (PCR) Not Detected Not Detected (Not Detect) Enterobacteriac sp PCR Not Detected Not Detected (Not Detect) E. cloacae complex PCR Not Detected Not Detected (Not Detect) Enterococcus sp PCR Not Detected Not Detected (Not Detect) E. coli (PCR) Not Detected Not Detected (Not Detect) H. influenzae (PCR) Not Detected Not Detected (Not Detect) HIV Ag/Ab Combo Qual Nonreactive (Nonreactive) Influenza Type A (PCR) (Negative) Influenza Type B (PCR) (Negative) Klebsiella oxytoca PCR Not Detected Not Detected (Not Detect) Klebsiella pneumoniae Not Detected Not Detected (Not Detect) List. monocytogenes PCR Not Detected Not Detected (Not Detect) N. meningitidis (PCR) Not Detected Not Detected (Not Detect) Proteus species (PCR) Not Detected Not Detected (Not Detect) Serratia marcescens PCR Not Detected Not Detected (Not Detect) Staphylococcus sp PCR DETECTED A DETECTED A (Not Detect) Staph aureus (PCR) DETECTED A DETECTED A (Not Detect) mecA-Methicil Res Gene DETECTED A DETECTED A (Not Detect) Streptococcus sp PCR Not Detected Not Detected (Not Detect) Group A Strep DNA Not Detected Not Detected (Not Detect) Group B Strep (PCR) Not Detected Not Detected (Not Detect) Strep pneumoniae (PCR) Not Detected Not Detected (Not Detect) P. aeruginosa (PCR) Not Detected Not Detected (Not Detect) Marli/B-Vanco Res Genes N/A Not Detected (Not Detect) KPC (blaKPC) Detect PCR N/A Not Detected (Not Detect) 12/17/17 12/17/17 Range/Units 14:49 10:08 A. baumannii (PCR) Not Detected (Not Detect) Allison albicans (PCR) Not Detected (Not Detect) C. glabrata (PCR) Not Detected (Not Detect) C. krusei (PCR) Not Detected (Not Detect) C. parapsilosis (PCR) Not Detected (Not Detect) C. tropicalis (PCR) Not Detected (Not Detect) Enterobacteriac sp PCR Not Detected (Not Detect) E. cloacae complex PCR Not Detected (Not Detect) Enterococcus sp PCR Not Detected (Not Detect) E. coli (PCR) Not Detected (Not Detect) H. influenzae (PCR) Not Detected (Not Detect) HIV Ag/Ab Combo Qual (Nonreactive) Influenza Type A (PCR) Negative (Negative) Influenza Type B (PCR) Negative (Negative) Klebsiella oxytoca PCR Not Detected (Not Detect) Klebsiella pneumoniae Not Detected (Not Detect) List. monocytogenes PCR Not Detected (Not Detect) N. meningitidis (PCR) Not Detected (Not Detect) Proteus species (PCR) Not Detected (Not Detect) Serratia marcescens PCR Not Detected (Not Detect) Staphylococcus sp PCR DETECTED A (Not Detect) Staph aureus (PCR) DETECTED A (Not Detect) mecA-Methicil Res Gene DETECTED A (Not Detect) Streptococcus sp PCR Not Detected (Not Detect) Group A Strep DNA Not Detected (Not Detect) Group B Strep (PCR) Not Detected (Not Detect) Strep pneumoniae (PCR) Not Detected (Not Detect) P. aeruginosa (PCR) Not Detected (Not Detect) Marli/B-Vanco Res Genes N/A (Not Detect) KPC (blaKPC) Detect PCR N/A (Not Detect) Exam - Constitutional Vitals: Temp Pulse Resp BP Pulse Ox 98.6 F 62 16 107/63 91 12/25/17 07:17 12/25/17 11:11 12/25/17 10:16 12/25/17 10:16 12/25/17 10:16 General appearance: average body habitus, cooperative, no acute distress - Head Head exam: Present: atraumatic, normal inspection, normocephalic - Eye Eye exam: Present: EOMI, normal appearance, PERRL Pupils: Present: normal accommodation Additional comments: No subconjunctival hemorrhage noted. - ENT ENT exam: Present: mucous membranes moist - Neck Neck exam: Present: normal inspection - Respiratory Respiratory exam: Present: CTAB. Absent: rales, respiratory distress, rhonchi, wheezes - Cardiovascular Cardiovascular exam: Present: RRR, +S1, +S2 - GI/Abdominal GI/Abdominal exam: Present: normal bowel sounds, soft. Absent: distended, tenderness - Extremities Exam Extremities exam: Present: normal inspection. Absent: joint swelling, pedal edema, tenderness - Neurological Exam Neurological exam: Present: alert, oriented X3, no focal deficits - Psychiatric Psychiatric exam: Present: normal affect, normal mood - Skin Skin exam: Present: dry, intact, normal color Additional comments: Janeway lesions to the right hand improved. No other endocarditis stigmata noted. - VTE Documentation of Mechanical Device: Intermittent pneumatic compression device Consult Discharge Plan - Plan Referrals: Taya Steel, HOTEL ASSOCIATE [Advanced Practice Nurse] - 12/28/17 10:00 am NONE,PCP [Primary Care Provider] - - Attending Attestation I examined this patient and my medical decision-making was reviewed with the Resident Physician. I agree with the documented findings, disposition and treatment plan as described except to the extent set forth below.
[2017-12-25] MEDS ORDERED: Potassium Chloride Elixir 20 MEQ/15 ML UDC PO ONE ×2 (14:16→18:00)
[2017-12-25] MEDS: Magic Mouthwash 10 ML UD Cup PO SCH ×2 (16:28→21:37)
[2017-12-25] MEDS: Acetaminophen 325 MG TABLET PO PRN (23:42)
[2017-12-26] MEDS: *HR* LORazepam 1 MG TABLET PO PRN ×4 (01:23→21:02)
[2017-12-26] MEDS: *HR* OxyCODONE Immed Rel 5 MG TABLET PO PRN ×3 (01:23→17:13)
[2017-12-26] MEDS: Gentamicin 90 MG in 0.9 % Sodium Chloride 100 ML IVPB SCH ×3 (04:08→21:04)
[2017-12-26 04:44] LABS: Basophils % 0.3 %; Eosinophils # 0.1 K/mcL (0.0-0.6); Eosinophils % 1.3 %; Hematocrit 29.8 % (37.5-50.1); Hemoglobin 9.9 g/dL (12.9-16.9); Immature Granulocytes % 0.7 % (0-4); Lymphocytes # 1.4 K/mcL (0.6-4.6); Lymphocytes % 13.2 %; Mean Corpuscular HGB Conc 33.2 g/dL (31.6-35.5); Mean Corpuscular Hemoglobin 28.2 pg (28.0-33.3); Mean Corpuscular Volume 84.9 fL (83.0-100.0); Mean Platelet Volume 9.1 fL (9.4-12.4); Monocytes % 9.3 %; Neutrophils # 7.8 K/mcL (1.6-8.9); Nucleated Red Blood Cells 0.2 /100 WBC (0); Platelet Count 327 K/mcL (140-400); Red Blood Count 3.51 M/mcL (4.19-5.50); Red Cell Distribution Width 14.6 % (11.5-14.5); Segmented Neutrophils % 75.2 %
[2017-12-26 05:01] LABS: BUN/Creatinine Ratio 12 (6-26); Blood Urea Nitrogen 14 mg/dL (6-20); Calcium 8.3 mg/dL (8.6-10.3); Carbon Dioxide 21 mEq/L (23-29); Chloride 103 mEq/L (98-107); Glucose 102 mg/dL (70-105); Osmolality,Calculated 273 (280-300); Potassium 3.5 mEq/L (3.5-5.1); Sodium 131 mEq/L (136-145); eGFR For African Americans > 60 (> 60); eGFR For Non-African Americans > 60 (> 60)
[2017-12-26] MEDS ORDERED: 0.9 % Sodium Chloride 250 ML ONE (05:01)
[2017-12-26] MEDS: Magic Mouthwash 10 ML UD Cup PO SCH ×4 (08:59→21:02)
[2017-12-26] MEDS: cloNIDine HCl 0.1 MG TABLET PO SCH ×2 (08:59→21:02)
--- NOTE | 2017-12-26 11:20 | Internal Med Progress Note ---
Date of Encounter: 12/26/17 Time of Encounter: 11:16 - Assessment and plan (1) Sepsis Current Visit: Yes Status: Resolved Assessment and plan: -The patient had two SIRS criteria on admission (fever and tachycardia). -Likely 2/2 bacteremia and endocarditis. -Improved; Continues to have intermittent fevers. Tachycardia has improved. -Blood cultures continue to be positive 7/7 sets. -EDMUND showed possible vegetations on the mitral and tricuspid valve; PFO with evidence of a L to R shunt. -CXR negative -PICC line placement for 8 weeks of IV abx at skilled nursing Qualifiers: Sepsis type: sepsis due to unspecified organism Qualified Code(s): A41.9 - Sepsis, unspecified organism (2) Bacteremia due to Enterococcus Current Visit: No Status: Acute Assessment and plan: Causative organism: MRSA; Persistent despite appropriate antibiotic therapy. 12/17/17 are positive 2/2 sets. 12/18/17 are positive 2/2 sets. 12/20/17 are positive 2/2 sets. 12/23/17 are positive 1/1 set. 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 Patient has lesions on his hand that could be Janeway lesions, but does not have any other IE stigmata Has 1 major and 3 minor Modified Mahan's Criteria -Vancomycin 1250 mg IV Q12 -Gentamycin 90 mg IV Q8 -Last set of blood CX negative. -PICC line placement for 8 weeks of IV abx at skilled nursing (3) Infective endocarditis Current Visit: Yes Status: Acute Assessment and plan: Causative organism: MRSA -Likely 2/2 bacteremia from IVDU -Blood cultures continue to be positive -TTE negative, but EDMUND showed a 10mm x 3.6mm mobile echodensity attached to the atrial side of the anterior mitral valve leaflet consistent with vegetation. It also showed a very subtle echodensity attached to a portion of the annulus of the tricuspid valve which could represent a vegetation -Vancomycin 1250 mg IV Q12 -Gentamycin 90 mg IV Q8 Qualifiers: Infective endocarditis organism: bacterial Chronicity: acute Qualified Code(s): I33.0 - Acute and subacute infective endocarditis (4) Headache Current Visit: Yes Status: Acute Assessment and plan: -Patient complains of persistent parietal CARBALLO -Likely 2/2 septic emboli in the brain -Denies blurred vision or floaters -Has a hx of septic emboli to the brain during previous endocarditis -Oxycodone 10 mg PO Q6 PRN Qualifiers: Headache type: unspecified Headache chronicity pattern: acute headache Intractability: intractable Qualified Code(s): R51 - Headache (5) History of endocarditis Current Visit: Yes Status: Acute Assessment and plan: -02/2015 - Causative organism Serratia marcescens, AVR tissue, Cefepime/ Gentamicin x 6 weeks, septic emboli to the brain -07/2015 - Causative organism Serratia marcescens and Burkholderia, Minocycline IV/Bactrim IV x 6 weeks. -03/2016 - Causative organism E. faecalis, aortic valve abscess, AVR tissu, Ampicillin/Rocephin x 6 weeks. -06/2016 - Causative organism unclear, blood cultures negative at [facility] and [facility], mitral valve endocarditis with thickening of the AV with dehiscence concerning for AV endocarditis, signed out from [facility] AMA, no outpatient antibiotics. -06/2016 - Went back to [facility], CTS refused to perform additional surgery, patient transferred to [facility] for second opinion. Per patient, had AVR with donor valve, but EDMUND shows bioprosthetic aortic, mitral, and tricuspid valve (6) Intracranial septic embolism Current Visit: Yes Status: Acute Assessment and plan: -Likely secondary to bacteremia and IE -MRI of the brain showed multiple b/l embolic infarcts, R occipital cortex and L watershed zone. -Recommend the patient be transferred to tertiary care center for neurosurgery evaluation -Patient continues to refuse transfer -The patient did mention that he was tired of dealing with this and wanted to sign hospice papers. -Palliative care consult (7) Hepatitis-C Current Visit: No Status: Chronic Assessment and plan: -Known Hep C positive -HIV nonreactive Qualifiers: Viral hepatitis chronicity: chronic Hepatic coma status: without hepatic coma Qualified Code(s): B18.2 - Chronic viral hepatitis C (8) Drug abuse and dependence Current Visit: No Status: Chronic Assessment and plan: -Reports last using IV Heroin last week (9) Goals of care, counseling/discussion Current Visit: Yes Status: Acute Assessment and plan: Patient understands that his prognosis is very poor. -Palliative care has been consulted -CODE STATUS changed to DNR-CC (10) DVT prophylaxis Current Visit: Yes Status: Acute Assessment and plan: SCDs - Subjective Interval history: Patient was seen and examined at bedside this morning. Patient states that his headache has not improved. He denies fever, chills, nausea, vomiting, and fatigue. - Constitutional Vitals: Temp Pulse Resp BP Pulse Ox 98.9 F 100 18 128/75 97 12/26/17 07:19 12/26/17 10:46 12/26/17 10:46 12/26/17 09:06 12/26/17 10:46 General appearance: Present: cooperative, disheveled, A&O X 3, answers questions appropriately - Head Head exam: Present: atraumatic, normocephalic - Eye Eye exam: Present: PERRL, conjuntiva pink, sclera anicteric Pupils: Present: PERRL - Neck Neck exam general surgery: Present: supple, trachea midline. Absent: lymphadenopathy - Respiratory Respiratory exam: Present: CTAB. Absent: accessory muscle use, rales, rhonchi, wheezes - Cardiovascular Cardiovascular exam: Present: RRR, +S1, +S2. Absent: diastolic murmur, gallop, rubs, systolic murmur - GI/Abdominal GI/Abdominal exam: Present: normal bowel sounds, soft, no peritoneal signs. Absent: distended, tenderness - Extremities Exam Extremities exam: Present: warm, radial pulses palpable and symmetrical. Absent : calf tenderness, cyanotic, pedal edema - Neurological Exam Neurological exam: Present: CN II-XII intact, oriented X3, no focal deficits. Absent: pronater drift, facial droop, speech deficit - Skin Skin exam: Present: dry, intact Internal Medicine: Result - Labs CBC & Chem 7: 12/26/17 04:01 12/26/17 04:01 Labs: Short CBC 12/26/17 Range/Units 04:01 WBC 10.4 (4.3-11.1) K/mcL Hgb 9.9 L (12.9-16.9) g/dL Hct 29.8 L (37.5-50.1) % Plt Count 327 (140-400) K/mcL Neutrophils # 7.8 (1.6-8.9) K/mcL BMP 12/26/17 04:01 Sodium 131 L Potassium 3.5 Chloride 103 Carbon Dioxide 21 L BUN 14 Creatinine 1.18 Glucose 102 Calcium 8.3 L - VTE Documentation of Mechanical Device: Intermittent pneumatic compression device Consult Discharge Plan - Plan Referrals: Taya Steel, [employer]YST MANUFACTURING OPERATOR [Advanced Practice Nurse] - 12/28/17 10:00 am NONE,PCP [Primary Care Provider] -
--- NOTE | 2017-12-26 13:15 | Infectious Disease Progress No ---
Date of Encounter: 12/26/17 Time of Encounter: 13:13 - Assessment and Plan (1) Sepsis Current Visit: Yes Status: Resolved The patient had two SIRS criteria on admission (fever and tachycardia). Likely secondary to bacteremia and endocarditis. Improved. Afebrile overnight. Tachycardia has resolved. Blood cultures positive 7/7 sets. Blood cultures drawn 12/24/17 are NGTD 2/2 sets so far. CXR negative. Flu antigen and PCR swabs are negative. Qualifiers: Qualified Code(s): A41.9 - Sepsis, unspecified organism (2) Bacteremia Current Visit: Yes Status: Acute Causative organism: MRSA. Persistent despite appropriate antibiotic therapy. 12/17/17 are positive 2/2 sets. 12/18/17 are positive 2/2 sets. 12/20/17 are positive 2/2 sets. 12/23/17 are positive 1/1 set. 12/24/17 are NGTD 2/2 sets. He does have an extensive history of endocarditis and does have a history of aortic, mitral and tricuspid valve replacements as noted during EDMUND. He continues to use IV drugs. The patient has some lesions on his hand that could be Janeway lesions, but does not have any other endocarditis stigmata. Has one major and three minor Modified Mahan's Criteria. TTE inadequate to evaluate for endocarditis. EDMUND positive for endocarditis. Continue Vancomycin IV. Pharmacy to dose. Goal trough ~15. Most recent trough 20.5. Continue Gentamicin 1mg/kg IV Q8H. Gent peak on 12/21/17 3.5. Duration of treatment depends on the clinical picture. Monitor renal function and for drug toxicity and dose-adjust antibiotics. If blood cultures remain negative, okay to consult VAT for PICC placement. The patient is agreeable to ECF placement to complete IV antibiotic therapy. director of social services is following to assist. (3) Infective endocarditis Current Visit: Yes Status: Acute Causative organism: MRSA. Likely secondary to bacteremia from IVDU. Blood cultures continue to be positive. TTE negative, but EDMUND showed a 10mm x 3.6mm mobile echodensity attached to the atrial side of the anterior mitral valve leaflet consistent with vegetation. It also showed a very subtle echodensity attached to a portion of the annulus of the tricuspid valve which could represent a vegetation. Continue Vancomycin as above. Continue Gentamicin for prosthetic valve endocarditis. The patient has been told previously that he is not a candidate for additional surgery due to his multiple episodes of previous endocarditis and continued drug use. He is refusing transfer unless we can find someone who is willing to consider doing surgery on him. Duration of treatment depends on the clinical picture, but likely 6-8 weeks from the first set of negative blood cultures. Will start Rifampin 300mg PO BID on discharge. Needs a baseline hearing test since he will be on a prolonged course of Gentamicin. Called and spoke with Audiology who states they cannot do a hearing screening on a patient while they are inpatient and will have to wait until the patient is discharged. Qualifiers: Qualified Code(s): I33.0 - Acute and subacute infective endocarditis (4) Intracranial septic embolism Current Visit: Yes Status: Acute Likely secondary to bacteremia and endocarditis. 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 Recommend the patient be transferred to [facility] for neurosurgery evaluation. He continues to refuse transfer. Pain management per the primary team. (5) Headache Current Visit: Yes Status: Acute Patient complains of persistent parietal headache. Likely secondary to septic emboli in the brain. Denies blurred vision or floaters. Pain management per the primary team. Qualifiers: Qualified Code(s): R51 - Headache (6) Elevated troponin Current Visit: Yes Status: Acute Likely demand ischemia from endocarditis. Further workup and management per the primary team. (7) Status post aortic valve replacement Current Visit: Yes Status: Acute Status post aortic valve replacement x 3 due to endocarditis/valve abscess. 02/2015 at [facility] - tissue valve. 03/2016 at [facility] - Redo sternotomy, AV replacement (tissue), and bovine pericardial aortoplasty augmentation. 06/2016 at [facility] - details not available, but the patient reports they used a donor valve. EDMUND showed the presence of bioprosthetic aortic, mitral, and tricuspid valves. (8) History of endocarditis Current Visit: Yes Status: Acute 02/2015 - Causative organism Serratia marcescens, AVR tissue, Cefepime/ Gentamicin x 6 weeks, septic emboli to the brain. 07/2015 - Causative organism Serratia marcescens and Burkholderia, Minocycline IV/Bactrim IV x 6 weeks. 03/2016 - Causative organism E. faecalis, aortic valve abscess, AVR tissu, Ampicillin/Rocephin x 6 weeks. 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 06/2016 - Went back to [facility], CTS refused to perform additional surgery, patient transferred to [facility] for second opinion. Per patient, had AVR with donor valve, but EDMUND shows bioprosthetic aortic, mitral, and tricuspid valve. Unsure of antibiotic therapy post-op. Will request records from [facility]. (9) Tobacco abuse Current Visit: No Status: Acute (10) Drug abuse and dependence Current Visit: No Status: Chronic Reports last using IV Heroine 2 days prior to admission. High risk for withdrawal syndrome. Management per the primary team. (11) Hepatitis-C Current Visit: No Status: Chronic Known Hep C positive. HIV nonreactive. Qualifiers: Qualified Code(s): B18.2 - Chronic viral hepatitis C (12) Joint pain Current Visit: Yes Status: Resolved Reports pain in the right wrist, left knee, and right shoulder has resolved. Right wrist swollen, but not erythematous. Ortho evaluation noted. Qualifiers: Qualified Code(s): M25.50 - Pain in unspecified joint (13) Oral thrush Current Visit: Yes Status: Acute Nystatin magic mouthwash QID. - Subjective Interval history: Patient seen and examined. No acute events noted overnight. Patient states that overall he feels okay. Reports continued headache, but denies blurred vision or floaters. Denies fevers, chills, or rigors overnight. Denies chest pain, cough, or shortness of breath. Denies nausea and vomiting this morning. Reports he doesn't have much of an appetite because he has a lot on his mind this morning. Denies abdominal pain or urinary complaints. States pain in the right wrist, left knee, and left shoulder have resolved. Denies oral thrush or new skin lesions. He continues to refuse transfer to tertiary care center. He changed his code status to DNR-CC. Infect Dis PN-Objective Data - Labs CBC & Chem 7: 12/26/17 04:01 12/26/17 04:01 Labs: Laboratory Results - last 24 hr 12/26/17 12/26/17 04:01 04:01 WBC 10.4 RBC 3.51 L Hgb 9.9 L Hct 29.8 L MCV 84.9 MCH 28.2 MCHC 33.2 RDW 14.6 H Plt Count 327 MPV 9.1 L Immature Gran % 0.7 Seg Neutrophils % 75.2 Lymphocytes % 13.2 Monocytes % 9.3 Eosinophils % 1.3 Basophils % 0.3 Neutrophils # 7.8 Lymphocytes # 1.4 Monocytes # 1.0 Eosinophils # 0.1 Basophils # 0.0 Nucleated RBCs/100 WBC 0.2 H Sodium 131 L Potassium 3.5 Chloride 103 Carbon Dioxide 21 L BUN 14 Creatinine 1.18 Est GFR ( Amer) > 60 Est GFR (Non-Af Amer) > 60 BUN/Creatinine Ratio 12 Glucose 102 Calculated Osmolality 273 L Calcium 8.3 L Cultures: Cultures 12/23/17 05:44 Blood Culture - Final Peripheral Venipuncture Methicillin Resistant S.aureus 12/24/17 09:48 Blood Culture - Preliminary Peripheral Venipuncture No growth. 12/24/17 11:27 Blood Culture - Preliminary Peripheral Venipuncture No growth. 12/20/17 08:52 Blood Culture - Final Peripheral Venipuncture Methicillin Resistant S.aureus 12/20/17 08:52 Blood Culture - Final Peripheral Venipuncture Methicillin Resistant S.aureus 12/17/17 10:08 Blood Culture - Final Peripheral Venipuncture Methicillin Resistant S.aureus 12/18/17 12:33 Blood Culture - Final Peripheral Venipuncture Methicillin Resistant S.aureus 12/18/17 12:33 Blood Culture - Final Peripheral Venipuncture Methicillin Resistant S.aureus Serology 12/23/17 12/20/17 12/18/17 Range/Units 05:44 08:52 12:33 A. baumannii (PCR) Not Detected Not Detected (Not Detect) Allison albicans (PCR) Not Detected Not Detected (Not Detect) C. glabrata (PCR) Not Detected Not Detected (Not Detect) C. krusei (PCR) Not Detected Not Detected (Not Detect) C. parapsilosis (PCR) Not Detected Not Detected (Not Detect) C. tropicalis (PCR) Not Detected Not Detected (Not Detect) Enterobacteriac sp PCR Not Detected Not Detected (Not Detect) E. cloacae complex PCR Not Detected Not Detected (Not Detect) Enterococcus sp PCR Not Detected Not Detected (Not Detect) E. coli (PCR) Not Detected Not Detected (Not Detect) H. influenzae (PCR) Not Detected Not Detected (Not Detect) HIV Ag/Ab Combo Qual Nonreactive (Nonreactive) Influenza Type A (PCR) (Negative) Influenza Type B (PCR) (Negative) Klebsiella oxytoca PCR Not Detected Not Detected (Not Detect) Klebsiella pneumoniae Not Detected Not Detected (Not Detect) List. monocytogenes PCR Not Detected Not Detected (Not Detect) N. meningitidis (PCR) Not Detected Not Detected (Not Detect) Proteus species (PCR) Not Detected Not Detected (Not Detect) Serratia marcescens PCR Not Detected Not Detected (Not Detect) Staphylococcus sp PCR DETECTED A DETECTED A (Not Detect) Staph aureus (PCR) DETECTED A DETECTED A (Not Detect) mecA-Methicil Res Gene DETECTED A DETECTED A (Not Detect) Streptococcus sp PCR Not Detected Not Detected (Not Detect) Group A Strep DNA Not Detected Not Detected (Not Detect) Group B Strep (PCR) Not Detected Not Detected (Not Detect) Strep pneumoniae (PCR) Not Detected Not Detected (Not Detect) P. aeruginosa (PCR) Not Detected Not Detected (Not Detect) Marli/B-Vanco Res Genes N/A Not Detected (Not Detect) KPC (blaKPC) Detect PCR N/A Not Detected (Not Detect) 12/17/17 12/17/17 Range/Units 14:49 10:08 A. baumannii (PCR) Not Detected (Not Detect) Allison albicans (PCR) Not Detected (Not Detect) C. glabrata (PCR) Not Detected (Not Detect) C. krusei (PCR) Not Detected (Not Detect) C. parapsilosis (PCR) Not Detected (Not Detect) C. tropicalis (PCR) Not Detected (Not Detect) Enterobacteriac sp PCR Not Detected (Not Detect) E. cloacae complex PCR Not Detected (Not Detect) Enterococcus sp PCR Not Detected (Not Detect) E. coli (PCR) Not Detected (Not Detect) H. influenzae (PCR) Not Detected (Not Detect) HIV Ag/Ab Combo Qual (Nonreactive) Influenza Type A (PCR) Negative (Negative) Influenza Type B (PCR) Negative (Negative) Klebsiella oxytoca PCR Not Detected (Not Detect) Klebsiella pneumoniae Not Detected (Not Detect) List. monocytogenes PCR Not Detected (Not Detect) N. meningitidis (PCR) Not Detected (Not Detect) Proteus species (PCR) Not Detected (Not Detect) Serratia marcescens PCR Not Detected (Not Detect) Staphylococcus sp PCR DETECTED A (Not Detect) Staph aureus (PCR) DETECTED A (Not Detect) mecA-Methicil Res Gene DETECTED A (Not Detect) Streptococcus sp PCR Not Detected (Not Detect) Group A Strep DNA Not Detected (Not Detect) Group B Strep (PCR) Not Detected (Not Detect) Strep pneumoniae (PCR) Not Detected (Not Detect) P. aeruginosa (PCR) Not Detected (Not Detect) Marli/B-Vanco Res Genes N/A (Not Detect) KPC (blaKPC) Detect PCR N/A (Not Detect) Exam - Constitutional Vitals: Temp Pulse Resp BP Pulse Ox 99.1 F 95 20 114/72 96 12/26/17 11:53 12/26/17 12:33 12/26/17 12:30 12/26/17 11:53 12/26/17 12:30 General appearance: average body habitus, cooperative, no acute distress - Head Head exam: Present: atraumatic, normal inspection, normocephalic - Eye Eye exam: Present: EOMI, normal appearance, PERRL Pupils: Present: normal accommodation Additional comments: No subconjunctival hemorrhage noted. - ENT ENT exam: Present: mucous membranes moist Additional comments: Oral thrush noted to the tongue. - Neck Neck exam: Present: normal inspection - Respiratory Respiratory exam: Present: CTAB. Absent: rales, respiratory distress, rhonchi, wheezes - Cardiovascular Cardiovascular exam: Present: RRR, +S1, +S2 - GI/Abdominal GI/Abdominal exam: Present: normal bowel sounds, soft. Absent: distended, tenderness - Extremities Exam Extremities exam: Present: normal inspection. Absent: joint swelling, pedal edema, tenderness - Neurological Exam Neurological exam: Present: alert, oriented X3, no focal deficits - Psychiatric Psychiatric exam: Present: normal affect, normal mood - Skin Skin exam: Present: dry, intact, normal color, warm Additional comments: Janeway lesions to the right hand improved. - VTE Documentation of Mechanical Device: Intermittent pneumatic compression device Consult Discharge Plan - Plan Referrals: Taya Steel, CANDY DIPPER HAND [Advanced Practice Nurse] - 12/28/17 10:00 am NONE,PCP [Primary Care Provider] - - Attending Attestation I examined this patient and my medical decision-making was reviewed with the Resident Physician. I agree with the documented findings, disposition and treatment plan as described except to the extent set forth below. Discussed with Dr. Mederos from palliative team and with the primary team. Patient wants it PICC line was to go to a long term. We will treat with vancomycin and gent for [address] PICC line tomorrow.
--- NOTE | 2017-12-26 14:57 | Discharge Summary ---
<Hugo Elena - Last Filed: 12/26/17 16:37> Orders not resulted at time of discharge: Pending orders 12/24/17 09:48 Culture,Blood [BC] Routine 12/24/17 11:27 Culture,Blood [BC] Stat 12/27/17 04:00 BMP [Basic Metabolic Panel] AM 0400 CBC [Complete Blood Count] [HEME] AM 0400 12/28/17 04:00 BMP [Basic Metabolic Panel] AM 0400 CBC [Complete Blood Count] [HEME] AM 0400 12/29/17 04:00 BMP [Basic Metabolic Panel] AM 0400 CBC [Complete Blood Count] [HEME] AM 0400 Date of Encounter: 12/26/17 Time of Encounter: 14:56 - Discharge Diagnosis (1) Sepsis Priority: Primary Status: Resolved Qualifiers: Sepsis type: sepsis due to unspecified organism Qualified Code(s): A41.9 - Sepsis, unspecified organism (2) Bacteremia due to Enterococcus Priority: Primary Status: Acute (3) Infective endocarditis Priority: Primary Status: Acute Qualifiers: Infective endocarditis organism: bacterial Chronicity: acute Qualified Code(s): I33.0 - Acute and subacute infective endocarditis (4) Headache Priority: Secondary Status: Acute Qualifiers: Headache type: unspecified Headache chronicity pattern: acute headache Intractability: intractable Qualified Code(s): R51 - Headache (5) History of endocarditis Priority: Secondary Status: Acute (6) Intracranial septic embolism Priority: Secondary Status: Acute (7) Hepatitis-C Priority: Secondary Status: Chronic Qualifiers: Viral hepatitis chronicity: chronic Hepatic coma status: without hepatic coma Qualified Code(s): B18.2 - Chronic viral hepatitis C (8) Drug abuse and dependence Priority: Secondary Status: Chronic (9) Goals of care, counseling/discussion Priority: Secondary Status: Acute (10) DVT prophylaxis Priority: Secondary Status: Acute Hospital course: Mr. Quinn is a 42-year-old male with a past medical history of infective carditis status post valve replacement 3 and a history of IV drug abuse who presented to the hospital on 12/17/17 with the chief complaint of fever. 2 days before admission, patient began to have fever, headache, and generalized malaise. He had fevers of 102 degrees at home. Upon arrival, patient was tachycardic. Blood cultures were ordered; were positive for MRSA. Chest x-ray was negative. Patient had admitted to using heroin a few days before his admission. Due to the concern of possible infective endocarditis, patient was started on vancomycin and gentamicin IV. Echocardiogram was obtained as well. Patient complained of a headache. MRI of the head was obtained. Demonstrated the presence of multiple septic emboli. Patient stated that his headache was severe. This was the main complaint that he had for the duration of his stay in the hospital. 7 blood cultures were positive for MRSA. 2 blood cultures were obtained before date of discharge. These were both negative. TTE was inadequate for evaluation for patients heart valves. EDMUND was obtained, demonstrated the presence of possible vegetations on mitral and tricuspid valves. During his stay in the hospital, patient was repeatedly told that he would need to be transferred to another facility. Patient did not want to leave, stating that he only wanted be treated with IV antibiotics. He stated that he has had several bouts of infective endocarditis in the past, and his infection has cleared with the use of IV antibiotics for 8 weeks. After speaking to patient and his family, patient agreed to go to a prison for antibiotic treatment. PICC team was consulted for the placement of the PICC line. Infectious disease recommended 8 weeks of antibiotic treatment total. He will be sent on vancomycin and gentamicin. Patient was seen and examined on date of discharge. He still complains of a headache. He states that this is relatively unchanged. He has no further complaints at this time. - Time Spent with Patient Total time spent providing and/or coordinating discharge services: Greater than 30 minutes (42 minutes) - Discharge Medications Prescriptions: Vancomycin [Vancocin] 1,250 mg IV Q12HR 56 Days #1 vial Gentamicin [Garamycin] 90 mg IVPB Q24H 56 Days #1 vial Home Medications: Gentamicin [Garamycin] 90 mg IVPB Q24H 56 Days #1 vial 12/26/17 [Rx] Vancomycin [Vancocin] 1,250 mg IV Q12HR 56 Days #1 vial 12/26/17 [Rx] Allergies/Adverse Reactions: 3 Allergy/AdvReac Type Severity Reaction Status Date / Time No Known Allergies Allergy Verified 12/17/17 05:25 Date of admission: 12/17/17 09:36 Primary care physician: PCP NONE Consults: 12/20/17 08:59 Consult to Orthopedic Surgery [CONS] Routine Consulting Provider: [facility] Reason for Consult: Concern for possible septic joint Time Notified: 09:00 Call Completed: Yes 12/23/17 06:41 Consult to Retirement Manager [CONS] Routine Reason for SW Consult: Ineffective coping with inability to quit drug use 12/26/17 14:38 Consult to PICC team [Consult to Invasive Line Access Team] [CONS] Routine Reason for Consult: IV antibiotics for 8 weeks Line Type: PICC Discharging clinician: Hugo Elena Anticipated date of discharge: 12/26/17 - Constitutional Vitals: Temp Pulse Resp BP Pulse Ox 99.1 F 95 20 114/72 96 12/26/17 11:53 12/26/17 12:33 12/26/17 12:30 12/26/17 11:53 12/26/17 12:30 General appearance: Present: cooperative, disheveled, A&O X 3, answers questions appropriately - Head Head exam: Present: atraumatic, normocephalic - Eye Eye exam: Present: PERRL, conjuntiva pink, sclera anicteric Pupils: Present: PERRL - Neck Neck exam general surgery: Present: supple, trachea midline. Absent: lymphadenopathy - Respiratory Respiratory exam: Present: CTAB. Absent: accessory muscle use, rales, rhonchi, wheezes - Cardiovascular Cardiovascular exam: Present: RRR, +S1, +S2. Absent: diastolic murmur, gallop, rubs, systolic murmur Additional comments: clicks associated with artificial valves - GI/Abdominal GI/Abdominal exam: Present: normal bowel sounds, soft, no peritoneal signs. Absent: distended, tenderness - Extremities Exam Extremities exam: Present: warm, radial pulses palpable and symmetrical. Absent : calf tenderness, cyanotic, pedal edema - Neurological Exam Neurological exam: Present: CN II-XII intact, oriented X3, no focal deficits. Absent: pronater drift, facial droop, speech deficit - Skin Skin exam: Present: dry, intact - Patient Status Disposition: Transfer SNF Condition: Fair Overall status at discharge: patient is not back to baseline - Discharge Instructions Follow Up With: Taya Steel, ANIMAL KILLER [Advanced Practice Nurse] - 12/28/17 10:00 am NONE,PCP [Primary Care Provider] - - Diet and Activity Activity: increase activity as tolerated Diet: advance to your usual diet - VTE Documentation of Mechanical Device: Intermittent pneumatic compression device <Amari Juarez - Last Filed: 12/26/17 17:55> Orders not resulted at time of discharge: Pending orders 12/24/17 09:48 Culture,Blood [BC] Routine 12/24/17 11:27 Culture,Blood [BC] Stat 12/27/17 04:00 BMP [Basic Metabolic Panel] AM 0400 CBC [Complete Blood Count] [HEME] AM 0400 12/28/17 04:00 BMP [Basic Metabolic Panel] AM 0400 CBC [Complete Blood Count] [HEME] AM 0400 12/29/17 04:00 BMP [Basic Metabolic Panel] AM 0400 CBC [Complete Blood Count] [HEME] AM 0400 Date of Encounter: 12/26/17 Hospital course: Mr. Quinn is a 42 year old male - Time Spent with Patient Total time spent providing and/or coordinating discharge services: Date of admission: 12/17/17 09:36 Primary care physician: PCP NONE Consults: 12/20/17 08:59 Consult to Orthopedic Surgery [CONS] Routine Consulting Provider: [facility] Reason for Consult: Concern for possible septic joint Time Notified: 09:00 Call Completed: Yes 12/23/17 06:41 Consult to Retirement Manager [CONS] Routine Reason for SW Consult: Ineffective coping with inability to quit drug use 12/26/17 14:38 Consult to PICC team [Consult to Invasive Line Access Team] [CONS] Routine Reason for Consult: IV antibiotics for 8 weeks Line Type: PICC 12/26/17 15:54 Consult to Invasive Line Access Team [CONS] Routine Reason for Consult: Picc Line Insertion Line Type: PICC - Constitutional Vitals: Temp Pulse Resp BP Pulse Ox 98.9 F 95 22 133/99 95 12/26/17 16:41 12/26/17 17:16 12/26/17 16:41 12/26/17 16:41 12/26/17 16:41 - Attending Attestation I examined this patient and my medical decision-making was reviewed with the Resident Physician. I agree with the documented findings, disposition and treatment plan as described except to the extent set forth below. He is in better spirits today, his blood cultures finally come back negative. He requires 60 weeks of IV antibiotics, this will be set up a prison. He is a flight risk, and I do worry about going back to IV drug usage. His prognosis remains extremely poor. We will maintained a DNR order.
[2017-12-26] MEDS ORDERED: Lidocaine -MPF 1% 5 ML AMPUL INFILT ONE (15:54)
--- NOTE | 2017-12-26 20:13 | Electrocardiograph Report ---
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
[2017-12-27] MEDS: *HR* LORazepam 1 MG TABLET PO PRN ×2 (00:47→09:09)
[2017-12-27] MEDS: *HR* OxyCODONE Immed Rel 5 MG TABLET PO PRN ×2 (00:47→09:09)
[2017-12-27] MEDS: Gentamicin 90 MG in 0.9 % Sodium Chloride 100 ML IVPB SCH ×2 (05:06→11:42)
[2017-12-27 07:19] VITALS: BP 133/87
--- NOTE | 2017-12-27 08:17 | Internal Med Progress Note ---
<Hugo Elena - Last Filed: 12/27/17 16:09> Date of Encounter: 12/27/17 Time of Encounter: 08:17 - Assessment and plan (1) Sepsis Status: Resolved Assessment and plan: -The patient had two SIRS criteria on admission (fever and tachycardia). -Likely 2/2 bacteremia and endocarditis. -Improved; Continues to have intermittent fevers. Tachycardia has improved. -Blood cultures continue to be positive 7/7 sets. -EDMUND showed possible vegetations on the mitral and tricuspid valve; PFO with evidence of a L to R shunt -PICC line inserted; will be discharged to a group home on IV vancomycin and gentamicin for 8 weeks total. Qualifiers: Sepsis type: sepsis due to unspecified organism Qualified Code(s): A41.9 - Sepsis, unspecified organism (2) Bacteremia due to Enterococcus Status: Acute Assessment and plan: Causative organism: MRSA; Persistent despite appropriate antibiotic therapy. 12/17/17 are positive 2/2 sets. 12/18/17 are positive 2/2 sets. 12/20/17 are positive 2/2 sets. 12/23/17 are positive 1/1 set. 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 Patient has lesions on his hand that could be Janeway lesions, but does not have any other IE stigmata Has 1 major and 3 minor Modified Mahan's Criteria -PICC line inserted; will be discharged to a group home on IV vancomycin and rifampin for 6 weeks total. (3) Infective endocarditis Status: Acute Assessment and plan: Causative organism: MRSA -Likely 2/2 bacteremia from IVDU -Blood cultures continue to be positive -TTE negative, but EDMUND showed a 10mm x 3.6mm mobile echodensity attached to the atrial side of the anterior mitral valve leaflet consistent with vegetation. 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 -03/2016 - Causative organism E. faecalis, aortic valve abscess, AVR tissu, Ampicillin/Rocephin x 6 weeks. -06/2016 - Causative organism unclear, blood cultures negative at [facility] and [facility], mitral valve endocarditis with thickening of the AV with dehiscence concerning for AV endocarditis, signed out from [facility] AMA, no outpatient antibiotics. -06/2016 - Went back to [facility], CTS refused to perform additional surgery, patient transferred to [facility] for [facility] opinion. Per patient, had AVR with donor valve, but EDMUND shows bioprosthetic aortic, mitral, and tricuspid valve (6) Hepatitis-C Status: Chronic Assessment and plan: -Known Hep C positive -HIV nonreactive Qualifiers: Viral hepatitis chronicity: chronic Hepatic coma status: without hepatic coma Qualified Code(s): B18.2 - Chronic viral hepatitis C (7) Drug abuse and dependence Status: Chronic Assessment and plan: -Reports last using IV Heroin last week (8) Goals of care, counseling/discussion Status: Acute Assessment and plan: Patient understands that his prognosis is very poor. -Palliative care has been consulted -CODE STATUS changed to DNR-CC (9) DVT prophylaxis Status: Acute Assessment and plan: SCDs - Subjective Interval history: Patient was seen and examined at bedside this morning. Patient states that his headache has not improved. However, he was able to get some sleep last night. PICC line was inserted yesterday. Patient will be discharged soon to group home. He currently denies having any fever, chills, nausea, vomiting, chest pain, diaphoresis. No further complaints this time. - Constitutional Vitals: Temp Pulse Resp BP Pulse Ox 98.7 F 89 19 133/87 94 12/27/17 07:15 12/27/17 07:15 12/27/17 07:15 12/27/17 07:15 12/27/17 07:15 General appearance: Present: cooperative, disheveled, A&O X 3, answers questions appropriately - Head Head exam: Present: atraumatic, normocephalic - Eye Eye exam: Present: PERRL, conjuntiva pink, sclera anicteric Pupils: Present: PERRL - Neck Neck exam general surgery: Present: supple, trachea midline. Absent: lymphadenopathy - Respiratory Respiratory exam: Present: CTAB. Absent: accessory muscle use, rales, rhonchi, wheezes - Cardiovascular Cardiovascular exam: Present: RRR, +S1, +S2. Absent: diastolic murmur, gallop, rubs, systolic murmur - GI/Abdominal GI/Abdominal exam: Present: normal bowel sounds, soft, no peritoneal signs. Absent: distended, tenderness - Extremities Exam Extremities exam: Present: warm, radial pulses palpable and symmetrical. Absent : calf tenderness, cyanotic, pedal edema - Neurological Exam Neurological exam: Present: CN II-XII intact, oriented X3, no focal deficits. Absent: pronater drift, facial droop, speech deficit - Skin Skin exam: Present: dry, intact Internal Medicine: Result - Labs CBC & Chem 7: 12/27/17 04:00 12/27/17 10:05 - Impressions Impressions Chest X-Ray 12/26/17 15:38 IMPRESSION: PICC line catheter placement. Indeterminate reticulonodular interstitial pattern. Correlate clinical evidence of atypical infection. D/ / Jovan Benz MD / Jovan Benz MD Interpreting Provider: Jovan Benz MD - VTE Documentation of Mechanical Device: Intermittent pneumatic compression device Consult Discharge Plan - Plan Instructions: Sepsis (DC) Referrals: Taya Steel, SHELL MACHINE OPERATOR [Advanced Practice Nurse] - (Patient is going to [facility] no PCP appointment needed) NONE,PCP [Primary Care Provider] - Gerber Lawrence MD [Partnered Physician] - 01/10/18 2:00 pm Prescriptions: Gentamicin in NaCl, Iso-Osm [Gentamicin 90 mg/Ns 100 ml Pb] 90 mg IV DAILY 11 Days #11 mls Rifampin [Rifadin] 300 mg PO BID 39 Days #78 capsule Vancomycin HCl in Dextrose 5 % [Vancomycin-D5w 1.25 Gram/250Ml] 1.25 gm IV Q12H 39 Days #78 mls <Amari Juarez - Last Filed: 12/27/17 18:57> Date of Encounter: 12/27/17 - Constitutional Vitals: Temp Pulse Resp BP Pulse Ox 98.7 F 89 19 133/87 94 12/27/17 07:15 12/27/17 07:15 12/27/17 07:15 12/27/17 07:15 12/27/17 07:15 Internal Medicine: Result - Labs CBC & Chem 7: 12/27/17 04:00 12/27/17 10:05 Labs: Short CBC 12/27/17 Range/Units 04:00 WBC 9.1 (4.3-11.1) K/mcL Hgb 10.4 L (12.9-16.9) g/dL Hct 32.0 L (37.5-50.1) % Plt Count 340 (140-400) K/mcL Neutrophils # 6.5 (1.6-8.9) K/mcL BMP 12/27/17 10:05 Sodium 133 L Potassium 3.8 Chloride 104 Carbon Dioxide 23 BUN 16 Creatinine 1.17 Glucose 115 H Calcium 8.9 - Attending Attestation I examined this patient and my medical decision-making was reviewed with the Resident Physician. I agree with the documented findings, disposition and treatment plan as described except to the extent set forth below.
--- NOTE | 2017-12-27 08:17 | Physician Discharge Referral ---
<Hugo Elena - Last Filed: 12/27/17 08:15> [facility] Referral Info Provider in Charge after Transfer: Area Field Manager Institutional Level of Care: Skilled - Diagnosis (1) Sepsis Priority: Primary Status: Resolved (2) Bacteremia due to Enterococcus Priority: Primary Status: Acute (3) Infective endocarditis Priority: Primary Status: Acute (4) Headache Priority: Secondary Status: Acute (5) History of endocarditis Priority: Secondary Status: Acute (6) Hepatitis-C Priority: Secondary Status: Chronic (7) Drug abuse and dependence Priority: Secondary Status: Chronic (8) Goals of care, counseling/discussion Priority: Secondary Status: Acute (9) DVT prophylaxis Priority: Secondary Status: Acute (10) Intracranial septic embolism Priority: Primary Status: Acute - Transfer Medications Prescriptions: Gentamicin in NaCl, Iso-Osm [Gentamicin 90 mg/Ns 100 ml Pb] 90 mg IV DAILY 11 Days #11 mls Rifampin [Rifadin] 300 mg PO BID 39 Days #78 capsule Vancomycin HCl in Dextrose 5 % [Vancomycin-D5w 1.25 Gram/250Ml] 1.25 gm IV Q12H 39 Days #78 mls Home Medications: Gentamicin in NaCl, Iso-Osm [Gentamicin 90 mg/Ns 100 ml Pb] 90 mg IV DAILY 11 Days #11 mls 12/27/17 [Rx] Rifampin [Rifadin] 300 mg PO BID 39 Days #78 capsule 12/27/17 [Rx] Vancomycin HCl in Dextrose 5 % [Vancomycin-D5w 1.25 Gram/250Ml] 1.25 gm IV Q12H 39 Days #78 mls 12/27/17 [Rx] Allergies/Adverse Reactions: 3 Allergy/AdvReac Type Severity Reaction Status Date / Time No Known Allergies Allergy Verified 12/17/17 05:25 - Respiratory Orders Smoking Cessation: Smoking cessation has been advised. For more information, call the [place] Tobacco Quit Line at 7-464-DNQJ-NOW. - Rehabiliation Orders Rehab Potential: Fair - Diet Orders Regular CERTIFICATION: I certify that the transfer of the above named patient to an Extended Care Facility is necessary for the continuing treatment of the diagnosis listed. The above information is true and accurate reflection of patient's current condition. Confidential - Redisclosure prohibited without a patient's written consent. <Amari Juarez - Last Filed: 12/27/17 18:40> [facility] Referral Info Transfer To: [facility] - Respiratory Orders Smoking Cessation: Smoking cessation has been advised. For more information, call the [place] Tobacco Quit Line at 7-757-EODTNOW. CERTIFICATION: I certify that the transfer of the above named patient to an Extended Care Facility is necessary for the continuing treatment of the diagnosis listed. The above information is true and accurate reflection of patient's current condition. Confidential - Redisclosure prohibited without a patient's written consent.
[2017-12-27] MEDS: cloNIDine HCl 0.1 MG TABLET PO SCH (09:09)
[2017-12-27] MEDS: Magic Mouthwash 10 ML UD Cup PO SCH ×2 (09:09→11:58)
[2017-12-27 11:31] LABS: BUN/Creatinine Ratio 14 (6-26); Blood Urea Nitrogen 16 mg/dL (6-20); Calcium 8.9 mg/dL (8.6-10.3); Carbon Dioxide 23 mEq/L (23-29); Chloride 104 mEq/L (98-107); Glucose 115 mg/dL (70-105); Osmolality,Calculated 278 (280-300); Potassium 3.8 mEq/L (3.5-5.1); Sodium 133 mEq/L (136-145); eGFR For African Americans > 60 (> 60); eGFR For Non-African Americans > 60 (> 60)
[2017-12-27 11:55] LABS: Vancomycin,Trough 18.2 mcg/mL (10-20)
[2017-12-27 12:00] LABS: Basophils % 0.4 %; Eosinophils # 0.1 K/mcL (0.0-0.6); Eosinophils % 1.2 %; Hemoglobin 10.4 g/dL (12.9-16.9); Immature Granulocytes % 0.8 % (0-4); Lymphocytes # 1.4 K/mcL (0.6-4.6); Lymphocytes % 15.1 %; Mean Corpuscular HGB Conc 32.5 g/dL (31.6-35.5); Mean Corpuscular Hemoglobin 28.1 pg (28.0-33.3); Mean Corpuscular Volume 86.5 fL (83.0-100.0); Mean Platelet Volume 8.6 fL (9.4-12.4); Monocytes % 10.8 %; Neutrophils # 6.5 K/mcL (1.6-8.9); Platelet Count 340 K/mcL (140-400); Red Cell Distribution Width 14.6 % (11.5-14.5); Segmented Neutrophils % 71.7 %
--- NOTE | 2017-12-27 15:02 | Infectious Disease Progress No ---
Date of Encounter: 12/27/17 Time of Encounter: 10:30 - Assessment and Plan (1) Sepsis Status: Resolved The patient had two SIRS criteria on admission (fever and tachycardia). Likely secondary to bacteremia and endocarditis. Improved. Afebrile overnight. Tachycardia has resolved. Blood cultures positive 7/ sets. Blood cultures drawn 12/24/17 are NGTD 2/2 sets so far. CXR negative. Flu antigen and PCR swabs are negative. Qualifiers: Sepsis type: sepsis due to unspecified organism Qualified Code(s): A41.9 - Sepsis, unspecified organism (2) Bacteremia Status: Acute Causative organism: MRSA. Persistent despite appropriate antibiotic therapy. 12/17/17 are positive 2/2 sets. 12/18/17 are positive 2/2 sets. 12/20/17 are positive 2/2 sets. 12/23/17 are positive 1/1 set. 12/24/17 are NGTD 2/2 sets. He does have an extensive history of endocarditis and does have a history of aortic, mitral and tricuspid valve replacements as noted during EDMUND. He continues to use IV drugs. The patient has some lesions on his hand that could be Janeway lesions, but does not have any other endocarditis stigmata. Has one major and three minor Modified Mahan's Criteria. TTE inadequate to evaluate for endocarditis. EDMUND positive for endocarditis. Continue Vancomycin IV. Pharmacy to dose. Goal trough ~15. Most recent trough 20.5. Continue Gentamicin 1mg/kg IV Q8H. Add Rifampin 300mg PO Q8H on discharge. Duration of treatment depends on the clinical picture. We will plan on having the patient on IV Vanc for 6-8 weeks from the first set of negative blood cultures and IV Gentamicin for two weeks. Monitor renal function and for drug toxicity and dose-adjust antibiotics. The patient is agreeable to ECF placement to complete IV antibiotic therapy. social services is following to assist. PICC line placed yesterday. Will need weekly CBC, BUN/Cr, LFTs, Vanc trough, Gent trough every Sunday. Will need weekly PICC care per protocol. Follow up with ID 01/10/18 at 1400. (3) Infective endocarditis Status: Acute Causative organism: MRSA. Likely secondary to bacteremia from IVDU. Blood cultures continue to be positive. TTE negative, but EDMUND showed a 10mm x 3.6mm mobile echodensity attached to the atrial side of the anterior mitral valve leaflet consistent with vegetation. It also showed a very subtle echodensity attached to a portion of the annulus of the tricuspid valve which could represent a vegetation. Continue Vancomycin as above. Continue Gentamicin for prosthetic valve endocarditis. The patient has been told previously that he is not a candidate for additional surgery due to his multiple episodes of previous endocarditis and continued drug use. He is refusing transfer unless we can find someone who is willing to consider doing surgery on him. Duration of treatment depends on the clinical picture, but likely 6-8 weeks from the first set of negative blood cultures. Will start Rifampin 300mg PO BID on discharge. Needs a baseline hearing test since he will be on a prolonged course of Gentamicin. Called and spoke with Audiology who states they cannot do a hearing screening on a patient while they are inpatient and will have to wait until the patient is discharged. Qualifiers: Infective endocarditis organism: bacterial Chronicity: acute Qualified Code(s): I33.0 - Acute and subacute infective endocarditis (4) Intracranial septic embolism Status: Acute Likely secondary to bacteremia and endocarditis. 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 Recommend the patient be transferred to [facility] for neurosurgery evaluation. The patient refused transfer. Pain management per the primary team. (5) Headache Status: Acute Patient complains of persistent parietal headache. Likely secondary to septic emboli in the brain. Denies blurred vision or floaters. Pain management per the primary team. Qualifiers: Headache type: unspecified Headache chronicity pattern: acute headache Intractability: intractable Qualified Code(s): R51 - Headache (6) Elevated troponin Status: Acute Likely demand ischemia from endocarditis. Further workup and management per the primary team. (7) Status post aortic valve replacement Status: Acute Status post aortic valve replacement x 3 due to endocarditis/valve abscess. 02/2015 at [facility] - tissue valve. 03/2016 at [facility] - Redo sternotomy, AV replacement (tissue), and bovine pericardial aortoplasty augmentation. 06/2016 at [facility] - details not available, but the patient reports they used a donor valve. EDMUND showed the presence of bioprosthetic aortic, mitral, and tricuspid valves. (8) History of endocarditis Status: Acute 02/2015 - Causative organism Serratia marcescens, AVR tissue, Cefepime/ Gentamicin x 6 weeks, septic emboli to the brain. 07/2015 - Causative organism Serratia marcescens and Burkholderia, Minocycline IV/Bactrim IV x 6 weeks. 03/2016 - Causative organism E. faecalis, aortic valve abscess, AVR tissu, Ampicillin/Rocephin x 6 weeks. 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 06/2016 - Went back to [facility], CTS refused to perform additional surgery, patient transferred to [facility] for second opinion. Per patient, had AVR with donor valve, but EDMUND shows bioprosthetic aortic, mitral, and tricuspid valve. Unsure of antibiotic therapy post-op. Will request records from [facility]. (9) Tobacco abuse Status: Acute (10) Drug abuse and dependence Status: Chronic Reports last using IV Heroine 2 days prior to admission. High risk for withdrawal syndrome. Management per the primary team. (11) Hepatitis-C Status: Chronic Known Hep C positive. HIV nonreactive. Qualifiers: Viral hepatitis chronicity: chronic Hepatic coma status: without hepatic coma Qualified Code(s): B18.2 - Chronic viral hepatitis C (12) Joint pain Status: Resolved Reports pain in the right wrist, left knee, and right shoulder has resolved. Right wrist swollen, but not erythematous. Ortho evaluation noted. Qualifiers: Joint pain location: unspecified Qualified Code(s): M25.50 - Pain in unspecified joint (13) Oral thrush Status: Acute Nystatin magic mouthwash QID. - Subjective Interval history: Patient seen and examined. No acute events noted overnight. Patient states that overall he feels okay. Reports continued headache, but denies blurred vision or floaters. Denies fevers, chills, or rigors overnight. Denies chest pain, cough, or shortness of breath. Denies nausea and vomiting this morning. Reports he doesn't have much of an appetite, but did eat a little breakfast this morning. Denies abdominal pain or urinary complaints. States pain in the right wrist, left knee, and left shoulder have resolved. Denies oral thrush or new skin lesions and states his oral/throat pain is better. He is awaiting insurance approval for ECF placement. . Infect Dis PN-Objective Data - Labs CBC & Chem 7: 12/27/17 04:00 12/27/17 10:05 Labs: Laboratory Results - last 24 hr 12/27/17 12/27/17 12/27/17 04:00 10:05 11:40 WBC 9.1 RBC 3.70 L Hgb 10.4 L Hct 32.0 L MCV 86.5 MCH 28.1 MCHC 32.5 RDW 14.6 H Plt Count 340 MPV 8.6 L Immature Gran % 0.8 Seg Neutrophils % 71.7 Lymphocytes % 15.1 Monocytes % 10.8 Eosinophils % 1.2 Basophils % 0.4 Neutrophils # 6.5 Lymphocytes # 1.4 Monocytes # 1.0 Eosinophils # 0.1 Basophils # 0.0 Sodium 133 L Potassium 3.8 Chloride 104 Carbon Dioxide 23 BUN 16 Creatinine 1.17 Est GFR ( Amer) > 60 Est GFR (Non-Af Amer) > 60 BUN/Creatinine Ratio 14 Glucose 115 H Calculated Osmolality 278 L Calcium 8.9 Gentamicin Peak Gentamicin Trough 0.73 Vancomycin Trough 18.2 12/27/17 13:21 WBC RBC Hgb Hct MCV MCH MCHC RDW Plt Count MPV Immature Gran % Seg Neutrophils % Lymphocytes % Monocytes % Eosinophils % Basophils % Neutrophils # Lymphocytes # Monocytes # Eosinophils # Basophils # Sodium Potassium Chloride Carbon Dioxide BUN Creatinine Est GFR ( Amer) Est GFR (Non-Af Amer) BUN/Creatinine Ratio Glucose Calculated Osmolality Calcium Gentamicin Peak 3.9 L Gentamicin Trough Vancomycin Trough Cultures: Cultures 12/23/17 05:44 Blood Culture - Final Peripheral Venipuncture Methicillin Resistant S.aureus 12/24/17 09:48 Blood Culture - Preliminary Peripheral Venipuncture No growth. 12/24/17 11:27 Blood Culture - Preliminary Peripheral Venipuncture No growth. 12/20/17 08:52 Blood Culture - Final Peripheral Venipuncture Methicillin Resistant S.aureus 12/20/17 08:52 Blood Culture - Final Peripheral Venipuncture Methicillin Resistant S.aureus 12/17/17 10:08 Blood Culture - Final Peripheral Venipuncture Methicillin Resistant S.aureus 12/18/17 12:33 Blood Culture - Final Peripheral Venipuncture Methicillin Resistant S.aureus 12/18/17 12:33 Blood Culture - Final Peripheral Venipuncture Methicillin Resistant S.aureus Serology 12/23/17 12/20/17 12/18/17 Range/Units 05:44 08:52 12:33 A. baumannii (PCR) Not Detected Not Detected (Not Detect) Allison albicans (PCR) Not Detected Not Detected (Not Detect) C. glabrata (PCR) Not Detected Not Detected (Not Detect) C. krusei (PCR) Not Detected Not Detected (Not Detect) C. parapsilosis (PCR) Not Detected Not Detected (Not Detect) C. tropicalis (PCR) Not Detected Not Detected (Not Detect) Enterobacteriac sp PCR Not Detected Not Detected (Not Detect) E. cloacae complex PCR Not Detected Not Detected (Not Detect) Enterococcus sp PCR Not Detected Not Detected (Not Detect) E. coli (PCR) Not Detected Not Detected (Not Detect) H. influenzae (PCR) Not Detected Not Detected (Not Detect) HIV Ag/Ab Combo Qual Nonreactive (Nonreactive) Influenza Type A (PCR) (Negative) Influenza Type B (PCR) (Negative) Klebsiella oxytoca PCR Not Detected Not Detected (Not Detect) Klebsiella pneumoniae Not Detected Not Detected (Not Detect) List. monocytogenes PCR Not Detected Not Detected (Not Detect) N. meningitidis (PCR) Not Detected Not Detected (Not Detect) Proteus species (PCR) Not Detected Not Detected (Not Detect) Serratia marcescens PCR Not Detected Not Detected (Not Detect) Staphylococcus sp PCR DETECTED A DETECTED A (Not Detect) Staph aureus (PCR) DETECTED A DETECTED A (Not Detect) mecA-Methicil Res Gene DETECTED A DETECTED A (Not Detect) Streptococcus sp PCR Not Detected Not Detected (Not Detect) Group A Strep DNA Not Detected Not Detected (Not Detect) Group B Strep (PCR) Not Detected Not Detected (Not Detect) Strep pneumoniae (PCR) Not Detected Not Detected (Not Detect) P. aeruginosa (PCR) Not Detected Not Detected (Not Detect) Marli/B-Vanco Res Genes N/A Not Detected (Not Detect) KPC (blaKPC) Detect PCR N/A Not Detected (Not Detect) 12/17/17 12/17/17 Range/Units 14:49 10:08 A. baumannii (PCR) Not Detected (Not Detect) Allison albicans (PCR) Not Detected (Not Detect) C. glabrata (PCR) Not Detected (Not Detect) C. krusei (PCR) Not Detected (Not Detect) C. parapsilosis (PCR) Not Detected (Not Detect) C. tropicalis (PCR) Not Detected (Not Detect) Enterobacteriac sp PCR Not Detected (Not Detect) E. cloacae complex PCR Not Detected (Not Detect) Enterococcus sp PCR Not Detected (Not Detect) E. coli (PCR) Not Detected (Not Detect) H. influenzae (PCR) Not Detected (Not Detect) HIV Ag/Ab Combo Qual (Nonreactive) Influenza Type A (PCR) Negative (Negative) Influenza Type B (PCR) Negative (Negative) Klebsiella oxytoca PCR Not Detected (Not Detect) Klebsiella pneumoniae Not Detected (Not Detect) List. monocytogenes PCR Not Detected (Not Detect) N. meningitidis (PCR) Not Detected (Not Detect) Proteus species (PCR) Not Detected (Not Detect) Serratia marcescens PCR Not Detected (Not Detect) Staphylococcus sp PCR DETECTED A (Not Detect) Staph aureus (PCR) DETECTED A (Not Detect) mecA-Methicil Res Gene DETECTED A (Not Detect) Streptococcus sp PCR Not Detected (Not Detect) Group A Strep DNA Not Detected (Not Detect) Group B Strep (PCR) Not Detected (Not Detect) Strep pneumoniae (PCR) Not Detected (Not Detect) P. aeruginosa (PCR) Not Detected (Not Detect) Marli/B-Vanco Res Genes N/A (Not Detect) KPC (blaKPC) Detect PCR N/A (Not Detect) - Impressions Impressions Chest X-Ray 12/26/17 15:38 IMPRESSION: PICC line catheter placement. Indeterminate reticulonodular interstitial pattern. Correlate clinical evidence of atypical infection. D/ / Jovan Benz MD / Jovan Benz MD Interpreting Provider: Jovan Benz MD Exam - Constitutional Vitals: Temp Pulse Resp BP Pulse Ox 98.7 F 89 19 133/87 94 12/27/17 07:15 12/27/17 07:15 12/27/17 07:15 12/27/17 07:15 12/27/17 07:15 General appearance: average body habitus, cooperative, no acute distress - Head Head exam: Present: atraumatic, normal inspection, normocephalic - Eye Eye exam: Present: EOMI, normal appearance, PERRL Pupils: Present: normal accommodation Additional comments: No subconjunctival hemorrhage noted. - ENT ENT exam: Present: mucous membranes moist - Neck Neck exam: Present: normal inspection - Respiratory Respiratory exam: Present: CTAB. Absent: rales, respiratory distress, rhonchi, wheezes - Cardiovascular Cardiovascular exam: Present: RRR, +S1, +S2 - GI/Abdominal GI/Abdominal exam: Present: normal bowel sounds, soft. Absent: distended, tenderness - Extremities Exam Extremities exam: Present: normal inspection. Absent: joint swelling, pedal edema, tenderness - Neurological Exam Neurological exam: Present: alert, oriented X3, no focal deficits - Psychiatric Psychiatric exam: Present: normal affect, normal mood - Skin Skin exam: Present: dry, intact, normal color, warm - VTE Documentation of Mechanical Device: Intermittent pneumatic compression device Consult Discharge Plan - Plan Instructions: Sepsis (DC) Referrals: Taya Steel, TENSION WORKER [Advanced Practice Nurse] - (Patient is going to [facility] no PCP appointment needed) NONE,PCP [Primary Care Provider] - Gerber Lawrence MD [Partnered Physician] - 01/10/18 2:00 pm Prescriptions: Gentamicin in NaCl, Iso-Osm [Gentamicin 90 mg/Ns 100 ml Pb] 90 mg IV DAILY 11 Days #11 mls Rifampin [Rifadin] 300 mg PO BID 39 Days #78 capsule Vancomycin HCl in Dextrose 5 % [Vancomycin-D5w 1.25 Gram/250Ml] 1.25 gm IV Q12H 39 Days #78 mls - Attending Attestation I examined this patient and my medical decision-making was reviewed with the Resident Physician. I agree with the documented findings, disposition and treatment plan as described except to the extent set forth below.
[2017-12-27] MEDS ORDERED: Aminoglycoside Consult 1 EACH MC ONE (15:49)
== END 2017-12-27 15:50 | DRG 720 ==
LOC: EMEROO 05:24 → ICNU 09:36 → SUATTDRO 09:36 → ICNU 10:24 → 2NNU 12-18 16:58
PROVIDERS: ADMIT Family Medicine; ATTEND Internal Medicine

== ENCOUNTER 2018-01-02 10:27 | Inpatient (IN) ==
--- NOTE | 2018-01-02 11:31 | Emergency Department Note ---
Disposition Clinical Impression: Arterial occlusion Deep vein thrombosis of lower extremity Qualifiers: Affected thrombotic vein of extremity: tibial Chronicity: acute Laterality: right Qualified Code(s): I82.441 - Acute embolism and thrombosis of right tibial vein Disposition: Admitted As Inpatient Condition: Undetermined Time of Disposition: 12:35 Extremity Problem HPI - General Chief complaint: ED Extremity Problem,Nontraumatic Stated complaint: clot in artery and vein right foot per doppler Time Seen by Provider: 01/02/18 10:36 Source: patient Mode of arrival: ambulatory Limitations: no limitations Nursing Notes Reviewed: Yes Vital Signs Reviewed: Yes - History of Present Illness HPI Narrative: 42-year-old male with extensive history of IVDU arrives to the emergency department with complaint of erythema and pain in his right lower extremity at the ankle line. The patient states that he has had 3 valve replacements including tricuspid, mitral and aortic valves. He had 2 previous porcine valves and 1 organ donor valve. The patient states that roughly 1 month ago he relapsed in his IVDU and he was found to have a vegetation on his aortic valve. The patient was admitted to the hospital placed an IV antibiotics. He is currently living in a fdc where he is using IV antibiotics including gentamicin, vancomycin and by mouth rifampin. The patient is taking his medications as prescribed. He states that roughly 3 days ago he noticed some pain in his right calf and the fdc rubbed some gel on it and noted that he had woke up the next day with severe pain in his right ankle. The patient states that his PCP ordered a right lower extremity DVT study. The biofuels technology development manager old the patient that he had an arterial and venous blockage. Pt Subjective Complaint: extremity pain Pain Scale: 10 - Related Data Previous Rx's Medication Instructions Recorded Gentamicin in NaCl, Iso-Osm 90 mg IV DAILY 11 Days #11 mls 12/27/17 [Gentamicin 90 mg/Ns 100 ml Pb] Rifampin [Rifadin] 300 mg PO BID 39 Days #78 capsule 12/27/17 Vancomycin HCl in Dextrose 5 % 1.25 gm IV Q12H 39 Days #78 mls 12/27/17 [Vancomycin-D5w 1.25 Gram/250Ml] Allergies Allergy/AdvReac Type Severity Reaction Status Date / Time No Known Allergies Allergy Verified 01/02/18 12:38 All systems ED: reviewed and negative except as stated. Constitutional: Denies: fever, chills, weakness Cardiovascular: Denies: chest pain Respiratory: Denies: cough, dyspnea Gastrointestinal: Denies: abdominal pain, nausea Musculoskeletal: Reports: myalgia. Denies: back pain Integumentary: Denies: rash, lesions Neurological: Denies: numbness, paresthesias Past Medical History - Past Medical History Attestation: Yes The following information was validated with the patient. Source: patient Medical history: Reports: coronary artery disease, DVT, hepatitis, myocardial infarction, other Surgical history: Reports: heart valve replacement (x3), other Psychiatric history: Reports: anxiety - Social History Smoking Status: Current every day smoker Smokeless Tobacco Status: No Alcohol use: Reports: occasionally Drug use: Reports: cocaine, opiates, marijuana, IV Drug Use, other Physical Exam - General Limitations: no limitations General appearance: alert, in no apparent distress - Head Head exam: atraumatic, normocephalic, normal inspection - Eye Eye exam: Present: normal appearance - ENT ENT exam: normal exam, mucous membranes moist - Neck Neck exam: Present: normal inspection, full ROM, trachea midline - Chest Chest inspection: Present: normal inspection, symmetric chest wall rise, other ( Scar). Absent: tenderness - Respiratory Respiratory exam: Present: normal lung sounds bilaterally. Absent: respiratory distress - Cardiovascular Cardiovascular exam: Present: normal rhythm, tachycardia, clicks - Abdominal Exam Abdominal exam: Present: soft, Non-Tender. Absent: tenderness, distention, guarding, rebound, rigidity - Expanded Lower Extremity Exam Hip/Pelvis exam: Present: normal inspection, full ROM Upper leg exam: Present: normal inspection, full ROM Knee exam: Present: normal inspection, full ROM Lower leg exam: Present: full ROM, tenderness, erythema Neurovascular/Tendon exam: Present: normal capillary refill, other (DP palpable bilaterally). Absent: pulse deficit - Neurological Exam Neurological exam: Present: alert, oriented X3 - Skin Skin exam: Present: warm, dry, intact, normal color Course - Reevaluation(s) Reevaluation #1: Bedside ultrasound reveals small vegetation on what appears to be the aortic valve. Vital Signs Temperature 98.5 F 01/02/18 10:28 Pulse Rate 103 01/02/18 10:28 Respiratory Rate 18 01/02/18 10:28 Blood Pressure 141/90 01/02/18 10:28 O2 Sat by Pulse Oximetry 100 01/02/18 10:28 Temperature 98.5 F 01/02/18 10:28 Pulse Rate 106 01/02/18 12:58 Respiratory Rate 18 01/02/18 12:58 Blood Pressure 137/81 01/02/18 12:58 O2 Sat by Pulse Oximetry 97 01/02/18 12:58 Oxygen Delivery Oxygen Delivery Room Air Extremity Problem, Nontraumati - MDM Narrative Medical decision making narrative: Workup in the emergency department was performed. The patient arrives to emergency department with concern for distal posterior tibial arterial occlusion as well as a DVT of the posterior tibial vein. The patient was sent over to the emergency department. We consulted vascular surgery who recommended IV heparin and admission. We will get the patient to the hospital at this time. No Further questions or concerns noted by patient. Patient agrees to plan of care. Accepted by Dr. Quinonez. - Medical Records Medical records reviewed: Yes I reviewed the patient's medical records. - Lab Data Result diagrams: 01/02/18 12:12 01/02/18 12:12 Lab Results 01/02/18 01/02/18 01/02/18 Range/Units 12:12 12:12 12:13 WBC 10.0 (4.3-11.1) K/mcL RBC 3.72 L (4.19-5.50) M/mcL Hgb 10.5 L (12.9-16.9) g/dL Hct 32.4 L (37.5-50.1) % MCV 87.1 (83.0-100.0) fL MCH 28.2 (28.0-33.3) pg MCHC 32.4 (31.6-35.5) g/dL RDW 15.0 H (11.5-14.5) % Plt Count 429 H (140-400) K/mcL MPV 8.2 L (9.4-12.4) fL Immature Gran % 0.3 (0-4) % Seg Neutrophils % 71.8 % Lymphocytes % 15.4 % Monocytes % 10.5 % Eosinophils % 1.2 % Basophils % 0.8 % Neutrophils # 7.2 (1.6-8.9) K/mcL Lymphocytes # 1.5 (0.6-4.6) K/mcL Monocytes # 1.1 (0.0-1.3) K/mcL Eosinophils # 0.1 (0.0-0.6) K/mcL Basophils # 0.1 (0.0-0.2) K/mcL PT 14.4 H (9.4-12.1) Seconds INR 1.3 APTT 32.2 (26.0-36.0) Seconds Sodium 136 (136-145) mEq/L Potassium 3.7 (3.5-5.1) mEq/L Chloride 107 (98-107) mEq/L Carbon Dioxide 21 L (23-29) mEq/L BUN 28 H (6-20) mg/dL Creatinine 1.54 H (0.70-1.30) mg/dL Est GFR ( Amer) > 60 (> 60) Est GFR (Non-Af Amer) 50 L (> 60) BUN/Creatinine Ratio 18 (6-26) Glucose 96 (70-105) mg/dL Calculated Osmolality 287 (280-300) Calcium 9.3 (8.6-10.3) mg/dL - Radiology Data Radiology results reviewed: Yes I reviewed the patient's radiology results. Attestation Statement - Attestation Attestation: I examined this patient and my medical decision-making was reviewed with the Resident Physician. I agree with the documented findings, disposition and treatment plan as described except to the extent set forth below. Patient presents to the ED with a chief complaint of a blood clot. Patient an outpatient ultrasound done today that showed a DVT and an arterial clot in the right ankle. Patient is currently in the fdc getting IV antibiotics for infective endocarditis of his recently placed donor aortic valve. Patient in no distress on examination. He has Tenderness and swelling. Some ecchymosis of the right medial ankle. Plan. Report was obtained. We discussed with vascular. Patient will be admitted on heparin drip. 40 minutes of critical care exclusive of separately billable procedures.
[2018-01-02] MEDS ORDERED: *HR* Heparin 5,000 UNIT/ML VIAL IVP PRN ×2 (12:13)
[2018-01-02] MEDS ORDERED: *HR* Heparin 5,000 UNIT/ML VIAL IVP ONE (12:13)
[2018-01-02 12:46] LABS: Basophils # 0.1 K/mcL (0.0-0.2); Basophils % 0.8 %; Eosinophils # 0.1 K/mcL (0.0-0.6); Eosinophils % 1.2 %; Hematocrit 32.4 % (37.5-50.1); Hemoglobin 10.5 g/dL (12.9-16.9); Immature Granulocytes % 0.3 % (0-4); Lymphocytes # 1.5 K/mcL (0.6-4.6); Lymphocytes % 15.4 %; Mean Corpuscular HGB Conc 32.4 g/dL (31.6-35.5); Mean Corpuscular Hemoglobin 28.2 pg (28.0-33.3); Mean Corpuscular Volume 87.1 fL (83.0-100.0); Mean Platelet Volume 8.2 fL (9.4-12.4); Monocytes # 1.1 K/mcL (0.0-1.3); Monocytes % 10.5 %; Neutrophils # 7.2 K/mcL (1.6-8.9); Platelet Count 429 K/mcL (140-400); Red Blood Count 3.72 M/mcL (4.19-5.50); Segmented Neutrophils % 71.8 %
[2018-01-02 12:53] LABS: INR 1.3; Prothrombin Time 14.4 Seconds (9.4-12.1)
[2018-01-02 12:55] LABS: Activated Partial Thrombo Time 32.2 Seconds (26.0-36.0)
[2018-01-02 13:05] LABS: BUN/Creatinine Ratio 18 (6-26); Blood Urea Nitrogen 28 mg/dL (6-20); Calcium 9.3 mg/dL (8.6-10.3); Carbon Dioxide 21 mEq/L (23-29); Chloride 107 mEq/L (98-107); Glucose 96 mg/dL (70-105); Osmolality,Calculated 287 (280-300); Potassium 3.7 mEq/L (3.5-5.1); Sodium 136 mEq/L (136-145); eGFR For African Americans > 60 (> 60); eGFR For Non-African Americans 50 (> 60)
[2018-01-02] MEDS: Heparin 25,000 UNIT/500 ML D5W 25,000 UNIT/500 ML BAG IVC SCH (13:09)
--- NOTE | 2018-01-02 14:21 | Internal Med History&Physical ---
Date of Encounter: 01/02/18 Time of Encounter: 14:21 Assessment and Plan (1) Arterial occlusion Current visit: Yes Status: Acute Located in right lower extremity, likely septic emboli. INR is 1.3 and he was not on anticoagulation on admission. Will need to get LFT as patient does have hepatitis C. Last LFTs were within normal limit. Continue vancomycin and gentamycin - renally dose Patient will be continued on heparin drip in ED and will continue drip Vascular Surgery was notified of patient and will be consulted. Cautious with pain control given patient has significant history of drug abuse. Will try Tylenol and assess if patient needs escalated therapy. (2) Infective endocarditis of aortic valve Current visit: No Status: Acute Currently being treated with vancomycin and gentamycin He is tachycardic, afebril, normal white blood cell levels. Check blood cultures (3) IV drug abuse Current visit: No Status: Acute (4) Acute on chronic renal failure Current visit: Yes Status: Acute Creatinine 1.54 same as yesterday. Baseline is 1.1-1.3. This may be antibiotic related. Will need to renally dose gentamycin and vancomycin. Will get FENa and start IV fluids and recheck BMP in AM. Qualifiers: Acute renal failure type: unspecified Chronic kidney disease stage: stage 2 (mild) Qualified Code(s): N17.9 - Acute kidney failure, unspecified; N18.2 - Chronic kidney disease, stage 2 (mild); N18.2 - Chronic kidney disease, stage 2 (mild) (5) Intracranial septic embolism Current visit: No Status: Acute Stable. (6) S/P aortic valve replacement with prosthetic valve Current visit: No Status: Acute (7) Hepatitis-C Current visit: No Status: Chronic Check LFTs Qualifiers: Viral hepatitis chronicity: chronic Hepatic coma status: without hepatic coma Qualified Code(s): B18.2 - Chronic viral hepatitis C (8) Deep vein thrombosis of lower extremity Current visit: Yes Status: Acute History of this as well. Continue heparin drip. Vascular Surgery consulted. Qualifiers: Affected thrombotic vein of extremity: tibial Chronicity: acute Laterality: right Qualified Code(s): I82.441 - Acute embolism and thrombosis of right tibial vein (9) Tobacco abuse Current visit: No Status: Acute He smokes about 10 cigarettes at [facility]. I will hold off from nicotine patches because of arterial occlusion. (10) DVT prophylaxis Current visit: No Status: Acute Continue heparin drip Internal Medicine - H&P: HPI History of present illness: Mr. Quinn is a 42 year old male with history of IVDA, recent admission for infective endocarditis (discharged 12/26) with emboli to brain, CAD, hepatitis, DVT, AR, AV/MV/TV repairs presented for right lower extremity pain. He has known vegitations on aortic valve. He was discharged on 12/26 to SNF to complete IV antibiotics vancomycin, gentamycin, PO rifampin. He developed some right calf pain at SNF which 5 days ago progressed to right ankle pain. Today the PCP at long term ordred right lower extremity DVT and was significant for arterial and venous blockage. Patient still has calf and ankle pain at this time, he denies fevers, nausea/vomiting. Blood cultures on last admission positive for MRSA last positive on 12/23. Blood cultures on 12/24 were negative. In ED patient was tachycardic with HR 103-106, BP within acceptable limits, afebrile. He was placed on heparin drip. WBC was within normal limits and INR was 1.3. Creatinine was 1.54 and patient had Cr 1.54 yesterday with GFR of 50. Vascular Surgery was consulted in ED and recommended IV heparin and admission. Past Med Surg Social Fam HX - Past Medical History Medical history: coronary artery disease, DVT, hepatitis, myocardial infarction , other Psychiatric history: anxiety - Past Surgical History Surgical History: heart valve replacement, other - Social History Smoking Status: Current every day smoker Smokeless Tobacco Status: No Alcohol use: occasionally Drug use: cocaine, opiates, marijuana, IV Drug Use, other - Family History Grandfather Living Status: Hx Family Cardiac Disorders: Yes Hx Family Respiratory Disorders: Yes Internal Medicine - H&P: Meds Gentamicin in NaCl, Iso-Osm [Gentamicin 90 mg/Ns 100 ml Pb] 90 mg IV DAILY 11 Days #11 mls 12/27/17 [Rx] Rifampin [Rifadin] 300 mg PO BID 39 Days #78 capsule 12/27/17 [Rx] Vancomycin HCl in Dextrose 5 % [Vancomycin-D5w 1.25 Gram/250Ml] 1.25 gm IV Q12H 39 Days #78 mls 12/27/17 [Rx] 3 Allergy/AdvReac Type Severity Reaction Status Date / Time No Known Allergies Allergy Verified 01/02/18 12:38 All Systems PM: A 10-system review of systems was performed and is negative for pertinent findings except as documented above in the HPI. - Constitutional Vitals: Temp Pulse Resp BP Pulse Ox 98.5 F 105 16 134/88 98 01/02/18 13:46 01/02/18 13:46 01/02/18 13:46 01/02/18 13:46 01/02/18 13:46 - Head Head exam: Present: atraumatic, normocephalic - Eye Eye exam: Present: PERRL, conjuntiva pink, sclera anicteric Pupils: Present: PERRL - Neck Neck exam general surgery: Present: supple, trachea midline. Absent: lymphadenopathy - Respiratory Respiratory exam: Present: CTAB. Absent: accessory muscle use, rales, rhonchi, wheezes - Cardiovascular Cardiovascular exam: Present: RRR, +S1, +S2, systolic murmur. Absent: gallop, rubs - GI/Abdominal GI/Abdominal exam: Present: normal bowel sounds, soft, no peritoneal signs. Absent: distended, tenderness - Extremities Exam Extremities exam: Present: warm, radial pulses palpable and symmetrical. Absent : calf tenderness, cyanotic, pedal edema Additional comments: Right ankle erythematous and tender. Right calf is normal appearing but tender. - Neurological Exam Neurological exam: Present: CN II-XII intact, oriented X3, no focal deficits. Absent: pronater drift, facial droop, speech deficit - Skin Skin exam: Present: dry, intact Internal Med - H&P Results - Labs CBC & Chem 7: 01/02/18 12:12 01/02/18 12:12
[2018-01-02] MEDS ORDERED: Naloxone 0.4 MG/ML INJ IVP PRN (15:05)
[2018-01-02] MEDS ORDERED: Acetaminophen 325 MG TABLET PO PRN (15:37)
[2018-01-02] MEDS: 0.9 % Sodium Chloride 1,000 ML IVC SCH ×2 (16:37→23:28)
[2018-01-02] MEDS ORDERED: traMADol 50 MG TABLET PO ONE (16:47)
[2018-01-02] MEDS ORDERED: traMADol 50 MG TABLET PO PRN ×2 (17:10→22:47)
[2018-01-02 17:15] LABS: Albumin 3.1 g/dL (3.5-5.7); Albumin/Globulin Ratio 0.7 (1.1-2.2); Bilirubin,Direct 0.1 mg/dL (0.0-0.2); Bilirubin,Indirect 0.2 mg/dL (0.0-1.2); Bilirubin,Total 0.3 mg/dL (0.3-1.0); Globulin 4.7 g/dL (2.4-3.5); Total Protein 7.8 g/dL (6.4-8.9)
[2018-01-02] MEDS: *HR* LORazepam 0.5 MG TABLET PO PRN (18:18)
[2018-01-02 18:40] LABS: Sodium, Urine 149.6 mEq/L
--- NOTE | 2018-01-02 19:05 | Vascular/Endovasc Consult Note ---
Date of Encounter: 01/02/18 Time of Encounter: 18:00 Assessment and Plan (1) Embolism, septic arterial Current Visit: Yes Status: Acute Patient has arterial embolism and deep venous thrombosis of distal right posterior tibial system. The patient's perfusion to the right lower extremity is excellent and he has a 2+ palpable dorsalis pedis pulse. There is no surgical indication for embolectomy in particular in light of his other ongoing issues medical treatment with anticoagulation and antibiotics is indicated. The patient's anticoagulation may be converted to an oral form of therapy from a vascular surgery perspective as no intervention is anticipated. (2) Infective endocarditis Current Visit: Yes Status: Chronic Patient is undergoing long-term intravenous antibiotic therapy for infective endocarditis. Patient has aortic valve vegetations. This is the third aortic valve replacement that is presently in position in the aortic site. Qualifiers: Infective endocarditis organism: bacterial Chronicity: acute Qualified Code(s): I33.0 - Acute and subacute infective endocarditis (3) Intracranial septic embolism Current Visit: No Status: Chronic History of intracranial septic emboli from previous hospitalization. (4) Deep vein thrombosis of lower extremity Current Visit: Yes Status: Acute DVT may be reactive to septic emboli to distal posterior tibial artery. Treatment is ongoing with intravenous anticoagulation. Anticoagulation may be converted to an oral form from a vascular surgery perspective. Qualifiers: Affected thrombotic vein of extremity: tibial Chronicity: acute Laterality: right Qualified Code(s): I82.441 - Acute embolism and thrombosis of right tibial vein - History of Present Illness Consult date: 01/02/18 Consult reason: Acute right lower extremity arterial embolus and DVT Chief complaint: Right lower extremity pain History of present illness: Mr. Quinn is a 42 year old male Was admitted via the ER earlier today because of acute lower extremity pain. Evaluation by the [facility] physician included a duplex scan. Further evaluation was performed and revealed an acute DVT of the posterior tibial vein of the distal right calf. In addition arterial study was performed and an acute occlusion of the distal right posterior tibial artery was identified. The other vessels of the right lower extremity appear normal. Vascular surgery was asked to see the patient and comment on these issues. The patient states that he developed pain in the right calf about 4-5 days prior to admission. This then migrated more distally into the area around the medial malleolus and ankle region area he states that he had difficulty bearing weight on the right foot. The patient has a history of intravenous drug abuse and a very calm. History of cardiac involvement. He was recently discharged from the hospital on December 26 and sent to the extended care facility so that he could complete an 8 week course of intravenous antibiotic therapy using a triple drug regimen. He was found during that earlier hospitalization to have a brain embolus. The patient also has a known vegetation of the aortic valve. The patient has a very complicated cardiac history in that he had undergone a porcine valve replacement of the aortic valve approximately 2014. This needed to be repeated. He then had a another aortic valve infection and was sent to the [facility]. There he had a homograft aortic valve placed and a surgical repair performed of the mitral valve and tricuspid valves. He also has a history of hepatitis C. MRSA was found on a blood culture during his previous hospitalization but this did clear and a PICC line was placed so that he could undergo his 8 weeks of intravenous antibiotic therapy as well as oral rifampin. The patient denies any fevers or chills. He denies any other constitutional symptoms at this time. He denies any previous lower extremity arterial problems. Past Med Surg Social Fam HX - Past Medical History Medical history: coronary artery disease, DVT, hepatitis, myocardial infarction , other Psychiatric history: anxiety - Past Surgical History Surgical History: heart valve replacement (Porcine aortic valve replacements 2 at [facility]. Homograft aortic valve replacement with surgical repair of tricuspid and mitral valves at the [facility].), other - Social History Smoking Status: Current every day smoker Smokeless Tobacco Status: No Alcohol use: occasionally Drug use: cocaine, opiates, marijuana, IV Drug Use, other - Family History Grandfather Living Status: Hx Family Cardiac Disorders: Yes Hx Family Respiratory Disorders: Yes Medications and Allergies Gentamicin in NaCl, Iso-Osm [Gentamicin 90 mg/Ns 100 ml Pb] 90 mg IV DAILY 11 Days #11 mls 12/27/17 [Rx] Rifampin [Rifadin] 300 mg PO BID 39 Days #78 capsule 12/27/17 [Rx] Vancomycin HCl in Dextrose 5 % [Vancomycin-D5w 1.25 Gram/250Ml] 1.25 gm IV Q12H 39 Days #78 mls 12/27/17 [Rx] 3 Allergy/AdvReac Type Severity Reaction Status Date / Time No Known Allergies Allergy Verified 01/02/18 12:38 All Systems Review: The remainder of the systems were reviewed and are negative Exam Vital Signs, Last 4 Hours Temp Pulse Resp BP Pulse Ox 01/02/18 15:54 98.1 F 105 16 136/84 97 General: Present: Conversant, No Apparent Distress, Well developed, Well nourished HEENT: Present: Atraumatic, Normocephaly, Trachea midline Neck: Absent: JVD Cardiac: Present: Other (Borderline tachycardia) Neuro: Present: Alert and responsive, No focal deficits noted, Cranial nerves grossly intact Abdomen: Present: Soft Vascular: Present: Normal capillary refill, Pulse, absent (Right posterior tibial pulse), Pulse, normal (Patient has normal upper extremity pulses. Patient has normal left lower extremity pulses. Patient has normal right lower extremity pulses with the exception of the absence of the right posterior tibial pulse.), Color/Temperature (Patient has erythema around the medial malleolus with increase in sensitivity and tenderness on light touch. There is no bleb formation present or signs of necrosis or drainage.). Absent: Cyanosis Skin: Present: No rashes noted on visualized skin Consult Discharge Plan - Plan Referrals: Taya Steel, ELECTROMECHANICAL TECHNICIAN [Primary Care Provider] -
[2018-01-02] MEDS: rifAMPin 150 MG CAPSULE PO SCH (21:05)
[2018-01-02 21:12] LABS: Vancomycin,Random 18.9 mcg/mL
[2018-01-02 23:18] LABS: Gentamicin,Random 0.2 mcg/mL
[2018-01-02] MEDS: OXYCODONE Oral CONC 10 MG/0.5 ML ORAL.SYG SL PRN (23:27)
[2018-01-03] MEDS: Gentamicin 90 MG in 0.9 % Sodium Chloride 100 ML IVPB SCH ×3 (02:23→16:45)
[2018-01-03 03:44] LABS: Hematocrit 28.3 % (37.5-50.1); Hemoglobin 9.3 g/dL (12.9-16.9); Mean Corpuscular HGB Conc 32.9 g/dL (31.6-35.5); Mean Corpuscular Hemoglobin 28.6 pg (28.0-33.3); Mean Corpuscular Volume 87.1 fL (83.0-100.0); Mean Platelet Volume 8.4 fL (9.4-12.4); Platelet Count 324 K/mcL (140-400); Red Blood Count 3.25 M/mcL (4.19-5.50); Red Cell Distribution Width 14.9 % (11.5-14.5)
[2018-01-03 04:01] LABS: Calcium 8.3 mg/dL (8.6-10.3); Potassium 3.4 mEq/L (3.5-5.1)
[2018-01-03] MEDS: Heparin 25,000 UNIT/500 ML D5W 25,000 UNIT/500 ML BAG IVC SCH (04:35)
[2018-01-03] MEDS: OXYCODONE Oral CONC 10 MG/0.5 ML ORAL.SYG SL PRN ×2 (05:48→13:26)
[2018-01-03] MEDS ORDERED: traMADol 50 MG TABLET PO PRN (07:50)
[2018-01-03] MEDS ORDERED: Acetaminophen 325 MG TABLET PO PRN (07:50)
[2018-01-03] MEDS: *HR* LORazepam 0.5 MG TABLET PO PRN (08:50)
[2018-01-03] MEDS: rifAMPin 150 MG CAPSULE PO SCH (08:50)
--- NOTE | 2018-01-03 12:15 | Vascular/Endovas Progress Note ---
Date of Encounter: 01/03/18 Time of Encounter: 11:45 - Assessment and plan (1) Embolism, septic arterial Current Visit: Yes Status: Acute Patient with septic emboli to right distal posterior tibial artery with concomitant posterior tibial vein deep venous thrombosis. Patient has responded to medical therapy with intravenous antibiotics and anticoagulation and bedrest. There is no signs of ischemia to the right foot. The patient may now liberalize his physical activity and he may walk and bear weight on the right foot. Do not anticipate any vascular surgery intervention for the right lower extremity. Would recommend anticoagulation for a minimum of 3-6 months for right lower extremity DVT. Patient may return to the extended care facility per the primary service. (2) Infective endocarditis Current Visit: Yes Status: Chronic Patient is undergoing long-term intravenous antibiotic therapy for infective endocarditis. Patient has aortic valve vegetations. This is the third aortic valve replacement that is presently in position in the aortic site. Qualifiers: Infective endocarditis organism: bacterial Chronicity: acute Qualified Code(s): I33.0 - Acute and subacute infective endocarditis (3) Intracranial septic embolism Current Visit: No Status: Chronic History of intracranial septic emboli from previous hospitalization. (4) Deep vein thrombosis of lower extremity Current Visit: Yes Status: Acute DVT may be reactive to septic emboli to distal posterior tibial artery. Treatment is ongoing with intravenous anticoagulation. Anticoagulation may be converted to an oral form from a vascular surgery perspective. Qualifiers: Affected thrombotic vein of extremity: tibial Chronicity: acute Laterality: right Qualified Code(s): I82.441 - Acute embolism and thrombosis of right tibial vein - Subjective Interval history: Patient has no new complaints. He notes that the right foot and ankle is less painful. He states that the analgesic medicine is more effective. He is able to move his right foot and toes and ankle with minimal discomfort. He has not yet born weight on the right foot. Vital Signs, Last 4 Hours Temp Pulse Resp BP Pulse Ox 01/03/18 11:03 98.2 F 100 16 134/90 97 - Physical Examination General: Present: Conversant, No Apparent Distress Vascular: Present: Pulse, normal (Palpable right dorsalis pedis pulse.), Color/ Temperature (Right foot is warm and pink. The erythema on the medial aspect of the ankle near the malleolus is significantly diminished from yesterday. The area also is significantly less tender.) Results 01/03/18 03:25 01/03/18 03:25 Lab Results, Last 24 hours 01/02/18 01/02/18 01/03/18 16:31 19:15 03:25 WBC 7.8 Hgb 9.3 L Hct 28.3 L Plt Count 324 APTT 41.1 H Sodium Potassium Chloride Carbon Dioxide BUN Creatinine Glucose Calcium Total Bilirubin 0.3 AST 12 L ALT 14 Alkaline Phosphatase 73 01/03/18 01/03/18 03:25 03:25 WBC Hgb Hct Plt Count APTT 54.9 H Sodium 137 Potassium 3.4 L Chloride 107 Carbon Dioxide 22 L BUN 25 H Creatinine 1.59 H Glucose 125 H Calcium 8.3 L Total Bilirubin AST ALT Alkaline Phosphatase Consult Discharge Plan - Plan Referrals: Taya Steel, REAL ESTATE ACQUISITION ANALYST [Primary Care Provider] - 01/09/18 12:00 pm
--- NOTE | 2018-01-03 13:24 | Infectious Disease Consult ---
Date of Encounter: 01/03/18 Time of Encounter: 13:23 Assessment and Plan (1) Infective endocarditis Status: Chronic Assessment and plan: Causative organism: MRSA. Likely secondary to bacteremia from IVDU. Blood cultures drawn 12/24/17 were negative. TTE negative, but EDMUND showed a 10mm x 3.6mm mobile echodensity attached to the atrial side of the anterior mitral valve leaflet consistent with vegetation. It also showed a very subtle echodensity attached to a portion of the annulus of the tricuspid valve which could represent a vegetation. Continue Vancomycin. Pharmacy to dose. Goal trough ~15. Continue Gentamicin 1 mg/kg IV Q8H. Continue Rifampin 300mg PO, but switch to Q8H. Duration of treatment depends on the clinical picture, but likely 6-8 weeks from the first set of negative blood cultures. Treat through 02/04/18. Monitor renal and liver function and for drug toxicity and dose-adjust antibiotics. Continue weekly labs: CBC, BUN/Cr, ESR, CRP, Vanc trough, and Gentamicin trough every Sunday. Continue weekly PICC care per protocol. Follow up with ID 01/10/18 at 1410. Qualifiers: Infective endocarditis organism: bacterial Chronicity: acute Qualified Code(s): I33.0 - Acute and subacute infective endocarditis (2) Bacteremia Status: Chronic Assessment and plan: Causative organism: MRSA. Persistent despite appropriate antibiotic therapy. 12/17/17 are positive 2/2 sets. 12/18/17 are positive 2/2 sets. 12/20/17 are positive 2/2 sets. 12/23/17 are positive 1/1 set. 12/24/17 are negative 2/2 sets. He does have an extensive history of endocarditis and does have a history of aortic, mitral and tricuspid valve replacements as noted during EDMUND. He continues to use IV drugs. TTE inadequate to evaluate for endocarditis. EDMUND positive for endocarditis. Continue Vancomycin IV. Pharmacy to dose. Goal trough ~15. Continue Gentamicin 1mg/kg IV Q8H. Continue Rifampin 300mg PO, but switch to Q8H. Duration of treatment depends on the clinical picture. We will plan on having the patient on IV Vanc for 6-8 weeks from the first set of negative blood cultures and IV Gentamicin for two weeks. Discontinue Gentamicin after last dose 01/06/18. Continue Vanc and Rifampin through 02/05/16. Monitor renal function and for drug toxicity and dose-adjust antibiotics. (3) Acute on chronic renal failure Status: Acute Assessment and plan: JUSTINO noted on admission. Possibly secondary to IV antibiotics. Will dose-adjust based on creatinine clearance. Continue to trend. Avoid additional nephrotoxins as able. Qualifiers: Acute renal failure type: unspecified Chronic kidney disease stage: stage 2 (mild) Qualified Code(s): N17.9 - Acute kidney failure, unspecified; N18.2 - Chronic kidney disease, stage 2 (mild); N18.2 - Chronic kidney disease, stage 2 (mild) (4) Deep vein thrombosis of lower extremity Status: Acute Assessment and plan: Likely secondary to septic emboli. Location: Right posterior tibial vein. Anticoagulation and pain management per the primary team. Continue supportive care. Qualifiers: Affected thrombotic vein of extremity: tibial Chronicity: acute Laterality: right Qualified Code(s): I82.441 - Acute embolism and thrombosis of right tibial vein (5) Embolism, septic arterial Status: Acute Assessment and plan: Likely secondary to septic emboli. Location: Right distal posterior tibial artery. Vascular surgery consulted. No surgical intervention at this time. Anticoagulation and pain management per the primary team. Continue supportive care. (6) Tobacco abuse Status: Acute (7) Drug abuse and dependence Status: Chronic Assessment and plan: Management per the primary team. (8) Hepatitis-C Status: Chronic Assessment and plan: Known Hep C positive. HIV nonreactive. Qualifiers: Viral hepatitis chronicity: chronic Hepatic coma status: without hepatic coma Qualified Code(s): B18.2 - Chronic viral hepatitis C (9) Intracranial septic embolism Status: Chronic Assessment and plan: Likely secondary to bacteremia and endocarditis. 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 Recommend the patient be transferred to tertiary [facility] for neurosurgery evaluation. The patient refused transfer. Asymptomatic at this time. (10) History of endocarditis Status: Acute Assessment and plan: 02/2015 - Causative organism Serratia marcescens, AVR tissue, Cefepime/ Gentamicin x 6 weeks, septic emboli to the brain. 07/2015 - Causative organism Serratia marcescens and Burkholderia, Minocycline IV/Bactrim IV x 6 weeks. 03/2016 - Causative organism E. faecalis, aortic valve abscess, AVR tissu, Ampicillin/Rocephin x 6 weeks. 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 06/2016 - Went back to [facility], CTS refused to perform additional surgery, patient transferred to [facility] for second opinion. Per patient, had AVR with donor valve, but EDMUND shows bioprosthetic aortic, mitral, and tricuspid valve. Unsure of antibiotic therapy post-op. (11) Status post aortic valve replacement Status: Acute Assessment and plan: Status post aortic valve replacement x 3 due to endocarditis/valve abscess. 02/2015 at [facility] - tissue valve. 03/2016 at [facility] - Redo sternotomy, AV replacement (tissue), and bovine pericardial aortoplasty augmentation. 06/2016 at [facility] - details not available, but the patient reports they used a donor valve. EDMUND showed the presence of bioprosthetic aortic, mitral, and tricuspid valves. Infectious Disease HPI - Data of Consult Patient: known to practice within the last 3 years Consult date: 01/03/18 Requesting Physician: Kena Lucas MD Primary Care Provider: Taya Steel CNP - Consult Narrative Reason for consult: Endocarditis History of present illness: Mr. Quinn is a 42 year old male with a past medical history of endocarditis status post aortic valve replacement 3 with most recent in June 2017 with a donor valve, CAD, DVT, hepatitis C, TIA, and IV drug use The patient is admitted to the hospital on January 02 for arterial emboli and DVT. We are consulted January 03 for antibiotic recommendations for previously-diagnosed endocarditis. Briefly, the patient is a 42 year old male with a past medical history as stated above. The patient is well-known to the ID service as we were consulted on his case during his most recent hospitalization during which he was diagnosed with endocarditis. The patient was admitted 12/17/17 through 12/26/17. He was diagnosed with mitral valve and possible tricuspid valve endocarditis. Blood cultures grew MRSA, with the first negative set on 12/24/17. He was discharged to a local ECF to complete a 6 week course of IV Vancomycin and PO Rifampin and a 2 week course of IV Gentamicin. About three days prior to admission, he developed right calf pain that migrated down into the ankle with an erythematous lesion on the medial aspect of the foot/ankle. He had a venous and arterial doppler study as an outpatient and was noted to have an occlusion of the distal posterior tibial artery and DVT to the posterior tibial vein. He was directed to the ER where he was noted to be a little tachycardic, but otherwise hemydynamically stable and afebrile. Labs revealed a normal WBC with an JUSTINO. Baseline INR was noted to be elevated at 1.2, but LFTs were normal. He was started back on his home antibiotic course, as well as a heparin drip and admitted to the hospital for further evaluation and treatment. Since admission, the patient has remained afebrile and hemodynamically stable. He does continue to have tachycardia, but he reports that he is anxious and wants to go back to the ECF. Vascular surgery has been consulted and does not recommend embolectomy. We have been asked to evaluate and make further recommendations. During my exam today, the patient states that overall he feels well. He denies fevers, chills, or rigors. Denies headache, neck pain, or weakness. Denies chest pain, shortness of breath, or cough. Denies nausea, vomiting, diarrhea, or constipation. Denies abdominal pain, urinary complaints or appetite changes. Denies blurred vision or floaters. Denies back or extremity pain except for the right ankle and lower leg. He denies any oral thrush or new skin lesions except for the erythema to the right ankle. He describes the right ankle pain as constant, aching, and non-radiating. He reports he is unable to ambulate because of the pain. Currently, the patient is staying at a local ECF to complete his IV antibiotic therapy. He has a PICC line which the patient states has been working well. CC: Kena Lucas MD Past Med Surg Social Fam HX - Past Medical History Attestation: Yes The following information was validated with the patient. Source: patient, old records reviewed, nursing notes reviewed Medical history: coronary artery disease, DVT, hepatitis, myocardial infarction , other Psychiatric history: anxiety - Past Surgical History Surgical History: heart valve replacement (Porcine aortic valve replacements 2 at [facility]. Homograft aortic valve replacement with surgical repair of tricuspid and mitral valves at the [facility] other - Social History Smoking Status: Current every day smoker Smokeless Tobacco Status: No Alcohol use: occasionally Drug use: cocaine, opiates, marijuana, IV Drug Use, other - Family History Grandfather Living Status: Hx Family Cardiac Disorders: Yes Hx Family Respiratory Disorders: Yes Infectious Disease-CN:Meds Gentamicin in NaCl, Iso-Osm [Gentamicin 90 mg/Ns 100 ml Pb] 90 mg IV DAILY 11 Days #11 mls 12/27/17 [Rx] Rifampin [Rifadin] 300 mg PO BID 39 Days #78 capsule 12/27/17 [Rx] Vancomycin HCl in Dextrose 5 % [Vancomycin-D5w 1.25 Gram/250Ml] 1.25 gm IV Q12H 39 Days #78 mls 12/27/17 [Rx] Rivaroxaban [Xarelto] 15 mg PO BID 21 Days tablet 01/03/18 [Rx] 3 Allergy/AdvReac Type Severity Reaction Status Date / Time No Known Allergies Allergy Verified 01/02/18 12:38 All systems: reviewed and no additional remarkable complaints except as stated Exam - Constitutional Vitals: Temp Pulse Resp BP Pulse Ox 98.2 F 100 16 134/90 97 01/03/18 11:03 01/03/18 11:03 01/03/18 11:03 01/03/18 11:03 01/03/18 11:03 General appearance: average body habitus, cooperative, no acute distress - Head Head exam: Present: atraumatic, normal inspection, normocephalic - Eye Eye exam: Present: EOMI, normal appearance, PERRL Pupils: Present: normal accommodation Additional comments: No subconjunctival hemorrhage noted. - ENT ENT exam: Present: mucous membranes moist - Neck Neck exam: Present: normal inspection - Respiratory Respiratory exam: Present: CTAB. Absent: rales, respiratory distress, rhonchi, wheezes - Cardiovascular Cardiovascular exam: Present: RRR, +S1, +S2 - GI/Abdominal GI/Abdominal exam: Present: normal bowel sounds, soft. Absent: distended, tenderness - Extremities Exam Extremities exam: Present: joint swelling (Right ankle), pedal edema (Right foot /ankle, 1+), tenderness (Right ankle/lower leg) Additional comments: Erythema noted to the medial aspect of the right ankle with associated tenderness and warmth. No open lesions noted. No endocarditis stigmata noted. - Back Exam Back exam: Present: normal inspection. Absent: paraspinal tenderness, vertebral tenderness - Neurological Exam Neurological exam: Present: alert, oriented X3, no focal deficits - Psychiatric Psychiatric exam: Present: normal affect, normal mood - Skin Skin exam: Present: dry, intact, normal color, warm Additional comments: No endocarditis stigmata noted. Infectious Disease CN: Results - Labs CBC & Chem 7: 01/03/18 03:25 01/03/18 03:25 Serology: Serology 01/02/18 Range/Units 17:00 Urine Creatinine 200 mg/dL Urine Sodium 149.6 mEq/L Consult Discharge Plan - Plan Referrals: Taya Steel CNP [Primary Care Provider] - 01/09/18 12:00 pm Gerber Lawrence MD [Partnered Physician] - 01/10/18 2:10 pm Prescriptions: Rivaroxaban [Xarelto] 15 mg PO BID 21 Days tablet - Attending Attestation I examined this patient and my medical decision-making was reviewed with the Resident Physician. I agree with the documented findings, disposition and treatment plan as described except to the extent set forth below. Patient is a 6-year-old gentleman well-known to our service. Please refer to my previous notes for full history. Patient is being treated by us for MRSA endocarditis of prosthetic valve. Patient also had associated septic emboli to the brain. Patient is an IV drug user and he continues to use drugs even after he had 3 heart valve surgeries. Patient apparently was found to have a DVT and a arterial thrombus in the lower extremity. Patient was brought in for evaluation by vascular surgery. In the meantime we will await vascular recommendations in terms of anticoagulation versus other. Continue vancomycin, gentamicin and rifampin Monitor labs and for drug toxicity Goal vancomycin trough 15-20 Monitor LFTs since the patient on rifampin Patient needs a hearing test because his been on gentamicin balm not sure he got it at this point We will continue to follow He scheduled to see me in clinic next week
--- NOTE | 2018-01-03 14:56 | Discharge Summary ---
- NOTES TO OUTPATIENT PROVIDER Notes to Outpatient Provider: Please continue taking Xarelto 15mg PO BID x 3 weeks then continue 20mg PO Daily Orders not resulted at time of discharge: Pending orders 01/02/18 16:31 Culture,Blood [BC] Routine 01/03/18 17:50 PTT [Activated Partial Thrombo Time] [COAG] Timed Date of Encounter: 01/03/18 Time of Encounter: 14:53 - Discharge Diagnosis (1) Arterial occlusion Priority: Primary Status: Acute (2) Deep vein thrombosis of lower extremity Priority: Primary Status: Acute Qualifiers: Affected thrombotic vein of extremity: tibial Chronicity: acute Laterality: right Qualified Code(s): I82.441 - Acute embolism and thrombosis of right tibial vein (3) Embolism, septic arterial Priority: Primary Status: Acute (4) Infective endocarditis Priority: Secondary Status: Chronic Qualifiers: Infective endocarditis organism: bacterial Chronicity: acute Qualified Code(s): I33.0 - Acute and subacute infective endocarditis (5) History of drug use Priority: Secondary Status: Acute (6) IV drug abuse Priority: Secondary Status: Acute (7) Infective endocarditis of aortic valve Priority: Secondary Status: Acute (8) S/P aortic valve replacement with prosthetic valve Priority: Secondary Status: Acute (9) Hepatitis-C Priority: Secondary Status: Chronic Qualifiers: Viral hepatitis chronicity: chronic Hepatic coma status: without hepatic coma Qualified Code(s): B18.2 - Chronic viral hepatitis C (10) Intracranial septic embolism Priority: Secondary Status: Chronic Hospital course: Mr. Quinn is a 42 year old male with history of IVDA, recent admission for infective endocarditis (discharged 12/26) with emboli to brain, CAD, hepatitis, DVT, [place], AV/MV/TV repairs presented for right lower extremity pain. He has known vegitations on aortic valve. He was discharged on 12/26 to SNF to complete IV antibiotics vancomycin, gentamycin, PO rifampin. He developed some right calf pain at SNF which 5 days ago progressed to right ankle pain. His venous doppler showed Rt LE DVT and arterial Doppler showed Rt posterior tibial arterial emboli. Pt was admitted in the hospital and started him on heparin anticoagulation. Pt was evaluated by Vascular surgery who did not recommend any further interventions and recommend to switch to PO Anti coag. I suggested the pt can stay on Heparin for at least 48hrs, however pt adamant to stay in the hospital and wanted to leave AMA too. Pt does understand the risks of not getting optimal treatment. Will d/c him back to ECF with PO Xarelto 15mg BID x 21 days then continue 20mg PO Daily. Also suggested to f/u with vascular surgery as an out pt - Time Spent with Patient Total time spent providing and/or coordinating discharge services: - Discharge Medications Prescriptions: Rivaroxaban [Xarelto] 15 mg PO BID 21 Days tablet Home Medications: Gentamicin in NaCl, Iso-Osm [Gentamicin 90 mg/Ns 100 ml Pb] 90 mg IV DAILY 11 Days #11 mls 12/27/17 [Rx] Rifampin [Rifadin] 300 mg PO BID 39 Days #78 capsule 12/27/17 [Rx] Vancomycin HCl in Dextrose 5 % [Vancomycin-D5w 1.25 Gram/250Ml] 1.25 gm IV Q12H 39 Days #78 mls 12/27/17 [Rx] Rivaroxaban [Xarelto] 15 mg PO BID 21 Days tablet 01/03/18 [Rx] Allergies/Adverse Reactions: 3 Allergy/AdvReac Type Severity Reaction Status Date / Time No Known Allergies Allergy Verified 01/02/18 12:38 Date of admission: 01/02/18 12:54 Primary care physician: Taya Steel CNP Consults: 01/03/18 08:11 Consult to [employer] [CONS] Routine Reason for SW Consult: rafy [place] 01/03/18 09:30 Consult to Infectious Diseases [CONS] Routine Consulting Provider: Infectious Disease [place] Reason for Consult: Known Inf endocarditis presented to Arterial emboli + DVT Call Completed: No - Constitutional Vitals: Temp Pulse Resp BP Pulse Ox 98.2 F 100 16 134/90 97 01/03/18 11:03 01/03/18 11:03 01/03/18 11:03 01/03/18 11:03 01/03/18 11:03 General appearance: Present: A&O X 3, no acute distress, answers questions appropriately - Head Head exam: Present: atraumatic, normal inspection - Neck Neck exam general surgery: Present: supple - Respiratory Respiratory exam: Present: decreased breath sounds. Absent: rales, respiratory distress, rhonchi, wheezes - Cardiovascular Cardiovascular exam: Present: RRR, +S1, +S2, systolic murmur. Absent: tachycardia - GI/Abdominal GI/Abdominal exam: Present: soft. Absent: rebound, rigid - Extremities Exam Extremities exam: Present: normal capillary refill, pedal edema (mild edema in Rt leg). Absent: calf tenderness Additional comments: Pulses are palpable distally in both legs - Back Exam Back exam: Absent: CVA tenderness (L), CVA tenderness (R) - Neurological Exam Neurological exam: Present: alert, oriented X3 - Psychiatric Psychiatric exam: Present: anxious - Patient Status Disposition: Transfer SNF Condition: Fair Overall status at discharge: patient is back to baseline - Discharge Instructions Follow Up With: Taya Steel CNP [Primary Care Provider] - 01/09/18 12:00 pm Gerber Lawrence MD [Partnered Physician] - 01/10/18 2:10 pm - Diet and Activity Activity: as per physical therapy, increase activity as tolerated Diet: low salt diet
[2018-01-03] MEDS ORDERED: rifAMPin 150 MG CAPSULE PO SCH (15:00)
[2018-01-03] MEDS ORDERED: *HR* Rivaroxaban 15 MG TABLET PO ONE (17:18)
--- NOTE | 2018-01-03 17:19 | Physician Discharge Referral ---
ExtendedCare Referral Info Transfer To: ECF Provider in Charge after Transfer: PCP Institutional Level of Care: Skilled - Diagnosis (1) Arterial occlusion Status: Acute (2) Deep vein thrombosis of lower extremity Status: Acute (3) Embolism, septic arterial Status: Acute (4) Infective endocarditis Status: Chronic (5) History of drug use Status: Acute (6) IV drug abuse Status: Acute (7) Infective endocarditis of aortic valve Status: Acute (8) S/P aortic valve replacement with prosthetic valve Status: Acute (9) Hepatitis-C Status: Chronic (10) Intracranial septic embolism Status: Chronic - Transfer Medications Prescriptions: Rivaroxaban [Xarelto] 15 mg PO BID 21 Days tablet Home Medications: Gentamicin in NaCl, Iso-Osm [Gentamicin 90 mg/Ns 100 ml Pb] 90 mg IV DAILY 11 Days #11 mls 12/27/17 [Rx] Rifampin [Rifadin] 300 mg PO BID 39 Days #78 capsule 12/27/17 [Rx] Vancomycin HCl in Dextrose 5 % [Vancomycin-D5w 1.25 Gram/250Ml] 1.25 gm IV Q12H 39 Days #78 mls 12/27/17 [Rx] Rivaroxaban [Xarelto] 15 mg PO BID 21 Days tablet 01/03/18 [Rx] Allergies/Adverse Reactions: 3 Allergy/AdvReac Type Severity Reaction Status Date / Time No Known Allergies Allergy Verified 01/02/18 12:38 - Respiratory Orders Smoking Cessation: Smoking cessation has been advised. For more information, call the [place] Tobacco Quit Line at 1-974-WPWS-NOW. CERTIFICATION: I certify that the transfer of the above named patient to an Extended Care Facility is necessary for the continuing treatment of the diagnosis listed. The above information is true and accurate reflection of patient's current condition. Confidential - Redisclosure prohibited without a patient's written consent.
[2018-01-03 18:57] VITALS: BP 137/91
[2018-01-03] MEDS ORDERED: Aminoglycoside Consult 1 EACH MC ONE (19:04)
[2018-01-04] MEDS ORDERED: *HR* Rivaroxaban 10 MG TABLET PO SCH (06:00)
[2018-01-04] MEDS ORDERED: *HR* Rivaroxaban 15 MG TABLET PO SCH (08:00)
== END 2018-01-03 19:05 | DRG 197 ==
LOC: EMEROO 10:27 → 2ANU 12:54
PROVIDERS: ADMIT Student in an Organized Health Care Education/Training Program; ATTEND Family Medicine

== ENCOUNTER 2018-04-28 23:16 | Inpatient (IN) ==
--- NOTE | 2018-04-28 23:39 | Emergency Department Note ---
Disposition Clinical Impression: History of SBE (subacute bacterial endocarditis) Fever Qualifiers: Fever type: unspecified Qualified Code(s): R50.9 - Fever, unspecified Dyspnea Qualifiers: Dyspnea type: unspecified Qualified Code(s): R06.00 - Dyspnea, unspecified Chest pain Qualifiers: Chest pain type: unspecified Qualified Code(s): R07.9 - Chest pain, unspecified Disposition: Left Against Medical Advice Condition: Serious Reasons to Return/Additional Instructions: Follow up with primary care physician within the next 1-2 days. Please strongly consider returning to the ER for additional care and transfer to an outside facility for specialized cardiac care. Referrals: Taya Steel, PUMPMAN [Primary Care Provider] - Forms: ED Satisfaction Letter Time of Disposition: 05:17 (Left AMA) Chest Pain HPI - General Chief Complaint: ED Chest Pain Stated Complaint: chest pain Time Seen by Provider: 04/28/18 23:27 Source: patient Mode of arrival: ambulatory Limitations: no limitations Vital Signs Reviewed: Yes Nursing Notes Reviewed: Yes - History of Present Illness HPI Narrative: Patient is a 42-year-old male with past medical history of endocarditis, open- heart surgery and valve replacement 3. History of IV drug use. 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 He presents today due to chest pain and shortness breath over the past 1-2 days. He also admits to fevers. Denies any nausea, vomiting, diarrhea, abdominal pain. He is concern for recurrence of endocarditis. He states that he has been to [facility] and [facility] and does not want to return to either of these facilities, understands the risk of not going to specialized care. He states that "I want to be admitted here one going home. "He states that he has been seen by infectious disease here in the past. He does admit that he used IV drugs approximately 2-3 days ago, heroin. Severity scale (1-10): 7 - Related Data Previous Rx's Medication Instructions Recorded Gentamicin in NaCl, Iso-Osm 90 mg IV DAILY 11 Days #11 mls 12/27/17 [Gentamicin 90 mg/Ns 100 ml Pb] Rifampin [Rifadin] 300 mg PO BID 39 Days #78 capsule 12/27/17 Vancomycin HCl in Dextrose 5 % 1.25 gm IV Q12H 39 Days #78 mls 12/27/17 [Vancomycin-D5w 1.25 Gram/250Ml] Rivaroxaban [Xarelto] 15 mg PO BID 21 Days tablet 01/03/18 Allergies Allergy/AdvReac Type Severity Reaction Status Date / Time buprenorphine [From Suboxone] Allergy Hives Verified 04/28/18 23:17 Naloxone [From Suboxone] Allergy Hives Verified 04/28/18 23:17 trazodone Allergy Hives Verified 04/28/18 23:17 All systems ED: reviewed and negative except as stated. Constitutional: Reports: fever Cardiovascular: Reports: chest pain Respiratory: Reports: dyspnea. Denies: cough Gastrointestinal: Denies: abdominal pain, nausea, vomiting, other Genitourinary: Denies: urgency, dysuria Integumentary: Denies: rash Neurological: Denies: headache, weakness, numbness, paresthesias Chest Pain PMH - Past Medical History Medical history: Reports: coronary artery disease, DVT, hepatitis, myocardial infarction, other Surgical history: Reports: heart valve replacement, other Psychiatric history: Reports: anxiety - Social History Smoking Status: Current every day smoker Alcohol use: Reports: occasionally Drug use: Reports: cocaine, opiates, marijuana, IV Drug Use, other Physical Exam - General Limitations: no limitations General appearance: alert, in no apparent distress - Head Head exam: atraumatic, normocephalic, normal inspection - Eye Eye exam: Present: normal appearance, PERRL, EOMI - ENT ENT exam: normal exam, normal oropharynx, mucous membranes moist - Neck Neck exam: Present: normal inspection, full ROM, trachea midline - Chest Chest inspection: Present: normal inspection, symmetric chest wall rise - Respiratory Respiratory exam: Present: normal lung sounds bilaterally - Cardiovascular Cardiovascular exam: Present: normal rhythm, tachycardia, systolic murmur - Abdominal Exam Abdominal exam: Present: soft, Non-Tender. Absent: tenderness, distention, guarding, rebound, rigidity - Extremities Exam Extremities exam: Present: normal inspection, full ROM. Absent: tenderness, pedal edema - Neurological Exam Neurological exam: Present: alert, oriented X3 - Psychiatric Psychiatric exam: Present: normal affect, normal mood - Skin Skin exam: Present: warm, dry, intact, normal color Course Course Narrative: Patient is febrile, tachycardic. Physical exam shows tachycardia with systolic murmur. Lungs are clear to auscultation. Abdomen soft and nontender. With history of endocarditis, IV drug use, current chest pain, shortness breath and fever, there is concern for recurrent endocarditis. I discussed with patient of sending him back to [facility] for [facility] for further care. He states that he does not want to go back to either of these facilities and understands the risk that he could not receive specialized care. We will perform basic lab work here, EKG, chest x-ray, cultures, ESR and then will talk with our hospitalist and tried to admit here for further care and workup. 02:45 patient has multiple electrolyte abnormalities. Potassium, phosphorus, magnesium have been replaced. Patient was also started on vancomycin. I discussed admission with the hospitalist with Dr. Ashby, but she believes that the patient's case is due to complicated at this time for care here and would require specialized care. I discussed this with the patient again in terms of transferring the patient to [facility] for more specialized care and the patient has refused. He states that he is thinking about just going home and "dying in his own bed." Family member was present at bedside during this entire conversation , I strongly recommended that the patient consider transfer and he was not agreeable with this plan. Patient has agreed to stay for electrolyte replacement and vancomycin but then wishes to sign out AMA. Patient is A&O x 3, has appropriate thought process and understands risks and benefits. Has appropriate decision making capacity. AMA papers filled out but patient did not sign at this time. We discussed AMA papers thoroughly with patient with strong encouragement to return if he changes his mind about treatment and transfer. Vital Signs Temperature 100.8 F H 04/28/18 23:18 Pulse Rate 114 04/28/18 23:18 Respiratory Rate 20 04/28/18 23:18 Blood Pressure 93/64 04/28/18 23:18 O2 Sat by Pulse Oximetry 99 04/28/18 23:18 Temperature 100.8 F H 04/28/18 23:18 Pulse Rate 84 04/29/18 05:34 Respiratory Rate 19 04/29/18 03:34 Blood Pressure 93/55 04/29/18 05:34 O2 Sat by Pulse Oximetry 100 04/29/18 05:34 Oxygen Delivery Oxygen Delivery Room Air Chest Pain - MDM Narrative Medical decision making narrative: Patient is febrile, tachycardic. Physical exam shows tachycardia with systolic murmur. Lungs are clear to auscultation. Abdomen soft and nontender. With history of endocarditis, IV drug use, current chest pain, shortness breath and fever, there is concern for recurrent endocarditis. I discussed with patient of sending him back to [facility] for [facility] for further care. He states that he does not want to go back to either of these facilities and understands the risk that he could not receive specialized care. We will perform basic lab work here, EKG, chest x-ray, cultures, ESR and then will talk with our hospitalist and tried to admit here for further care and workup. 02:45 patient has multiple electrolyte abnormalities. Potassium, phosphorus, magnesium have been replaced. Patient was also started on vancomycin. I discussed admission with the hospitalist with Dr. Ashby, but she believes that the patient's case is due to complicated at this time for care here and would require specialized care. I discussed this with the patient again in terms of transferring the patient to [facility] for more specialized care and the patient has refused. He states that he is thinking about just going home and "dying in his own bed." Family member was present at bedside during this entire conversation , I strongly recommended that the patient consider transfer and he was not agreeable with this plan. Patient has agreed to stay for electrolyte replacement and vancomycin but then wishes to sign out AMA. Patient is A&O x 3, has appropriate thought process and understands risks and benefits. Has appropriate decision making capacity. AMA papers filled out but patient did not sign at this time. We discussed AMA papers thoroughly with patient with strong encouragement to return if he changes his mind about treatment and transfer. - Medical Records Medical records reviewed: Yes I reviewed the patient's medical records. - Lab Data Lab results reviewed: Yes I reviewed the patient's lab results. Result diagrams: 04/29/18 00:09 04/29/18 00:09 Lab Results 04/29/18 04/29/18 04/29/18 Range/Units 00:09 00:09 00:09 WBC 8.1 (4.3-11.1) K/mcL RBC 4.16 L (4.19-5.50) M/mcL Hgb 12.4 L (12.9-16.9) g/dL Hct 36.0 L (37.5-50.1) % MCV 86.5 (83.0-100.0) fL MCH 29.8 (28.0-33.3) pg MCHC 34.4 (31.6-35.5) g/dL RDW 13.0 (11.5-14.5) % Plt Count 104 L (140-400) K/mcL MPV 10.7 (9.4-12.4) fL Seg Neutrophils % 82.0 % Band Neutrophils % 6.0 H (0-4) % Lymphocytes % 6.0 % Monocytes % 6.0 % Neutrophils # 7.1 (1.6-8.9) K/mcL Lymphocytes # 0.5 L (0.6-4.6) K/mcL Monocytes # 0.5 (0.0-1.3) K/mcL Platelet Estimate Slight Decrease L (Normal) ESR (0-10) mm/hr PT 15.0 H (9.4-12.1) Seconds INR 1.3 APTT 28.2 (26.0-36.0) Seconds Sodium 133 L (136-145) mEq/L Potassium 2.8 L (3.5-5.1) mEq/L Chloride 97 L (98-107) mEq/L Carbon Dioxide 24 (23-29) mEq/L BUN 24 H (6-20) mg/dL Creatinine 1.35 H (0.70-1.30) mg/dL Est GFR ( Amer) > 60 (> 60) Est GFR (Non-Af Amer) 59 L (> 60) BUN/Creatinine Ratio 18 (6-26) Glucose 94 (70-105) mg/dL Calculated Osmolality 280 (280-300) Lactic Acid (0.5-2.2) mmol/L Calcium 9.0 (8.6-10.3) mg/dL Phosphorus < 1.0 L* (2.7-4.5) mg/dL Magnesium 1.4 L (1.6-2.6) mg/dL Total Bilirubin 3.3 H (0.3-1.0) mg/dL Direct Bilirubin 1.9 H (0.0-0.2) mg/dL Indirect Bilirubin 1.4 H (0.0-1.2) mg/dL AST 48 H (13-39) Units/L ALT 41 (7-52) Units/L Alkaline Phosphatase 194 H (34-104) Units/L Troponin I 0.11 H* (< 0.04) ng/mL Serum Total Protein 6.9 (6.4-8.9) g/dL Albumin 3.6 (3.5-5.7) g/dL Globulin 3.3 (2.4-3.5) g/dL Albumin/Globulin Ratio 1.1 (1.1-2.2) Urine Color (Yellow) Urine Clarity (Clear) Urine pH (5.0-8.0) pH Units Ur Specific Kelley (1.010-1.025) Urine Protein (Neg-Trace) mg/dL Urine Glucose (UA) (Normal) mg/dL Urine Ketones (Negative) mg/dL Urine Blood (Negative) Urine Nitrite (Negative) Urine Bilirubin (Negative) Urine Urobilinogen (Normal) mg/dL Ur Leukocyte Esterase (Negative) Urine Microscopic RBC (0-3) per hpf Urine Microscopic WBC (0-3) per hpf Ur Squamous Epith Cells (None-Few) per lpf Urine Bacteria (None-Few) per hpf Hyaline Casts (None-Few) per lpf Ur Culture Indicated? (NO) 04/29/18 04/29/18 04/29/18 Range/Units 00:09 00:09 00:53 WBC (4.3-11.1) K/mcL RBC (4.19-5.50) M/mcL Hgb (12.9-16.9) g/dL Hct (37.5-50.1) % MCV (83.0-100.0) fL MCH (28.0-33.3) pg MCHC (31.6-35.5) g/dL RDW (11.5-14.5) % Plt Count (140-400) K/mcL MPV (9.4-12.4) fL Seg Neutrophils % % Band Neutrophils % (0-4) % Lymphocytes % % Monocytes % % Neutrophils # (1.6-8.9) K/mcL Lymphocytes # (0.6-4.6) K/mcL Monocytes # (0.0-1.3) K/mcL Platelet Estimate (Normal) ESR 37 H (0-10) mm/hr PT (9.4-12.1) Seconds INR APTT (26.0-36.0) Seconds Sodium (136-145) mEq/L Potassium (3.5-5.1) mEq/L Chloride (98-107) mEq/L Carbon Dioxide (23-29) mEq/L BUN (6-20) mg/dL Creatinine (0.70-1.30) mg/dL Est GFR ( Amer) (> 60) Est GFR (Non-Af Amer) (> 60) BUN/Creatinine Ratio (6-26) Glucose (70-105) mg/dL Calculated Osmolality (280-300) Lactic Acid 2.7 H (0.5-2.2) mmol/L Calcium (8.6-10.3) mg/dL Phosphorus (2.7-4.5) mg/dL Magnesium (1.6-2.6) mg/dL Total Bilirubin (0.3-1.0) mg/dL Direct Bilirubin (0.0-0.2) mg/dL Indirect Bilirubin (0.0-1.2) mg/dL AST (13-39) Units/L ALT (7-52) Units/L Alkaline Phosphatase (34-104) Units/L Troponin I (< 0.04) ng/mL Serum Total Protein (6.4-8.9) g/dL Albumin (3.5-5.7) g/dL Globulin (2.4-3.5) g/dL Albumin/Globulin Ratio (1.1-2.2) Urine Color Dark Yellow (Yellow) Urine Clarity Cloudy A (Clear) Urine pH 6.0 (5.0-8.0) pH Units Ur Specific Kelley 1.016 (1.010-1.025) Urine Protein 100 H (Neg-Trace) mg/dL Urine Glucose (UA) Normal (Normal) mg/dL Urine Ketones Negative (Negative) mg/dL Urine Blood Trace H (Negative) Urine Nitrite Negative (Negative) Urine Bilirubin Small H (Negative) Urine Urobilinogen Normal (Normal) mg/dL Ur Leukocyte Esterase Trace H (Negative) Urine Microscopic RBC 0-3 (0-3) per hpf Urine Microscopic WBC 3-5 H (0-3) per hpf Ur Squamous Epith Cells Moderate H (None-Few) per lpf Urine Bacteria None Seen (None-Few) per hpf Hyaline Casts None Seen (None-Few) per lpf Ur Culture Indicated? YES A (NO) 04/29/18 Range/Units 05:02 WBC (4.3-11.1) K/mcL RBC (4.19-5.50) M/mcL Hgb (12.9-16.9) g/dL Hct (37.5-50.1) % MCV (83.0-100.0) fL MCH (28.0-33.3) pg MCHC (31.6-35.5) g/dL RDW (11.5-14.5) % Plt Count (140-400) K/mcL MPV (9.4-12.4) fL Seg Neutrophils % % Band Neutrophils % (0-4) % Lymphocytes % % Monocytes % % Neutrophils # (1.6-8.9) K/mcL Lymphocytes # (0.6-4.6) K/mcL Monocytes # (0.0-1.3) K/mcL Platelet Estimate (Normal) ESR (0-10) mm/hr PT (9.4-12.1) Seconds INR APTT (26.0-36.0) Seconds Sodium (136-145) mEq/L Potassium (3.5-5.1) mEq/L Chloride (98-107) mEq/L Carbon Dioxide (23-29) mEq/L BUN (6-20) mg/dL Creatinine (0.70-1.30) mg/dL Est GFR ( Amer) (> 60) Est GFR (Non-Af Amer) (> 60) BUN/Creatinine Ratio (6-26) Glucose (70-105) mg/dL Calculated Osmolality (280-300) Lactic Acid 1.3 (0.5-2.2) mmol/L Calcium (8.6-10.3) mg/dL Phosphorus (2.7-4.5) mg/dL Magnesium (1.6-2.6) mg/dL Total Bilirubin (0.3-1.0) mg/dL Direct Bilirubin (0.0-0.2) mg/dL Indirect Bilirubin (0.0-1.2) mg/dL AST (13-39) Units/L ALT (7-52) Units/L Alkaline Phosphatase (34-104) Units/L Troponin I (< 0.04) ng/mL Serum Total Protein (6.4-8.9) g/dL Albumin (3.5-5.7) g/dL Globulin (2.4-3.5) g/dL Albumin/Globulin Ratio (1.1-2.2) Urine Color (Yellow) Urine Clarity (Clear) Urine pH (5.0-8.0) pH Units Ur Specific Kelley (1.010-1.025) Urine Protein (Neg-Trace) mg/dL Urine Glucose (UA) (Normal) mg/dL Urine Ketones (Negative) mg/dL Urine Blood (Negative) Urine Nitrite (Negative) Urine Bilirubin (Negative) Urine Urobilinogen (Normal) mg/dL Ur Leukocyte Esterase (Negative) Urine Microscopic RBC (0-3) per hpf Urine Microscopic WBC (0-3) per hpf Ur Squamous Epith Cells (None-Few) per lpf Urine Bacteria (None-Few) per hpf Hyaline Casts (None-Few) per lpf Ur Culture Indicated? (NO) - Radiology Data Radiology results reviewed: Yes I reviewed the patient's radiology results. Chest X-Ray 04/28/18 23:29 IMPRESSION: No acute disease. D/ / Sammy Arce MD / Sammy Arce MD Interpreting Provider: Sammy Arce MD - EKG Data EKG attestation: Yes I reviewed and interpreted this EKG. EKG results narrative: 04/28/2018 23:18. Junctional rhythm. Rate 116. ND 132. QRS 102. QTC 398. No acute ST elevation or depression. Bundle-branch formation in lead 2, 3, aVF. This is new from previous EKG on 12/26/2017.
[2018-04-29] MEDS: 0.9 % Sodium Chloride 1,000 ML IVC SCH ×4 (00:08→23:41)
[2018-04-29] MEDS ORDERED: *HR* FentaNYL (PF) 100 MCG/2 ML VIAL IVP ONE (00:39)
--- NOTE | 2018-04-29 00:42 | Emergency Department Note ---
Disposition Clinical Impression: History of SBE (subacute bacterial endocarditis) Disposition: Still a Patient Forms: ED Satisfaction Letter General Adult HPI - General Chief complaint: ED Chest Pain Stated complaint: chest pain Time Seen by Provider: 04/28/18 23:27 Source: patient Mode of arrival: ambulatory Limitations: no limitations - History of Present Illness Pain Scale: 7 - Related Data Previous Rx's Medication Instructions Recorded Gentamicin in NaCl, Iso-Osm 90 mg IV DAILY 11 Days #11 mls 12/27/17 [Gentamicin 90 mg/Ns 100 ml Pb] Rifampin [Rifadin] 300 mg PO BID 39 Days #78 capsule 12/27/17 Vancomycin HCl in Dextrose 5 % 1.25 gm IV Q12H 39 Days #78 mls 12/27/17 [Vancomycin-D5w 1.25 Gram/250Ml] Rivaroxaban [Xarelto] 15 mg PO BID 21 Days tablet 01/03/18 Allergies Allergy/AdvReac Type Severity Reaction Status Date / Time buprenorphine [From Suboxone] Allergy Hives Verified 04/28/18 23:17 Naloxone [From Suboxone] Allergy Hives Verified 04/28/18 23:17 trazodone Allergy Hives Verified 04/28/18 23:17 Past Medical History - Past Medical History Medical history: Reports: coronary artery disease, DVT, hepatitis, myocardial infarction, other Surgical history: Reports: heart valve replacement, other Psychiatric history: Reports: anxiety - Social History Smoking Status: Current every day smoker Smokeless Tobacco Status: No Alcohol use: Reports: occasionally Drug use: Reports: cocaine, opiates, marijuana, IV Drug Use, other Physical Exam - General Limitations: no limitations General appearance: alert, in no apparent distress Course - Reevaluation(s) Reevaluation #1: Attestation note I examined this patient and my medical decision-making was reviewed with the emergency medicine resident. I agree with the documented findings, disposition and treatment plan as described except to the extent set forth below. Patient seen with emergency medicine resident Dr. Hao Downey, Please see a copy of his note for details of the H&P, ED evaluation, management and disposition. I have independently evaluated the patient and confirmed appropriate portions of the history and physical exam. Briefly: 42-year-old male active IV drug user presents with chest discomfort. This had 3 separate cardiac valve replacements from bacterial endocarditis. Patient adamantly states he will go back to the [facility]. 2 of his 3 valve replacement surgeries nor [facility] done his valve replacement 1. Patient denies fevers or chills there is no murmur on auscultation. Patient will get screening labs. We discussed the patient that he be unlikely that the hospitalist will accept him here. We would advocate on his behalf. Patient and family understand. Disposition pending Time: 00:40 Vital Signs Temperature 100.8 F H 04/28/18 23:18 Pulse Rate 114 04/28/18 23:18 Respiratory Rate 20 04/28/18 23:18 Blood Pressure 93/64 04/28/18 23:18 O2 Sat by Pulse Oximetry 99 04/28/18 23:18 Temperature 100.8 F H 04/28/18 23:18 Pulse Rate 114 04/28/18 23:18 Respiratory Rate 20 04/28/18 23:18 Blood Pressure 93/64 04/28/18 23:18 O2 Sat by Pulse Oximetry 99 04/28/18 23:18 Oxygen Delivery Oxygen Delivery Room Air
[2018-04-29 00:43] LABS: INR 1.3
[2018-04-29 00:46] LABS: Activated Partial Thrombo Time 28.2 Seconds (26.0-36.0)
[2018-04-29 00:57] LABS: Alanine Aminotransferase 41 Units/L (7-52); Albumin 3.6 g/dL (3.5-5.7); Albumin/Globulin Ratio 1.1 (1.1-2.2); Alkaline Phosphatase 194 Units/L (34-104); Aspartate Amino Transferase 48 Units/L (13-39); BUN/Creatinine Ratio 18 (6-26); Bilirubin,Direct 1.9 mg/dL (0.0-0.2); Bilirubin,Indirect 1.4 mg/dL (0.0-1.2); Bilirubin,Total 3.3 mg/dL (0.3-1.0); Blood Urea Nitrogen 24 mg/dL (6-20); Carbon Dioxide 24 mEq/L (23-29); Chloride 97 mEq/L (98-107); Globulin 3.3 g/dL (2.4-3.5); Glucose 94 mg/dL (70-105); Magnesium 1.4 mg/dL (1.6-2.6); Osmolality,Calculated 280 (280-300); Potassium 2.8 mEq/L (3.5-5.1); Sodium 133 mEq/L (136-145); Total Protein 6.9 g/dL (6.4-8.9); eGFR For African Americans > 60 (> 60); eGFR For Non-African Americans 59 (> 60)
[2018-04-29 00:58] LABS: Troponin I 0.11 ng/mL (< 0.04)
[2018-04-29 00:59] LABS: Hemoglobin 12.4 g/dL (12.9-16.9); Mean Corpuscular HGB Conc 34.4 g/dL (31.6-35.5); Mean Corpuscular Hemoglobin 29.8 pg (28.0-33.3); Mean Corpuscular Volume 86.5 fL (83.0-100.0); Mean Platelet Volume 10.7 fL (9.4-12.4); Platelet Count 104 K/mcL (140-400); Red Blood Count 4.16 M/mcL (4.19-5.50)
[2018-04-29 01:02] LABS: Bilirubin,Urine Small (Negative); Blood,Urine Trace (Negative); Clarity,Urine Cloudy (Clear); Color,Urine Dark Yellow (Yellow); Glucose,Urine (UA) Normal (Normal); Ketones,Urine Negative (Negative); Leukocyte Esterase,Urine Trace (Negative); Nitrite,Urine Negative (Negative); Protein,Urine 100 mg/dL (Neg-Trace); Specific Gravity,Urine 1.016 (1.010-1.025); Urobilinogen,Urine Normal (Normal)
[2018-04-29 01:04] LABS: Bacteria,Urine None Seen per hpf (None-Few); Hyaline Casts,Urine None Seen per lpf (None-Few); RBC,Urine 0-3 per hpf (0-3); Squamous Epithelial Cell,Urine Moderate per lpf (None-Few)
[2018-04-29 01:16] LABS: Lymphocytes # 0.5 K/mcL (0.6-4.6); Monocytes # 0.5 K/mcL (0.0-1.3); Neutrophils # 7.1 K/mcL (1.6-8.9); Platelet Estimate Slight Decrease (Normal)
[2018-04-29] MEDS ORDERED: Potassium Phosphate 44 MEQ in 0.9 % Sodium Chloride 250 ML IVPB ONE (01:46)
[2018-04-29 02:24] LABS: Phosphorous < 1.0 mg/dL (2.7-4.5)
[2018-04-29] MEDS ORDERED: SODIUM CHLORIDE 0.9% IVPB ONE (02:37)
[2018-04-29] MEDS ORDERED: VANCOMYCIN IVPB ONE (02:37)
[2018-04-29] MEDS ORDERED: 0.9 % Sodium Chloride 1,000 ML IVC ONE (11:40)
--- NOTE | 2018-04-29 11:44 | Emergency Department Note ---
Disposition Clinical Impression: History of SBE (subacute bacterial endocarditis) Fever Qualifiers: Fever type: unspecified Qualified Code(s): R50.9 - Fever, unspecified Dyspnea Qualifiers: Dyspnea type: unspecified Qualified Code(s): R06.00 - Dyspnea, unspecified Chest pain Qualifiers: Chest pain type: unspecified Qualified Code(s): R07.9 - Chest pain, unspecified Disposition: Admitted As Inpatient Condition: Serious Reasons to Return/Additional Instructions: Follow up with primary care physician within the next 1-2 days. Please strongly consider returning to the ER for additional care and transfer to an outside facility for specialized cardiac care. Referrals: Taya Steel, SPRAGGER [Primary Care Provider] - Forms: ED Satisfaction Letter General Adult HPI - General Chief complaint: ED Chest Pain Stated complaint: chest pain Time Seen by Provider: 04/28/18 23:27 Source: patient Mode of arrival: ambulatory Limitations: no limitations - History of Present Illness Pain Scale: 7 - Related Data Previous Rx's Medication Instructions Recorded Gentamicin in NaCl, Iso-Osm 90 mg IV DAILY 11 Days #11 mls 12/27/17 [Gentamicin 90 mg/Ns 100 ml Pb] Rifampin [Rifadin] 300 mg PO BID 39 Days #78 capsule 12/27/17 Vancomycin HCl in Dextrose 5 % 1.25 gm IV Q12H 39 Days #78 mls 12/27/17 [Vancomycin-D5w 1.25 Gram/250Ml] Rivaroxaban [Xarelto] 15 mg PO BID 21 Days tablet 01/03/18 Allergies Allergy/AdvReac Type Severity Reaction Status Date / Time buprenorphine [From Suboxone] Allergy Hives Verified 04/28/18 23:17 Naloxone [From Suboxone] Allergy Hives Verified 04/28/18 23:17 trazodone Allergy Hives Verified 04/28/18 23:17 Constitutional: Reports: fever Cardiovascular: Reports: chest pain Respiratory: Reports: dyspnea. Denies: cough Gastrointestinal: Denies: abdominal pain, nausea, vomiting, other Genitourinary: Denies: urgency, dysuria Integumentary: Denies: rash Neurological: Denies: headache, weakness, numbness, paresthesias Past Medical History - Past Medical History Medical history: Reports: coronary artery disease, DVT, hepatitis, myocardial infarction, other Surgical history: Reports: heart valve replacement, other Psychiatric history: Reports: anxiety - Social History Smoking Status: Current every day smoker Smokeless Tobacco Status: No Alcohol use: Reports: occasionally Drug use: Reports: cocaine, opiates, marijuana, IV Drug Use, other Physical Exam - General Limitations: no limitations General appearance: alert, in no apparent distress Course Course Narrative: Patient taken over at sign out from Dr. Newton and Dr. Devlin. The patient has a history of endocarditis. Has undergone multiple surgeries. Seen at [facility] and [facility] and the [facility] they have no other intervention to offer. Patient with symptoms consistent with previous endocarditis. Blood cultures and antibiotics were given. Patient was initially refused by the hospitalist staff as the patient was too complicated to keep. Patient is refusing to go anywhere else. Patient has AMA paperwork signed but is agreeing to stay until his potassium and antibiotics are replaced. After the antibiotic completion as well as potassium replacement patient was evaluated prior to leaving. Patient appears overtly septic with tachycardia and fever. Patient has a very poor prognosis if he leaves the hospital. The case will be further discussed with the hospitalist as there is likely a better treatment option. Case was discussed the hospitalist. Request consult to CT surgery as well as infectious disease. Discussed with Dr. José. CT surgeon. No intervention at this time as he has already been refused from higher level of care. Discussed with Dr. Parsons. Infectious disease. There is mild with the patient as he has treated him multiple times in the past. Concerned that we have not had the official diagnosis of endocarditis and other etiology may exist. Blood cultures are still pending. Patient would benefit from further workup as well as antibiotics. Request further blood cultures and Zosyn. Vancomycin was started and given. Patient accepted by Hospitalist Dr. Snyder. Vital Signs Temperature 100.8 F H 04/28/18 23:18 Pulse Rate 114 04/28/18 23:18 Respiratory Rate 20 04/28/18 23:18 Blood Pressure 93/64 04/28/18 23:18 O2 Sat by Pulse Oximetry 99 04/28/18 23:18 Temperature 100.8 F H 04/28/18 23:18 Pulse Rate 101 04/29/18 11:19 Respiratory Rate 18 04/29/18 11:19 Blood Pressure 119/71 04/29/18 11:19 O2 Sat by Pulse Oximetry 96 04/29/18 11:19 Oxygen Delivery Oxygen Delivery Room Air Medical Decision Making - Lab Data Result diagrams: 04/29/18 00:09 04/29/18 00:09 Lab Results 04/29/18 04/29/18 04/29/18 Range/Units 00:09 00:09 00:09 WBC 8.1 (4.3-11.1) K/mcL RBC 4.16 L (4.19-5.50) M/mcL Hgb 12.4 L (12.9-16.9) g/dL Hct 36.0 L (37.5-50.1) % MCV 86.5 (83.0-100.0) fL MCH 29.8 (28.0-33.3) pg MCHC 34.4 (31.6-35.5) g/dL RDW 13.0 (11.5-14.5) % Plt Count 104 L (140-400) K/mcL MPV 10.7 (9.4-12.4) fL Seg Neutrophils % 82.0 % Band Neutrophils % 6.0 H (0-4) % Lymphocytes % 6.0 % Monocytes % 6.0 % Neutrophils # 7.1 (1.6-8.9) K/mcL Lymphocytes # 0.5 L (0.6-4.6) K/mcL Monocytes # 0.5 (0.0-1.3) K/mcL Platelet Estimate Slight Decrease L (Normal) ESR (0-10) mm/hr PT 15.0 H (9.4-12.1) Seconds INR 1.3 APTT 28.2 (26.0-36.0) Seconds Sodium 133 L (136-145) mEq/L Potassium 2.8 L (3.5-5.1) mEq/L Chloride 97 L (98-107) mEq/L Carbon Dioxide 24 (23-29) mEq/L BUN 24 H (6-20) mg/dL Creatinine 1.35 H (0.70-1.30) mg/dL Est GFR ( Amer) > 60 (> 60) Est GFR (Non-Af Amer) 59 L (> 60) BUN/Creatinine Ratio 18 (6-26) Glucose 94 (70-105) mg/dL Calculated Osmolality 280 (280-300) Lactic Acid (0.5-2.2) mmol/L Calcium 9.0 (8.6-10.3) mg/dL Phosphorus < 1.0 L* (2.7-4.5) mg/dL Magnesium 1.4 L (1.6-2.6) mg/dL Total Bilirubin 3.3 H (0.3-1.0) mg/dL Direct Bilirubin 1.9 H (0.0-0.2) mg/dL Indirect Bilirubin 1.4 H (0.0-1.2) mg/dL AST 48 H (13-39) Units/L ALT 41 (7-52) Units/L Alkaline Phosphatase 194 H (34-104) Units/L Troponin I 0.11 H* (< 0.04) ng/mL Serum Total Protein 6.9 (6.4-8.9) g/dL Albumin 3.6 (3.5-5.7) g/dL Globulin 3.3 (2.4-3.5) g/dL Albumin/Globulin Ratio 1.1 (1.1-2.2) Urine Color (Yellow) Urine Clarity (Clear) Urine pH (5.0-8.0) pH Units Ur Specific [place] (1.010-1.025) Urine Protein (Neg-Trace) mg/dL Urine Glucose (UA) (Normal) mg/dL Urine Ketones (Negative) mg/dL Urine Blood (Negative) Urine Nitrite (Negative) Urine Bilirubin (Negative) Urine Urobilinogen (Normal) mg/dL Ur Leukocyte Esterase (Negative) Urine Microscopic RBC (0-3) per hpf Urine Microscopic WBC (0-3) per hpf Ur Squamous Epith Cells (None-Few) per lpf Urine Bacteria (None-Few) per hpf Hyaline Casts (None-Few) per lpf Ur Culture Indicated? (NO) 04/29/18 04/29/18 04/29/18 Range/Units 00:09 00:09 00:53 WBC (4.3-11.1) K/mcL RBC (4.19-5.50) M/mcL Hgb (12.9-16.9) g/dL Hct (37.5-50.1) % MCV (83.0-100.0) fL MCH (28.0-33.3) pg MCHC (31.6-35.5) g/dL RDW (11.5-14.5) % Plt Count (140-400) K/mcL MPV (9.4-12.4) fL Seg Neutrophils % % Band Neutrophils % (0-4) % Lymphocytes % % Monocytes % % Neutrophils # (1.6-8.9) K/mcL Lymphocytes # (0.6-4.6) K/mcL Monocytes # (0.0-1.3) K/mcL Platelet Estimate (Normal) ESR 37 H (0-10) mm/hr PT (9.4-12.1) Seconds INR APTT (26.0-36.0) Seconds Sodium (136-145) mEq/L Potassium (3.5-5.1) mEq/L Chloride (98-107) mEq/L Carbon Dioxide (23-29) mEq/L BUN (6-20) mg/dL Creatinine (0.70-1.30) mg/dL Est GFR ( Amer) (> 60) Est GFR (Non-Af Amer) (> 60) BUN/Creatinine Ratio (6-26) Glucose (70-105) mg/dL Calculated Osmolality (280-300) Lactic Acid 2.7 H (0.5-2.2) mmol/L Calcium (8.6-10.3) mg/dL Phosphorus (2.7-4.5) mg/dL Magnesium (1.6-2.6) mg/dL Total Bilirubin (0.3-1.0) mg/dL Direct Bilirubin (0.0-0.2) mg/dL Indirect Bilirubin (0.0-1.2) mg/dL AST (13-39) Units/L ALT (7-52) Units/L Alkaline Phosphatase (34-104) Units/L Troponin I (< 0.04) ng/mL Serum Total Protein (6.4-8.9) g/dL Albumin (3.5-5.7) g/dL Globulin (2.4-3.5) g/dL Albumin/Globulin Ratio (1.1-2.2) Urine Color Dark Yellow (Yellow) Urine Clarity Cloudy A (Clear) Urine pH 6.0 (5.0-8.0) pH Units Ur Specific [place] 1.016 (1.010-1.025) Urine Protein 100 H (Neg-Trace) mg/dL Urine Glucose (UA) Normal (Normal) mg/dL Urine Ketones Negative (Negative) mg/dL Urine Blood Trace H (Negative) Urine Nitrite Negative (Negative) Urine Bilirubin Small H (Negative) Urine Urobilinogen Normal (Normal) mg/dL Ur Leukocyte Esterase Trace H (Negative) Urine Microscopic RBC 0-3 (0-3) per hpf Urine Microscopic WBC 3-5 H (0-3) per hpf Ur Squamous Epith Cells Moderate H (None-Few) per lpf Urine Bacteria None Seen (None-Few) per hpf Hyaline Casts None Seen (None-Few) per lpf Ur Culture Indicated? YES A (NO) 04/29/18 Range/Units 05:02 WBC (4.3-11.1) K/mcL RBC (4.19-5.50) M/mcL Hgb (12.9-16.9) g/dL Hct (37.5-50.1) % MCV (83.0-100.0) fL MCH (28.0-33.3) pg MCHC (31.6-35.5) g/dL RDW (11.5-14.5) % Plt Count (140-400) K/mcL MPV (9.4-12.4) fL Seg Neutrophils % % Band Neutrophils % (0-4) % Lymphocytes % % Monocytes % % Neutrophils # (1.6-8.9) K/mcL Lymphocytes # (0.6-4.6) K/mcL Monocytes # (0.0-1.3) K/mcL Platelet Estimate (Normal) ESR (0-10) mm/hr PT (9.4-12.1) Seconds INR APTT (26.0-36.0) Seconds Sodium (136-145) mEq/L Potassium (3.5-5.1) mEq/L Chloride (98-107) mEq/L Carbon Dioxide (23-29) mEq/L BUN (6-20) mg/dL Creatinine (0.70-1.30) mg/dL Est GFR ( Amer) (> 60) Est GFR (Non-Af Amer) (> 60) BUN/Creatinine Ratio (6-26) Glucose (70-105) mg/dL Calculated Osmolality (280-300) Lactic Acid 1.3 (0.5-2.2) mmol/L Calcium (8.6-10.3) mg/dL Phosphorus (2.7-4.5) mg/dL Magnesium (1.6-2.6) mg/dL Total Bilirubin (0.3-1.0) mg/dL Direct Bilirubin (0.0-0.2) mg/dL Indirect Bilirubin (0.0-1.2) mg/dL AST (13-39) Units/L ALT (7-52) Units/L Alkaline Phosphatase (34-104) Units/L Troponin I (< 0.04) ng/mL Serum Total Protein (6.4-8.9) g/dL Albumin (3.5-5.7) g/dL Globulin (2.4-3.5) g/dL Albumin/Globulin Ratio (1.1-2.2) Urine Color (Yellow) Urine Clarity (Clear) Urine pH (5.0-8.0) pH Units Ur Specific [place] (1.010-1.025) Urine Protein (Neg-Trace) mg/dL Urine Glucose (UA) (Normal) mg/dL Urine Ketones (Negative) mg/dL Urine Blood (Negative) Urine Nitrite (Negative) Urine Bilirubin (Negative) Urine Urobilinogen (Normal) mg/dL Ur Leukocyte Esterase (Negative) Urine Microscopic RBC (0-3) per hpf Urine Microscopic WBC (0-3) per hpf Ur Squamous Epith Cells (None-Few) per lpf Urine Bacteria (None-Few) per hpf Hyaline Casts (None-Few) per lpf Ur Culture Indicated? (NO)
--- NOTE | 2018-04-29 13:57 | Infectious Disease Consult ---
Date of Encounter: 04/29/18 Time of Encounter: 13:56 Infectious Disease HPI - Data of Consult Requesting Physician: Aixa Snyder Primary Care Provider: Taya Steel CNP - Consult Narrative Reason for consult: IE History of present illness: Patient is a 42-year-old male who presented to the emergency department with chest pain and shortness of breath of 2 days duration. We are consulted for the management of endocarditis. Patient has a known past medical history of pericarditis, open-heart surgery and valvular placement 3. He also has a known history of IV drug use. History of septic and like to the brain. Presented to the hospital with chest pain and shortness of breath for the last 1-2 days. He endorsed fevers, but denied having any nausea, vomiting, diarrhea, or abdominal pain. Patient is concern for the recurrence of his endocarditis. Patient has been to both [facility] and [facility]. Reports that he does not want to return to either one of these facilities. Per ER note, patient understands the risk of not going to specialized care. He admitted to using IV heroin approximately 2-3 days ago. Upon arrival, patients vital signs are as follows: Temperature 100.8, pulse rate 114, respiratory rate 20, blood pressure 93/64, O2 saturation 99. Laboratory analysis demonstrated a white count of 8.1. ESR was 37. Potassium level was low at 2.8. Troponin was elevated at 0.11. Urinalysis demonstrated a possible UTI. Chest x-ray showed no acute process. 4 sets of blood cultures have been ordered. Patient has a history of MRSA bacteremia; last blood culture to be positive was 12/23. Blood culture has also grown Enterococcus faecalis. Physical exam performed in the ER demonstrated sinus tachycardia and a systolic murmur. Patients potassium, phosphorus, and magnesium were all replaced. He was started on vancomycin. Patient reportedly stated that he was just thinking about going home and dying in his own bed when informed that he would likely need more specialized care. Patient made his intentions clear that he wanted to stay for his electrolyte replacement and vancomycin but then wished to sign out AMA. Patient was seen and examined at bedside this afternoon. Patient is curled up in all in the bed. Currently has a wet washcloth on his forehead; appears very diaphoretic. Reports that he feels extremely nauseous, and states that he has had intermittent fevers throughout the day. He has had several episodes of vomiting. Reports that this feels like his last case of endocarditis. Admits to using last 3 days ago. Admits to chills; denies abdominal pain or chest pain. No further complaints. CC: Aixa Snyder Past Med Surg Social Fam HX - Past Medical History Medical history: coronary artery disease, DVT, hepatitis, myocardial infarction , other Additional medical history: Endocarditis Psychiatric history: anxiety - Past Surgical History Surgical History: heart valve replacement, other Additional surgical history: valve replacement - Social History Smoking Status: Current every day smoker Smokeless Tobacco Status: No Alcohol use: occasionally Drug use: cocaine, opiates, marijuana, IV Drug Use, other - Family History Grandfather Living Status: Hx Family Cardiac Disorders: Yes Hx Family Respiratory Disorders: Yes Father Race: Family Member Ethnicity: Non- Living Status: Still Living Hx Family Psychosocial Disorders: Yes (Alcoholism) Mother Race: Family Member Ethnicity: Non- Living Status: Still Living Hx Family Endocrine Disorder: Yes (DM) Hx Family Medical Disorders: Yes (Obesity) Sister Race: Family Member Ethnicity: Non- Living Status: Still Living Hx Family Medical Disorders: No Infectious Disease-CN:Meds Aspirin Enteric Coated [Aspirin EC] 81 mg PO DAILY 04/29/18 [History] Doxycycline Hyclate [Doxycycline Hyclate] 100 mg PO Q12H 04/29/18 [History] 3 Allergy/AdvReac Type Severity Reaction Status Date / Time buprenorphine [From Suboxone] Allergy Hives Verified 04/28/18 23:17 Naloxone [From Suboxone] Allergy Hives Verified 04/28/18 23:17 trazodone Allergy Hives Verified 04/28/18 23:17 - Constitutional Constitutional: Present: excessive sweating, fatigue, fever(s), headache(s), lethargy, malaise - Cardiovascular Cardiovascular: Present: chest pain, rapid heart rate. Absent: dyspnea - Gastrointestinal Gastrointestinal: Present: nausea Exam - Constitutional Vitals: Temp Pulse Resp BP Pulse Ox 100.8 F H 101 20 115/66 96 04/28/18 23:18 04/29/18 11:19 04/29/18 13:29 04/29/18 13:29 04/29/18 11:19 - Eye Eye exam: Absent: conjunctival injection - Respiratory Respiratory exam: Present: CTAB, tachypnea - Cardiovascular Cardiovascular exam: Present: +S1, +S2, systolic murmur, tachycardia - GI/Abdominal GI/Abdominal exam: Present: soft. Absent: tenderness Infectious Disease CN: Results - Labs CBC & Chem 7: 04/30/18 07:33 04/30/18 14:05 Consult Discharge Plan - Plan Referrals: aTya Steel, HOME CHILD CARE PROVIDER [Primary Care Provider] - - Attending Attestation I examined this patient and my medical decision-making was reviewed with the Resident Physician. I agree with the documented findings, disposition and treatment plan as described except to the extent set forth below. This is an addendum to original report dictated by resident physician. Please refer to resident's note for full detail. Patient is a 6-year-old gentleman who is well-known to my service. 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 Patient also had septic emboli to the brain. I believe he had septic emboli to the chest at that time. Patient was treated by me with IV vancomycin initially. Patient went into acute kidney injury which I blamed on the vancomycin and switch him to daptomycin. He should not received 8 weeks worth of IV antibiotics and I gave him oral doxycycline after. Patient supposedly continues to take his doxycycline and he is compliant but he did fail to show up to my clinic one or 2 times. Patient now states that he has been having fever for a week nausea vomiting and just not feeling well. Patient also has intermittent headache and he told me that he has some pleuritic chest pain. Patient admits to me that he went back to IV drug use in the colostomy was was 2 or 3 days ago. Patient does appear toxic. His exam does not reveal meningeal signs. No conjunctival hemorrhage. No tenderness over the vertebral. No new murmur. No endocarditis stigmata on the skin exam. Assessment and plan: Severe sepsis - etiology not clear. Could be recurrence of endocarditis or could be a new endocarditis or could be other. Patient has blood cultures obtained I will get a CT head and a CT chest and check lipase amylase and LFTs continue Vanco and Zosyn for now. Patient has no sinus pressure no rhinorrhea no sore throat to suggest upper respiratory infection. Once cultures are finalized and imagings back and labs are back we will make further recommendations. Patient will need a EDMUND prior to discharge. Prognosis is guarded at best and patient is noncompliant. Patient also has hepatitis C but we will check hepatitis B and HIV because he is continues to do IV drugs.
[2018-04-29] MEDS ORDERED: Ondansetron 4 MG/2 ML VIAL IVP PRN (15:02)
[2018-04-29] MEDS ORDERED: Potassium Chloride 20 MEQ, Lidocaine 1% 2 ML in D5% in Water 250 ML IVPB ONE (15:07)
[2018-04-29] MEDS: *HR* Heparin 5,000 UNIT/ML VIAL SQ SCH (15:40)
[2018-04-29] MEDS: Acetaminophen 325 MG TABLET PO PRN ×2 (15:42→23:39)
[2018-04-29 16:12] LABS: Amphetamine Screen,Urine Negative ng/mL (Cutoff=1000); Barbiturate Screen,Urine Negative ng/mL (Cutoff=200); Benzodiazepines Screen,Urine Negative ng/mL (Cutoff=200); Cannabinoid Screen,Urine Positive ng/mL (Cutoff = 50); Cocaine Screen,Urine Positive ng/mL (Cutoff= 300); Opiate Screen,Urine Negative ng/mL (Cutoff=300); Phencyclidine Screen,Urine Negative ng/mL (Cutoff=25)
--- NOTE | 2018-04-29 16:30 | Internal Med History&Physical ---
<Eddi Cade - Last Filed: 04/29/18 17:52> Date of Encounter: 04/29/18 Time of Encounter: 13:30 Internal Medicine - H&P: HPI Chief complaint: CP/SOB Admitted From: Emergency Dept Plans for Post Hospital Care: Home History of present illness: Mr. Quinn is a 42 year old male w/PMH of CAD, DVT 2 years ago, hepatitis C, previous myocardial infarctions with latest in July 2016, and current IV drug use presents from the ED with chief complaint of chest pain and shortness of breath that began day night and continued yesterday. Patient reports pain in entire chest pressure alternating sharp and stabbing pains, SOB, fever, chills, nausea, and vomiting. States pain is constant. No alleviating or aggravating factors. History of septic emboli to brain. History of infective endocarditis. States that he injected heroin into left hand two days ago. There is scabbed area above left thumb. States he was released from [facility] 2-3 months ago after requiring IV antibiotics for endocarditis. Pt. denies unusual bleeding , changes in vision, dizziness, lightheadedness, diarrhea, constipation, numbness, tingling, pre-syncope, or syncope. Code Status discussed w/patient on admission w/various levels explained. Pt. stated he wants to be DNRCCA DNI and does not wish to be resuscitated. Past Med Surg Social Fam HX - Past Medical History Source: patient, old records reviewed Medical history: coronary artery disease, DVT (2 years ago), hepatitis, myocardial infarction (Last in July 2016), other Additional medical history: Endocarditis Psychiatric history: anxiety - Past Surgical History Surgical History: heart valve replacement, other Additional surgical history: valve replacement - Social History Smoking Status: Current every day smoker Packs per day: 1/2 PPD Smokeless Tobacco Status: No Alcohol use: occasionally Drug use: cocaine, opiates, marijuana, IV Drug Use, other Current living situation: Home Activity Level: Independent ambulation Recent Out of Country Travel Within the Last 8 Weeks: No Exposure or Possible Exposure to Illness During Travel: No - Family History Grandfather Race: Family Member Ethnicity: Non- Living Status: Age at : 50 Cause of : SC @ 52 Hx Family Cardiac Disorders: Yes (SC) Father Race: Family Member Ethnicity: Non- Living Status: Still Living Hx Family Psychosocial Disorders: Yes (Alcoholism) Mother Race: Family Member Ethnicity: Non- Living Status: Still Living Hx Family Endocrine Disorder: Yes (DM) Hx Family Medical Disorders: Yes (Obesity) Sister Race: Family Member Ethnicity: Non- Living Status: Still Living Hx Family Medical Disorders: No Internal Medicine - H&P: Meds Aspirin Enteric Coated [Aspirin EC] 81 mg PO DAILY 04/29/18 [History] Doxycycline Hyclate [Doxycycline Hyclate] 100 mg PO Q12H 04/29/18 [History] 3 Allergy/AdvReac Type Severity Reaction Status Date / Time buprenorphine [From Suboxone] Allergy Hives Verified 04/28/18 23:17 Naloxone [From Suboxone] Allergy Hives Verified 04/28/18 23:17 trazodone Allergy Hives Verified 04/28/18 23:17 All Systems PM: A 10-system review of systems was performed and is negative for pertinent findings except as documented above in the HPI. - Constitutional Constitutional: as per HPI, chills, fatigue, fever(s), weakness, no night sweats - EENT Eyes: no change in vision, no discharge, no pain, no photophobia Ears: no ear discharge, no ear pain, no tinnitus Nose, mouth and throat: no dysphagia, no nasal discharge, no neck pain, no sore throat - Breasts Breasts: as per HPI - Cardiovascular Cardiovascular ROS IM: as per HPI, chest pain, dyspnea, dyspnea on exertion, no diaphoresis, no lightheadedness, no palpitations, no syncope - Respiratory Respiratory: as per HPI, dyspnea, dyspnea on exertion, no cough, no wheezing, no excessive phlegm production - Gastrointestinal Gastrointestinal: as per HPI, vomiting, no abdominal pain, no diarrhea, no hematemesis, no hematochezia, no melena, no nausea - Genitourinary Genitourinary ROS male: as per HPI - Musculoskeletal Musculoskeletal ROS IM: no numbness, no tingling - Integumentary Integumentary IM: as per HPI, sores (Above left thumb from injection of heroin) , no rash, no unusual bruising - Neurological Neurological ROS: as per HPI, weakness, no confusion, no convulsions, no focal weakness, no numbness, no tingling, no tremor(s) - Psychiatric Psychiatric: as per HPI, anxiety - Endocrine Endocrine IM: as per HPI - Hematologic/Lymphatic Hematologic/Lymphatic: no easy bruising - Allergic/Immunologic Allergic/Immunologic: as per HPI - Constitutional Vitals: Temp Pulse Resp BP Pulse Ox 98.9 F 93 18 132/84 98 04/29/18 14:09 04/29/18 14:09 04/29/18 14:09 04/29/18 14:04/29/18 14:09 General appearance: Present: cooperative, mild distress, A&O X 3, pleasant, obese, answers questions appropriately - Head Head exam: Present: atraumatic, normocephalic - Eye Eye exam: Present: PERRL, conjuntiva pink, sclera anicteric Pupils: Present: PERRL - ENT ENT exam: Present: normal exam - Neck Neck exam general surgery: Present: normal inspection - Respiratory Respiratory exam: Present: CTAB. Absent: accessory muscle use, rales, rhonchi, wheezes - Cardiovascular Cardiovascular exam: Present: +S1, +S2, tachycardia. Absent: diastolic murmur, gallop, rubs, systolic murmur - GI/Abdominal GI/Abdominal exam: Present: normal bowel sounds, soft, no peritoneal signs. Absent: distended, tenderness - Rectal Rectal exam: Present: deferred - Additional comments: exam deferred. - Extremities Exam Extremities exam: Present: warm, radial pulses palpable and symmetrical. Absent : calf tenderness, cyanotic, pedal edema - Back Exam Back exam: Present: normal inspection - Neurological Exam Neurological exam: Present: alert, CN II-XII intact, oriented X3, no focal deficits. Absent: pronater drift, facial droop, speech deficit - Psychiatric Psychiatric exam: Present: anxious - Skin Skin exam: Present: dry, intact Internal Med - H&P Results - Labs CBC & Chem 7: 04/29/18 00:09 04/29/18 00:09 - EKG Data Prior EKG available for review: no EKG comments: 04/29/18 16:39 EKG dated 04/29/18 shows junctional tachycardia with inferior myocardial infarction of indeterminate age. - Diagnostic Studies Chest x-ray Additional comments: Impressions Chest X-Ray 04/28/18 23:29 IMPRESSION: No acute disease. D/ / Sammy Arce MD / Sammy Arce MD Interpreting Provider: Sammy Arce MD - Assessment and plan (1) Sepsis Current Visit: Yes Status: Acute Assessment and plan: Acute sepsis criteria w/temp of 100.8F, HR of 114, RR >20, and BP of 93/55 most likely d/t infective endocarditis. WBC 8.1 on admission. Pt. reports CP, SOB, fever, chills, nausea, and vomiting. IVP Zofran and Phenergan to be alternated for N/V control. Continuous cardiac telemetry. Supplemental O2 w/titration and SpO2 monitoring. Blood cultures x2 ordered. Urine culture ordered. Initial lactic acid 2.7. Pt. received two 1L boluses of 0.9 NS IV fluids in ED to be followed by 125 mL/HR. Timed lactic acids ordered. IVPB Vancomycin w/Pharmacy dosing and Zosyn 3.375 gm Q8HR for infection coverage. Will adjust IV abx based on culture results. ID consult ordered. Pt. and f/u labs to be monitored closely. Pt. discussed w/Dr. Snyder who agrees w/plan of care. Pt. is high risk for further morbidity, infection, and decline d/t current sepsis, sx, infective endocarditis and hx of recurrent endocarditis, current IV drug abuse w /last injection 2 days ago, cardiac hx and risk factors. Inpatient. 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 Positive blood cultures in past for MRSA. Hx of aortic valve, tricuspid valve, and mitral valve replacements. Holosystolic murmur on exam. ID and Cardiology consults ordered and I appreciate the consults and recommendations as always. Qualifiers: Infective endocarditis organism: unspecified organism Chronicity: chronic Qualified Code(s): I38 - Endocarditis, valve unspecified (3) Chest pain Current Visit: Yes Status: Acute Assessment and plan: Acute on chronic CP, likely d/t endocarditis. Initial troponin 0.11 on admission. Will trend. Continuous cardiac telemetry. Cardiology consult ordered and discussed w/Dr. Blair Kaplan and I appreciate the consult and recommendations as always. Recommendation to use SQ heparin for now and avoid heparin drip d/t recent IV drug use. Qualifiers: Chest pain type: unspecified Qualified Code(s): R07.9 - Chest pain, unspecified (4) Dyspnea Current Visit: Yes Status: Acute Assessment and plan: Acute SOB w/current CP sx. Supplemental O2 w/titration and SpO2 monitoring. Falls/safety precautions and up with assist. Qualifiers: Dyspnea type: unspecified Qualified Code(s): R06.00 - Dyspnea, unspecified (5) Elevated troponin Current Visit: Yes Status: Acute Assessment and plan: Initial troponin of 0.11 on admission most likely reactive d/t current sepsis, endocarditis, and tachycardia. Will trend. Hx of chronically-elevated troponins since 2014 ranging from 0.06 to 0.33. Continuous cardiac telemetry. (6) IV drug abuse Current Visit: Yes Status: Chronic Assessment and plan: Hx of chronic IV drug abuse. Pt. reports injecting heroin 2 days ago in left hand. Urine tox screen positive for cocaine and marijuana. SW consult ordered to address rehabilitation needs for post-discharge planning. (7) Hepatitis-C Current Visit: Yes Status: Chronic Assessment and plan: Hx of hepatitis C. ALT 48. AST 41. Monitor. Qualifiers: Viral hepatitis chronicity: chronic Hepatic coma status: without hepatic coma Qualified Code(s): B18.2 - Chronic viral hepatitis C (8) CAD (coronary artery disease) Current Visit: Yes Status: Chronic Assessment and plan: Hx of chronic CAD. Previous SC (last in July 2016) and heart valve replacement. Continuous cardiac telemetry. Continue pts. low-dose aspirin. EDMUND dated 02/14/18 shows LVEF of 55%, normal size and function, abnormal (paradoxical ) motion consistent with postoperative status, right ventricle was normal in size and systolic function, color Doppler demonstrates a small [id number] in nature atrial shunt, bioprosthetic aortic valve appears well-seated, no vegetations visualized, trace aortic regurgitation. By his prostatic tricuspid valve appears well-seated. No vegetations visualized. Trace tricuspid regurgitation. Bioprosthetic mitral valve appears well-seated. Leaflets do appear mildly thickened in some views. Prior vegetation described is not visualized in this study. Mild mitral regurgitation. REcommend a repeat study as clinically indicated. Qualifiers: Coronary Disease-Associated Artery/Lesion type: unspecified vessel or lesion type [place] vs. transplanted heart: unspecified whether [place] or transplanted heart Associated angina: angina presence unspecified Qualified Code(s): I25.10 - Atherosclerotic heart disease of [place] coronary artery without angina pectoris (9) DVT prophylaxis Current Visit: Yes Status: Acute Assessment and plan: Heparin 5,000 units SQ Q8HR for DVT prophylaxis. Monitor pt. for signs of bleeding. (10) Nausea & vomiting Current Visit: Yes Status: Acute Assessment and plan: Acute N/V. IVP Zofran and Phenergan ordered to be alternated for N/V control. Monitor I&O and daily weight. Qualifiers: Vomiting type: cyclical vomiting Vomiting Intractability: non-intractable Qualified Code(s): G43.A0 - Cyclical vomiting, not intractable - Time Spent With Patient Total time spent is greater than 50% in coordination of care (as documented) at patient's floor/unit and/or counseling patient: Greater than 35 minutes <Aixa Snyder - Last Filed: 04/29/18 18:55> Date of Encounter: 04/29/18 Internal Medicine - H&P: HPI History of present illness: Mr. Quinn is a 42 year old male All Systems PM: A 10-system review of systems was performed and is negative for pertinent findings except as documented above in the HPI. - Constitutional Vitals: Temp Pulse Resp BP Pulse Ox 99.4 F 102 14 138/83 96 04/29/18 17:14 04/29/18 17:14 04/29/18 17:14 04/29/18 17:14 04/29/18 17:14 Internal Med - H&P Results - Labs CBC & Chem 7: 04/29/18 00:09 04/29/18 00:09 Labs: Cardiac Enzymes 04/29/18 Range/Units 16:45 Troponin I 0.07 H* (< 0.04) ng/mL - Attending Attestation Seen and assessed. continue management for sepsis and infective endocarditis. Agree with plan per [employer] - Assessment and plan (1) Hepatitis-C Current Visit: Yes Status: Chronic Qualifiers: Viral hepatitis chronicity: chronic Hepatic coma status: without hepatic coma Qualified Code(s): B18.2 - Chronic viral hepatitis C (2) DVT prophylaxis Current Visit: Yes Status: Acute (3) Elevated troponin Current Visit: Yes Status: Acute (4) IV drug abuse Current Visit: Yes Status: Chronic (5) Dyspnea Current Visit: Yes Status: Acute Qualifiers: Dyspnea type: unspecified Qualified Code(s): R06.00 - Dyspnea, unspecified (6) Chest pain Current Visit: Yes Status: Acute Qualifiers: Chest pain type: unspecified Qualified Code(s): R07.9 - Chest pain, unspecified (7) Sepsis Current Visit: Yes Status: Acute Qualifiers: Sepsis type: sepsis due to unspecified organism Qualified Code(s): A41.9 - Sepsis, unspecified organism (8) Infective endocarditis Current Visit: Yes Status: Acute Qualifiers: Infective endocarditis organism: unspecified organism Chronicity: chronic Qualified Code(s): I38 - Endocarditis, valve unspecified (9) CAD (coronary artery disease) Current Visit: Yes Status: Chronic Qualifiers: Coronary Disease-Associated Artery/Lesion type: unspecified vessel or lesion type [place] vs. transplanted heart: unspecified whether [place] or transplanted heart Associated angina: angina presence unspecified Qualified Code(s): I25.10 - Atherosclerotic heart disease of [place] coronary artery without angina pectoris (10) Nausea & vomiting Current Visit: Yes Status: Acute Qualifiers: Vomiting type: cyclical vomiting Vomiting Intractability: non-intractable Qualified Code(s): G43.A0 - Cyclical vomiting, not intractable - Time Spent With Patient Total time spent is greater than 50% in coordination of care (as documented) at patient's floor/unit and/or counseling patient:
[2018-04-29] MEDS: Piperacillin/Tazobactam 3.375 GM in 0.9 % Sodium Chloride Mini Bag 100 ML IVPB SCH ×2 (16:36→23:40)
[2018-04-29] MEDS ORDERED: Acetaminophen IV 1,000 MG/100 ML INFUS..BTL IVPB ONE (17:43)
[2018-04-29 18:45] LABS: Acinetobacter baumannii by PCR Not Detected (Not Detect); Candida albicans by PCR Not Detected (Not Detect); Candida glabrata by PCR Not Detected (Not Detect); Candida krusei by PCR Not Detected (Not Detect); Candida parapsilosis by PCR Not Detected (Not Detect); Candida tropicalis by PCR Not Detected (Not Detect); Enterococcus by PCR Not Detected (Not Detect); Escherichia coli by PCR Not Detected (Not Detect); Klebsiella oxytoca by PCR Not Detected (Not Detect); Klebsiella pneumoniae by PCR Not Detected (Not Detect); Pseudomonas aeruginosa by PCR Not Detected (Not Detect); Serratia marcescens by PCR DETECTED (Not Detect); Staphylococcus aureus by PCR Not Detected (Not Detect); Streptococcus agalactiae(B)PCR Not Detected (Not Detect); Streptococcus by PCR Not Detected (Not Detect); Streptococcus pneumoniae PCR Not Detected (Not Detect); Streptococcus pyogenes (A) PCR Not Detected (Not Detect); blaKPC Carbapenem-Resist Gene Not Detected (Not Detect)
[2018-04-29] MEDS: Levofloxacin 750 MG/150 ML 750 MG/150 ML BAG IVPB SCH (20:40)
[2018-04-29 23:50] LABS: Potassium 2.9 mEq/L (3.5-5.1)
[2018-04-29 23:59] LABS: Troponin I 0.08 ng/mL (< 0.04)
[2018-04-30] MEDS: *HR* Heparin 5,000 UNIT/ML VIAL SQ SCH ×4 (00:14→23:45)
[2018-04-30] MEDS ORDERED: *HR* HYDROcodone/Acet 5/325 mg TABLET PO ONE (02:26)
[2018-04-30 03:44] LABS: Acinetobacter baumannii by PCR Not Detected (Not Detect); Candida albicans by PCR Not Detected (Not Detect); Candida glabrata by PCR Not Detected (Not Detect); Candida krusei by PCR Not Detected (Not Detect); Candida parapsilosis by PCR Not Detected (Not Detect); Candida tropicalis by PCR Not Detected (Not Detect); Enterococcus by PCR Not Detected (Not Detect); Escherichia coli by PCR Not Detected (Not Detect); Klebsiella oxytoca by PCR Not Detected (Not Detect); Klebsiella pneumoniae by PCR Not Detected (Not Detect); Pseudomonas aeruginosa by PCR Not Detected (Not Detect); Serratia marcescens by PCR DETECTED (Not Detect); Staphylococcus aureus by PCR Not Detected (Not Detect); Streptococcus agalactiae(B)PCR Not Detected (Not Detect); Streptococcus by PCR Not Detected (Not Detect); Streptococcus pneumoniae PCR Not Detected (Not Detect); Streptococcus pyogenes (A) PCR Not Detected (Not Detect); blaKPC Carbapenem-Resist Gene Not Detected (Not Detect); mecA Methicillin-Resist Gene Not Detected (Not Detect); vanA/B Vancomycin-Resist Genes Not Detected (Not Detect)
[2018-04-30] MEDS: *HR* Promethazine 25 MG/ML VIAL IVP PRN ×3 (07:02→19:57)
[2018-04-30] MEDS ORDERED: Aminoglycoside Consult 1 EACH MC ONE (07:52)
[2018-04-30 08:06] LABS: Basophils % 0.2 %; Eosinophils % 0.2 %; Immature Granulocytes % 0.7 % (0-4); Lymphocytes # 0.3 K/mcL (0.6-4.6); Lymphocytes % 2.3 %; Mean Corpuscular HGB Conc 33.9 g/dL (31.6-35.5); Mean Corpuscular Hemoglobin 29.2 pg (28.0-33.3); Mean Corpuscular Volume 86.1 fL (83.0-100.0); Mean Platelet Volume 10.6 fL (9.4-12.4); Monocytes # 0.7 K/mcL (0.0-1.3); Monocytes % 6.4 %; Neutrophils # 10.4 K/mcL (1.6-8.9); Platelet Count 103 K/mcL (140-400); Red Cell Distribution Width 13.2 % (11.5-14.5); Segmented Neutrophils % 90.2 %
[2018-04-30 08:08] LABS: Hemoglobin 10.5 g/dL (12.9-16.9)
[2018-04-30] MEDS ORDERED: Potassium Phosphate 44 MEQ in 0.9 % Sodium Chloride 250 ML IVPB ONE ×2 (08:22→11:36)
[2018-04-30 08:36] LABS: Troponin I 0.07 ng/mL (< 0.04)
[2018-04-30 08:39] LABS: Alanine Aminotransferase 24 Units/L (7-52); Albumin 3.1 g/dL (3.5-5.7); Alkaline Phosphatase 138 Units/L (34-104); Aspartate Amino Transferase 22 Units/L (13-39); BUN/Creatinine Ratio 12 (6-26); Bilirubin,Total 3.1 mg/dL (0.3-1.0); Blood Urea Nitrogen 13 mg/dL (6-20); Calcium 8.2 mg/dL (8.6-10.3); Carbon Dioxide 22 mEq/L (23-29); Chloride 102 mEq/L (98-107); Chol/HDL Ratio 4.9 (0-4.9); Cholesterol 73 mg/dL (< 200); Glucose 134 mg/dL (70-105); HDL Cholesterol 15 mg/dL (40-59); LDL Cholesterol,Calculated 34 mg/dL (0-99); Magnesium 1.6 mg/dL (1.6-2.6); Osmolality,Calculated 280 (280-300); Phosphorous 1.5 mg/dL (2.7-4.5); Potassium 2.8 mEq/L (3.5-5.1); Sodium 134 mEq/L (136-145); Total Protein 6.1 g/dL (6.4-8.9); Triglycerides 122 mg/dL (< 150); eGFR For African Americans > 60 (> 60); eGFR For Non-African Americans > 60 (> 60)
[2018-04-30 08:57] LABS: Hepatitis B Surface Antigen Nonreactive (Nonreactive)
[2018-04-30 08:58] LABS: Estimated Average Glucose 105 mg/dl; Hemoglobin A1C 5.3 %
[2018-04-30] MEDS: Piperacillin/Tazobactam 3.375 GM in 0.9 % Sodium Chloride Mini Bag 100 ML IVPB SCH (09:50)
[2018-04-30] MEDS: Acetaminophen 325 MG TABLET PO PRN ×2 (09:50→22:37)
[2018-04-30] MEDS: Aspirin Enteric Coated 81 MG Tablet PO SCH (09:50)
[2018-04-30] MEDS: Levofloxacin 750 MG/150 ML 750 MG/150 ML BAG IVPB SCH (09:51)
--- NOTE | 2018-04-30 10:34 | Internal Med Progress Note ---
<Nate Hernandez S - Last Filed: 04/30/18 13:32> Date of Encounter: 04/30/18 Time of Encounter: 08:40 - Assessment and plan (1) Sepsis Current Visit: Yes Status: Acute Assessment and plan: Sepsis criteria met - t max of 100.8, HR max 114, BP 93/55. WBC on admit 8.1, 11.5 this AM. Pt on Zosyn and Vanc day 2 as per ID 100cc IVF per hour of 0.9% NS - can discontinue fluids Endocarditis is most likely source. Pt has extensive hx of IVDU. Blood cx showed gram negative rods. Serology (+) for serratia and enterobacter. EDMUND planned. Pt is high risk for endocarditis. He has hx of endocarditis , requiring multiple valve replacements. Last drug use was 2 days ago. He reported to me he is snorting the cocaine but told another physiciain that he injects Qualifiers: Sepsis type: sepsis due to unspecified organism Qualified Code(s): A41.9 - Sepsis, unspecified organism (2) Infective endocarditis Current Visit: Yes Status: Acute Assessment and plan: Pt has extensive history of drug abuse and has had multiple episodes of infective endocarditis. Pt has multiple risk factors for IE including current IVDU, prior hx of IE, and multiple heart valve replacements Pt has had heart valve replacement x 3 He is on vanc and zosyn as per ID, day 2 BC (+) for gram negative rods Serology (+) for serratia and enterobacter EDMUND ordered Previous EDMUND 02/14/18 - LVEF of 55%, left to right shunt in [facility] Pt fits Beck's criteria for infective endocarditis - fever, immunologic phenomenon (janeway lesion), (+) blood cultures, hx of IVDU, awaiting for EDMUND report. Qualifiers: Infective endocarditis organism: unspecified organism Chronicity: chronic Qualified Code(s): I38 - Endocarditis, valve unspecified (3) Chest pain Current Visit: Yes Status: Acute Assessment and plan: Likely due to endocarditis. Troponin 0.08 on admit, 0.07 on repeat. Trending troponins On continuous cardiac telemtry Cardiac consulted. EDMUND ordered. Prior EDMUND showed LVEF 55% and L to R shunt in [facility], this was in 02/14/18 Qualifiers: Chest pain type: unspecified Qualified Code(s): R07.9 - Chest pain, unspecified (4) IV drug abuse Current Visit: Yes Status: Chronic Assessment and plan: Pt has been using drugs since he was 10yo. Pt reported to me he is snorting cocaine but told another doctor he is injecting heroin 2 days ago UDS positive for cocaine and marijuana Pt consoled on rehab and getting clean off drugs (5) Hepatitis-C Current Visit: No Status: Chronic Assessment and plan: Hx of hepatitis C. ALT 48. AST 41. ID ordered HIV and hepatitis B serology Qualifiers: Viral hepatitis chronicity: chronic Hepatic coma status: without hepatic coma Qualified Code(s): B18.2 - Chronic viral hepatitis C (6) DVT prophylaxis Current Visit: Yes Status: Acute Assessment and plan: Heparin 5,000 units SQ Q8HR for DVT prophylaxis. Monitor pt. for signs of bleeding. (7) Elevated troponin Current Visit: Yes Status: Acute Assessment and plan: Initialtroponin of 0.08 , second was 0.7 most likely due to endocarditis vs demand ischemia from snorting cocaine. Troponins will be trended NOte that pt does have a hx of elevated troponins chronically since 2014, 0.06 to 0.33 is the range Pt on continuous telemetry (8) Dyspnea Current Visit: Yes Status: Acute Assessment and plan: Acute SOB with the chest pain. Pt on supplemental O2 Qualifiers: Dyspnea type: unspecified Qualified Code(s): R06.00 - Dyspnea, unspecified (9) CAD (coronary artery disease) Current Visit: Yes Status: Chronic Assessment and plan: MT in 07/2016 Heart valve replacement x 3 Continue telemtry Pt aspirin continued EDMUND dated 02/14/18 shows LVEF of 55%, normal size and function, abnormal motion consistent with postoperative status, right ventricle was normal in size and systolic function, color Doppler demonstrates a small [id number] in nature atrial shunt, bioprosthetic aortic valve appears well-seated, no vegetations visualized, trace aortic regurgitation. By his prostatic tricuspid valve appears well-seated. No vegetations visualized. Trace tricuspid regurgitation. Bioprosthetic mitral valve appears well-seated. Leaflets do appear mildly thickened in some views. Prior vegetation described is not visualized in this study. Mild mitral regurgitation. Repeat EDMUND ordered as per cardiology. Qualifiers: Coronary Disease-Associated Artery/Lesion type: unspecified vessel or lesion type [place] vs. transplanted heart: unspecified whether [place] or transplanted heart Associated angina: angina presence unspecified Qualified Code(s): I25.10 - Atherosclerotic heart disease of [place] coronary artery without angina pectoris (10) Nausea & vomiting Current Visit: Yes Status: Acute Assessment and plan: Zofran and Phenergan ordered prn for n/v Qualifiers: Vomiting type: cyclical vomiting Vomiting Intractability: non-intractable Qualified Code(s): G43.A0 - Cyclical vomiting, not intractable (11) Hypomagnesemia Current Visit: Yes Status: Acute Assessment and plan: Mg 1.4 - replaced Mag Oxide 400mg BID (12) Hypokalemia Current Visit: Yes Status: Acute Assessment and plan: K 2.8. Replaced with PO and IV potassium K phosphate 44mEq K chloride 40mEq BID (13) Hypophosphatemia Current Visit: Yes Status: Acute Assessment and plan: Phosphate 1.0 ----> 1.5 this morning. Replaced with K phosphate 44mEq - Time Spent With Patient Total time spent is greater than 50% in coordination of care (as documented) at patient's floor/unit and/or counseling patient: - Subjective Interval history: Pt is seen at bedside. He is a 42yo male who was admitted because of chest pain and SOB. He said it started sunday and was constant, sharp pain all over his chest. He states he has SOB still, is feverish and chills, nausea or vomiting. He also has complaints of a headache, retroorbital in nature and throbbing. He rates headache was 10/10 and states he has no visual changes or aura. He has a long history of IVDU and last used 2 days ago. He told me that he is snorting the drugs but told another physician he is injecting into the left hand. - Constitutional Vitals: Temp Pulse Resp BP Pulse Ox 98.1 F 75 16 120/74 97 04/30/18 07:54 04/30/18 07:54 04/30/18 07:54 04/30/18 07:54 04/30/18 07:54 General appearance: Present: cooperative, mild distress, A&O X 3, pleasant, obese, answers questions appropriately - Head Head exam: Present: normal inspection - Neck Neck exam general surgery: Present: supple - Respiratory Respiratory exam: Present: CTAB - Cardiovascular Cardiovascular exam: Present: tachycardia - GI/Abdominal GI/Abdominal exam: Present: tenderness (Tender to palpation in the LUQ), no peritoneal signs - Neurological Exam Neurological exam: Present: no focal deficits - Psychiatric Psychiatric exam: Present: anxious - Skin Skin exam: Present: excoriation (some scabs, possibly [place] lesion on the right middle finger. Pt has multiple excorations on arms and legs, possibly scab from IVDU on left hand) Internal Medicine: Result - Labs CBC & Chem 7: 04/30/18 07:33 04/30/18 07:33 Labs: Short CBC 04/30/18 Range/Units 07:33 WBC 11.5 H (4.3-11.1) K/mcL Hgb 10.5 L D (12.9-16.9) g/dL Hct 31.0 L (37.5-50.1) % Plt Count 103 L (140-400) K/mcL Neutrophils # 10.4 H (1.6-8.9) K/mcL BMP 04/29/18 04/30/18 22:48 07:33 Sodium 134 L Potassium 2.9 L 2.8 L Chloride 102 Carbon Dioxide 22 L BUN 13 Creatinine 1.11 Glucose 134 H Calcium 8.2 L Cardiac Enzymes 04/29/18 04/29/18 04/30/18 Range/Units 16:45 22:48 07:33 Troponin I 0.07 H* 0.08 H* 0.07 H* (< 0.04) ng/mL Liver Function 04/30/18 Range/Units 07:33 Total Bilirubin 3.1 H (0.3-1.0) mg/dL AST 22 (13-39) Units/L ALT 24 (7-52) Units/L Alkaline Phosphatase 138 H (34-104) Units/L Albumin 3.1 L (3.5-5.7) g/dL - ABG Interpretation ABG results: PT/INR, D-dimer PT 15.0 Seconds (9.4-12.1) H 04/29/18 00:09 - Impressions Impressions Head CT 04/29/18 18:49 IMPRESSION: No acute intracranial abnormality. Stable exam. D/ / David Chacon MD / David Chacon MD Interpreting Provider: David Chacon MD Chest CT 04/29/18 19:11 IMPRESSION: 1. Scattered bibasilar predominant reticular opacities throughout both lungs likely reflect atelectasis and/or parenchymal scar, without acute airspace consolidation. 2. Trace right pleural effusion. 3. No definite CT evidence of septic emboli. There are a few scattered subcentimeter nodules within each of the bilateral lower lobes, which most likely reflect benign noncalcified granulomata. However, as septic emboli are not entirely excluded, suggest appropriate clinical treatment and short-term chest CT follow-up in 6-8 weeks to ensure stability or resolution of these nodules. Additionally, long-term chest CT follow-up of these nodules is as advised below. 4. Mild mediastinal lymphadenopathy is most likely benign and reactive in etiology. However, this should also be followed to ensure long-term stability. 5. Stable mild splenomegaly. RECOMMENDATIONS: Fleischner Society guidelines for follow-up and management of incidentally detected pulmonary nodules: Multiple Solid Nodules: Nodule size equals 6-8 mm In a low-risk patient, CT at 3-6 months, then consider CT at 18-24 months. In a high-risk patient, CT at 3-6 months, then CT at 18-24 months. - Low risk patients include individuals with minimal or absent history of smoking and other known risk factors. - High risk patients include individuals with a history or smoking or known risk factors. Radiology 2017 http://pubs.rsna.org/doi/full/10.1148/radiol.5359921213 D/ / 04/29/2018 20:33:57 Joseph Mart[facility]nez MD / [facility] Interpreting Provider: Joseph Martínez MD Consult Discharge Plan - Plan Referrals: Taya Steel, INSTRUMENT ASSEMBLY SUPERVISOR [Primary Care Provider] - <Dyllan Quinonez - Last Filed: 05/01/18 00:09> Date of Encounter: 05/01/18 - Assessment and plan (1) Hepatitis-C Current Visit: No Status: Chronic Qualifiers: Viral hepatitis chronicity: chronic Hepatic coma status: without hepatic coma Qualified Code(s): B18.2 - Chronic viral hepatitis C (2) DVT prophylaxis Current Visit: Yes Status: Acute (3) Elevated troponin Current Visit: Yes Status: Acute (4) IV drug abuse Current Visit: Yes Status: Chronic (5) Hypokalemia Current Visit: Yes Status: Acute (6) Dyspnea Current Visit: Yes Status: Acute Qualifiers: Dyspnea type: unspecified Qualified Code(s): R06.00 - Dyspnea, unspecified (7) Chest pain Current Visit: Yes Status: Acute Qualifiers: Chest pain type: unspecified Qualified Code(s): R07.9 - Chest pain, unspecified (8) Sepsis Current Visit: Yes Status: Acute (9) Infective endocarditis Current Visit: Yes Status: Acute Qualifiers: Infective endocarditis organism: unspecified organism Chronicity: chronic Qualified Code(s): I38 - Endocarditis, valve unspecified (10) CAD (coronary artery disease) Current Visit: Yes Status: Chronic Qualifiers: Coronary Disease-Associated Artery/Lesion type: unspecified vessel or lesion type [place] vs. transplanted heart: unspecified whether [place] or transplanted heart Associated angina: angina presence unspecified Qualified Code(s): I25.10 - Atherosclerotic heart disease of [place] coronary artery without angina pectoris (11) Nausea & vomiting Current Visit: Yes Status: Acute Qualifiers: Vomiting type: cyclical vomiting Vomiting Intractability: non-intractable Qualified Code(s): G43.A0 - Cyclical vomiting, not intractable (12) Hypomagnesemia Current Visit: Yes Status: Acute (13) Hypophosphatemia Current Visit: Yes Status: Acute - Time Spent With Patient Total time spent is greater than 50% in coordination of care (as documented) at patient's floor/unit and/or counseling patient: - Constitutional Vitals: Temp Pulse Resp BP Pulse Ox 98.6 F 92 18 112/68 92 04/30/18 23:10 04/30/18 23:10 04/30/18 23:10 04/30/18 23:10 04/30/18 23:10 Internal Medicine: Result - Labs CBC & Chem 7: 04/30/18 07:33 04/30/18 20:16 Labs: Short CBC 04/30/18 Range/Units 07:33 WBC 11.5 H (4.3-11.1) K/mcL Hgb 10.5 L D (12.9-16.9) g/dL Hct 31.0 L (37.5-50.1) % Plt Count 103 L (140-400) K/mcL Neutrophils # 10.4 H (1.6-8.9) K/mcL BMP 04/30/18 04/30/18 04/30/18 07:33 14:05 20:16 Sodium 134 L 137 139 Potassium 2.8 L 3.3 L 3.3 L Chloride 102 105 104 Carbon Dioxide 22 L 26 23 BUN 13 13 15 Creatinine 1.11 1.14 1.16 Glucose 134 H 102 139 H Calcium 8.2 L 8.2 L 8.7 Cardiac Enzymes 04/30/18 Range/Units 07:33 Troponin I 0.07 H* (< 0.04) ng/mL Liver Function 04/30/18 Range/Units 07:33 Total Bilirubin 3.1 H (0.3-1.0) mg/dL AST 22 (13-39) Units/L ALT 24 (7-52) Units/L Alkaline Phosphatase 138 H (34-104) Units/L Albumin 3.1 L (3.5-5.7) g/dL - ABG Interpretation ABG results: PT/INR, D-dimer PT 15.0 Seconds (9.4-12.1) H 04/29/18 00:09 - Impressions Impressions Chest CT 04/29/18 19:11 IMPRESSION: 1. Scattered bibasilar predominant reticular opacities throughout both lungs likely reflect atelectasis and/or parenchymal scar, without acute airspace consolidation. 2. Trace right pleural effusion. 3. No definite CT evidence of septic emboli. There are a few scattered subcentimeter nodules within each of the bilateral lower lobes, which most likely reflect benign noncalcified granulomata. However, as septic emboli are not entirely excluded, suggest appropriate clinical treatment and short-term chest CT follow-up in 6-8 weeks to ensure stability or resolution of these nodules. Additionally, long-term chest CT follow-up of these nodules is as advised below. 4. Mild mediastinal lymphadenopathy is most likely benign and reactive in etiology. However, this should also be followed to ensure long-term stability. 5. Stable mild splenomegaly. RECOMMENDATIONS: Fleischner Society guidelines for follow-up and management of incidentally detected pulmonary nodules: Multiple Solid Nodules: Nodule size equals 6-8 mm In a low-risk patient, CT at 3-6 months, then consider CT at 18-24 months. In a high-risk patient, CT at 3-6 months, then CT at 18-24 months. - Low risk patients include individuals with minimal or absent history of smoking and other known risk factors. - High risk patients include individuals with a history or smoking or known risk factors. Radiology 2017 http://pubs.rsna.org/doi/full/10.1148/radiol.4238498988 D/ / 04/29/2018 20:33:57 Joseph Martínez MD / [facility] Interpreting Provider: Joseph Martínez MD - Attending Attestation I examined this patient and my medical decision-making was reviewed with the Resident Physician. I agree with the documented findings, disposition and treatment plan as described except to the extent set forth below.
--- NOTE | 2018-04-30 10:49 | Infectious Disease Progress No ---
Date of Encounter: 04/30/18 Time of Encounter: 10:46 - Subjective Interval history: Patient seen and examined at bedside; reports that he feels "like a truck hit him." Patient is diaphoretic. Endorses nausea nad mailase. Denies SOB, chest pain, vomiting, fever, or chills. Infect Dis PN-Objective Data - Labs CBC & Chem 7: 04/30/18 07:33 04/30/18 14:05 Labs: Laboratory Results - last 24 hr 04/29/18 04/29/18 04/29/18 15:18 16:45 16:45 WBC RBC Hgb Hct MCV MCH MCHC RDW Plt Count MPV Immature Gran % Seg Neutrophils % Lymphocytes % Monocytes % Eosinophils % Basophils % Neutrophils # Lymphocytes # Monocytes # Eosinophils # Basophils # Sodium Potassium Chloride Carbon Dioxide BUN Creatinine Est GFR ( Amer) Est GFR (Non-Af Amer) BUN/Creatinine Ratio Glucose POC Glucose Est Mean Plasma Glucose Hemoglobin A1c Calculated Osmolality Lactic Acid 1.0 Calcium Phosphorus Magnesium Total Bilirubin AST ALT Alkaline Phosphatase Troponin I 0.07 H* Serum Total Protein Albumin Globulin Albumin/Globulin Ratio Triglycerides Cholesterol LDL Cholesterol, Calc VLDL Cholesterol, Calc HDL Cholesterol Cholesterol/HDL Ratio Urine Opiates Screen Negative Ur Barbiturates Screen Negative Ur Phencyclidine Scrn Negative Ur Amphetamines Screen Negative U Benzodiazepines Scrn Negative Urine Cocaine Screen Positive H U Marijuana (THC) Screen Positive H Ur Drug Screen Interp See Below Hep Bs Antigen 04/29/18 04/29/18 04/29/18 17:00 22:48 23:04 WBC RBC Hgb Hct MCV MCH MCHC RDW Plt Count MPV Immature Gran % Seg Neutrophils % Lymphocytes % Monocytes % Eosinophils % Basophils % Neutrophils # Lymphocytes # Monocytes # Eosinophils # Basophils # Sodium Potassium 2.9 L Chloride Carbon Dioxide BUN Creatinine Est GFR ( Amer) Est GFR (Non-Af Amer) BUN/Creatinine Ratio Glucose POC Glucose 136 H 135 H Est Mean Plasma Glucose Hemoglobin A1c Calculated Osmolality Lactic Acid Calcium Phosphorus Magnesium Total Bilirubin AST ALT Alkaline Phosphatase Troponin I 0.08 H* Serum Total Protein Albumin Globulin Albumin/Globulin Ratio Triglycerides Cholesterol LDL Cholesterol, Calc VLDL Cholesterol, Calc HDL Cholesterol Cholesterol/HDL Ratio Urine Opiates Screen Ur Barbiturates Screen Ur Phencyclidine Scrn Ur Amphetamines Screen U Benzodiazepines Scrn Urine Cocaine Screen U Marijuana (THC) Screen Ur Drug Screen Interp Hep Bs Antigen 04/30/18 04/30/18 04/30/18 07:33 07:33 07:33 WBC 11.5 H RBC 3.60 L Hgb 10.5 L D Hct 31.0 L MCV 86.1 MCH 29.2 MCHC 33.9 RDW 13.2 Plt Count 103 L MPV 10.6 Immature Gran % 0.7 Seg Neutrophils % 90.2 Lymphocytes % 2.3 Monocytes % 6.4 Eosinophils % 0.2 Basophils % 0.2 Neutrophils # 10.4 H Lymphocytes # 0.3 L Monocytes # 0.7 Eosinophils # 0.0 Basophils # 0.0 Sodium 134 L Potassium 2.8 L Chloride 102 Carbon Dioxide 22 L BUN 13 Creatinine 1.11 Est GFR ( Amer) > 60 Est GFR (Non-Af Amer) > 60 BUN/Creatinine Ratio 12 Glucose 134 H POC Glucose Est Mean Plasma Glucose 105 Hemoglobin A1c 5.3 Calculated Osmolality 280 Lactic Acid Calcium 8.2 L Phosphorus 1.5 L Magnesium 1.6 Total Bilirubin 3.1 H AST 22 ALT 24 Alkaline Phosphatase 138 H Troponin I 0.07 H* Serum Total Protein 6.1 L Albumin 3.1 L Globulin 3.0 Albumin/Globulin Ratio 1.0 L Triglycerides 122 Cholesterol 73 LDL Cholesterol, Calc 34 VLDL Cholesterol, Calc 24 HDL Cholesterol 15 L Cholesterol/HDL Ratio 4.9 Urine Opiates Screen Ur Barbiturates Screen Ur Phencyclidine Scrn Ur Amphetamines Screen U Benzodiazepines Scrn Urine Cocaine Screen U Marijuana (THC) Screen Ur Drug Screen Interp Hep Bs Antigen 04/30/18 07:33 WBC RBC Hgb Hct MCV MCH MCHC RDW Plt Count MPV Immature Gran % Seg Neutrophils % Lymphocytes % Monocytes % Eosinophils % Basophils % Neutrophils # Lymphocytes # Monocytes # Eosinophils # Basophils # Sodium Potassium Chloride Carbon Dioxide BUN Creatinine Est GFR ( Amer) Est GFR (Non-Af Amer) BUN/Creatinine Ratio Glucose POC Glucose Est Mean Plasma Glucose Hemoglobin A1c Calculated Osmolality Lactic Acid Calcium Phosphorus Magnesium Total Bilirubin AST ALT Alkaline Phosphatase Troponin I Serum Total Protein Albumin Globulin Albumin/Globulin Ratio Triglycerides Cholesterol LDL Cholesterol, Calc VLDL Cholesterol, Calc HDL Cholesterol Cholesterol/HDL Ratio Urine Opiates Screen Ur Barbiturates Screen Ur Phencyclidine Scrn Ur Amphetamines Screen U Benzodiazepines Scrn Urine Cocaine Screen U Marijuana (THC) Screen Ur Drug Screen Interp Hep Bs Antigen Nonreactive Cultures: Serology 04/30/18 Range/Units 07:33 Hep Bs Antigen Nonreactive (Nonreactive) - Impressions Impressions Head CT 04/29/18 18:49 IMPRESSION: No acute intracranial abnormality. Stable exam. D/ / David Chacon MD / David Chacon MD Interpreting Provider: David Chacon MD Chest CT 04/29/18 19:11 IMPRESSION: 1. Scattered bibasilar predominant reticular opacities throughout both lungs likely reflect atelectasis and/or parenchymal scar, without acute airspace consolidation. 2. Trace right pleural effusion. 3. No definite CT evidence of septic emboli. There are a few scattered subcentimeter nodules within each of the bilateral lower lobes, which most likely reflect benign noncalcified granulomata. However, as septic emboli are not entirely excluded, suggest appropriate clinical treatment and short-term chest CT follow-up in 6-8 weeks to ensure stability or resolution of these nodules. Additionally, long-term chest CT follow-up of these nodules is as advised below. 4. Mild mediastinal lymphadenopathy is most likely benign and reactive in etiology. However, this should also be followed to ensure long-term stability. 5. Stable mild splenomegaly. RECOMMENDATIONS: Fleischner Society guidelines for follow-up and management of incidentally detected pulmonary nodules: Multiple Solid Nodules: Nodule size equals 6-8 mm In a low-risk patient, CT at 3-6 months, then consider CT at 18-24 months. In a high-risk patient, CT at 3-6 months, then CT at 18-24 months. - Low risk patients include individuals with minimal or absent history of smoking and other known risk factors. - High risk patients include individuals with a history or smoking or known risk factors. Radiology 2017 http://pubs.rsna.org/doi/full/10.1148/radiol.[email or web address] D/ / 04/29/2018 20:33:57 Joseph Martínez MD / [facility] Interpreting Provider: Joseph Martínez MD Exam - Constitutional Vitals: Temp Pulse Resp BP Pulse Ox 98.1 F 75 16 120/74 97 04/30/18 07:54 04/30/18 07:54 04/30/18 07:54 04/30/18 07:54 04/30/18 07:54 General appearance: mild distress - Head Head exam: Present: atraumatic, normal inspection - Respiratory Respiratory exam: Present: CTAB. Absent: decreased breath sounds, rhonchi, wheezes, tachypnea - Cardiovascular Cardiovascular exam: Present: diastolic murmur, +S1, +S2 - Skin Skin exam: Present: diaphoretic Consult Discharge Plan - Plan Referrals: Taya Steel, HADOOP ARCHITECT [Primary Care Provider] - - Attending Attestation I examined this patient and my medical decision-making was reviewed with the Resident Physician. I agree with the documented findings, disposition and treatment plan as described except to the extent set forth below. Blood cultures are only growing Serratia, I tried to change it in the resident' s note but I was unable to. d/c vanco and ryan start ertapenem.
--- NOTE | 2018-04-30 14:29 | Electrocardiograph Report ---
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
[2018-04-30 14:32] LABS: BUN/Creatinine Ratio 11 (6-26); Blood Urea Nitrogen 13 mg/dL (6-20); Calcium 8.2 mg/dL (8.6-10.3); Carbon Dioxide 26 mEq/L (23-29); Chloride 105 mEq/L (98-107); Glucose 102 mg/dL (70-105); Magnesium 1.7 mg/dL (1.6-2.6); Osmolality,Calculated 284 (280-300); Potassium 3.3 mEq/L (3.5-5.1); Sodium 137 mEq/L (136-145); eGFR For African Americans > 60 (> 60); eGFR For Non-African Americans > 60 (> 60)
--- NOTE | 2018-04-30 14:36 | Cardiology Consult Note ---
Date of Encounter: 04/30/18 Time of Encounter: 14:33 Assessment and Plan (1) Infective endocarditis Current Visit: No Status: Chronic Probable infective endocarditis with history of recent infective endocarditis and active IV drug user currently managed by infectious disease on antibiotics. EDMUND will be obtained after review of transthoracic echocardiogram. Troponins likely nonischemic but will continue to trend. Qualifiers: Infective endocarditis organism: bacterial Chronicity: acute Qualified Code(s): I33.0 - Acute and subacute infective endocarditis Discussion w patient/family: The assessment and plan as outlined above was discussed with the patient and/or family members who expressed understanding and agreement. All questions were answered. Thank you for involving us in the care of your patient. Please call with any questions. History of Present Illness Consult date: 04/30/18 Consult reason: Elevated troponins Chief complaint: Chest Pain History of present illness: Mr. Quinn is a 42 year old male with history of IV drug abuse admits to IV heroin use recently. 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 He most recently had of regurgitation in January 2018 on his mitral valve. Echocardiogram currently pending with a noted nonischemic trending troponin. Patient with positive blood cultures currently managed by infectious disease. Continues to be febrile however otherwise resting comfortably denying any current chest pain, shortness breath, orthopnea, PND, presyncope or syncope Past Med Surg Social Fam HX - Past Medical History Medical history: coronary artery disease, DVT, hepatitis, myocardial infarction , other Additional medical history: Endocarditis Psychiatric history: anxiety - Past Surgical History Surgical History: heart valve replacement, other Additional surgical history: valve replacement - Social History Smoking Status: Current every day smoker Packs per day: 1/2 PPD Smokeless Tobacco Status: No Alcohol use: occasionally Drug use: cocaine, opiates, marijuana, IV Drug Use, other - Family History Father Race: Family Member Ethnicity: Non- Living Status: Still Living Hx Family Psychosocial Disorders: Yes (Alcoholism) Mother Race: Family Member Ethnicity: Non- Living Status: Still Living Hx Family Endocrine Disorder: Yes (DM) Hx Family Medical Disorders: Yes (Obesity) Sister Race: Family Member Ethnicity: Non- Living Status: Still Living Hx Family Medical Disorders: No Grandfather Race: Family Member Ethnicity: Non- Living Status: Age at : 50 Cause of : [place] @ 50 Hx Family Cardiac Disorders: Yes Hx Family Respiratory Disorders: Yes Medications and Allergies Aspirin Enteric Coated [Aspirin EC] 81 mg PO DAILY 04/29/18 [History] Doxycycline Hyclate [Doxycycline Hyclate] 100 mg PO Q12H 04/29/18 [History] 3 Allergy/AdvReac Type Severity Reaction Status Date / Time buprenorphine [From Suboxone] Allergy Hives Verified 04/28/18 23:17 Naloxone [From Suboxone] Allergy Hives Verified 04/28/18 23:17 trazodone Allergy Hives Verified 04/28/18 23:17 All Systems Review: The remainder of the systems were reviewed and are negative Physical Examination Vital Signs, Last 4 Hours Temp Pulse Resp BP Pulse Ox 04/30/18 13:23 98.9 F 84 14 127/71 98 General: Conversant, No Apparent Distress HEENT: Atraumatic, Normocephaly, Mucus Membranes Moist Neck: No JVD, Normal carotid pulses Cardiac: Reg Rate and Rhythm, Normal S1 and S2, No Murmur (3/6 holosystolic murmur) Lungs: Normal Breath Sounds, No Wheeze, Rales, Rhonchi Neuro: Alert and responsive, No focal deficits noted Abdomen: Soft, Non-Tender Skin: No rashes noted on visualized skin Musculoskeletal: No Chest Wall Tenderness Extremities: No Clubbing, No Cyanosis, No Edema, Normal Pulses Results 04/30/18 07:33 04/30/18 14:05 Lab Results 04/29/18 04/29/18 04/30/18 16:45 22:48 07:33 WBC 11.5 H Hgb 10.5 L D Hct 31.0 L Plt Count 103 L Sodium Potassium 2.9 L Chloride Carbon Dioxide BUN Creatinine Glucose Calcium Magnesium Total Bilirubin AST ALT Alkaline Phosphatase Troponin I 0.07 H* 0.08 H* 04/30/18 04/30/18 07:33 14:05 WBC Hgb Hct Plt Count Sodium 134 L 137 Potassium 2.8 L 3.3 L Chloride 102 105 Carbon Dioxide 22 L 26 BUN 13 13 Creatinine 1.11 1.14 Glucose 134 H 102 Calcium 8.2 L 8.2 L Magnesium 1.6 1.7 Total Bilirubin 3.1 H AST 22 ALT 24 Alkaline Phosphatase 138 H Troponin I 0.07 H* Consult Discharge Plan - Plan Referrals: Taya Steel, FIELD PRODUCER [Primary Care Provider] -
[2018-04-30 14:38] LABS: Creatine Kinase 561 Units/L (30-223)
[2018-04-30 14:54] LABS: Vancomycin,Trough 12 mcg/mL (5-10)
[2018-04-30] MEDS: Magnesium Oxide 400 MG TABLET PO SCH ×2 (16:03→22:37)
[2018-04-30] MEDS: Ertapenem 1,000 MG in 0.9 % Sodium Chloride Mini Bag 100 ML IVPB SCH (16:04)
[2018-04-30 20:46] LABS: BUN/Creatinine Ratio 13 (6-26); Blood Urea Nitrogen 15 mg/dL (6-20); Calcium 8.7 mg/dL (8.6-10.3); Carbon Dioxide 23 mEq/L (23-29); Chloride 104 mEq/L (98-107); Glucose 139 mg/dL (70-105); Magnesium 1.7 mg/dL (1.6-2.6); Osmolality,Calculated 291 (280-300); Potassium 3.3 mEq/L (3.5-5.1); Sodium 139 mEq/L (136-145); eGFR For African Americans > 60 (> 60); eGFR For Non-African Americans > 60 (> 60)
[2018-04-30] MEDS ORDERED: Ondansetron 4 MG/2 ML VIAL IVP PRN (23:17)
[2018-05-01 01:54] LABS: Basophils % 0.2 %; Hematocrit 30.4 % (37.5-50.1); Hemoglobin 10.5 g/dL (12.9-16.9); Immature Granulocytes % 0.8 % (0-4); Lymphocytes # 0.6 K/mcL (0.6-4.6); Mean Corpuscular HGB Conc 34.5 g/dL (31.6-35.5); Mean Corpuscular Hemoglobin 29.2 pg (28.0-33.3); Mean Corpuscular Volume 84.7 fL (83.0-100.0); Mean Platelet Volume 10.5 fL (9.4-12.4); Monocytes # 1.1 K/mcL (0.0-1.3); Monocytes % 10.2 %; Neutrophils # 9.1 K/mcL (1.6-8.9); Platelet Count 106 K/mcL (140-400); Red Blood Count 3.59 M/mcL (4.19-5.50); Red Cell Distribution Width 13.4 % (11.5-14.5); Segmented Neutrophils % 83.8 %
[2018-05-01 02:10] LABS: Hepatitis B Surface Antibody 613.41 mIU/mL
[2018-05-01 02:13] LABS: Alanine Aminotransferase 20 Units/L (7-52); Albumin 3.1 g/dL (3.5-5.7); Albumin/Globulin Ratio 1.2 (1.1-2.2); Alkaline Phosphatase 133 Units/L (34-104); Aspartate Amino Transferase 20 Units/L (13-39); BUN/Creatinine Ratio 12 (6-26); Bilirubin,Total 2.5 mg/dL (0.3-1.0); Blood Urea Nitrogen 15 mg/dL (6-20); Calcium 8.4 mg/dL (8.6-10.3); Carbon Dioxide 21 mEq/L (23-29); Chloride 107 mEq/L (98-107); Globulin 2.6 g/dL (2.4-3.5); Glucose 104 mg/dL (70-105); Osmolality,Calculated 289 (280-300); Potassium 3.5 mEq/L (3.5-5.1); Sodium 139 mEq/L (136-145); Total Protein 5.7 g/dL (6.4-8.9); eGFR For African Americans > 60 (> 60); eGFR For Non-African Americans > 60 (> 60)
[2018-05-01 02:14] LABS: Magnesium 1.7 mg/dL (1.6-2.6); Phosphorous 2.7 mg/dL (2.7-4.5)
[2018-05-01] MEDS: *HR* Promethazine 25 MG/ML VIAL IVP PRN ×3 (02:23→14:34)
[2018-05-01] MEDS ORDERED: *HR* FentaNYL (PF) 250 MCG/5 ML VIAL ONE (08:26)
--- NOTE | 2018-05-01 09:48 | Infectious Disease Progress No ---
Date of Encounter: 05/01/18 Time of Encounter: 11:20 - Subjective Interval history: Patient seen and examined at bedside; reports that he does not feel well. States that he was vomiting red material last night and early this morning. Also reports several episodes of nonbloody diarrhea since yesterday evening. Admits to fever, chills, nausea, malaise, and headache. Denies chest pain, abdominal pain, or shortness of breath. Infect Dis PN-Objective Data - Labs CBC & Chem 7: 05/01/18 01:38 05/01/18 01:38 Labs: Laboratory Results - last 24 hr 04/30/18 04/30/18 04/30/18 07:33 14:05 20:16 WBC RBC Hgb Hct MCV MCH MCHC RDW Plt Count MPV Immature Gran % Seg Neutrophils % Lymphocytes % Monocytes % Eosinophils % Basophils % Neutrophils # Lymphocytes # Monocytes # Eosinophils # Basophils # Sodium 137 139 Potassium 3.3 L 3.3 L Chloride 105 104 Carbon Dioxide 26 23 BUN 13 15 Creatinine 1.14 1.16 Est GFR ( Amer) > 60 > 60 Est GFR (Non-Af Amer) > 60 > 60 BUN/Creatinine Ratio 11 13 Glucose 102 139 H Calculated Osmolality 284 291 Calcium 8.2 L 8.7 Phosphorus 3.0 Magnesium 1.7 1.7 Total Bilirubin AST ALT Alkaline Phosphatase Creatine Kinase 561 H Serum Total Protein Albumin Globulin Albumin/Globulin Ratio Vancomycin Trough 12 H Hep Bs Antibody 613.41 05/01/18 05/01/18 05/01/18 01:38 01:38 01:38 WBC 10.9 RBC 3.59 L Hgb 10.5 L Hct 30.4 L MCV 84.7 MCH 29.2 MCHC 34.5 RDW 13.4 Plt Count 106 L MPV 10.5 Immature Gran % 0.8 Seg Neutrophils % 83.8 Lymphocytes % 5.0 Monocytes % 10.2 Eosinophils % 0.0 Basophils % 0.2 Neutrophils # 9.1 H Lymphocytes # 0.6 Monocytes # 1.1 Eosinophils # 0.0 Basophils # 0.0 Sodium 139 Potassium 3.5 Chloride 107 Carbon Dioxide 21 L BUN 15 Creatinine 1.22 Est GFR ( Amer) > 60 Est GFR (Non-Af Amer) > 60 BUN/Creatinine Ratio 12 Glucose 104 Calculated Osmolality 289 Calcium 8.4 L Phosphorus 2.7 Magnesium 1.7 Total Bilirubin 2.5 H AST 20 ALT 20 Alkaline Phosphatase 133 H Creatine Kinase Serum Total Protein 5.7 L Albumin 3.1 L Globulin 2.6 Albumin/Globulin Ratio 1.2 Vancomycin Trough Hep Bs Antibody Cultures: Serology 04/30/18 Range/Units 07:33 Hep Bs Antigen Nonreactive (Nonreactive) Hep Bs Antibody 613.41 mIU/mL Exam - Constitutional Vitals: Temp Pulse Resp BP Pulse Ox 99.1 F 76 18 127/71 98 05/01/18 07:58 05/01/18 08:48 05/01/18 08:48 05/01/18 08:48 05/01/18 08:48 - Head Head exam: Present: atraumatic, normal inspection - Respiratory Respiratory exam: Present: CTAB - Cardiovascular Cardiovascular exam: Present: diastolic murmur, +S1, +S2 - Skin Skin exam: Present: dry, intact Consult Discharge Plan - Plan Referrals: Taya Steel, MATH AND PHYSICS INSTRUCTOR [Primary Care Provider] - - Attending Attestation I examined this patient and my medical decision-making was reviewed with the Resident Physician. I agree with the documented findings, disposition and treatment plan as described except to the extent set forth below. cultures only positive for serratia, not enterobacter. d/c levaquin continue ertapenem
[2018-05-01] MEDS: *HR* Midazolam HCl 5 MG/5 ML VIAL IVP ONE (10:00)
[2018-05-01] MEDS: *HR* Heparin 5,000 UNIT/ML VIAL SQ SCH ×2 (11:05→15:26)
[2018-05-01] MEDS: Aspirin Enteric Coated 81 MG Tablet PO SCH (11:06)
[2018-05-01] MEDS: Magnesium Oxide 400 MG TABLET PO SCH (11:06)
[2018-05-01] MEDS: Levofloxacin 750 MG/150 ML 750 MG/150 ML BAG IVPB SCH (11:06)
--- NOTE | 2018-05-01 11:48 | Event Note ---
Date of Encounter: 05/01/18 Time of Encounter: 11:45 - Cardiology Event Note Preliminary EDMUND with abscess noted next to mitral valve. Discussed and reviewed with , recommend transfer to tertiary care facility. Cardiology will sign off.
--- NOTE | 2018-05-01 12:19 | Internal Med Progress Note ---
Date of Encounter: 05/01/18 Time of Encounter: 12:20 - Assessment and plan (1) Sepsis Current Visit: Yes Status: Acute Assessment and plan: Severe sepsis source being worked up. Concern for recurrence of infective endocarditis. Hx of septic emboli to brain and probably to lung. ID checking for Hep B and HIV as well. Sepsis criteria met - t max of 100.8, HR max 114, BP 93/55. WBC on admit 8.1, 11.5 this AM. Pt on Zosyn and Vanc day 2 as per ID 100 cc IVF per hour of 0.9% NS - can discontinue fluids. Endocarditis is most likely source. Repeat EDMUND pending. Pt has extensive hx of IVDU. Blood cx showed gram negative rods. Serology (+) for Serratia and enterobacter. Pt is high risk for endocarditis. He has hx of endocarditis, requiring multiple valve replacements. Last drug use was 2 days ago. He reported he is snorting the cocaine but told another physician that he injects. Qualifiers: Sepsis type: sepsis due to unspecified organism Qualified Code(s): A41.9 - Sepsis, unspecified organism (2) Infective endocarditis Current Visit: Yes Status: Acute Assessment and plan: Pt has extensive history of drug abuse and has had multiple episodes of infective endocarditis. ID and cardiology consulted. Pt has multiple risk factors for IE including current IVDU, prior hx of IE, and multiple heart valve replacements Pt has had heart valve replacement x 3 He is on vanc and zosyn as per ID, day 2. BC (+) for gram negative rods Serology (+) for serratia and enterobacter. Previous EDMUND 02/14/18 - EDMUND dated 02/14/18 shows LVEF of 55%, normal size and function, abnormal motion consistent with postoperative status, right ventricle was normal in size and systolic function, color Doppler demonstrates a small [id number] in nature atrial shunt, bioprosthetic aortic valve appears well-seated, no vegetations visualized, trace aortic regurgitation. Bioprosthetic tricuspid valve appears well-seated. No vegetations visualized. Trace tricuspid regurgitation. Bioprosthetic mitral valve appears well-seated. Leaflets do appear mildly thickened in some views. Prior vegetation described is not visualized in this study. Mild mitral regurgitation Pt fits Beck's criteria for infective endocarditis - fever, immunologic phenomenon (janeway lesion), (+) blood cultures, hx of IVDU, awaiting for EDMUND report. EDMUND ordered Qualifiers: Infective endocarditis organism: unspecified organism Chronicity: chronic Qualified Code(s): I38 - Endocarditis, valve unspecified (3) Hepatitis-C Current Visit: No Status: Chronic Assessment and plan: Hx of hepatitis C. ALT 48. AST 41. ID ordered HIV and hepatitis B serology Qualifiers: Viral hepatitis chronicity: chronic Hepatic coma status: without hepatic coma Qualified Code(s): B18.2 - Chronic viral hepatitis C (4) IV drug abuse Current Visit: Yes Status: Chronic Assessment and plan: Pt has been using drugs since he was 10yo. Pt reported to me he is snorting cocaine but told another doctor he is injecting heroin 2 days ago UDS positive for cocaine and marijuana Pt consoled on rehab and getting clean off drugs (5) Hypokalemia Current Visit: Yes Status: Acute Assessment and plan: K 2.9 on admission. Repeat K 3.3, then 3.5 (6) Dyspnea Current Visit: Yes Status: Acute Assessment and plan: continue with supplemental oxygen. Qualifiers: Dyspnea type: unspecified Qualified Code(s): R06.00 - Dyspnea, unspecified (7) Chest pain Current Visit: Yes Status: Acute Assessment and plan: Pt states chest pain persists. Prn pain control and nitro SL. Qualifiers: Chest pain type: unspecified Qualified Code(s): R07.9 - Chest pain, unspecified (8) CAD (coronary artery disease) Current Visit: Yes Status: Chronic Assessment and plan: AL in 07/2016. Heart valve replacement x 3. Continue telemetry Pt aspirin continued. EDMUND dated 02/14/18 shows LVEF of 55%, normal size and function, abnormal motion consistent with postoperative status, right ventricle was normal in size and systolic function, color Doppler demonstrates a small [id number] in nature atrial shunt, bioprosthetic aortic valve appears well-seated, no vegetations visualized, trace aortic regurgitation. Bioprosthetic tricuspid valve appears well-seated. No vegetations visualized. Trace tricuspid regurgitation. Bioprosthetic mitral valve appears well-seated. Leaflets do appear mildly thickened in some views. Prior vegetation described is not visualized in this study. Mild mitral regurgitation. Repeat EDMUND ordered as per cardiology. Qualifiers: Coronary Disease-Associated Artery/Lesion type: unspecified vessel or lesion type [place] vs. transplanted heart: unspecified whether [place] or transplanted heart Associated angina: angina presence unspecified Qualified Code(s): I25.10 - Atherosclerotic heart disease of [place] coronary artery without angina pectoris (9) Nausea & vomiting Current Visit: Yes Status: Acute Assessment and plan: Zofran and Phenergan ordered prn for n/v Qualifiers: Vomiting type: cyclical vomiting Vomiting Intractability: non-intractable Qualified Code(s): G43.A0 - Cyclical vomiting, not intractable (10) Hypomagnesemia Current Visit: Yes Status: Acute Assessment and plan: Mg 1.4 - replaced Mag Oxide 400mg BID. Mag now 1.7, corrected. (11) Medical non-compliance Current Visit: Yes Status: Acute Assessment and plan: Pt missed doses of Vancomycin from previous treatments and did not show up for some of his clinic appointments. He continues to use IVD. (12) Elevated troponin Current Visit: Yes Status: Acute Assessment and plan: Initial troponin of 0.08. Repeat troponin 0.07. Most likely due to endocarditis vs demand ischemia from snorting cocaine. Note that pt does have a hx of elevated troponins chronically since 2015, 0.06 to 0.33 is the range Pt on continuous telemetry (13) DVT prophylaxis Current Visit: Yes Status: Acute Assessment and plan: Heparin 5,000 units SQ Q8HR for DVT prophylaxis. Monitor pt. for signs of bleeding. - Time Spent With Patient Total time spent is greater than 50% in coordination of care (as documented) at patient's floor/unit and/or counseling patient: less than 15 minutes - Subjective Interval history: Pt states he's had fever, chills, N/V and diarrhea, but denies having these recently. SOB but does complain of CP. Last temp 98.1. Nurse does not note any recent vomiting. - Constitutional Vitals: Temp Pulse Resp BP Pulse Ox 98.1 F 78 16 136/80 94 05/01/18 11:27 05/01/18 11:27 05/01/18 11:27 05/01/18 11:05/01/18 11:27 General appearance: Present: cooperative, mild distress, A&O X 3, pleasant, obese, answers questions appropriately - Head Head exam: Present: atraumatic, normocephalic - Eye Eye exam: Present: PERRL, conjuntiva pink, sclera anicteric Pupils: Present: PERRL - Neck Neck exam general surgery: Present: supple, trachea midline. Absent: lymphadenopathy - Respiratory Respiratory exam: Present: CTAB. Absent: accessory muscle use, rales, rhonchi, wheezes - Cardiovascular Cardiovascular exam: Present: RRR, +S1, +S2. Absent: diastolic murmur, gallop, rubs, systolic murmur Additional comments: positive murmurs - GI/Abdominal GI/Abdominal exam: Present: normal bowel sounds, soft, no peritoneal signs. Absent: distended, tenderness - Extremities Exam Extremities exam: Present: warm, radial pulses palpable and symmetrical. Absent : calf tenderness, cyanotic, pedal edema - Neurological Exam Neurological exam: Present: CN II-XII intact, oriented X3, no focal deficits. Absent: pronater drift, facial droop, speech deficit - Skin Skin exam: Present: dry, intact Additional comments: Multiple skin tattoos Internal Medicine: Result - Labs CBC & Chem 7: 05/01/18 01:38 05/01/18 01:38 Labs: Short CBC 05/01/18 Range/Units 01:38 WBC 10.9 (4.3-11.1) K/mcL Hgb 10.5 L (12.9-16.9) g/dL Hct 30.4 L (37.5-50.1) % Plt Count 106 L (140-400) K/mcL Neutrophils # 9.1 H (1.6-8.9) K/mcL BMP 04/30/18 04/30/18 05/01/18 14:05 20:16 01:38 Sodium 137 139 139 Potassium 3.3 L 3.3 L 3.5 Chloride 105 104 107 Carbon Dioxide 26 23 21 L BUN 13 15 15 Creatinine 1.14 1.16 1.22 Glucose 102 139 H 104 Calcium 8.2 L 8.7 8.4 L Liver Function 05/01/18 Range/Units 01:38 Total Bilirubin 2.5 H (0.3-1.0) mg/dL AST 20 (13-39) Units/L ALT 20 (7-52) Units/L Alkaline Phosphatase 133 H (34-104) Units/L Albumin 3.1 L (3.5-5.7) g/dL - ABG Interpretation ABG results: PT/INR, D-dimer PT 15.0 Seconds (9.4-12.1) H 04/29/18 00:09 Consult Discharge Plan - Plan Referrals: Taya Steel, SQL PROGRAMMER [Primary Care Provider] -
[2018-05-01] MEDS: Ertapenem 1,000 MG in 0.9 % Sodium Chloride Mini Bag 100 ML IVPB SCH (12:40)
--- NOTE | 2018-05-01 15:37 | Discharge Summary ---
- NOTES TO OUTPATIENT PROVIDER Notes to Outpatient Provider: PCP in 5 to 7 days after discharge from hospital Orders not resulted at time of discharge: Pending orders 04/29/18 22:48 HIV Qualitative PCR(Detection) Routine 05/02/18 04:00 Complete Blood Count [HEME] AM 0400 Comprehensive Metabolic Panel AM 0400 05/03/18 04:00 Complete Blood Count [HEME] AM 0400 Comprehensive Metabolic Panel AM 0400 05/04/18 04:00 Complete Blood Count [HEME] AM 0400 Comprehensive Metabolic Panel AM 0400 Date of Encounter: 05/01/18 Time of Encounter: 18:21 - Discharge Diagnosis (1) Sepsis Priority: Primary Status: Acute Assessment and Plan: Severe sepsis source being worked up. Concern for recurrence of infective endocarditis. Hx of septic emboli to brain and probably to lung. ID checking for Hep B and HIV as well. Sepsis criteria met - t max of 100.8, HR max 114, BP 93/55. WBC on admit 8.1, 11.5 this AM. Pt on Zosyn and Vanc day 2 as per ID 100 cc IVF per hour of 0.9% NS - can discontinue fluids. Endocarditis is most likely source. Repeat EDMUND pending. Pt has extensive hx of IVDU. Blood cx showed gram negative rods. Serology (+) for Serratia and enterobacter. Pt is high risk for endocarditis. He has hx of endocarditis, requiring multiple valve replacements. Last drug use was 2 days ago. He reported he is snorting the cocaine but told another physician that he injects. Called [facility] and was informed cardiothoracic surgeon at [facility] refused to accept the patient. Stated pt left AMA on his last admission and refusing admission due to pt's medical non-complaince. Qualifiers: Sepsis type: sepsis due to unspecified organism Qualified Code(s): A41.9 - Sepsis, unspecified organism (2) Hepatitis-C Priority: Secondary Status: Chronic Qualifiers: Viral hepatitis chronicity: chronic Hepatic coma status: without hepatic coma Qualified Code(s): B18.2 - Chronic viral hepatitis C (3) Infective endocarditis of aortic valve Priority: Secondary Status: Acute Assessment and Plan: Pt has extensive history of drug abuse and has had multiple episodes of infective endocarditis. ID and cardiology consulted. Pt has multiple risk factors for IE including current IVDU, prior hx of IE, and multiple heart valve replacements Pt has had heart valve replacement x 3 He is on vanc and zosyn as per ID, day 2. BC (+) for gram negative rods Serology (+) for serratia and enterobacter. Previous EDMUND 02/14/18 - EDMUND dated 02/14/18 shows LVEF of 55%, normal size and function, abnormal motion consistent with postoperative status, right ventricle was normal in size and systolic function, color Doppler demonstrates a small xkuv-[id number] in nature atrial shunt, bioprosthetic aortic valve appears well-seated, no vegetations visualized, trace aortic regurgitation. Bioprosthetic tricuspid valve appears well-seated. No vegetations visualized. Trace tricuspid regurgitation. Bioprosthetic mitral valve appears well-seated. Leaflets do appear mildly thickened in some views. Prior vegetation described is not visualized in this study. Mild mitral regurgitation Pt fits Beck's criteria for infective endocarditis - fever, immunologic phenomenon (janeway lesion), (+) blood cultures, hx of IVDU, awaiting for EDMUND report. EDMUND ordered and showing abscess near prosthetic mitral valve. Requesting transfer to [place] and informed pt on waiting. (4) IV drug abuse Priority: Secondary Status: Chronic Assessment and Plan: Pt has been using drugs since he was 10yo. Pt reported to me he is snorting cocaine but told another doctor he is injecting heroin 2 days ago UDS positive for cocaine and marijuana Pt consoled on rehab and getting clean off drugs (5) Hypokalemia Priority: Secondary Status: Acute Assessment and Plan: K 2.9 on admission. Repeat K 3.3, then 3.5 (6) Dyspnea Priority: Secondary Status: Acute Assessment and Plan: continue with supplemental oxygen. Qualifiers: Dyspnea type: unspecified Qualified Code(s): R06.00 - Dyspnea, unspecified (7) Chest pain Priority: Secondary Status: Acute Assessment and Plan: Pt states chest pain persists. Prn pain control and nitro SL. Qualifiers: Chest pain type: unspecified Qualified Code(s): R07.9 - Chest pain, unspecified (8) Infective endocarditis Priority: Secondary Status: Acute Assessment and Plan: Pt has been using drugs since he was 10yo. Pt reported to me he is snorting cocaine but told another doctor he is injecting heroin 2 days ago UDS positive for cocaine and marijuana Pt consoled on rehab and getting clean off drugs Qualifiers: Infective endocarditis organism: unspecified organism Chronicity: chronic Qualified Code(s): I38 - Endocarditis, valve unspecified (9) CAD (coronary artery disease) Priority: Secondary Status: Chronic Assessment and Plan: [place] in 07/2016. Heart valve replacement x 3. Continue telemetry Pt aspirin continued. EDMUND dated 02/14/18 shows LVEF of 55%, normal size and function, abnormal motion consistent with postoperative status, right ventricle was normal in size and systolic function, color Doppler demonstrates a small achr-gk-yggza in nature atrial shunt, bioprosthetic aortic valve appears well-seated, no vegetations visualized, trace aortic regurgitation. Bioprosthetic tricuspid valve appears well-seated. No vegetations visualized. Trace tricuspid regurgitation. Bioprosthetic mitral valve appears well-seated. Leaflets do appear mildly thickened in some views. Prior vegetation described is not visualized in this study. Mild mitral regurgitation. Repeat EDMUND ordered as per cardiology. Qualifiers: Coronary Disease-Associated Artery/Lesion type: unspecified vessel or lesion type [place] vs. transplanted heart: unspecified whether [place] or transplanted heart Associated angina: angina presence unspecified Qualified Code(s): I25.10 - Atherosclerotic heart disease of [place] coronary artery without angina pectoris (10) Nausea & vomiting Priority: Secondary Status: Acute Assessment and Plan: Zofran and Phenergan ordered prn for n/v Qualifiers: Vomiting type: cyclical vomiting Vomiting Intractability: non-intractable Qualified Code(s): G43.A0 - Cyclical vomiting, not intractable (11) Hypomagnesemia Priority: Secondary Status: Acute Assessment and Plan: Mg 1.4 - replaced Mag Oxide 400mg BID. Mag now 1.7, corrected. (12) Medical non-compliance Priority: Secondary Status: Acute Assessment and Plan: Pt missed doses of Vancomycin from previous treatments and did not show up for some of his clinic appointments. He continues to use IVD. (13) Elevated troponin Priority: Primary Status: Acute Assessment and Plan: Initial troponin of 0.08. Repeat troponin 0.07. Most likely due to endocarditis vs demand ischemia from snorting cocaine. Note that pt does have a hx of elevated troponins chronically since 2014, 0.06 to 0.33 is the range Pt on continuous telemetry Hospital course: Mr. Quinn is a 42 year old male Discharge discussed with: patient - Time Spent with Patient Total time spent providing and/or coordinating discharge services: Greater than 30 minutes - Discharge Medications Home Medications: Aspirin Enteric Coated [Aspirin EC] 81 mg PO DAILY 04/29/18 [History] Doxycycline Hyclate [Doxycycline Hyclate] 100 mg PO Q12H 04/29/18 [History] Allergies/Adverse Reactions: 3 Allergy/AdvReac Type Severity Reaction Status Date / Time buprenorphine [From Suboxone] Allergy Hives Verified 04/28/18 23:17 Naloxone [From Suboxone] Allergy Hives Verified 04/28/18 23:17 trazodone Allergy Hives Verified 04/28/18 23:17 Date of admission: 04/29/18 12:56 Primary care physician: Taya Steel CNP Consults: 04/29/18 14:42 Consult to Hvac Project Manager [CONS] Routine Reason for SW Consult: Please assess patient for rehabilitation needs for drug abuse for post-discharge planning. 04/29/18 17:17 Consult to Cardiology [CONS] Routine Comment: Consulting Provider: Cardiology Jacque Reason for Consult: Patient presents w/CP that he describes as across entire chest and constant. Initial trop 0.11. Hx of elevated troponins since 2014. Hx of infective endocarditis d/t IV drug abuse. Injected heroin 2 days ago into left hand. Hx of DVT 2 years ago. EDMUND on 02/14/18 showed LVEF of 55%, normal size and function, abnormal (paradoxical) motion consistent with postoperative status. Color Doppler demonstrates small lukq-as-qhhmo intra-atrial shunt. Hx of aortic, tricuspid, and mitral valve replacements. Call Completed: Yes - Constitutional Vitals: Temp Pulse Resp BP Pulse Ox 98.1 F 78 16 136/80 94 05/01/18 11:27 05/01/18 11:27 05/01/18 11:27 05/01/18 11:27 05/01/18 11:27 General appearance: Present: cooperative, mild distress, A&O X 3, pleasant, obese, answers questions appropriately - Head Head exam: Present: atraumatic, normocephalic - Eye Eye exam: Present: PERRL, conjuntiva pink, sclera anicteric Pupils: Present: PERRL - Neck Neck exam general surgery: Present: supple, trachea midline. Absent: lymphadenopathy - Respiratory Respiratory exam: Present: CTAB. Absent: accessory muscle use, rales, rhonchi, wheezes - Cardiovascular Cardiovascular exam: Present: RRR, +S1, +S2, systolic murmur. Absent: diastolic murmur, gallop, rubs Additional comments: positive murmurs - GI/Abdominal GI/Abdominal exam: Present: normal bowel sounds, soft, no peritoneal signs. Absent: distended, tenderness - Extremities Exam Extremities exam: Present: warm, radial pulses palpable and symmetrical. Absent : calf tenderness, cyanotic, pedal edema - Neurological Exam Neurological exam: Present: CN II-XII intact, oriented X3, no focal deficits. Absent: pronater drift, facial droop, speech deficit - Skin Skin exam: Present: dry, intact - Patient Status Disposition: Transfer Other Condition: Serious - Discharge Instructions Follow Up With: Taya Steel CANDY WRAPPING MACHINE OPERATOR [Primary Care Provider] - - Diet and Activity Activity: increase activity as tolerated Diet: advance to your usual diet
[2018-05-01 19:34] VITALS: BP 132/83
--- NOTE | 2018-05-01 20:58 | Event Note ---
Date of Encounter: 05/01/18 Time of Encounter: 20:57 Called by RN earlier about patient leaving AMA. I could not come down to talk to him at that moment as I was tied up with another critical patient. I called down to speak with RN and to talk with patient at this moment, but he already left AMA before I could talk to him.
== END 2018-05-01 20:30 | disposition other institution (70) | DRG 720 ==
LOC: EMEROO 23:16 → 2SOUTHHOLD 04-29 12:56
PROVIDERS: ADMIT Student in an Organized Health Care Education/Training Program; ATTEND Student in an Organized Health Care Education/Training Program